=== PATIENT | female | born 1945 | race Caucasian/White ===

== ENCOUNTER 2018-03-31 06:09 | Day surgery (SDC) | payer OTHER ==
[~2018-03-31] VITALS: Ht 167.6 cm; Wt 91.3 kg
[~2018-03-31 06:09] MED LIST: CYCL-36 PO; FURO20 PO; LISI-363 PO; VIST50CA PO; [UNRECOGNIZED DRUG - CODE] PO
[2018-03-31] MEDS ORDERED: IOHEXOL 350 MG/ML 50 ML BTL (for Cath Lab) OTHER ONE (06:10)
[2018-03-31] MEDS ORDERED: SODIUM BICARBONATE 100 MEQ in D5W 1000 ML IV SCH (06:45)
[2018-03-31 07:11] VITALS: BP 125/72; PULSE 85; RESP 18; TEMP 98.4; O2SAT 95
--- NOTE | 2018-03-31 07:39 | PD.VS.PN ---
Pre-operative Note Pre-operative diagnosis: L LE claudication Planned procedure: Aortogram w/ L LE angiogram Interval History: Pt has been feeling well, no rest pain or tissue loss. Ready for procedure Labs: pending Blood: none Imaging: CTA reviewed Orders: NPO Post-operative destination: DOCU Operative site marked: Yes Consent: Informed consent has been obtained from Micheline Ovreton. I have explained the procedure in detail and discussed the risks, benefits, and potential complications. All questions have been answered. Patient contact information: Daughter [phone] Les Briggs MD March 31, 2018 07:39
[2018-03-31] MEDS ORDERED: LISI40TA PO (07:48)
[2018-03-31] MEDS ORDERED: CYCL10TA PO (07:48)
[2018-03-31] MEDS ORDERED: ASPI325T33 PO (07:48)
[2018-03-31] MEDS ORDERED: UBID200C3 PO (07:48)
[2018-03-31] MEDS ORDERED: ATOR10TA15 PO (07:48)
[2018-03-31] MEDS ORDERED: AMLO10TA2 PO (07:48)
[2018-03-31] MEDS ORDERED: NAPR500T2 PO (07:48)
[2018-03-31] MEDS ORDERED: PROZ20CA11 PO (07:48)
[2018-03-31] MEDS ORDERED: OMEGCAP PO (07:48)
[2018-03-31] MEDS ORDERED: HYDR12.56 PO (07:48)
[2018-03-31] MEDS ORDERED: METF500T PO (07:48)
[2018-03-31] MEDS ORDERED: VITA100T65 PO (07:48)
[2018-03-31] MEDS ORDERED: NEUR600T PO (07:48)
[2018-03-31] MEDS ORDERED: MULT-65 PO (07:48)
[2018-03-31 08:03] LABS: CREATININE 0.94 MG/DL (0.50-1.00)
[2018-03-31] MEDS ORDERED: HEPARIN-NS/PF INJ 500 ML ONE (08:03)
[2018-03-31] MEDS ORDERED: MIDAZOLAM HCL 2 MG/2 ML VIAL ONE ×2 (08:03→08:36)
[2018-03-31] MEDS ORDERED: HEPARIN SODIUM - IV 10,000 UNITS/10 ML VIAL ONE (08:27)
[2018-03-31] MEDS ORDERED: HEPARIN-NS/PF INJ 1,000 ML ONE (08:27)
--- NOTE | 2018-03-31 08:55 | HHI.PR ---
cc: Les Briggs MD Immediate Post Op Note Procedure Date: March 31, 2018 Pre Op Diagnosis: L LE claudication Post Op Diagnosis: same Surgeon: Les Briggs Retail Sales Assistant(s): none Procedure: Aortogram w/ L LE angiogram Findings: distal SFA occlusion, unable to recanalize Additional Information: R FINE DINING SERVER Angioseal Complications: none Specimen(s) removed: none Estimated blood loss: 10mL Anesthesia: MAC Drains: None Patient to: Other (DOCU) Patient Condition: Good Implant/Devices: SEE IMPLANT LOG (if applicable) Date/Time of Procedure: SEE SURGICAL CARE RECORD Les Briggs MD March 31, 2018 08:55
--- NOTE | 2018-03-31 08:57 | CATHPROC ---
SCADA Access HIS Report Study Information Study Number Admission Scheduled Start Study Start [id number] Mar 31 2018 6:09AM 03/31/2018 Mar 31 2018 7:58AM [place] Service Cath Endovascular Study Admit Source Facility Department Other [facility] - Prep Cook Physician and Clinical Staff Initial Les Martínez Furniture InspectorStan Gomes,ACACIA Furniture InspectorFrieda Roman,ACACIA Recorder Beck Pacheco,(R) Scrub Kd Cheung RCIS(BS) Procedures Performed Procedure Location (Site) Vessel Name Abdominal Angiogram Abd Aorta (A3) Aorta Angiogram (manual) Iliac L. Com. (L4) Illiac Art. Angiogram (manual) SFA (left) Femoral Art Wire insertion Fem Art (right) Femoral Art Equipment Time Log Snaker Description Size Mfg Part Number Used/Scraped CATHETER, FR4 NAVIN [id number] 08:42 ANGIO-DYNAMICS FR 4 Used 65CM *[id number] 08:13 ANGIO-DYNAMICS OMNI FLUSH 65CM CATHETER FR 5 Used *[id number] INTRODUCER SET, 08:12 [employer]OOK [employer]. FR 5 [id number] *[id number] Used MICROPUNCTURE STIFF CXI-4.0-35-135- 08:30 COOK/NUBIA CATHETER, FR4 CXI SUPPORT FR 4 Used P-NS-0 *[id number] SHEATH, FR6 HUMBLE 1 FLEXOR [id number] 08:26 COOK/NUBIA FR 6 Used 55CM *[id number] WIRE, GUIDE APPROACH LACQUER SPRAYER [id number] 08:30 COOK/NUBIA 300CM Used MICROWIRE *[id number] 08:46 DAIG/ST. JITENDRA MEDICAL ANGIOSEAL, FR6 VIP FR 6 Used *[id number] 08:12 [employer] PACK, CCL CUSTOM * Used *[id number] [id number] 08:26 Voicendo MEDICAL WIRE, BRICEÑO 260CM .035 260CM Used *[id number] TUBING, PRESSURE INJECTION [id number] 08:12 NAMIC PACER 72" Used 72" *[id number] 08:12 NYCOMED OMNIPAQUE, 300 MG, 150ML 150ML [id number] Used 08:12 NYCOMED OMNIPAQUE, 300 MG, 50ML 50ML [id number] Used 08:39 NYCOMED OMNIPAQUE, 300 MG, 50ML 50ML [id number] Used 08:39 NYCOMED OMNIPAQUE, 300 MG, 50ML 50ML [id number] Used 08:39 NYCOMED OMNIPAQUE, 300 MG, 50ML 50ML [id number] Used [id number] 08:12 MENDOZA MEDICAL BLANKET,WARM AIR CCL * Used *[id number] 08:14 TERUMO MEDICAL SHEATH, FR5 TERUMO (10CM) FR 5 Used *[id number] CATHETER, FR4 GUIDE ANGLED 08:42 TERUMO MEDICAL/NUBIA FR 4 [id number] *[id number] Used 120CM WIRE, ANGLED GLIDE .035 [id number] 08:12 TERUMO MEDICAL/NUBIA 260CM Used 260CM *[id number] Equipment Model, Serial, Lot Number and Expiration Data Description Model Number Serial Number Lot Number Expiration Date ANGIOSEAL, FR6 VIP [id number] 11-08-2018 CATHETER, FR4 CXI SUPPORT [id number] 02-22-2021 SHEATH, FR6 HUMBLE 1 FLEXOR [id number] 12-08-2020 55CM WIRE, GUIDE APPROACH LACQUER SPRAYER [id number] 04-26-2022 MICROWIRE WIRE, BRICEÑO 260CM .035 [id number] 08-08-2020 History: Current Medications Medication Dosage/Unit Route Frequency Last Date/Time Taken Statins (any) ASA LISINOPRIL Glucophage Prozac History: Allergies Allergy Reaction No Known Allergies milk History: Risk Factors Family History of Hypertension Dyslipidemia Previous DE Previous Heart Failure Premature CAD Yes Yes No No No Prior Valve Prior PCI Prior CABG Surgery No No No Cerebrovascular Peripheral Artery Chronic Lung On Dialysis Diabetes Diabetes Therapy Disease Disease Disease No No Yes No Yes Other History: Risk Factors Selection Items Current Smoker History: Stress Tests Stress or Imaging Studies Performed No History: Other Disease Selection Items HTN History: Other Current Smoker Method Packs a Day Years Used Pack Years Yes Cigarettes 1 25 25 Labs CPK-MB (ng/ML) 0.50-3.60 Not Drawn Medication Medication Total Dose (Bolus/Oral) Medication Total Dosage/Unit 1% XYLOCAINE 20 mL FENTANYL 125 mcg HEPARIN 5000 units VERSED 3 mg Medications (Bolus/Oral) Medication Time Given Dosage/Unit Administered By Reason 1% XYLOCAINE 03/31/2018 8:15:30 AM 20 mL Stan Dubois 20 mL 1% XYLOCAINE given in lab by Stan Dubois, RN via Subcutaneous. VERSED 03/31/2018 8:15:31 AM 1 mg Adamy, Frieda 1 mg VERSED given in lab by Frieda Lawson RN in Right Antecubital via Peripheral IV. FENTANYL 03/31/2018 8:15:47 AM 50 mcg Adamy, Frieda 50 mcg FENTANYL given in lab by Frieda Lawson RN in Right Antecubital via Peripheral IV. VERSED 03/31/2018 8:23:27 AM 1 mg Adamy, Frieda 1 mg VERSED given in lab by Frieda Lawson RN in Right Antecubital via Peripheral IV. FENTANYL 03/31/2018 8:24:45 AM 50 mcg Adamy, Frieda 50 mcg FENTANYL given in lab by Frieda Lawson RN in Right Antecubital via Peripheral IV. HEPARIN 03/31/2018 8:26:45 AM 5000 units Adamy Frieda 5000 units HEPARIN given in lab by Frieda Lawson RN in Right Antecubital via Peripheral IV. VERSED 03/31/2018 8:40:25 AM 1 mg Adamy, Frieda 1 mg VERSED given in lab by Frieda Lawson RN in Right Antecubital via Peripheral IV. FENTANYL 03/31/2018 8:40:33 AM 25 mcg Adamy, Frieda 25 mcg FENTANYL given in lab by Frieda Lawson RN in Right Antecubital via Peripheral IV. Medication (Drip) Medication Time Given Dosage/Unit Concentration/Unit Diluent (ml) Soluti on IV Solutions 03/31/2018 7:57:51 AM 0 mL (IV) 500 NaCl .9 IV Solutions given in lab by Stan Dubois RN in Right Antecubital via Peripheral IV. Pump/Drip Vel w = 20 ml/hr using NaCl .9. Initial Case Assessment Cardiovascular HR Rhythm NIBP Chest Pain 75 Sinus 125/76 0 Edema Present Skin color Skin None Normal Warm Dry Circulatory - Right Pulses Dorsalis Pedis Femoral 1 2 Scale (0,1,2,3,4,d) Circulatory - Left Pulses Dorsalis Pedis Femoral 1 2 Scale (0,1,2,3,4,d) Neurological State Oriented to time-place- Alert Moves all extremities person Respiration - General Respiration Rate SpO2 (%) O2 (lpm) (B/min) 15 98 0 Final Case Assessment Cardiovascular HR Rhythm NIBP Chest Pain 73 Sinus 98/65 0 Edema Present Skin color Skin None Normal Warm Dry Circulatory - Right Pulses Dorsalis Pedis Femoral 1 2 Scale (0,1,2,3,4,d) Circulatory - Left Pulses Dorsalis Pedis Femoral 1 2 Scale (0,1,2,3,4,d) Neurological State Oriented to time-place- Alert Moves all extremities person Respiration - General Respiration Rate SpO2 (%) O2 (lpm) (B/min) 14 96 2 Chronological Log Time Study Chronological Log 7:57:42 Patient arrived via Bed. 7:57:43 Patient Name, D.O.B, / Armband Verified By R.N. 7:57:43 Consent signed by the physician and the patient and verified by the Prep Cook staff. 7:57:44 Pre-op and post- op instructions given; patient acknowledges understanding of instructions. 7:57:45 Verbal Stimulation=2 Physical Stimulation=2 Airway=2 Respiration=2 TOTAL=8. (0=absent, 1=li mited, 2=present) 7:57:45 Presedation assessment performed by Prep Cook RN. 7:57:46 Immediate Presedation assesment performed by physician. 7:57:47 Patient has been NPO for More than 6Hrs. 7:57:47 Skin Breakdown- none per patient. 7:57:48 Patient Warmer Placed on the Table. 7:57:50 Wyatt Prominences Protected 7:57:50 A # 20 IV was noted in the Antecubital (right). Grade = 0 IV Solutions given in lab by Stan Dubois, RN in Right Antecubital via Peripheral IV. Pump/Dr ip Flow = 20 ml/hr using 7:57:51 NaCl .9. 7:57:52 History and physical on the chart or being dictated. 8:00:46 MD arrived. Assessment: Initial Case, HR=75 BPM, Rhythm=Sinus, DZQN=078/76 mmhg, Chest Pain=0, Edema=None, Color=Normal, Skin = Warm, Dry Right Pulses: Db Ped=1, Femoral=2 8:03:58 Left Pulses: Db Ped=1, Femoral=2 Neurological: State=Alert, Ox3, [place] Respiration: Resp=15 B/min, SpO2=98 %, O2=0 lpm 8:07:53 Bilateral groins prepped with 2% chlorhexidine, and draped after a 3 minute waiting time. Vitals capture started with the following parameters, Patient=Adult, Interval=5 min, Initial Pre jtetg=476 mmHg, 8:08:05 Deflation Rate=5 mmHg, Cuff placed on Right Ankle 8:08:43 HR=76 bpm, EIMO=359/76 mmhg, SpO2=97.0 %, Resp=14 B/min, Pain=0, Kennedi=10, Mon=2 8:08:43 Reference ECG taken 8:13:44 HR=75 bpm, JEMX=429/67 mmhg, SpO2=96.0 %, Resp=17 B/min, Pain=0, Kennedi=10, Mon=2 Time Out. Correct patient, correct procedure, correct physician, labs, allergies, and equipment verified with geophysical laboratory supervisor 8:15:27 team present. Fire risk assesment completed (see hard stop sheet for coding). Time Out Concu rred by MD and individual staff in procedure. 8:15:28 Case Start 8:15:30 20 mL 1% XYLOCAINE given in lab by Stan Dubois, ACACIA via Subcutaneous. 8:15:31 1 mg VERSED given in lab by Frieda Lawson, RN in Right Antecubital via Peripheral IV. 8:15:47 50 mcg FENTANYL given in lab by Frieda Lawson, RN in Right Antecubital via Peripheral IV. 8:18:41 HR=73 bpm, NIBP=97/65 mmhg, SpO2=95.0 %, Resp=10 B/min, Pain=0, Kennedi=10, Mon=2 8:21:08 Access site was Right Femoral Artery. A INTRODUCER SET, MICROPUNCTURE STIFF FR 5 was advanced into the Fem Art (right) using the Hans linton 8:21:19 technique. A OMNI FLUSH 65CM CATHETER FR 5 was advanced over a wire. OMNIPAQUE, 300 MG, 50ML 50ML was used for 8:21:26 injections. 8:21:39 Through a OMNI FLUSH 65CM CATHETER FR 5, The Abdominal Aorta was injected with 10 cc's of co ntrast. 8:21:53 A WIRE, ANGLED GLIDE .035 260CM 260CM was inserted via Fem Art (right). 8:23:08 Wire removed 8:23:27 1 mg VERSED given in lab by Frieda Lawson, ACACIA in Right Antecubital via Peripheral IV. 8:23:38 HR=73 bpm, UIYY=993/61 mmhg, SpO2=93.0 %, Resp=18 B/min, Pain=0, Kennedi=10, Mon=2 8:24:28 Through a OMNI FLUSH 65CM CATHETER FR 5, The Fem L. Com (L7) was injected with 8 cc's of con trast. 8:24:45 50 mcg FENTANYL given in lab by Frieda Lawson, RN in Right Antecubital via Peripheral IV. 8:25:03 Through a OMNI FLUSH 65CM CATHETER FR 5, The SFA (left) was injected with 8 cc's of contrast . 8:25:12 Through a OMNI FLUSH 65CM CATHETER FR 5, The Popliteal L (L10) was injected with 8 cc's of c ontrast. 8:26:11 A WIRE, BRICEÑO 260CM .035 260CM was inserted via Fem Art (right). 8:26:21 Catheter was removed 8::45 5000 units HEPARIN given in lab by Frieda Lawson, ACACIA in Right Antecubital via Peripheral I V. 8:28:41 HR=72 bpm, NIBP=88/52 mmhg, SpO2=92.0 %, Resp=10 B/min, Pain=0, Kennedi=10, Mon=2 8:28:44 Iliac L. Com. (L4) angiogram, manually injected. A CATHETER, FR4 CXI SUPPORT FR 4 was advanced over a wire. OMNIPAQUE, 300 MG, 150ML 150ML was us ed for 8:31:15 injections. 8:31:47 The previous wire was exchanged for a WIRE, GUIDE APPROACH LACQUER SPRAYER MICROWIRE 300CM. 8:32:51 SFA (left) angiogram, manually injected. 8:33:05 The previous wire was exchanged for a WIRE, ANGLED GLIDE .035 260CM 260CM. 8:33:38 HR=74 bpm, NIBP=93/54 mmhg, SpO2=95.0 %, Resp=19 B/min, Pain=0, Kennedi=10, Mon=2 8:35:20 The previous wire was exchanged for a WIRE, GUIDE APPROACH LACQUER SPRAYER MICROWIRE 300CM. 8:36:12 SFA (left) angiogram, manually injected. 8:36:41 SFA (left) angiogram, manually injected. 8:37:15 A WIRE, ANGLED GLIDE .035 260CM 260CM was inserted via Fem Art (right). 8:38:34 SFA (left) angiogram, manually injected. 8:38:37 HR=72 bpm, NIBP=97/60 mmhg, SpO2=97.0 %, Resp=12 B/min, Pain=0, Kennedi=10, Mon=2 8:40:25 1 mg VERSED given in lab by Frieda Lawson, ACACIA in Right Antecubital via Peripheral IV. 8:40:33 25 mcg FENTANYL given in lab by Frieda Lawson, ACACIA in Right Antecubital via Peripheral IV. 8:43:39 HR=74 bpm, NIBP=92/61 mmhg, SpO2=91.0 %, Resp=33 B/min, Pain=0, Kennedi=10, Mon=2 8:43:45 Wire removed 8:43:59 SFA (left) angiogram, manually injected. After removing the current catheter a CATHETER, FR4 GUIDE ANGLED 120CM FR 4 was advanced over a WIRE, 8:44:21 ANGLED GLIDE .035 260CM 260CM. 8:46:05 SFA (left) angiogram, manually injected. 8:46:07 A WIRE, ANGLED GLIDE .035 260CM 260CM was inserted via Fem Art (right). 8:46:21 Catheter was removed 8:46:37 Wire removed 8:47:08 A WIRE, BRICEÑO 260CM .035 260CM was inserted via Fem Art (right). 8:47:29 ANGIOSEAL, FR6 VIP FR 6 placement in the Fem Art (right) 8:48:38 HR=71 bpm, NIBP=98/65 mmhg, SpO2=94.0 %, Resp=17 B/min, Pain=0, Kennedi=10, Mon=2 8:49:07 Case End Assessment: Final Case, HR=73 BPM, Rhythm=Sinus, NIBP=98/65 mmhg, Chest Pain=0, Edema=None, Col or=Normal, Skin = Warm, Dry Right Pulses: Db Ped=1, Femoral=2 8:49:45 Left Pulses: Db Ped=1, Femoral=2 Neurological: State=Alert, Ox3, [place] Respiration: Resp=14 B/min, SpO2=96 %, O2=2 lpm 8:50:34 Sterile dressing applied to site 8:50:35 No case complications noted. 8:50:35 Cine recording checked. 8:51:34 Bedside Report will be given. 8:53:41 HR=74 bpm, LMME=438/60 mmhg, SpO2=96.0 %, Resp=16 B/min, Pain=0, Kennedi=10, Mon=2 8:56:51 Vitals capture stopped. 8:56:52 Patient moved to stretcher End Study - Contrast Media Used In Study Contrast Total Opened (mL) Total Used (mL) Total Wasted (mL) Omnipaque 200 40 160 End Study - Radiation Exposure Fluoro Time (minutes) 12.7 End Study - Patient Disposition Complications Transferred To Interventional Outcome No Outpatient Bed unsuccessful
--- NOTE | 2018-04-01 05:03 | MP ---
cc: Les Briggs MD DATE OF OPERATION: 03/31/2018 PREOPERATIVE DIAGNOSIS: 1. Left lower extremity claudication. 2. Peripheral vascular disease. POSTOPERATIVE DIAGNOSIS: 1. Left lower extremity claudication. 2. Peripheral vascular disease. PROCEDURE PERFORMED: Aortogram with left lower extremity angiogram. ATTENDING SURGEON: Les Briggs MD ANESTHESIA: Local with sedation. INDICATIONS FOR PROCEDURE: Ms. Overton is a 72-year-old lady with left lower extremity claudication. She was taken to the operating room for angiographic evaluation and treatment. There is no prior catheter-based imaging available for my review. DESCRIPTION OF PROCEDURE: Informed consent was obtained from the patient. She was taken to the operating room and placed supine on the operating table. Appropriate timeout was taken to ensure the patient's identity, operative site and planned procedure. The administration of antibiotics was not necessary, as this is a clean procedure without planned implantation of any foreign object. Everyone in the room agreed with timeout and we proceeded. Her bilateral groins were prepped and draped. The right groin was anesthetized with 1 percent lidocaine. A 21-gauge micropuncture needle was used to access the right common femoral artery. This was exchanged using Seldinger technique for micropuncture sheath, through which a 0.035 Glidewire was introduced. The micropuncture sheath was exchanged for a 5-South [place] sheath. A VCF catheter was placed over the wire and through the sheath, and aortogram and pelvic arteriogram was obtained. The Glidewire and the VCF catheter were advanced to the left common femoral artery and a left lower extremity arteriogram was obtained. The patient was systemically heparinized with 5000 units of IV heparin. A 0.035 Salvador wire was introduced and the VCF and 5-South African sheath were removed and a 6-South African 55 cm ____ sheath was introduced. A CXI catheter was placed over the Salvador wire and the Salvador was exchanged for HOME ECONOMICS EXTENSION WORKER wire. The HOME ECONOMICS EXTENSION WORKER wire was used to navigate down to the mid SFA, but we could not traverse the occlusion. We then tried subintimal route with a Glidewire, but this was also unsuccessful in reentering the true lumen. The wire, catheter and sheath were removed. The groin was closed with an Angio-Seal. There were no complications. I was present and scrubbed for the entire procedure. INTERPRETATION OF IMAGES: The patient has a patent terminal aorta, common iliac arteries, hypogastric arteries and external iliac arteries bilaterally. There is some calcific plaque in the left common iliac artery. The left common femoral artery and profunda are patent. The SFA is severely diseased but patent proximally and then occludes in the mid section. The above-knee popliteal artery reconstitutes and the patient has reasonable runoff to the mid calf. MD LUANNE Schmidt/LEANN , 04:41 AM , 05:02 AM ARIELLA
== END 2018-03-31 12:15 | disposition home or self-care (01) ==
LOC: HCAT 06:09 → HDIC 06:09 → HCAT 12:15
PROVIDERS: ATTEND Surgery
DX: I73.9 Peripheral vascular disease, unspecified (principal); E11.9 Type 2 diabetes mellitus without complications; I10 Essential (primary) hypertension; E78.5 Hyperlipidemia, unspecified; M79.7 Fibromyalgia; M47.894 Other spondylosis, thoracic region; F32.9 Major depressive disorder, single episode, unspecified; Z79.84 Long term (current) use of oral hypoglycemic drugs
CPT/HCPCS: 36247; 75625; 75710; 82565; 99152; 99153; C1751; C1760; C1769; C1887; C1893; G0269; J1644; J2250; J3010; Q9967

== ENCOUNTER 2018-04-20 06:06 | Inpatient (IN) | payer OTHER, MEDICARE ==
[~2018-04-20] VITALS: Ht 167.6 cm; Wt 96.0 kg
[~2018-04-20 06:06] MED LIST changes: +AMLO10TA2 PO; +ASPI325T33 PO; +ATOR10TA15 PO; +COQ1200C3 PO; -CYCL-36 PO; +CYCL10TA PO; -FURO20 PO; +GABA600T PO; -LISI-363 PO; +LISI20TA PO; +METF500T PO; +MULT-65 PO; +NAPR250T4 PO; +OMEGCAP PO; +PROZ20CA11 PO; -VIST50CA PO; +VITA-142 PO; -[UNRECOGNIZED DRUG - CODE] PO
[2018-04-20] MEDS ORDERED: LACTATED RINGER'S 1000 ML IV PRN (06:30)
[2018-04-20] MEDS ORDERED: METOPROLOL TARTRATE 25 MG TAB PO PRN (06:30)
[2018-04-20] MEDS ORDERED: POVIDONE IODINE 5% (ANTISEPSIS KIT) 4 APPLICATIONS EACH NARE PRN (06:30)
[2018-04-20] MEDS ORDERED: CHLORHEXIDINE GLUCONATE 2 % 1 PACK (2 CLOTHS) TOPICAL PRN (06:30)
[2018-04-20] MEDS ORDERED: SODIUM CHLORID 0.9% 500 ML IV PRN (06:30)
[2018-04-20] MEDS ORDERED: HEPARIN SODIUM - IV 10,000 UNITS/10 ML VIAL ONE ×2 (07:03→09:05)
[2018-04-20] MEDS ORDERED: PROTAMINE SULFATE 50 MG/5 ML VIAL ONE (07:03)
[2018-04-20] MEDS ORDERED: ceFAZolin 2 GM PREMIX 50 ML ONE (07:03)
[2018-04-20] MEDS ORDERED: HEPARIN-NS/PF INJ 500 ML ONE (07:03)
[2018-04-20] MEDS ORDERED: THROMBIN (TOPICAL) 20,000 UNIT SPRAY KIT ONE ×2 (07:03→09:42)
[2018-04-20 07:30] LABS: AUTOMATED NEUTROPHIL # 6.4 TH/MM3 (1.8-7.7); BASOPHIL # 0.1 TH/MM3 (0-0.2); EOSINOPHIL # 0.3 TH/MM3 (0-0.4); EOSINOPHIL % 2.9 % (0.0-4.0); HEMATOCRIT 43.7 % (35.0-46.0); HEMOGLOBIN 14.8 GM/DL (11.6-15.3); LYMPH % 30.3 % (9.0-44.0); LYMPHOCYTE # 3.2 TH/MM3 (1.0-4.8); MEAN CELL VOLUME 91.8 FL (80.0-100.0); MEAN CORPUSCULAR HEMOGLOBIN 31.2 PG (27.0-34.0); MEAN CORPUSCULAR HGB CONC 33.9 % (32.0-36.0); MEAN PLATELET VOLUME 6.7 FL (7.0-11.0); MONO % 5.1 % (0.0-8.0); MONOCYTE # 0.5 TH/MM3 (0-0.9); NEUT % 60.7 % (16.0-70.0); PLATELET COUNT 348 TH/MM3 (150-450); RED BLOOD COUNT 4.76 MIL/MM3 (4.00-5.30); WHITE BLOOD COUNT 10.6 TH/MM3 (4.0-11.0)
--- NOTE | 2018-04-20 07:32 | HHI.HP ---
History of Present Illness Chief Complaint: LEFT leg pain History of Present Illness 72 yo female with L LE pain and PAD. Pain most c/w claudication. Failed endovascular attempts. Presents for distal bypass Past/Family/Social History Past Medical History PAD HTN OA depression DM fibromyalgia XOL HTN spondolysis Past Surgical History back surgery L LE angiogram Social History former tobacco Family History NC Home Medications Reported Medications Lisinopril/Hydrochlorothiazide (Lisinopril-Hctz 20-12.5 mg Tab) 20 Mg-12.5 Mg Tablet, 2 TAB PO DAILY for Blood Pressure Management 04/16/18 Vitamin E Acetate (Vitamin E) 400 Unit Capsule, 1 CAP PO DAILY 04/16/18 Naproxen (Naproxen) 250 Mg Tab, 500 MG PO BID, #60 TAB 0 Refills 04/16/18 Gabapentin (Gabapentin) 600 Mg Tab, 1200 MG PO TID, #90 TAB 0 Refills 04/16/18 Coenzyme Q10 (Ubidecarenone) (Co Q-10) 200 Mg Cap, 1 CAP PO DAILY for Nutritional Supplement 04/16/18 Fish Oil-Cholecalciferol ([place]-3 Fish Oil/Vitamin) 1,000-1,000 Mg Cap, 1 CAP PO DAILY for Nutritional Supplement, CAP 0 Refills 03/31/18 Multiple Vitamin (Multi-Vitamin Daily) 1 Tab Tab, 1 TAB PO DAILY for Nutritional Supplement, TAB 0 Refills 03/31/18 Metformin (Metformin) 500 Mg Tab, 500 MG PO BIDPC for Blood Sugar Management, # 60 TAB 0 Refills 03/31/18 Fluoxetine (Prozac) 20 Mg Cap, 60 MG PO DAILY, #30 CAP 0 Refills 03/31/18 Cyclobenzaprine (Flexeril) 10 Mg Tab, 10 MG PO TID for Muscle Spasm, #90 TAB 0 Refills 03/31/18 Atorvastatin (Atorvastatin) 10 Mg Tab, 10 MG PO HS for Cholesterol Management, # 30 TAB 0 Refills 03/31/18 Amlodipine (Amlodipine) 10 Mg Tab, 10 MG PO DAILY for Blood Pressure Management , #30 TAB 0 Refills 03/31/[address] (Aspirin EC) 325 Mg Tabdr, 650 MG PO BID, TAB 0 Refills 03/31/18 Discontinued Reported Medications Vitamin E (Vitamin E) 100 Unit Tab, 100 UNITS PO DAILY for Nutritional Supplement, TAB 0 Refills 03/31/18 Naproxen (Naproxen) 500 Mg Tab, 400 MG PO BID, #60 TAB 0 Refills 03/31/18 Hydrochlorothiazide (Hydrochlorothiazide) 12.5 Mg Tab, 12.5 MG PO DAILY, #30 TAB 0 Refills 03/31/18 Lisinopril (Lisinopril) 40 Mg Tab, 40 MG PO DAILY for Blood Pressure Management , #30 TAB 0 Refills 03/31/18 Ubidecarenone (Coenzyme Q-10) 200 Mg Capsule, 1600 MG PO DAILY 03/31/18 Coded Allergies: No Known Allergies (Verified Allergy, Unknown, 04/20/18) Review of Systems Constitutional: DENIES: Diaphoretic episodes, Fatigue, Fever, Weight gain, Weight loss, Chills, Dizziness, Change in appetite, Night Sweats Cardiovascular: DENIES: Chest pain, Palpitations, Syncope, Dyspnea on Exertion , PND, Lower Extremity Edema, Orthopnea, Claudication Physical Exam Vitals/I&O Date Time Temp Pulse Resp B/P (MAP) Pulse Ox O2 Delivery O2 Flow Rate FiO2 04/20/18 06:50 98.0 78 20 123/64 (83) 94 Neuro: alert, oriented, jovial HEENT: NC/AT; anicteric sclera Neck: no JVD Heart: reg rate, no M Lungs: clear B Vascular: no palpable L pedal pulses Extremities: no wounds Laboratory Tests Test 04/20/18 07:00 CTA and angio reviewed Caprini VTE Risk Assessment Caprini VTE Risk Assessment: No/Low Risk (score <= 1) Caprini Risk Assessment Model Point Value = 1 Point Value = 2 Point Value = 3 Point Value = 5 Age 41-60 Minor surgery BMI > 25 kg/m2 Swollen legs Varicose veins or History of unexplained or recurrent spontaneous Oral contraceptives or hormone replacement Sepsis (< 1 month) Serious lung disease, including pneumonia (< 1 month) Abnormal pulmonary function Acute myocardial infarction Congestive heart failure (< 1 month) History of inflammatory bowel disease Medical patient at bed rest Age 61-74 Arthroscopic surgery Major open surgery (> 45 min) Laparoscopic surgery (> 45 min) Malignancy Confined to bed (> 72 hours) Immobilizing plaster cast Central venous access Age >= 75 History of VTE Family history of VTE Factor V Leiden Prothrombin [id number] Lupus anticoagulant Anticardiolipin antibodies Elevated serum homocysteine Heparin-induced thrombocytopenia Other congenital or acquired thrombophilia Stroke (< 1 month) Elective arthroplasty Hip, pelvis, or leg fracture Acute spinal cord injury (< 1 month) Prophylaxis Regimen Total Risk Factor Score Risk Level Prophylaxis Regimen 0-1 Low Early ambulation 2 Moderate Order ONE of the following: *Sequential Compression Device (SCD) *Heparin 5000 units SQ BID 3-4 Higher Order ONE of the following medications: *Heparin 5000 units SQ TID *Enoxaparin/Lovenox 40 mg SQ daily (WT < 150 kg, CrCl > 30 mL/min) *Enoxaparin/Lovenox 30 mg SQ daily (WT < 150 kg, CrCl > 10-29 mL/min) *Enoxaparin/Lovenox 30 mg SQ BID (WT < 150 kg, CrCl > 30 mL/min) AND/OR *Sequential Compression Device (SCD) 5 or more Highest Order ONE of the following medications: *Heparin 5000 units SQ TID (Preferred with Epidurals) *Enoxaparin/Lovenox 40 mg SQ daily (WT < 150 kg, CrCl > 30 mL/min) *Enoxaparin/Lovenox 30 mg SQ daily (WT < 150 kg, CrCl > 10-29 mL/min) *Enoxaparin/Lovenox 30 mg SQ BID (WT < 150 kg, CrCl > 30 mL/min) AND *Sequential Compression Device (SCD) Assessment and Plan Plan L LE bypass (fem-BK pop) To OR Discharge Planning 2-3 days tete Kelsie Jackman [phone] Les Briggs MD Apr 20, 2018 07:32
[2018-04-20] MEDS ORDERED: MIDAZOLAM HCL 2 MG/2 ML VIAL ONE (07:35)
[2018-04-20] MEDS ORDERED: ACETAMINOPHEN 1000 MG/100 ML 100 ML IV ONE (07:35)
[2018-04-20 07:40] LABS: PROTHROMBIN TIME - PATIENT 10.2 SEC (9.8-11.6)
[2018-04-20 07:49] LABS: BICARBONATE 23.7 MEQ/L (21.0-32.0); CALCIUM 9.1 MG/DL (8.5-10.1); CREATININE 0.96 MG/DL (0.50-1.00)
[2018-04-20] MEDS ORDERED: BUPIVACAINE HCL PF 0.5% 30 ML VIAL INFIL ONE (08:52)
[2018-04-20] MEDS ORDERED: SUGAMMADEX SODIUM 200 MG/2 ML VIAL IV PUSH ONE (09:52)
--- NOTE | 2018-04-20 10:09 | HHI.PR ---
cc: Les Briggs MD Immediate Post Op Note Procedure Date: Apr 20, 2018 Pre Op Diagnosis: L LE claudication, PAD Post Op Diagnosis: L LE claudication, PAD Surgeon: Les Briggs Rendering Equipment Tender(s): Les Miramontes Procedure: L fem-BK pop bypass with 6mm PTFE Findings: palpable DP at end of case Complications: none Specimen(s) removed: none Estimated blood loss: 200mL Anesthesia: General Drains: None Fluids: 2100mL IVF Urinary Output (mLs): 200 Patient to: PACU Patient Condition: Good Implant/Devices: SEE IMPLANT LOG (if applicable) Date/Time of Procedure: SEE SURGICAL CARE RECORD Les Briggs MD Apr 20, 2018 10:09
[2018-04-20] MEDS ORDERED: BISACODYL 10 MG SUPP RECTAL PRN ×2 (10:15→12:15)
[2018-04-20] MEDS ORDERED: LACTULOSE SYRUP 20 GM/30 ML CUP PO PRN ×2 (10:15→12:15)
[2018-04-20] MEDS ORDERED: MAGNESIUM HYDROXIDE SUSP 30 ML CUP PO PRN ×2 (10:15→12:15)
[2018-04-20] MEDS ORDERED: SENNOSIDES 8.6 MG TAB PO PRN ×2 (10:15→12:15)
[2018-04-20] MEDS ORDERED: DO NOT ADM ANY ANTICOAGULANT DRUGS PRN (10:35)
[2018-04-20] MEDS ORDERED: ePHEDrine/NS 25 MG/5 ML SYRINGE ONE (11:03)
[2018-04-20] MEDS ORDERED: PHENYLEPHRINE HCL 10 MG/ML VIAL ONE (11:12)
[2018-04-20] MEDS ORDERED: *morphine SULFATE 8 MG/ML PERIprocedure ONLY ONE ×2 (11:21→11:34)
[2018-04-20] MEDS ORDERED: HYDROmorphone HCL PF 2 MG/ML VIAL ONE (11:49)
[2018-04-20 11:50] LABS: AUTOMATED NEUTROPHIL # 7.7 TH/MM3 (1.8-7.7); BASOPHIL # 0.1 TH/MM3 (0-0.2); BASOPHIL % 0.6 % (0.0-2.0); EOSINOPHIL # 0.1 TH/MM3 (0-0.4); EOSINOPHIL % 1.3 % (0.0-4.0); HEMATOCRIT 37.2 % (35.0-46.0); HEMOGLOBIN 12.4 GM/DL (11.6-15.3); LYMPH % 17.1 % (9.0-44.0); LYMPHOCYTE # 1.7 TH/MM3 (1.0-4.8); MEAN CORPUSCULAR HEMOGLOBIN 30.8 PG (27.0-34.0); MEAN CORPUSCULAR HGB CONC 33.5 % (32.0-36.0); MEAN PLATELET VOLUME 6.6 FL (7.0-11.0); MONO % 3.2 % (0.0-8.0); MONOCYTE # 0.3 TH/MM3 (0-0.9); NEUT % 77.8 % (16.0-70.0); PLATELET COUNT 285 TH/MM3 (150-450); RED BLOOD COUNT 4.04 MIL/MM3 (4.00-5.30); RED CELL DISTRIBUTION WIDTH 13.9 % (11.6-17.2); WHITE BLOOD COUNT 9.9 TH/MM3 (4.0-11.0)
[2018-04-20] MEDS ORDERED: SODIUM CHLOR 0.9% 250 ML INJ 250 ML IV ONE (12:00)
[2018-04-20] MEDS ORDERED: SODIUM CHLORID 0.9% 500 ML INJ 500 ML IV ONE (12:00)
[2018-04-20] MEDS ORDERED: GLYCOPYRROLATE 1 MG/5 ML SYRINGE IV PUSH ONE (12:00)
[2018-04-20] MEDS ORDERED: ePHEDrine/NS 25 MG/5 ML SYRINGE IV ONE (12:00)
[2018-04-20] MEDS ORDERED: PHENYLEPH/NS 1000 MCG/10 ML SYR IV ONE (12:00)
[2018-04-20] MEDS ORDERED: NORMOSOL R INJ 2,000 ML IV ONE (12:00)
[2018-04-20] MEDS ORDERED: LIDOCAINE HCL 1% PF 5 ML SYRINGE OTHER ONE (12:00)
[2018-04-20] MEDS ORDERED: PHENYLEPHRINE HCL 10 MG/ML VIAL IV ONE (12:00)
[2018-04-20] MEDS ORDERED: ROCURONIUM INJ 50 MG/5 ML SYRINGE IV PUSH ONE (12:00)
[2018-04-20] MEDS ORDERED: PROPOFOL 200 MG/20 ML AMP IV ONE (12:00)
[2018-04-20] MEDS ORDERED: ONDANSETRON HCL 4 MG/2 ML VIAL IV ONE (12:00)
[2018-04-20] MEDS ORDERED: NEOSTIGMINE 5 MG/5 ML SYRINGE IV PUSH ONE (12:00)
[2018-04-20] MEDS ORDERED: DEXAMETHASONE SOD PHOS 4 MG/ML VIAL IV ONE (12:00)
[2018-04-20] MEDS ORDERED: NURSING INFORMATION XX SCH (12:15)
[2018-04-20] MEDS ORDERED: POTASSIUM PHOSPHATE INJ 30 MMOL in SODIUM CHLOR 0.9% 250 ML INJ 250 ML IV PRN (12:15)
[2018-04-20] MEDS ORDERED: MAGNESIUM SULFATE INJ 2 GM in SODIUM CHLORIDE 0.9% INJ 96 ML IV PRN (12:15)
[2018-04-20] MEDS ORDERED: SODIUM PHOSPHATE INJ 30 MMOL in SODIUM CHLOR 0.9% 250 ML INJ 240 ML IV PRN (12:15)
[2018-04-20] MEDS ORDERED: POTASSIUM PHOSPHATE MONOBASIC 500 MG TAB PO/TUBE PRN (12:15)
[2018-04-20] MEDS ORDERED: POTASSIUM CHLOR 20 MEQ PREMIX 100 ML IV PRN ×2 (12:15)
[2018-04-20] MEDS ORDERED: POTASSIUM CHLORIDE 25 MEQ EFFERVESCENT TAB PO PRN (12:15)
[2018-04-20] MEDS ORDERED: SODIUM CHLORIDE 0.9% FLUSH 10 ML FLUSH IV FLUSH PRN (12:15)
[2018-04-20] MEDS ORDERED: POTASSIUM PHOSPHATE MONOBASIC 500 MG TAB PO PRN (12:15)
[2018-04-20] MEDS ORDERED: CHLORHEXIDINE GLUCONATE 2 % 1 PACK (2 CLOTHS) TOP PRN (12:15)
[2018-04-20] MEDS ORDERED: MAGNESIUM OXIDE 400 MG TAB PO PRN (12:15)
[2018-04-20] MEDS ORDERED: POTASSIUM CHLOR 40 MEQ PREMIX 100 ML IV PRN ×2 (12:15)
[2018-04-20] MEDS ORDERED: MAGNESIUM SULFATE INJ 4 GM in SODIUM CHLORIDE 0.9% INJ 92 ML IV PRN (12:15)
[2018-04-20] MEDS ORDERED: RESP: ALBUTEROL 2.5 MG/IPRATROPIUM 0.5 MG NEB (PRN) INH (12:15)
[2018-04-20] MEDS ORDERED: DEXTROSE 50% IN WATER 50 ML VIAL(D50) IV PUSH PRN (12:30)
[2018-04-20] MEDS ORDERED: TERBUTALINE INJ 1 MG/ML AMP SQ PRN ×2 (12:30→20:45)
[2018-04-20] MEDS ORDERED: PHENYLEPHRINE 40 MG in D5W 500 ML IV PRN ×2 (12:30→20:45)
[2018-04-20] MEDS ORDERED: GLUCAGON 1 MG/ML VIAL OTHER PRN (12:30)
--- NOTE | 2018-04-20 12:47 | MP ---
cc: Les Briggs MD DATE OF OPERATION: 04/20/2018 PREOPERATIVE DIAGNOSIS: Left lower extremity claudication, peripheral vascular disease. POSTOPERATIVE DIAGNOSIS: Left lower extremity claudication, peripheral vascular disease. PROCEDURE PERFORMED: Left femoral to below knee popliteal artery bypass with 6 mm PTFE. ATTENDING SURGEON: Les Briggs MD ANESTHESIA: General. INDICATIONS FOR PROCEDURE: Ms. Overton is a 73-year-old lady with left lower extremity peripheral vascular disease manifested in short distance, claudication. She had an angiogram that showed her lesions were not amenable to endovascular therapy and she was taken to the operating room for a distal bypass. DESCRIPTION OF PROCEDURE: Informed consent was obtained from the patient. She was taken to the operating room and placed supine on the operating table. An appropriate timeout was taken to ensure the patient's identity, operative site, and planned procedure. Everyone in the room agreed with the timeout and we proceeded. She was prepped from her nipples to her toes and an incision made in the patient's left groin and carried down through the subcutaneous tissue with electrocautery. We dissected down to the common femoral artery. The wound was noted to be quite deep. I dissected the common femoral artery, profunda and superficial femoral artery. A separate incision made in the patient's proximal medial calf. This was carried down through the subcutaneous tissue with electrocautery. The popliteal vein was identified and retracted posteriorly and the below-knee popliteal artery was identified and dissected free. It was noted to be quite soft. A tunnel was then created between these two and a 6 mm PTFE was passed through the tunnel. The patient was systemically heparinized and throughout the remainder of the case, the ACT was kept greater than 250. Proximal and distal control of the common femoral artery was obtained with profunda clamps and a longitudinal arteriotomy was made with an 11 blade. The artery was endarterectomized and the vascular graft was spatulated and sewn end-to-side with running 5-0 Prolene suture. At the completion, it was flushed and noted to be hemostatic. The clamps were released. The Valarie Softjaw was placed on the graft and the graft was then tunneled through the tunnel that was created, taking caution not to twist it. proximal and distal control of the below-knee popliteal artery was obtained with Profunda clamps and a longitudinal arteriotomy was made with an 11 blade, extended with German scissors. The graft was cut to an appropriate length, spatulated and sewn end-to-side to the below-knee popliteal artery with running 5-0 Prolene suture. At the completion, it was flushed and noted to be hemostatic. There was a palpable pulse in the foot. The wounds were irrigated and made hemostatic. The heparin was reversed with protamine. The wounds were closed with 2-0 Polysorb, 3-0 Polysorb and 4-0 Monocryl. The sponge and needle counts were correct at the end of the case. I was present and scrubbed for the entire procedure. MD LUANNE Schmidt/NISHANT , 12:11 PM , 12:46 PM
--- NOTE | 2018-04-20 14:08 | EKG ---
Date Performed: 04/20/2018 Time Performed: 07:01:15 PTAGE: 73 years EKG: Sinus rhythm NORMAL ECG No significant change from prior electrocardiogram. PREVIOUS TRACING : 03/16/2011 01.09 DOCTOR: Hernan Lane Interpretating Date/Time 04/20/2018 14:07:34
--- NOTE | 2018-04-20 14:46 | PD.VS.PN ---
Subjective POD #: 0 Procedure(s): L fem-BK pop bypass with 6mm PTFE Subjective/Hospital Course Pt alert in NAD Pt w/ hypotension episode in PACU B/P 109/57- on Jatin drip CBC ordered- and reviewed Pain controlled B LE warm w/ motor intact Palpable L DP Objective Vitals/I&O Date Time Temp Pulse Resp B/P (MAP) Pulse Ox O2 Delivery O2 Flow Rate FiO2 04/20/18 12:30 69 19 104/44 (64) 94 Nasal Cannula 2 04/20/18 12:15 72 23 120/59 (79) 94 Nasal Cannula 2 04/20/18 12:00 69 23 116/62 (80) 95 Nasal Cannula 2 04/20/18 11:45 69 23 114/60 (78) 95 Nasal Cannula 2 04/20/18 11:30 66 23 105/55 (72) 95 Nasal Cannula 2 04/20/18 11:15 65 20 55/39 (44) 95 Nasal Cannula 2 04/20/18 11:15 64 88/35 04/20/18 11:00 64 20 88/37 (54) 95 Nasal Cannula 2 04/20/18 10:45 69 22 56/48 (51) 94 Nasal Cannula 2 04/20/18 10:38 97.7 72 23 87/54 (65) 95 Nasal Cannula 2 04/20/18 06:50 98.0 78 20 123/64 (83) 94 04/20/18 04/20/18 04/20/18 07:00 15:00 23:00 Intake Total 2100 ml Output Total 400 ml Balance 1700 ml Exam: LE warm w/ motor intact Prevena wound vac in place (L groin) w/o hematoma or swelling Palpable L DP Laboratory Laboratory Tests Test 04/20/18 07:00 04/20/18 11:25 White Blood Count 10.6 9.9 Red Blood Count 4.76 4.04 Hemoglobin 14.8 12.4 Hematocrit 43.7 37.2 Mean Corpuscular Volume 91.8 92.0 Mean Corpuscular Hemoglobin 31.2 30.8 Mean Corpuscular Hemoglobin Concent 33.9 33.5 Red Cell Distribution Width 14.0 13.9 Platelet Count 348 285 Mean Platelet Volume 6.7 6.6 Neutrophils (%) (Auto) 60.7 77.8 Lymphocytes (%) (Auto) 30.3 17.1 Monocytes (%) (Auto) 5.1 3.2 Eosinophils (%) (Auto) 2.9 1.3 Basophils (%) (Auto) 1.0 0.6 Neutrophils # (Auto) 6.4 7.7 Lymphocytes # (Auto) 3.2 1.7 Monocytes # (Auto) 0.5 0.3 Eosinophils # (Auto) 0.3 0.1 Basophils # (Auto) 0.1 0.1 CBC Comment DIFF FINAL DIFF FINAL Differential Comment Prothrombin Time 10.2 Prothromb Time International Ratio 1.0 Blood Urea Nitrogen 19 Creatinine 0.96 Random Glucose 108 Calcium Level 9.1 Sodium Level 138 Potassium Level 3.8 Chloride Level 104 Carbon Dioxide Level 23.7 Anion Gap 10 Estimat Glomerular Filtration Rate 57 Phosphorus Level 4.7 Assessment and Plan Assessment: (1) PVD (peripheral vascular disease) Plan Pt S/P L LE bypass (fem-BK pop) POD 0 Pt w/ hypotension episode currently on Jatin drip Pt alert w/o c/o weakness/CP/SOB Pain controlled Plan Continue neurovascular checks Continue B/P monitoring Pain control Elizabeth Kennedy NP [facility]/[employer] [phone] Discharge Planning 2-3 days daughter Kelsie [phone] Elizabeth Kennedy Apr 20, 2018 14:46
[2018-04-20] MEDS: ACETAMINOPHEN 1000 MG/100 ML 100 ML IV SCH ×2 (14:57→21:18)
[2018-04-20] MEDS: CYCLOBENZAPRINE HCL 10 MG TAB PO SCH ×2 (14:57→17:55)
[2018-04-20] MEDS: GABAPENTIN 400 MG CAP PO SCH ×2 (14:57→17:56)
--- NOTE | 2018-04-20 15:25 | PD.CONS ---
[facility] Service Critical Care Medicine Consult Requested By Vascular Surgery Reason for Consult Critical care, hypotension Primary Care Physician Minesh Quinones MD History of Present Illness Gregarious 73-year-old woman status post left femoral to below-knee popliteal bypass using PTFE. She is alert and awake, quite talkative. Aside from some minor pain in the thighs she is comfortable. The left calf is soft and the dorsalis pedis pulse is palpable on the left side. The toes are pink and well- perfused. She has been instructed by me specifically to not flex the hip or knee on that side greater than 20% from straight. The nurse and her daughter understand these recommendations as well. She is now normotensive following a brief period of hypotension in the PACU. The graft is clearly patent. Past Family Social History Allergies: Coded Allergies: No Known Allergies (Verified Allergy, Unknown, 04/20/18) Physical Exam Vital Signs Vital Signs Date Time Temp Pulse Resp B/P (MAP) Pulse Ox O2 Delivery O2 Flow Rate FiO2 04/20/18 12:30 69 19 104/44 (64) 94 Nasal Cannula 2 04/20/18 12:15 72 23 120/59 (79) 94 Nasal Cannula 2 04/20/18 12:00 69 23 116/62 (80) 95 Nasal Cannula 2 04/20/18 11:45 69 23 114/60 (78) 95 Nasal Cannula 2 04/20/18 11:30 66 23 105/55 (72) 95 Nasal Cannula 2 04/20/18 11:15 65 20 55/39 (44) 95 Nasal Cannula 2 04/20/18 11:15 64 88/35 04/20/18 11:00 64 20 88/37 (54) 95 Nasal Cannula 2 04/20/18 10:45 69 22 56/48 (51) 94 Nasal Cannula 2 04/20/18 10:38 97.7 72 23 87/54 (65) 95 Nasal Cannula 2 04/20/18 06:50 98.0 78 20 123/64 (83) 94 Physical Exam Lungs: Clear no adventitious sounds, comfortable respiratory pattern. Heart: Regular rhythm, no JVD. Abdomen: Benign, soft, no guarding. Bowel sounds active. Extremities: Left leg warm and well-perfused, toes pink. Neuro: Conversant with some residual anesthetic effect. Protects airway well. Laboratory Laboratory Tests Test 04/20/18 07:00 04/20/18 11:25 White Blood Count 10.6 9.9 Red Blood Count 4.76 4.04 Hemoglobin 14.8 12.4 Hematocrit 43.7 37.2 Mean Corpuscular Volume 91.8 92.0 Mean Corpuscular Hemoglobin 31.2 30.8 Mean Corpuscular Hemoglobin Concent 33.9 33.5 Red Cell Distribution Width 14.0 13.9 Platelet Count 348 285 Mean Platelet Volume 6.7 6.6 Neutrophils (%) (Auto) 60.7 77.8 Lymphocytes (%) (Auto) 30.3 17.1 Monocytes (%) (Auto) 5.1 3.2 Eosinophils (%) (Auto) 2.9 1.3 Basophils (%) (Auto) 1.0 0.6 Neutrophils # (Auto) 6.4 7.7 Lymphocytes # (Auto) 3.2 1.7 Monocytes # (Auto) 0.5 0.3 Eosinophils # (Auto) 0.3 0.1 Basophils # (Auto) 0.1 0.1 CBC Comment DIFF FINAL DIFF FINAL Differential Comment Prothrombin Time 10.2 Prothromb Time International Ratio 1.0 Blood Urea Nitrogen 19 Creatinine 0.96 Random Glucose 108 Calcium Level 9.1 Sodium Level 138 Potassium Level 3.8 Chloride Level 104 Carbon Dioxide Level 23.7 Anion Gap 10 Estimat Glomerular Filtration Rate 57 Phosphorus Level 4.7 Result Diagram: 04/20/18 1125 04/20/18 0700 Assessment and Plan Assessment and Plan Assessment: 1. Peripheral arterial disease -> status post left femoral to below-knee arterial bypass using PTFE 04/20/18 2. Hyperlipidemia. Plan: 1. Maintain normotension, taper Jatin-Synephrine. 2. Check left dorsalis pedis pulse hourly. 3. Avoid flexion left hip or knee. Overall impression: She has stable hemodynamic and respiratory function. The left foot is warm and well-perfused. Left calf is soft. Thigh is not swollen. Nice result from revascularization, watch carefully tonight. Lopez Sykes MD Apr 20, 2018 15:25
[2018-04-20 16:00] VITALS: BP 98/43; PULSE 72; RESP 16; TEMP 98; O2SAT 96
[2018-04-20] MEDS: SODIUM CHLOR 0.9% 1000 ML INJ 1,000 ML IV SCH (16:14)
[2018-04-20] MEDS: INSULIN ASPART SUPPLEMENTAL SCALE SQ SCH ×2 (16:20→21:00)
[2018-04-20] MEDS: metFORMIN HCL 500 MG TAB PO SCH (17:56)
[2018-04-20] MEDS: MORPHINE SULFATE 4 MG/ML INJ IV PUSH PRN ×2 (19:25→22:49)
[2018-04-20 20:00] VITALS: BP_SYST 108; BP_SYST 94; BP_DIAS 46; BP_DIAS 52; PULSE 66; RESP 24; TEMP 97.7; O2SAT 96
[2018-04-20] MEDS ORDERED: NOREPINEPHRINE 4 MG/D5W 250 ML IV PRN ×2 (21:00→21:45)
[2018-04-20] MEDS ORDERED: VASOPRESSIN 40 U/D5W 100 ML Titrate IV PRN ×2 (21:00)
[2018-04-20] MEDS ORDERED: NAPROXEN 250 MG TAB PO SCH (21:00)
[2018-04-20] MEDS ORDERED: DOCUSATE SODIUM 50 MG/SENNA 8.6 MG TAB PO SCH (21:00)
[2018-04-20] MEDS: DOCUSATE SODIUM 50 MG/SENNA 8.6 MG TAB PO SCH (21:17)
[2018-04-20] MEDS: SODIUM CHLORIDE 0.9% FLUSH 10 ML FLUSH IV FLUSH SCH (21:17)
[2018-04-20] MEDS: ATORVASTATIN 10 MG TAB PO SCH (21:17)
[2018-04-20] MEDS: FAMOTIDINE 20 MG TAB PO SCH (21:17)
[2018-04-20] MEDS: HYDROmorphone HCL 2 MG TAB PO PRN (21:17)
[2018-04-21] VITALS (8 sets, daily range): BP systolic 94–148; BP diastolic 49–77; PULSE 66–95; RESP 16–20; TEMP 97.8–100.2; O2SAT 93–96
[2018-04-21] MEDS: SODIUM CHLOR 0.9% 1000 ML INJ 1,000 ML IV SCH ×3 (00:21→22:01)
[2018-04-21] MEDS: MORPHINE SULFATE 4 MG/ML INJ IV PUSH PRN ×6 (01:55→14:21)
[2018-04-21] MEDS ORDERED: PHENYLEPHRINE HCL 10 MG/ML VIAL ONE ×3 (02:24→02:26)
[2018-04-21] MEDS ORDERED: PHENYLEPHRINE 40 MG in D5W 500 ML IV PRN (02:45)
[2018-04-21] MEDS: ACETAMINOPHEN 1000 MG/100 ML 100 ML IV SCH ×2 (02:53→09:00)
[2018-04-21] MEDS: CHLORHEXIDINE GLUCONATE 2 % 1 PACK (2 CLOTHS) TOP SCH (04:00)
--- NOTE | 2018-04-21 07:24 | PD.VS.PN ---
Subjective POD #: 1 Procedure(s): L fem-BK pop bypass with 6mm PTFE Subjective/Hospital Course hypotensive last night likely intravascular depletion feels well today incisional pain foot ok Objective Vitals/I&O Date Time Temp Pulse Resp B/P (MAP) Pulse Ox O2 Delivery O2 Flow Rate FiO2 04/21/18 06:28 96 Nasal Cannula 3.00 04/21/18 04:18 67 120/51 04/21/18 04:14 24 04/21/18 04:00 97.8 66 19 107/57 (74) 96 118/50 (72) 04/21/18 02:00 24 04/21/18 02:00 24 04/21/18 00:00 98.0 73 18 98/77 (84) 96 113/49 (70) 04/20/18 22:47 18 04/20/18 20:00 Nasal Cannula 5.00 04/20/18 20:00 97.7 66 24 94/52 (66) 96 108/46 (66) 04/20/18 18:00 74 126/66 04/20/18 16:00 96 Nasal Cannula 5.00 04/20/18 16:00 98.0 72 16 98/43 (61) 96 04/20/18 16:00 72 04/20/18 14:00 80 110/66 04/20/18 13:45 98.1 73 24 101/55 (70) 94 Nasal Cannula 2 04/20/18 13:30 73 24 106/51 (69) 94 Nasal Cannula 2 04/20/18 13:15 72 25 97/54 (68) 94 Nasal Cannula 2 04/20/18 13:00 72 17 91/40 (57) 94 Nasal Cannula 2 04/20/18 12:45 71 14 95/42 (59) 95 Nasal Cannula 2 04/20/18 12:30 69 19 104/44 (64) 94 Nasal Cannula 2 04/20/18 12:15 72 23 120/59 (79) 94 Nasal Cannula 2 04/20/18 12:00 69 23 116/62 (80) 95 Nasal Cannula 2 04/20/18 11:45 69 23 114/60 (78) 95 Nasal Cannula 2 04/20/18 11:30 66 23 105/55 (72) 95 Nasal Cannula 2 04/20/18 11:15 65 20 55/39 (44) 95 Nasal Cannula 2 04/20/18 11:15 64 88/35 04/20/18 11:00 64 20 88/37 (54) 95 Nasal Cannula 2 04/20/18 10:45 69 22 56/48 (51) 94 Nasal Cannula 2 04/20/18 10:38 97.7 72 23 87/54 (65) 95 Nasal Cannula 2 04/21/18 04/21/18 04/21/18 07:00 15:00 23:00 Intake Total 1000 ml Balance 1000 ml Exam: resting comfortably no distress incisions ok with L groin Prevena Pulses: palpable DP Laboratory Laboratory Tests Test 04/20/18 11:25 04/20/18 17:00 04/21/18 05:48 White Blood Count 9.9 5.8 Red Blood Count 4.04 3.38 Hemoglobin 12.4 10.3 Hematocrit 37.2 30.2 Mean Corpuscular Volume 92.0 89.3 Mean Corpuscular Hemoglobin 30.8 30.5 Mean Corpuscular Hemoglobin Concent 33.5 34.1 Red Cell Distribution Width 13.9 14.5 Platelet Count 285 119 Mean Platelet Volume 6.6 7.3 Neutrophils (%) (Auto) 77.8 85.3 Lymphocytes (%) (Auto) 17.1 11.3 Monocytes (%) (Auto) 3.2 2.7 Eosinophils (%) (Auto) 1.3 0.5 Basophils (%) (Auto) 0.6 0.2 Neutrophils # (Auto) 7.7 5.0 Lymphocytes # (Auto) 1.7 0.7 Monocytes # (Auto) 0.3 0.2 Eosinophils # (Auto) 0.1 0.0 Basophils # (Auto) 0.1 0.0 CBC Comment DIFF FINAL DIFF FINAL Differential Comment Nasal Screen MRSA (PCR) MRSA NOT DETECTED Blood Urea Nitrogen 14 Creatinine 1.59 Random Glucose 244 Total Protein 4.7 Calcium Level 5.2 Sodium Level 151 Potassium Level 3.0 Chloride Level 113 Carbon Dioxide Level 15.0 Anion Gap 23 Estimat Glomerular Filtration Rate 32 Protein Corrected Calcium 6.2 Assessment and Plan Assessment: (1) PVD (peripheral vascular disease) Plan POD#1 s/p L fem-BK pop 1. Recheck BMP 2. D/C Velez and watch UOP 3. Continue pulse checks 4. OOB/TC and PT 5. If repeat BMP ok, transfer to CPCU Discharge Planning 2-3 days daughter Kelsie Jackman [phone] Les Briggs MD Apr 21, 2018 07:24
[2018-04-21] MEDS: INSULIN ASPART SUPPLEMENTAL SCALE SQ SCH ×4 (08:00→21:00)
[2018-04-21 08:36] LABS: BICARBONATE 25.9 MEQ/L (21.0-32.0); CALCIUM 7.9 MG/DL (8.5-10.1); CREATININE 0.63 MG/DL (0.50-1.00)
[2018-04-21] MEDS: DOCUSATE SODIUM 50 MG/SENNA 8.6 MG TAB PO SCH ×2 (08:54→21:52)
[2018-04-21] MEDS: HYDROCHLOROTHIAZIDE 25 MG TAB PO SCH (08:54)
[2018-04-21] MEDS: GABAPENTIN 400 MG CAP PO SCH ×3 (08:54→18:11)
[2018-04-21] MEDS: HYDROmorphone HCL 2 MG TAB PO PRN ×2 (08:54→14:22)
[2018-04-21] MEDS: MULTIVITAMIN TAB PO SCH (08:54)
[2018-04-21] MEDS: FAMOTIDINE 20 MG TAB PO SCH ×2 (08:54→21:51)
[2018-04-21] MEDS: CYCLOBENZAPRINE HCL 10 MG TAB PO SCH ×3 (08:54→18:11)
[2018-04-21] MEDS: FLUoxetine HCL 20 MG CAP PO SCH (08:54)
[2018-04-21] MEDS: VITAMIN E 400 UNIT CAP PO SCH (08:54)
[2018-04-21] MEDS ORDERED: LISINOPRIL PO SCH (09:00)
[2018-04-21] MEDS ORDERED: HYDROCHLOROTHIAZIDE PO SCH (09:00)
[2018-04-21] MEDS: metFORMIN HCL 500 MG TAB PO SCH ×3 (09:00→18:00)
[2018-04-21] MEDS ORDERED: NON-FORMULARY DRUG (Coenzyme Q10 (Ubidecarenone) (Co Q-10) 1 CAP) PO SCH (09:00)
[2018-04-21] MEDS: CHOLECALCIFEROL (VIT D3) 1000 UNIT TAB PO SCH (09:00)
[2018-04-21] MEDS: ASPIRIN EC 325 MG TABEC PO SCH (09:00)
[2018-04-21] MEDS: LISINOPRIL 20 MG TAB PO SCH (09:00)
[2018-04-21] MEDS ORDERED: [UNRECOGNIZED DRUG - OTHER] PO SCH (09:00)
[2018-04-21 10:17] LABS: AUTOMATED NEUTROPHIL # 8.5 TH/MM3 (1.8-7.7); BASOPHIL % 0.4 % (0.0-2.0); EOSINOPHIL # 0.1 TH/MM3 (0-0.4); EOSINOPHIL % 0.7 % (0.0-4.0); HEMATOCRIT 36.4 % (35.0-46.0); LYMPH % 20.6 % (9.0-44.0); LYMPHOCYTE # 2.4 TH/MM3 (1.0-4.8); MEAN CELL VOLUME 93.4 FL (80.0-100.0); MEAN CORPUSCULAR HEMOGLOBIN 30.9 PG (27.0-34.0); MEAN PLATELET VOLUME 6.6 FL (7.0-11.0); MONO % 6.5 % (0.0-8.0); MONOCYTE # 0.8 TH/MM3 (0-0.9); NEUT % 71.8 % (16.0-70.0); PLATELET COUNT 296 TH/MM3 (150-450); RED BLOOD COUNT 3.89 MIL/MM3 (4.00-5.30); RED CELL DISTRIBUTION WIDTH 13.8 % (11.6-17.2); WHITE BLOOD COUNT 11.8 TH/MM3 (4.0-11.0)
[2018-04-21] MEDS: ENOXAPARIN SODIUM 40 MG/0.4 ML SYRINGE SQ SCH (11:23)
[2018-04-21] MEDS: SODIUM CHLORIDE 0.9% FLUSH 10 ML FLUSH IV FLUSH SCH ×2 (12:48→21:00)
--- NOTE | 2018-04-21 13:13 | HHI.CCPN ---
Subjective Remarks/Hospital Course Gregarious 73-year-old woman status post left femoral to below-knee popliteal bypass using PTFE. She is alert and awake, quite talkative. Aside from some minor pain in the thighs she is comfortable. The left calf is soft and the dorsalis pedis pulse is palpable on the left side. The toes are pink and well- perfused. She has been instructed by me specifically to not flex the hip or knee on that side greater than 20% from straight. The nurse and her daughter understand these recommendations as well. She is now normotensive following a brief period of hypotension in the PACU. The graft is clearly patent. 04/21: Left foot well perfused, DP palpable. Well hydrated by perfusion and BUN result. To CPCU. Objective Vital Signs Date Time Temp Pulse Resp B/P (MAP) Pulse Ox O2 Delivery O2 Flow Rate FiO2 04/21/18 09:54 16 04/21/18 08:45 70 114/54 04/21/18 08:00 98.5 95 04/21/18 08:00 Nasal Cannula 3.00 Intake and Output 04/21/18 04/21/18 04/22/18 08:00 16:00 00:00 Intake Total 1000 ml 1323 ml Output Total 2700 ml Balance -1700 ml 1323 ml Result Diagram: 04/21/18 0818 04/21/18 0700 Objective Remarks Lungs: Clear no adventitious sounds, comfortable respiratory pattern. Heart: Regular rhythm, no JVD. Abdomen: Benign, soft, no guarding. Bowel sounds active. Extremities: Left leg warm and well-perfused, toes pink. Neuro: M/S grossly intact, conversant. A/P Assessment and Plan Assessment: 1. Peripheral arterial disease -> status post left femoral to below-knee arterial bypass using PTFE 04/20/18 2. Hyperlipidemia. Plan: 1. Maintain normotension, taper Jatin-Synephrine -> done. 2. Check left dorsalis pedis pulse q4h. 3. Avoid flexion left hip or knee. 4. Ambulate without flexion left leg. Overall impression: She has stable hemodynamic and respiratory function. The left foot is warm and well-perfused, calf remains soft. Lopez Sykes MD Apr 21, 2018 13:13
[2018-04-21] MEDS: CARISOPRODOL 350 MG TAB PO PRN ×2 (15:19→21:54)
[2018-04-21] MEDS: ATORVASTATIN 10 MG TAB PO SCH (21:52)
[2018-04-22] VITALS: BP 129/72; PULSE 96; RESP 20; TEMP 99.4; O2SAT 94
[2018-04-22 04:00] VITALS: BP 122/60; PULSE 85; RESP 18; TEMP 99.8; O2SAT 94
[2018-04-22] MEDS: CHLORHEXIDINE GLUCONATE 2 % 1 PACK (2 CLOTHS) TOP SCH (04:00)
[2018-04-22 06:22] LABS: HEMATOCRIT 37.1 % (35.0-46.0); HEMOGLOBIN 12.3 GM/DL (11.6-15.3); MEAN CELL VOLUME 93.7 FL (80.0-100.0); MEAN CORPUSCULAR HEMOGLOBIN 31.1 PG (27.0-34.0); MEAN CORPUSCULAR HGB CONC 33.2 % (32.0-36.0); PLATELET COUNT 242 TH/MM3 (150-450); RED BLOOD COUNT 3.96 MIL/MM3 (4.00-5.30); WHITE BLOOD COUNT 9.5 TH/MM3 (4.0-11.0)
[2018-04-22 06:33] LABS: BICARBONATE 29.2 MEQ/L (21.0-32.0); CREATININE 0.76 MG/DL (0.50-1.00)
[2018-04-22] MEDS: INSULIN ASPART SUPPLEMENTAL SCALE SQ SCH ×4 (07:48→21:00)
[2018-04-22 08:00] VITALS: BP 143/68; PULSE 78; RESP 18; TEMP 98.4; O2SAT 98
[2018-04-22] MEDS: LISINOPRIL 20 MG TAB PO SCH ×2 (08:20→09:27)
[2018-04-22] MEDS: SODIUM CHLORIDE 0.9% FLUSH 10 ML FLUSH IV FLUSH SCH ×2 (09:19→21:24)
[2018-04-22] MEDS: VITAMIN E 400 UNIT CAP PO SCH (09:20)
[2018-04-22] MEDS: DOCUSATE SODIUM 50 MG/SENNA 8.6 MG TAB PO SCH ×2 (09:20→21:00)
[2018-04-22] MEDS: HYDROCHLOROTHIAZIDE 25 MG TAB PO SCH (09:21)
[2018-04-22] MEDS: MULTIVITAMIN TAB PO SCH (09:22)
[2018-04-22] MEDS: metFORMIN HCL 500 MG TAB PO SCH ×2 (09:23→17:02)
[2018-04-22] MEDS: ASPIRIN EC 325 MG TABEC PO SCH (09:23)
[2018-04-22] MEDS: CHOLECALCIFEROL (VIT D3) 1000 UNIT TAB PO SCH (09:23)
[2018-04-22] MEDS: CARISOPRODOL 350 MG TAB PO PRN ×3 (09:24→21:19)
[2018-04-22] MEDS: FAMOTIDINE 20 MG TAB PO SCH ×2 (09:24→21:19)
[2018-04-22] MEDS: FLUoxetine HCL 20 MG CAP PO SCH (09:25)
[2018-04-22] MEDS: GABAPENTIN 400 MG CAP PO SCH ×3 (09:25→17:01)
[2018-04-22] MEDS: CYCLOBENZAPRINE HCL 10 MG TAB PO SCH ×3 (09:25→17:01)
[2018-04-22] MEDS: ENOXAPARIN SODIUM 40 MG/0.4 ML SYRINGE SQ SCH (09:26)
[2018-04-22] MEDS: HYDROmorphone HCL 2 MG TAB PO PRN ×2 (10:36→17:49)
[2018-04-22] MEDS ORDERED: COMMODE 3-IN-11 MIS (10:47)
--- NOTE | 2018-04-22 11:09 | HHI.FF ---
Face to Face Verification Diagnosis: (1) PVD (peripheral vascular disease) Physical Therapy Order: Evaluate and Treat, Improve ambulation, Strength and gait training Instructions: Pt s/p distal bypass (Left Fem -BK pop) Home Health Nursing Order: Signs/symptoms of disease process I have seen patient Micheline Overton on 04/22/18. My clinical findings support the need for the requested home health care services because: Pt is s/p distal bypass (Left Fem -BK pop) will need continued PT and HHC services for optimal progression of post operative healing Ltd mobility - disease progression Limited ability to care for self High risk of falls I certify that my clinical findings support that this patient is homebound because: Pt is s/p distal bypass (Left Fem -BK pop) will need continued PT and HHC services for optimal progression of post operative healing Post-op weakness Unsteady gait/balance Elizabeth Kennedy Apr 22, 2018 11:09
--- NOTE | 2018-04-22 11:28 | PD.VS.PN ---
Subjective POD #: 2 Procedure(s): L fem-BK pop bypass with 6mm PTFE Subjective/Hospital Course Pt S/P L LE revascularization POD 2 Pt doing well Pain controlled Pt normotensive LE warm w/ motor intact Distal pulses palpable Objective Vitals/I&O Date Time Temp Pulse Resp B/P (MAP) Pulse Ox O2 Delivery O2 Flow Rate FiO2 04/22/18 08:00 Nasal Cannula 5.00 04/22/18 08:00 98.4 78 18 143/68 (93) 98 04/22/18 04:00 99.8 85 18 122/60 (80) 94 04/22/18 00:00 99.4 96 20 129/72 (91) 94 04/21/18 22:10 92 Nasal Cannula 5.00 04/21/18 22:07 93 Nasal Cannula 5.00 04/21/18 21:30 100.2 95 20 148/65 (92) 93 04/21/18 16:19 18 04/21/18 16:00 98.6 80 16 94/55 (68) 94 04/21/18 16:00 80 04/21/18 15:22 16 04/21/18 13:47 15 04/21/18 12:35 21 04/21/18 12:00 98.6 77 16 104/67 (79) 95 Arterial Line 04/21/18 12:00 77 04/21/18 11:28 15 04/22/18 04/22/18 04/22/18 07:00 15:00 23:00 Intake Total 240 ml Output Total 800 ml 100 ml Balance -560 ml -100 ml Exam: GENERAL: A&OX3,NAD,GCS15 SKIN: LE Warm and dry w/ motor intact MUSCULOSKELETAL: No cyanosis, or edema. Pulses: Palpable L DP Incisions: Prevena wound vac to L groin intact w/o swelling or hematoma Laboratory Laboratory Tests Test 04/22/18 04:49 White Blood Count 9.5 Red Blood Count 3.96 Hemoglobin 12.3 Hematocrit 37.1 Mean Corpuscular Volume 93.7 Mean Corpuscular Hemoglobin 31.1 Mean Corpuscular Hemoglobin Concent 33.2 Red Cell Distribution Width 14.0 Platelet Count 242 Mean Platelet Volume 7.0 Blood Urea Nitrogen 7 Creatinine 0.76 Random Glucose 100 Calcium Level 8.0 Sodium Level 140 Potassium Level 3.5 Chloride Level 102 Carbon Dioxide Level 29.2 Anion Gap 9 Estimat Glomerular Filtration Rate 75 Assessment and Plan Assessment: (1) PVD (peripheral vascular disease) Plan POD#2 Pt s/p L fem-BK pop Pain controlled Reviewed labs Plan Continue neurovascular checks Continue PT- OOB/TC/Ambulate D/C Planning w/ HHS and OP PT Elizabeth Kennedy NP [facility]/[employer] [phone] Discharge Planning Tomorrow AM daughter Kelsie [phone] Elizabeth Kennedy Apr 22, 2018 11:28
--- NOTE | 2018-04-22 11:48 | HHI.DCPOC ---
Discharge Care Plan Diagnosis: (1) PVD (peripheral vascular disease) Your Health Problems Are: Difficulty with ADL Exercise Tolerance Goals to Promote Your Health * To prevent worsening of your condition and complications * To maintain your health at the optimal level Directions to Meet Your Goals Take your medications as prescribed Follow your dietary instruction Follow activity as directed Keep your appointments as scheduled Take your immunizations and boosters as scheduled If your symptoms worsen call your PCP, if no PCP go to Urgent Care Center or Emergency Room Smoking is Dangerous to Your Health. Avoid second hand smoke Call the 24-hour hour crisis hotline for domestic abuse at Grant Angel MD Apr 22, 2018 11:48
[2018-04-22] MEDS ORDERED: ASPI325T33 PO (11:51)
--- NOTE | 2018-04-22 11:55 | HHI.PR ---
Subjective Remarks Follow-up PAD. Complaining of leg spasm on Flexeril, soma and Dilaudid. Objective Vitals Vital Signs Date Time Temp Pulse Resp B/P (MAP) Pulse Ox O2 Delivery O2 Flow Rate FiO2 04/22/18 08:00 Nasal Cannula 5.00 04/22/18 08:00 98.4 78 18 143/68 (93) 98 04/22/18 04:00 99.8 85 18 122/60 (80) 94 04/22/18 00:00 99.4 96 20 129/72 (91) 94 04/21/18 22:10 92 Nasal Cannula 5.00 04/21/18 22:07 93 Nasal Cannula 5.00 04/21/18 21:30 100.2 95 20 148/65 (92) 93 04/21/18 16:19 18 04/21/18 16:00 98.6 80 16 94/55 (68) 94 04/21/18 16:00 80 04/21/18 15:22 16 04/21/18 13:47 15 04/21/18 12:35 21 04/21/18 12:00 98.6 77 16 104/67 (79) 95 Arterial Line 04/21/18 12:00 77 I/O 04/21/18 04/21/18 04/21/18 04/22/18 04/22/18 04/22/18 07:00 15:00 23:00 07:00 15:00 23:00 Intake Total 1000 ml 1323 ml 1640 ml 240 ml Output Total 2700 ml 800 ml 100 ml Balance -1700 ml 1323 ml 1640 ml -560 ml -100 ml Intake Oral 1640 ml 240 ml IV Total 1000 ml 1323 ml Output Urine Total 2700 ml 800 ml Stool Total 100 ml # Voids 3 # Bowel Movements 0 0 0 1 Result Diagram: 04/22/18 0449 04/22/18448 Objective Remarks General: Well-developed and well-nourished in no distress Skin warm no lesions Lungs: Clear no adventitious sounds, comfortable respiratory pattern. Heart: Regular rhythm, no JVD. Abdomen: Benign, soft, no guarding. Bowel sounds active. Extremities: Left leg warm and well-perfused, toes pink. Neuro: M/S grossly intact, conversant. A/P Assessment and Plan 1. Peripheral arterial disease -> status post left femoral to below-knee arterial bypass using PTFE 04/20/18. Stable continue postoperative care including antiplatelets and pain management counselled regarding narcotics. 2. Multiple medical conditions of hypertension, hyperlipidemia, diabetes mellitus and depression. Stable continue home medications as appropriate. Monitor fingersticks with sliding scale coverage 3. DVT prophylaxis with Lovenox Grant Angel MD Apr 22, 2018 11:55
[2018-04-22 12:00] VITALS: BP 124/66; PULSE 79; RESP 18; TEMP 97.9; O2SAT 94
[2018-04-22] MEDS: MORPHINE SULFATE 4 MG/ML INJ IV PUSH PRN (13:31)
[2018-04-22 16:00] VITALS: BP 132/66; PULSE 76; RESP 18; TEMP 98.2; O2SAT 94
--- NOTE | 2018-04-22 17:37 | RADRPT ---
EXAM DATE: 04/22/2018 5:24 PM EDT AGE/SEX: 73 years / Female INDICATIONS: Congestive heart failure. CLINICAL DATA: This is the patient's initial encounter. Patient reports that signs and symptoms have been present for 1 day and indicates a pain score of 0/10. MEDICAL/SURGICAL HISTORY: . Myocardial infarction. Ankylosing spondolytis. CABG. Appendectomy . Hysterectomy. COMPARISON: [facility] [place], CHEST SINGLE AP, 03/16/2011. . FINDINGS: A single AP view of the chest demonstrates the lungs to be symmetrically aerated without evidence of mass, infiltrate or effusion. The cardiomediastinal contours are unremarkable. Osseous structures a re intact. A degenerative thoracic spine. Cervical spinal fusion plate. CONCLUSION: No acute cardiopulmonary disease. Electronically signed by: Manoj Lawrence MD 04/22/2018 5:36 PM EDT
[2018-04-22 20:00] VITALS: BP 116/55; PULSE 79; RESP 22; TEMP 99; O2SAT 93
[2018-04-22] MEDS: ATORVASTATIN 10 MG TAB PO SCH (21:19)
[2018-04-23] VITALS: BP 108/59; PULSE 84; RESP 20; TEMP 98.5; O2SAT 96
[2018-04-23 04:00] VITALS: BP 126/69; PULSE 81; RESP 20; TEMP 98.2; O2SAT 97
[2018-04-23] MEDS: CHLORHEXIDINE GLUCONATE 2 % 1 PACK (2 CLOTHS) TOP SCH (04:00)
[2018-04-23] MEDS: INSULIN ASPART SUPPLEMENTAL SCALE SQ SCH ×2 (07:17→12:00)
[2018-04-23 08:00] VITALS: BP 95/51; PULSE 61; RESP 17; TEMP 98.4; O2SAT 92
[2018-04-23] MEDS: LISINOPRIL 20 MG TAB PO SCH (08:20)
[2018-04-23] MEDS: DOCUSATE SODIUM 50 MG/SENNA 8.6 MG TAB PO SCH (09:00)
--- NOTE | 2018-04-23 09:00 | HHI.PR ---
Subjective Remarks Follow-up PAD. States Soma helps with leg spasm. BP borderline low denies dizziness, weakness, chest pain and shortness of breath. BP meds on hold Objective Vitals Vital Signs Date Time Temp Pulse Resp B/P (MAP) Pulse Ox O2 Delivery O2 Flow Rate FiO2 04/23/18 04:00 98.2 81 20 126/69 (88) 97 04/23/18 00:00 98.5 84 20 108/59 (75) 96 04/22/18 20:00 99.0 79 22 116/55 (75) 93 04/22/18 16:00 98.2 76 18 132/66 (88) 94 04/22/18 12:00 97.9 79 18 124/66 (85) 94 I/O 04/22/18 04/22/18 04/22/18 04/23/18 04/23/18 04/23/18 07:00 15:00 23:00 07:00 15:00 23:00 Intake Total 240 ml 2000 ml 360 ml Output Total 800 ml 100 ml Balance -560 ml -100 ml 2000 ml 360 ml Intake Oral 240 ml 2000 ml 360 ml Output Urine Total 800 ml Stool Total 100 ml # Voids 5 3 # Bowel Movements 0 1 0 Result Diagram: 04/22/18 0449 04/22/18 0449 Imaging Last Impressions Chest X-Ray 04/22/18 0000 Signed Impressions: CONCLUSION: No acute cardiopulmonary disease. Objective Remarks General: Well-developed and well-nourished in no distress Skin warm no lesions Lungs: Clear no adventitious sounds, comfortable respiratory pattern. Heart: Regular rhythm, no JVD. Abdomen: Benign, soft, no guarding. Bowel sounds active. Extremities: Left leg warm and well-perfused, toes pink. Neuro: M/S grossly intact, conversant. A/P Assessment and Plan 1. Peripheral arterial disease -> status post left femoral to below-knee arterial bypass using PTFE 04/20/18. Stable continue postoperative care including antiplatelets and pain management counselled regarding narcotics. 2. Multiple medical conditions of hypertension, hyperlipidemia, diabetes mellitus and depression. Stable continue home medications as appropriate. Monitor fingersticks with sliding scale coverage. Continue to monitor BP. 3. Hypoxia. Chest x-ray without acute cardiopulmonary disease. Improved. Incentive spirometry and nebulization. Increase activity. Passed Oxygen walk test. DVT prophylaxis with Lovenox Abando,Red MD Apr 23, 2018 09:00
[2018-04-23] MEDS: ASPIRIN EC 325 MG TABEC PO SCH (09:07)
[2018-04-23] MEDS: SODIUM CHLORIDE 0.9% FLUSH 10 ML FLUSH IV FLUSH SCH (09:07)
[2018-04-23] MEDS: GABAPENTIN 400 MG CAP PO SCH ×2 (09:08→12:50)
[2018-04-23] MEDS: FLUoxetine HCL 20 MG CAP PO SCH (09:08)
[2018-04-23] MEDS: HYDROCHLOROTHIAZIDE 25 MG TAB PO SCH (09:08)
[2018-04-23] MEDS: VITAMIN E 400 UNIT CAP PO SCH (09:09)
[2018-04-23] MEDS: MULTIVITAMIN TAB PO SCH (09:09)
[2018-04-23] MEDS: CYCLOBENZAPRINE HCL 10 MG TAB PO SCH ×2 (09:09→12:49)
[2018-04-23] MEDS: CARISOPRODOL 350 MG TAB PO PRN (09:09)
[2018-04-23] MEDS: FAMOTIDINE 20 MG TAB PO SCH (09:09)
[2018-04-23] MEDS: CHOLECALCIFEROL (VIT D3) 1000 UNIT TAB PO SCH (09:09)
[2018-04-23] MEDS: metFORMIN HCL 500 MG TAB PO SCH (09:10)
[2018-04-23] MEDS: ENOXAPARIN SODIUM 40 MG/0.4 ML SYRINGE SQ SCH (09:13)
--- NOTE | 2018-04-23 09:27 | PD.VS.PN ---
Subjective POD #: 3 Procedure(s): L fem-BK pop bypass with 6mm PTFE Subjective/Hospital Course Pt S/P L LE revascularization POD 3 Pt doing well Pain controlled Pt normotensive LE warm w/ motor intact Distal pulses palpable Pt with large BM last night Pt denied abdominal pain Objective Vitals/I&O Date Time Temp Pulse Resp B/P (MAP) Pulse Ox O2 Delivery O2 Flow Rate FiO2 04/23/18 04:00 98.2 81 20 126/69 (88) 97 04/23/18 00:00 98.5 84 20 108/59 (75) 96 04/22/18 20:00 99.0 79 22 116/55 (75) 93 04/22/18 16:00 98.2 76 18 132/66 (88) 94 04/22/18 12:00 97.9 79 18 124/66 (85) 94 04/23/18 04/23/18 04/23/18 07:00 15:00 23:00 Intake Total 360 ml Balance 360 ml Exam: GENERAL: A&OX3,NAD,GCS15 SKIN: LE Warm and dry w/ motor intact MUSCULOSKELETAL: No cyanosis, or edema. Pulses: Palpable L/R DP Incisions: Prevena wound vac to L groin intact w/o swelling or hematoma Assessment and Plan Assessment: (1) PVD (peripheral vascular disease) Plan POD#3 Pt s/p L fem-BK pop Pain controlled Plan Pt clear for d/c to Rehab for optimal post operative healing Keep Wound Vac intact- Will remove out pt on THURSDAY Post operative care and management discussed w/ pt and daughter Elizabeth Kennedy NP [facility] [phone] Discharge Planning Today to Rehab daughter Kelsie [phone] Elizabeth Kennedy Apr 23, 2018 09:27
[2018-04-23] MEDS ORDERED: PERC5TAB12 PO (09:29)
--- NOTE | 2018-04-23 09:37 | PD.VS.DC ---
Discharge Summary Admission Date: Apr 20, 2018 at 06:06 Discharge Date: Apr 23, 2018 Admission Diagnosis: (1) PVD (peripheral vascular disease) Discharge Diagnosis: (1) PVD (peripheral vascular disease) ICD Codes: I73.9 - Peripheral vascular disease, unspecified Brief History from admission 72 yo female with L LE pain and PAD. Pain most c/w claudication. Failed endovascular attempts. Presents for distal bypass Procedure(s): L fem-BK pop bypass with 6mm PTFE Significant Findings GENERAL: A&OX3,NAD,GCS15 SKIN: LE Warm and dry w/ motor intact MUSCULOSKELETAL: No cyanosis, or edema. Pulses: Palpable L/R DP Incisions: Prevena wound vac to L groin intact w/o swelling or hematoma Laboratory Tests Test 04/20/18 11:25 04/20/18 17:00 04/21/18 05:48 04/21/18 07:00 Mean Platelet Volume 6.6 FL (7.0-11.0) Neutrophils (%) (Auto) 77.8 % (16.0-70.0) Random Glucose 107 MG/DL (74-106) Calcium Level 7.9 MG/DL (8.5-10.1) Test 04/21/18 08:18 04/22/18 04:49 White Blood Count 11.8 TH/MM3 (4.0-11.0) Red Blood Count 3.89 MIL/MM3 (4.00-5.30) 3.96 MIL/MM3 (4.00-5.30) Mean Platelet Volume 6.6 FL (7.0-11.0) Neutrophils (%) (Auto) 71.8 % (16.0-70.0) Neutrophils # (Auto) 8.5 TH/MM3 (1.8-7.7) Calcium Level 8.0 MG/DL (8.5-10.1) Estimat Glomerular Filtration Rate 75 ML/MIN (>89) Hospital Course: 72 yo female with L LE pain and PAD. Pain most c/w claudication. Failed endovascular attempts. Presents for distal bypass POD 0 Pt alert in NAD Pt w/ hypotension episode in PACU B/P 109/57- on Jatin drip CBC ordered- and reviewed Pain controlled B LE warm w/ motor intact Palpable L DP POD 1 hypotensive last night likely intravascular depletion feels well today incisional pain foot ok POD 2 Pt doing well Pain controlled Pt normotensive LE warm w/ motor intact Distal pulses palpable POD 3 Pt doing well Pain controlled Pt normotensive LE warm w/ motor intact Distal pulses palpable Pt with large BM last night Pt denied abdominal pain Pt d/c to rehab for continued post operative healing Reviewed E -Forcse- No recent activity Prescribed post operative pain medication for a duration of 3 days Allergies Coded Allergies Type Severity Reaction Last Updated Verified No Known Allergies Allergy Unknown 04/20/18 Yes Recent Impressions Chest X-Ray 04/22/18 0000 Signed Impressions: CONCLUSION: No acute cardiopulmonary disease. 04/21/18 04/21/18 04/22/18 04/22/18 04/23/18 04/23/18 06:00 18:00 06:00 18:00 06:00 18:00 Intake Total 1000 ml 2723 ml 480 ml 2000 ml 360 ml Output Total 2700 ml 800 ml 100 ml Balance -1700 ml 2723 ml -320 ml 1900 ml 360 ml Intake Oral 1400 ml 480 ml 2000 ml 360 ml IV Total 1000 ml 1323 ml Output Urine Total 2700 ml 800 ml Stool Total 100 ml # Voids 2 1 5 3 # Bowel Movements 0 0 0 1 0 Laboratory Tests Test 04/20/18 11:25 04/20/18 17:00 04/21/18 05:48 04/21/18 07:00 White Blood Count 9.9 TH/MM3 TH/MM3 Red Blood Count 4.04 MIL/MM3 MIL/MM3 Hemoglobin 12.4 GM/DL GM/DL Hematocrit 37.2 % % Mean Corpuscular Volume 92.0 FL FL Mean Corpuscular Hemoglobin 30.8 PG PG Mean Corpuscular Hemoglobin Concent 33.5 % % Red Cell Distribution Width 13.9 % % Platelet Count 285 TH/MM3 TH/MM3 Mean Platelet Volume 6.6 FL FL Neutrophils (%) (Auto) 77.8 % % Lymphocytes (%) (Auto) 17.1 % % Monocytes (%) (Auto) 3.2 % % Eosinophils (%) (Auto) 1.3 % % Basophils (%) (Auto) 0.6 % % Neutrophils # (Auto) 7.7 TH/MM3 TH/MM3 Lymphocytes # (Auto) 1.7 TH/MM3 TH/MM3 Monocytes # (Auto) 0.3 TH/MM3 TH/MM3 Eosinophils # (Auto) 0.1 TH/MM3 TH/MM3 Basophils # (Auto) 0.1 TH/MM3 TH/MM3 CBC Comment DIFF FINAL Differential Comment Nasal Screen MRSA (PCR) MRSA NOT DETECTED Blood Urea Nitrogen MG/DL 9 MG/DL Creatinine MG/DL 0.63 MG/DL Random Glucose MG/DL 107 MG/DL Total Protein GM/DL Calcium Level MG/DL 7.9 MG/DL Sodium Level MEQ/L 139 MEQ/L Potassium Level MEQ/L 3.9 MEQ/L Chloride Level MEQ/L 105 MEQ/L Carbon Dioxide Level MEQ/L 25.9 MEQ/L Anion Gap MEQ/L 8 MEQ/L Estimat Glomerular Filtration Rate ML/MIN 93 ML/MIN Protein Corrected Calcium MG/DL Test 04/21/18 08:18 04/22/18 04:49 White Blood Count 11.8 TH/MM3 9.5 TH/MM3 Red Blood Count 3.89 MIL/MM3 3.96 MIL/MM3 Hemoglobin 12.0 GM/DL 12.3 GM/DL Hematocrit 36.4 % 37.1 % Mean Corpuscular Volume 93.4 FL 93.7 FL Mean Corpuscular Hemoglobin 30.9 PG 31.1 PG Mean Corpuscular Hemoglobin Concent 33.0 % 33.2 % Red Cell Distribution Width 13.8 % 14.0 % Platelet Count 296 TH/MM3 242 TH/MM3 Mean Platelet Volume 6.6 FL 7.0 FL Neutrophils (%) (Auto) 71.8 % Lymphocytes (%) (Auto) 20.6 % Monocytes (%) (Auto) 6.5 % Eosinophils (%) (Auto) 0.7 % Basophils (%) (Auto) 0.4 % Neutrophils # (Auto) 8.5 TH/MM3 Lymphocytes # (Auto) 2.4 TH/MM3 Monocytes # (Auto) 0.8 TH/MM3 Eosinophils # (Auto) 0.1 TH/MM3 Basophils # (Auto) 0.0 TH/MM3 CBC Comment DIFF FINAL Differential Comment Blood Urea Nitrogen 7 MG/DL Creatinine 0.76 MG/DL Random Glucose 100 MG/DL Calcium Level 8.0 MG/DL Sodium Level 140 MEQ/L Potassium Level 3.5 MEQ/L Chloride Level 102 MEQ/L Carbon Dioxide Level 29.2 MEQ/L Anion Gap 9 MEQ/L Estimat Glomerular Filtration Rate 75 ML/MIN Orders Procedure Category Date Status Time Thrombin Top [place] MED 04/20/18 Complete (Thrombin Top [place]) 09:42 Sugammadex Inj MED 04/20/18 Complete ([place] Inj) 09:52 Amlodipine (Norvasc) MED 04/21/18 In Process 09:00 Atorvastatin (Lipitor) MED 04/20/18 In Process 21:00 Cyclobenzaprine MED 04/20/18 In Process (Flexeril) 13:00 Fluoxetine (Prozac) MED 04/21/18 In Process 09:00 Metformin (Glucophage) MED 04/20/18 In Process 18:00 (Nf) Coenzyme Q10 MED 04/21/18 Complete (Ubidecarenone) (Co Q- 09:00 Cholecalciferol MED 04/21/18 In Process (Vitamin D3) 09:00 Multivitamin MED 04/21/18 In Process (Theragran) 09:00 Vitamin E (Vitamin E) MED 04/21/18 In Process 09:00 Admit To Inpatient ADMITTING 04/20/18 Transmitted Code Status CODE 04/20/18 Complete 10:11 Mechanical And Auto Body Car Checker / NEMO 04/20/18 In Process Telemetry 10:11 Activity Oob Ad Jamilah NEMO 04/21/18 In Process 08:00 Activity Bed Rest NEMO 04/20/18 In Process 10:11 Precautions NEMO 04/20/18 In Process 10:11 ^ Vac Dressing To Be NEMO 04/20/18 In Process Used 10:11 Diet Heart Healthy DIET 04/20/18 Transmitted Lunch Consult Pt Eval & PT 04/20/18 Logged Treat 10:11 Famotidine (Pepcid) MED 04/20/18 In Process 21:00 Oxycodone (Roxicodone) MED 04/20/18 In Process 10:15 Hydromorphone MED 04/20/18 In Process (Dilaudid) 10:15 Morphine Inj MED 04/20/18 In Process (Morphine Inj) 10:15 Docusate Sodium-Senna MED 04/20/18 Complete (Avani-Colace) 21:00 Magnesium Hydroxide MED 04/20/18 Complete Liq (Milk Of Magnesi 10:15 Sennosides (Senokot) MED 04/20/18 Complete 10:15 Bisacodyl Supp MED 04/20/18 Complete (Dulcolax Supp) 10:15 Lactulose Liq MED 04/20/18 Complete (Lactulose Liq) 10:15 Inpatient ADMITTING 04/20/18 Transmitted Certification Remove Urinary NEMO 04/21/18 In Process Catheter 08:00 Fentanyl Inj MED 04/20/18 Complete (Fentanyl Inj) 10:48 Fentanyl Inj MED 04/20/18 Complete (Fentanyl Inj) 10:48 Ephedrine/Ns 25 Mg/5 MED 04/20/18 Complete Ml Syr (Ephedrine/N 11:03 Phenylephrine Inj MED 04/20/18 Complete (Neosynephrine Inj) 11:12 *Morphine Inj MED 04/20/18 Complete (*Morphine Inj 11:21 Consult Special Education Aide CONS 04/20/18 Transmitted Complete Blood Count LAB 04/20/18 Complete With Diff 11:31 *Morphine Inj MED 04/20/18 Complete (*Morphine Inj 11:34 (Hub Use Only)Inp Phy CONS 04/20/18 Transmitted Cons/Ref Enoxaparin Inj MED 04/21/18 In Process (Lovenox Inj) 09:30 Hydromorphone Pf Inj MED 04/20/18 Complete (Dilaudid Pf Inj) 11:49 Gabapentin (Neurontin) MED 04/20/18 In Process 13:00 Lisinopril (Prinivil) MED 04/21/18 In Process 09:00 Hydrochlorothiazide MED 04/21/18 In Process (Hydrodiuril) 09:00 Aspirin Ec (Ecotrin MED 04/21/18 In Process Ec) 09:00 Admit To Inpatient ADMITTING 04/20/18 Transmitted Code Status CODE 04/20/18 Transmitted 12:14 Vital Signs (Adult) NEMO 04/20/18 In Process 12:14 Activity Bed Rest NEMO 04/20/18 In Process 12:14 Elevate Head Of Bed NEMO 04/20/18 In Process 12:14 Sodium Chlor 0.9% MED 04/20/18 Complete 1000 Ml Inj (Ns 1000 M 13:00 Sodium Chloride 0.9% MED 04/20/18 In Process Flush (Ns Flush) 12:15 Sodium Chloride 0.9% MED 04/20/18 In Process Flush (Ns Flush) 21:00 Albuterol-Ipratropium MED 04/20/18 In Process Neb (Duoneb Neb) 12:15 Complete Blood Count LAB 04/21/18 Complete With Diff 04:00 Basic Metabolic Panel LAB 04/21/18 Complete (Bmp) 04:00 Resp Oxygen Winston C RSP 04/20/18 Logged Titrat 1-4 L Mechanical And Auto Body Car Checker / NEMO 04/20/18 Complete Telemetry 12:14 ^ Initiate Protocol NEMO 04/20/18 In Process 12:14 Instruction NEMO 04/20/18 In Process 12:14 Nursing Information MED 04/20/18 In Process ([facility] Nursing Inform 12:15 Chlorhexidine 2% MED 04/21/18 In Process Cloth (Chlorhexidine 04:00 Chlorhexidine 2% MED 04/20/18 In Process Cloth (Chlorhexidine 12:15 Mrsa Pcr Surveillance LAB 04/20/18 Complete 12:14 Nursing Information MED 04/20/18 Complete ([facility] Nursing Inform 10:35 Docusate Sodium-Senna MED 04/20/18 In Process (Avani-Colace) 21:00 Magnesium Hydroxide MED 04/20/18 In Process Liq (Milk Of Magnesi 12:15 Sennosides (Senokot) MED 04/20/18 In Process 12:15 Bisacodyl Supp MED 04/20/18 In Process (Dulcolax Supp) 12:15 Lactulose Liq MED 04/20/18 In Process (Lactulose Liq) 12:15 Phosphorus (Po4) LAB 04/20/18 Complete 12:14 Potassium Chlor 40 MED 04/20/18 Complete Meq Premix (Kcl 40 Me 12:15 Potassium Chlor 20 MED 04/20/18 Complete Meq Premix (Kcl 20 Me 12:15 Potassium Chloride MED 04/20/18 Complete Eff (K-Lyte Cl Eff) 12:15 Potassium Chlor 40 MED 04/20/18 Complete Meq Premix (Kcl 40 Me 12:15 Potassium Chlor 20 MED 04/20/18 Complete Meq Premix (Kcl 20 Me 12:15 Magnesium Sulfate Inj MED 04/20/18 Complete (Magnesium Sulfate 12:15 Magnesium Oxide MED 04/20/18 Complete (Mag-Ox) 12:15 Magnesium Sulfate Inj MED 04/20/18 Complete (Magnesium Sulfate 12:15 Potassium Phosphate MED 04/20/18 Complete (K-Phos) 12:15 Sodium Phosphate Inj MED 6/12/18 Complete (Sodium Phosphate I 12:15 Potassium Phosphate MED 04/20/18 Complete (K-Phos) 12:15 Potassium Phosphate MED 04/20/18 Complete Inj (Potassium Phosp 12:15 Inpatient ADMITTING 04/20/18 Transmitted Certification Bedside Glucose [facility] 04/20/18 In Process 12:18 Blood Glucose Goal NEMO 04/20/18 In Process (Criteria) 12:18 Hypoglycemia 70 Mg/Dl NEMO 04/20/18 In Process Or < 12:[address]: Yovana NEMO 04/20/18 In Process 12:18 Dextrose 50% In Melo MED 04/20/18 In Process (Vial) Inj (D50w (Vi 12:30 Glucagon Inj MED 04/20/18 In Process (Glucagon Inj) 12:30 Insulin Aspart MED 04/20/18 In Process Supplemtl Scale 17:00 Resp Incentive RSP 04/20/18 Complete Spirometry Acetaminophen 1000 MED 04/20/18 Complete Mg/100 Ml (Ofirmev 10 15:00 Phenylephrine Inj MED 04/20/18 Complete (Neosynephrine Inj) 12:30 Terbutaline Inj MED 04/20/18 In Process (Brethine Inj) 12:30 Family Notification [facility] 04/20/18 Complete 15:19 Class Iv Pacu [facility] 30 [facility] 04/20/18 Complete MIN General/Pacu [facility] 04/20/18 Complete Post Anesthesia Oxygen [facility] 04/20/[address] [facility] 04/20/[address] Holding [facility] 04/20/18 Complete Hourly Terbutaline Inj MED 04/20/18 In Process (Brethine Inj) 20:45 Norepinephrine-Dextrose MED 04/20/18 Complete Drip (Levophed-D 21:00 Phenylephrine Inj MED 04/21/18 Complete (Neosynephrine Inj) 02:24 Phenylephrine Inj MED 04/21/18 Complete (Neosynephrine Inj) 02:26 Phenylephrine Inj MED 04/21/18 Complete (Neosynephrine Inj) 02:26 Phenylephrine Inj MED 04/21/18 In Process (Neosynephrine Inj) 02:45 Cbc No Diff, Includes LAB 04/22/18 Complete Plts 06:00 Protein Corrected LAB 04/21/18 Complete Calcium(Pcc) 05:48 Basic Metabolic Panel LAB 04/21/18 Complete (Bmp) 07:57 (Hub Use Only)Inp Phy CONS 04/21/18 Transmitted Cons/Ref ^ Other Nursing Orders NEMO 04/21/18 In Process 09:41 ^ Other Nursing Orders NEMO 04/21/18 In Process 09:41 Complete Blood Count LAB 04/21/18 Complete With Diff 07:57 Basic Metabolic Panel LAB 04/22/18 Complete (Bmp) 06:00 Patient Transfer ADMITTING 04/21/18 Transmitted Consult Hospitalist CONS 04/21/18 Transmitted Carisoprodol (Soma) MED 04/21/18 In Process 15:00 Sodium Chlor 0.9% 250 MED 04/20/18 Complete Ml Inj (Ns 250 Ml 12:00 Sodium Chlorid 0.9% MED 04/20/18 Complete 500 Ml Inj (Ns 500 M 12:00 Normosol R Inj MED 04/20/18 Complete (Normosol R Inj) 12:00 Lidocaine Pf 1% Inj MED 04/20/18 Complete (Xylocaine-Mpf 1% In 12:00 Rocuronium Inj MED 04/20/18 Complete (Zemuron Inj) 12:00 Neostigmine Inj MED 04/20/18 Complete (Prostigmine Inj) 12:00 Glycopyrrolate Inj MED 04/20/18 Complete (Robinul Inj) 12:00 Phenyleph/Ns 1000 MED 04/20/18 Complete Mcg/10ml Syr (Neosynep 12:00 Phenylephrine Inj MED 04/20/18 Complete (Neosynephrine Inj) 12:00 Ephedrine/Ns 25 Mg/5 MED 04/20/18 Complete Ml Syr (Ephedrine/N 12:00 Dexamethasone Inj MED 04/20/18 Complete (Decadron Inj) 12:00 Ondansetron Inj MED 04/20/18 Complete (Zofran Inj) 12:00 Propofol 200 Mg/20 Ml MED 04/20/18 Complete Inj (Diprivan 200 12:00 Instruction NEMO 04/21/18 In Process 17:33 Patient Transfer ADMITTING 04/21/18 Transmitted (Hub Use Only)Inp Phy CONS 04/22/18 Transmitted Cons/Ref ^ Remove Patient From NEMO 04/22/18 In Process My List 06:08 ^ Other Nursing Orders NEMO 04/22/18 In Process 07:05 ^ Other Nursing Orders NEMO 04/22/18 In Process 15:15 ^ Other Nursing Orders NEMO 04/22/18 In Process 11:37 Case Management CONS 04/22/18 Transmitted Consult Resp Incentive RSP 04/22/18 Logged Spirometry ^ Other Nursing Orders NEMO 04/22/18 In Process 14:59 Chest, Single Ap RADDIAG 04/22/18 Resulted Resp Home Oxygen Walk RSP 04/23/18 Logged Test 06:00 (Hub Use Only)Inp Phy CONS 04/22/18 Transmitted Cons/Ref (Hub Use Only)Inp Phy CONS 04/22/18 Transmitted Cons/Ref Attending Discharge DISCHARGE 04/23/18 Transmitted Order Vital Signs Date Time Temp Pulse Resp B/P (MAP) Pulse Ox O2 Delivery O2 Flow Rate FiO2 04/23/18 04:00 98.2 81 20 126/69 (88) 97 04/23/18 00:00 98.5 84 20 108/59 (75) 96 04/22/18 20:00 99.0 79 22 116/55 (75) 93 04/22/18 16:00 98.2 76 18 132/66 (88) 94 04/22/18 12:00 97.9 79 18 124/66 (85) 94 04/22/18 08:00 Nasal Cannula 5.00 04/22/18 08:00 98.4 78 18 143/68 (93) 98 04/22/18 04:00 99.8 85 18 122/60 (80) 94 04/22/18 00:00 99.4 96 20 129/72 (91) 94 04/21/18 22:10 92 Nasal Cannula 5.00 04/21/18 22:07 93 Nasal Cannula 5.00 04/21/18 21:30 100.2 95 20 148/65 (92) 93 04/21/18 16:19 18 04/21/18 16:00 98.6 80 16 94/55 (68) 94 04/21/18 16:00 80 04/21/18 15:22 16 04/21/18 13:47 15 04/21/18 12:35 21 04/21/18 12:00 98.6 77 16 104/67 (79) 95 Arterial Line 04/21/18 12:00 77 04/21/18 11:28 15 04/21/18 08:45 70 114/54 04/21/18 08:00 98.5 70 16 122/56 (78) 95 Automatic Cuff 04/21/18 08:00 95 Nasal Cannula 3.00 04/21/18 08:00 70 04/21/18 06:28 96 Nasal Cannula 3.00 04/21/18 04:18 67 120/51 04/21/18 04:14 24 04/21/18 04:00 97.8 66 19 107/57 (74) 96 118/50 (72) 04/21/18 00:00 98.0 73 18 98/77 (84) 96 113/49 (70) 04/20/18 20:00 Nasal Cannula 5.00 04/20/18 20:00 97.7 66 24 94/52 (66) 96 108/46 (66) 04/20/18 18:00 74 126/66 04/20/18 16:00 96 Nasal Cannula 5.00 04/20/18 16:00 98.0 72 16 98/43 (61) 96 04/20/18 16:00 72 04/20/18 14:00 80 110/66 04/20/18 13:45 98.1 73 24 101/55 (70) 94 Nasal Cannula 2 04/20/18 13:30 73 24 106/51 (69) 94 Nasal Cannula 2 04/20/18 13:15 72 25 97/54 (68) 94 Nasal Cannula 2 04/20/18 13:00 72 17 91/40 (57) 94 Nasal Cannula 2 04/20/18 12:45 71 14 95/42 (59) 95 Nasal Cannula 2 04/20/18 12:30 69 19 104/44 (64) 94 Nasal Cannula 2 04/20/18 12:15 72 23 120/59 (79) 94 Nasal Cannula 2 04/20/18 12:00 69 23 116/62 (80) 95 Nasal Cannula 2 04/20/18 11:45 69 23 114/60 (78) 95 Nasal Cannula 2 04/20/18 11:30 66 23 105/55 (72) 95 Nasal Cannula 2 04/20/18 11:15 65 20 55/39 (44) 95 Nasal Cannula 2 04/20/18 11:15 64 88/35 04/20/18 11:00 64 20 88/37 (54) 95 Nasal Cannula 2 04/20/18 10:45 69 22 56/48 (51) 94 Nasal Cannula 2 04/20/18 10:38 97.7 72 23 87/54 (65) 95 Nasal Cannula 2 Discharge Condition: Good Discharge Disposition: Discharge to SNF Discharge Instructions: DIET Maintain a heart healthy diet ACTIVITY Activity as tolerated You may shower then pat dry incision -AFTER your wound vacs are removed NO tub baths or swimming until your incision is fully healed WOUND CARE LEFT Groin Wound vacs to remain until THURSDAY- Will remove in the office on THURSDAY Leave your incision open to air once your wound vacs are removed Call to report an increase in swelling, pain, drainage or redness MEDICATIONS You were prescribed a narcotic pain medication that may cause drowsiness- no driving while taking this medication You were prescribed a narcotic pain medication that may cause constipation- Take with an over the counter stool softener Any questions or concerns: Call [facility] at [facility] [phone] Elizabeth Kennedy Apr 23, 2018 09:37
[2018-04-23 12:00] VITALS: BP 125/60; PULSE 88; RESP 17; TEMP 99.4; O2SAT 94
== END 2018-04-23 15:00 | DRG 254 ==
LOC: HSDI 06:06 → N03B 13:58 → N07B 04-21 20:55
PROVIDERS: ADMIT Surgery; ATTEND Surgery
PROC: 041L0JL Bypass Left Femoral Artery to Popliteal Artery with Synthetic Substitute, Open Approach (ICD-10-PCS; principal; 2018-04-20 07:46)
DX: E11.51 Type 2 diabetes mellitus with diabetic peripheral angiopathy without gangrene (principal); I95.9 Hypotension, unspecified; I10 Essential (primary) hypertension; F32.9 Major depressive disorder, single episode, unspecified; M79.7 Fibromyalgia; E78.5 Hyperlipidemia, unspecified; R25.2 Cramp and spasm; R09.02 Hypoxemia; E86.9 Volume depletion, unspecified; K21.9 Gastro-esophageal reflux disease without esophagitis; M19.90 Unspecified osteoarthritis, unspecified site; Z79.84 Long term (current) use of oral hypoglycemic drugs; Z87.891 Personal history of nicotine dependence
CPT/HCPCS: 71045; 80048; 82948; 84100; 84155; 85025; 85027; 85610; 86850; 86900; 86901; 87641; 93005; 94150; 94664; J0131; J0690; J1100; J1170; J1644; J1650; J2250; J2270; J2370; J2405; J2710; J2720; J3010; J3590; J7030; J7040; J7050; J7060; J7120

== ENCOUNTER 2018-05-13 23:16 | Inpatient (IN) ==
[2018-05-14] MEDS ORDERED: Piperacil/Tazo 4.5 GM Premix 4.5 GM/100 ML BAG IV.SIG STA (00:47)
[2018-05-14] MEDS ORDERED: Acetaminophen 325 MG Tablet PO ONE (00:47)
[2018-05-14] MEDS ORDERED: Morphine Inj 4 MG, Morphine Inj 2 MG IV.PUSH ONE ×2 (01:21)
[2018-05-14] MEDS ORDERED: Dextrose 50% in Water 50 ML Vial IV.PUSH PRN ×2 (01:36→01:39)
[2018-05-14] MEDS ORDERED: Bisacodyl 10 MG Supp RECTAL PRN (01:36)
[2018-05-14] MEDS ORDERED: Morphine Inj 4 MG/ML Vial IV.PUSH SCH (01:45)
[2018-05-14 01:46] LABS: Baso % (Auto) 0.4 % (0.0-2.0); Eos % (Auto) 0.3 % (0.0-4.0); Hematocrit 33.7 % (35.0-46.0); Hemoglobin 11.4 gm/dL (11.6-15.3); Lymph # (Auto) 1.2 th/mm3 (1.0-4.8); Lymph % (Auto) 11.3 % (9.0-44.0); Mean Corpuscular HGB Conc 33.8 % (32.0-36.0); Mean Corpuscular Volume 91.7 fL (80.0-100.0); Mean Platelet Volume 6.7 fL (7.0-11.0); Mono # (Auto) 0.8 th/mm3 (0.0-0.9); Mono % (Auto) 7.7 % (0.0-8.0); Neut # (Auto) 8.4 th/mm3 (1.8-7.7); Neut % (Auto) 80.3 % (16.0-70.0); Platelet Count 324 th/mm3 (150-450); Red Blood Count 3.67 mil/mm3 (4.00-5.30); Red Cell Distribution Width 13.3 % (11.6-17.2); White Blood Count 10.5 th/mm3 (4.0-11.0)
[2018-05-14] MEDS ORDERED: Vancomycin Consult Pharmacy 1 EACH OTHER SCH (02:00)
[2018-05-14] MEDS: Sod Chloride 0.9% Inj 1,000 ML IV.CONT SCH ×3 (02:03→22:23)
[2018-05-14 02:16] LABS: Alanine Aminotransferase 16 U/L (10-53); Albumin 2.6 g/dL (3.4-5.0); Anion Gap 11 meq/L (5-15); Aspartate Aminotransferase 12 U/L (15-37); Blood Urea Nitrogen 18 mg/dL (7-18); Calcium 8.2 mg/dL (8.5-10.1); Carbon Dioxide 24.2 meq/L (21.0-32.0); Chloride 99 meq/L (98-107); Glomerular Filtration Rate 52 mL/min (>89); Glucose,Random 97 mg/dL (74-106); Potassium 4.2 meq/L (3.5-5.1); Sodium 134 meq/L (136-145)
[2018-05-14 02:19] LABS: Alkaline Phosphatase 88 U/L (45-117); Total Protein 7.2 g/dL (6.4-8.2)
[2018-05-14] MEDS ORDERED: Vancomycin Inj 1,500 MG in Sodium Chlor 0.9% Inj 500 ML IV.SIG SCH (04:00)
[2018-05-14] MEDS ORDERED: Naloxone Inj 0.4 MG/ML Vial IV.PUSH PRN (07:52)
[2018-05-14] MEDS: Insulin NovoLOG Aspart Correctional Sugar Inj SQ SCH ×4 (08:39→22:36)
[2018-05-14] MEDS: Acetaminophen 325 MG Tablet PO PRN (08:40)
[2018-05-14] MEDS: Piperacil/Tazo 4.5 GM Premix 4.5 GM/100 ML BAG IV.SIG SCH ×3 (08:40→22:23)
--- NOTE | 2018-05-14 10:29 | P.PNCA ---
- Note Subjective/Hospital Course: 05/14/2018 73-year-old female patient of Dr. Briggs's with multiple vascular problems seen in another hospital and now admitted for further care to our institution, considering that she is an established patient. Dr. Briggs will take over the vascular and surgical aspects of care today Thanks J Objective: Vital Signs - 24 hr 05/14/18 00:10 05/14/18 01:05 05/14/18 01:44 Temperature 100.3 F H Pulse Rate 89 90 Respiratory Rate 18 18 Blood Pressure 130/64 102/61 Pulse Oximetry 96 99 96 05/14/18 02:11 05/14/18 03:22 05/14/18 08:00 Temperature 99.1 F 101.8 F H Pulse Rate 99 H Respiratory Rate 18 Blood Pressure 129/74 Pulse Oximetry 96 94 L Labs: Laboratory Results - last 12 hr 05/14/18 05/14/18 05/14/18 01:35 01:35 01:35 WBC 10.5 RBC 3.67 L Hgb 11.4 L Hct 33.7 L MCV 91.7 MCH 31.0 MCHC 33.8 RDW 13.3 Plt Count 324 MPV 6.7 L Neut % (Auto) 80.3 H Lymph % (Auto) 11.3 Terry % (Auto) 7.7 Eos % (Auto) 0.3 Baso % (Auto) 0.4 Neut # (Auto) 8.4 H Lymph # (Auto) 1.2 Terry # (Auto) 0.8 Eos # (Auto) 0.0 Baso # (Auto) 0.0 WBC Differential . Differential Comment Auto diff final Sodium 134 L Potassium 4.2 Chloride 99 Carbon Dioxide 24.2 Anion Gap 11 BUN 18 Creatinine 1.04 H Estimated GFR 52 L POC Glucose Random Glucose 97 Lactic Acid 1.1 Calcium 8.2 L Total Bilirubin 0.4 AST 12 L ALT 16 Alkaline Phosphatase 88 Total Protein 7.2 Albumin 2.6 L 05/14/18 05/14/18 03:17 08:39 WBC RBC Hgb Hct MCV MCH MCHC RDW Plt Count MPV Neut % (Auto) Lymph % (Auto) Terry % (Auto) Eos % (Auto) Baso % (Auto) Neut # (Auto) Lymph # (Auto) Terry # (Auto) Eos # (Auto) Baso # (Auto) WBC Differential Differential Comment Sodium Potassium Chloride Carbon Dioxide Anion Gap BUN Creatinine Estimated GFR POC Glucose 101 114 H Random Glucose Lactic Acid Calcium Total Bilirubin AST ALT Alkaline Phosphatase Total Protein Albumin Result Diagrams: 05/14/18 01:35 05/14/18 01:35
--- NOTE | 2018-05-14 10:48 | P.HPIM ---
History of Present Illness Primary Care Physician: No Primary Care Physician History of Present Illness: This is a 73-year-old female with history of peripheral arterial disease, hypertension, diabetes mellitus, status post left femoral to below-knee arterial bypass April 20, 2018, has been discharged home with home health care. She has been doing well until Thursday when she started having low-grade fever of 101, improved with Tylenol. This is associated with increasing, viscous purulent discharge from the left groin area in her surgical site. There is also increasing left lower extremity soreness. Yesterday, while she was walking with her walker, she became dizzy, lightheaded and lost her balance and fell to the bed. She did not hit the floor. No loss of consciousness. She denies any cough, shortness of breath, abdominal pain or diarrhea. She has chronic loose stools but not worse than usual. She has no dysuria but has difficulty urinating and has urinary urgency. Good oral intake. She initially presented to [facility] in [place], transferred to [place] for further management with vascular surgery Dr. Briggs. During her ED visit in [place], temperature was 100.3. She was given Zosyn, morphine and Ativan. Chest x-ray was unremarkable. Sodium was 129, creatinine 1.43, WBC 13.6, hemoglobin 13.0, platelets of 324, INR is 1.2. Inpatient Certification: I certify that the inpatient services were ordered in accordance with Medicare regulations governing the order. This includes certification that hospital inpatient services are reasonable and necessary and in the case of services not specified as inpatient-only under 42 CFR 419.22(n), that they are appropriately provided as inpatient services in accordance to with the 2-midnight benchmark under 43 CFR 412.3(e) Estimated Total Length of Stay (Days): 3 Plans for Post Hospital Care: Not yet determined Review of Systems All other pertinent systems were reviewed and are negative. PMFSH - History History Provided By: Patient - Medical History Medical History: Medical History (Last Reviewed 05/14/18 @ 10:47 by Tommy Pino MD) Depression Fibromyalgia Osteoarthritis PAD (peripheral artery disease) Diabetes History of hysterectomy Hypercholesterolemia Hypertension - Surgical History Surgical History: Surgical History (Last Reviewed 05/14/18 @ 10:47 by Tommy Pino MD) History of carotid endarterectomy History of spinal fusion - Family History Family History: Family History (Last Reviewed 05/14/18 @ 11:32 by Tommy Pino MD) Other Family history of diabetes mellitus Family history of hypertension - Tobacco History Smoking Status: Former smoker - Alcohol History How Often Do You Have a Drink Containing Alcohol: Never - Substance Use History Substance History: No History of Abuse - Travel History Recent Travel in the [place] Within the Last 8 Weeks: No Recent Travel Out of the Country Within the Last 8 Weeks: No - Immunization History Tetanus Immunization: Unsure Medications and Allergies Active Medications: Active Medications Acetaminophen (Tylenol) 650 mg PO Q6HR PRN PRN Reason: pain 1-2, fever Last Admin: 05/14/18 08:40 Dose: 650 mg Hydrocodone Bitart/Acetaminophen ([place] 5/325) 1 tab PO Q4H PRN PRN Reason: PAIN SCALE 3 TO 5 Hydrocodone Bitart/Acetaminophen ([place] 10/325) 1 tab PO Q4H PRN PRN Reason: PAIN SCALE 6 TO 10 Last Admin: 05/14/18 09:58 Dose: 1 tab Al Hydroxide/Mg Hydroxide (Milk Of Magnchris Liq) 30 ml PO Q12H PRN PRN Reason: Mild Constipation Bisacodyl (Dulcolax Supp) 10 mg RECTAL DAILY PRN PRN Reason: SEVERE CONSITIPATION Dextrose (D50w Vial) 50 ml IV.PUSH UNSCH PRN PRN Reason: PER HYPOGLYCEMIA PROTOCOL Glucagon (Glucagon Inj) 1 mg OTHER PRN PRN PRN Reason: for Hypoglycemia Protocol Sodium Chloride (Ns Inj) 1,000 mls @ 100 mls/hr IV.CONT .Q10H LANE Last Infusion: 05/14/18 03:10 Dose: 100 mls/hr Pharmacy Profile Note (Vancomycin Consult Pharmacy) 0 mls @ 0 mls/hr OTHER UNSCH LANE Piperacillin/Tazobactam/Dextrose (Zosyn 4.5 Gm Premix) 4.5 gm in 100 mls @ 200 mls/hr IV.SIG Q6H LANE Last Admin: 05/14/18 08:40 Dose: 200 mls/hr Vancomycin HCl 1,250 mg/ (Sodium Chloride) 262.5 mls @ 250 mls/hr IV.SIG Q24H LANE Insulin Aspart (Novolog Insulin Suppl Scale Inj) [address]; Protocol Last Admin: 05/14/18 08:39 Dose: Not Given Lactulose (Lactulose Liq) 30 ml PO DAILY PRN PRN Reason: SEVERE CONSITIPATION Miscellaneous Information ([facility] Ordered Lab Info) 0 each OTHER ONCE ONE Stop: 05/17/18 11:46 Naloxone HCl (Narcan Inj) 0.4 mg IV.PUSH UNSCH PRN PRN Reason: SEE LABEL COMMENTS Sennosides (Senokot) 17.2 mg PO Q12H PRN PRN Reason: Moderate Constipation Temazepam (Restoril) 15 mg PO HS PRN PRN Reason: INSOMNIA Allergies Allergy/AdvReac Type Severity Reaction Status Date / Time No Known Allergies Allergy Unverified 05/13/18 14:51 Home Medications Medication Instructions Recorded Confirmed Type amlodipine 10 mg PO HS 05/14/18 05/14/18 History atorvastatin [Lipitor] 10 mg PO HS 05/14/18 05/14/18 History carisoprodol [Soma] 350 mg PO TID 05/14/18 05/14/18 History fluoxetine [Prozac] 60 mg PO DAILY 05/14/18 05/14/18 History furosemide [Lasix] 20 mg PO DAILY 05/14/18 05/14/18 History gabapentin 1,200 mg PO TID 05/14/18 05/14/18 History hydrocodone-acetaminophen [[place]] 1 tab PO Q6H PRN 05/14/18 05/14/18 History lisinopril-hydrochlorothiazide 1 tab PO DAILY 05/14/18 05/14/18 History metformin 500 mg PO BID 05/14/18 05/14/18 History [id number] PO DAILY 05/14/18 History [Theragran-M Premier 50 Plus] potassium 10 meq PO DAILY 05/14/18 05/14/18 History sulfamethoxazole-trimethoprim 1 tab PO BID 05/14/18 05/14/18 History [Bactrim DS] Exam Vital signs: Vital Signs 05/14/18 00:10 05/14/18 01:05 05/14/18 01:44 Temperature 100.3 F H Pulse Rate 89 90 Respiratory Rate 18 18 Blood Pressure 130/64 102/61 Pulse Oximetry 96 99 96 05/14/18 02:11 05/14/18 03:22 05/14/18 08:00 Temperature 99.1 F 101.8 F H Pulse Rate 99 H Respiratory Rate 18 Blood Pressure 129/74 Pulse Oximetry 96 94 L Intake & Output 05/13/18 05/14/18 05/14/18 18:59 06:59 18:59 Intake Total 600 / 600 Balance 600 / 600 Weight 87.997 kg Intake: IV 200 / 200 NS Inj 1,000 ML @ 100 mls/hr IV 100 / [address] Rx#:[id number] Zosyn 4.5 GM Premix 4.5 gm In 100 / 100 100 ml @ 200 mls/hr IV.SIG STAT STA Rx#:[id number] Other 400 / 400 Other: # Voids 2 Date of Last Bowel Movement 05/12/18 05/12/18 Narrative: GENERAL: Not in acute distress, well-nourished. HEAD: Atraumatic. Normocephalic. No temporal or scalp tenderness. EYES: PERRL, full EOMs, no jaundice, nonicteric, pink conjunctivae without injection, moist mucosa NECK: Trachea midline, no mass, no obvious thyromegaly. CARDIOVASCULAR: Regular rate and rhythm without murmurs, gallops, or rubs. RESPIRATORY: Clear to auscultation with normal respiratory effort. Breath sounds equal bilaterally. No use of accessory muscles of respiration. GASTROINTESTINAL: Abdomen soft, normal bowel sounds, non-tender, nondistended. MUSCULOSKELETAL: Extremities without clubbing, cyanosis. Left lower extremity has trace calf edema, there is also tenderness on light palpation of the left calf and left thigh area associated with warmth and mild erythema. Left inguinal wound mildly tender with mildly viscous greenish discharge. Distal pulses 1+ intact. NEUROLOGICAL: Awake, alert, oriented 3. No obvious cranial nerve deficits. Moves all 4 extremities, muscle strength testing 5 over 5. No focal neurologic deficits. Results - Labs CBC & Chem 7: 05/14/18 01:35 05/14/18 01:35 Labs: Short CBC 05/14/18 Range/Units 01:35 WBC 10.5 (4.0-11.0) th/mm3 Hgb 11.4 L (11.6-15.3) gm/dL Hct 33.7 L (35.0-46.0) % Plt Count 324 (150-450) th/mm3 [facility] 07/06/18 01:35 Sodium 134 L Potassium 4.2 Chloride 99 Carbon Dioxide 24.2 BUN 18 Creatinine 1.04 H Calcium 8.2 L Liver Function 05/14/18 Range/Units 01:35 Total Bilirubin 0.4 (0.2-1.0) mg/dL AST 12 L (15-37) U/L ALT 16 (10-53) U/L Alkaline Phosphatase 88 (45-117) U/L Albumin 2.6 L (3.4-5.0) g/dL Caprini VTE Risk Assessment Caprini VTE Risk Assessment: Moderate/High Risk (score >= 2) (Might need surgery ) Caprini Risk Assessment Model: Point Value = 1 Point Value = 2 Point Value = 3 Point Value = 5 Age 41-60 Minor surgery BMI > 25 kg/m2 Swollen legs Varicose veins or History of unexplained or recurrent spontaneous Oral contraceptives or hormone replacement Sepsis (< 1 month) Serious lung disease, including pneumonia (< 1 month) Abnormal pulmonary function Acute myocardial infarction Congestive heart failure (< 1 month) History of inflammatory bowel disease Medical patient at bed rest Age 61-74 Arthroscopic surgery Major open surgery (> 45 min) Laparoscopic surgery (> 45 min) Malignancy Confined to bed (> 72 hours) Immobilizing plaster cast Central venous access Age >= 75 History of VTE Family history of VTE Factor V Leiden Prothrombin [id number] Lupus anticoagulant Anticardiolipin antibodies Elevated serum homocysteine Heparin-induced thrombocytopenia Other congenital or acquired thrombophilia Stroke (< 1 month) Elective arthroplasty Hip, pelvis, or leg fracture Acute spinal cord injury (< 1 month) Prophylaxis Regimen: Total Risk Factor Score Risk Level Prophylaxis Regimen 0-1 Low Early ambulation 2 Moderate Order ONE of the following: *Sequential Compression Device (SCD) *Heparin 5000 units SQ BID 3-4 Higher Order ONE of the following medications: *Heparin 5000 units SQ TID *Enoxaparin/Lovenox 40 mg SQ daily (WT < 150 kg, CrCl > 30 mL/min) *Enoxaparin/Lovenox 30 mg SQ daily (WT < 150 kg, CrCl > 10-29 mL/min) *Enoxaparin/Lovenox 30 mg SQ BID (WT < 150 kg, CrCl > 30 mL/min) AND/OR *Sequential Compression Device (SCD) 5 or more Highest Order ONE of the following medications: *Heparin 5000 units SQ TID (Preferred with Epidurals) *Enoxaparin/Lovenox 40 mg SQ daily (WT < 150 kg, CrCl > 30 mL/min) *Enoxaparin/Lovenox 30 mg SQ daily (WT < 150 kg, CrCl > 10-29 mL/min) *Enoxaparin/Lovenox 30 mg SQ BID (WT < 150 kg, CrCl > 30 mL/min) AND *Sequential Compression Device (SCD) Assessment and Plan - Plan This is a 73-year-old female with history of hypertension diabetes mellitus, peripheral arterial disease status post left femoral below-knee bypass in April 2018, readmitted for left groin infection. Sepsis secondary to left groin infection-sepsis based on presentation at the [facility] ED of leukocytosis, fever, tachycardia and clear focus of infection. WBC was initially 13.6. Zosyn was given, continue Zosyn, start vancomycin, consult Dr. Briggs from vascular surgery. Blood cultures pending. Stop Bactrim per home medication. Pain control with [place]. Hypertension-restart Norvasc, lisinopril, hold hydrochlorothiazide Diabetes mellitus-hold metformin, sliding scale insulin for now. Mild dehydration-presenting creatinine was 1.43, not improving at 1.04, continue IVF, hold Lasix. Peripheral arterial disease-as above, continue statins. Hyponatremia-sodium on presentation 129, now 134, continue normal saline. DVT prophylaxis: Hold for now given possible need for surgery. Anxiety-start Xanax Discussed with daughter.
[2018-05-14 11:42] LABS: INR 1.2 Ratio
[2018-05-14] MEDS ORDERED: ALPRAZolam 0.25 MG Tablet PO PRN (11:43)
[2018-05-14] MEDS: Vancomycin Inj 1,250 MG in Sodium Chlor 0.9% Inj 250 ML IV.SIG SCH (12:51)
--- NOTE | 2018-05-14 13:37 | P.PNVS ---
Subjective Subjective/Hospital Course: Pt adm with groin wound infection and dizziness, concern for sepsis pt appropriately depressed but alert and jovial. + groin drainage. No fevers today Objective Vital Signs / I&O: Vital Signs 05/14/18 00:10 05/14/18 01:05 05/14/18 01:44 Temperature 100.3 F H Pulse Rate 89 90 Respiratory Rate 18 18 Blood Pressure 130/64 102/61 Pulse Oximetry 96 99 96 05/14/18 02:11 05/14/18 03:22 05/14/18 08:00 Temperature 99.1 F 101.8 F H Pulse Rate 99 H Respiratory Rate 18 Blood Pressure 129/74 Pulse Oximetry 96 94 L 05/14/18 11:20 Temperature 100.3 F H Pulse Rate 77 Respiratory Rate 18 Blood Pressure 88/56 L Pulse Oximetry 95 Intake & Output 05/13/18 05/14/18 05/14/18 18:59 06:59 18:59 Intake Total 600 / 600 1000 / 1000 Balance 600 / 600 1000 / 1000 Weight 87.997 kg Intake: IV 200 / 200 1000 / 1000 NS Inj 1,000 ML @ 100 mls/hr IV 100 / 100 900 / [address] Rx#:[id number] Zosyn 4.5 GM Premix 4.5 gm In 100 / 100 100 / 100 100 ml @ 200 mls/hr IV.SIG Q6H LANE Rx#:[id number] Other 400 / 400 Other: # Voids 2 Date of Last Bowel Movement 05/12/18 05/12/18 Physical Exam: L LE calf wound intact, no drainage and no erythema L groin wound open with purulent drainage but no graft palpable minimal wound erythema Laboratory Results - last 24 hr 05/14/18 05/14/18 05/14/18 01:35 01:35 01:35 WBC 10.5 RBC 3.67 L Hgb 11.4 L Hct 33.7 L MCV 91.7 MCH 31.0 MCHC 33.8 RDW 13.3 Plt Count 324 MPV 6.7 L Neut % (Auto) 80.3 H Lymph % (Auto) 11.3 Pope % (Auto) 7.7 Eos % (Auto) 0.3 Baso % (Auto) 0.4 Neut # (Auto) 8.4 H Lymph # (Auto) 1.2 Pope # (Auto) 0.8 Eos # (Auto) 0.0 Baso # (Auto) 0.0 WBC Differential . Differential Comment Auto diff final PT INR Sodium 134 L Potassium 4.2 Chloride 99 Carbon Dioxide 24.2 Anion Gap 11 BUN 18 Creatinine 1.04 H Estimated GFR 52 L POC Glucose Random Glucose 97 Lactic Acid 1.1 Calcium 8.2 L Total Bilirubin 0.4 AST 12 L ALT 16 Alkaline Phosphatase 88 Total Protein 7.2 Albumin 2.6 L 05/14/18 05/14/18 05/14/18 03:17 08:39 10:33 WBC RBC Hgb Hct MCV MCH MCHC RDW Plt Count MPV Neut % (Auto) Lymph % (Auto) Pope % (Auto) Eos % (Auto) Baso % (Auto) Neut # (Auto) Lymph # (Auto) Pope # (Auto) Eos # (Auto) Baso # (Auto) WBC Differential Differential Comment PT 12.0 H INR 1.2 Sodium Potassium Chloride Carbon Dioxide Anion Gap BUN Creatinine Estimated GFR POC Glucose 101 114 H Random Glucose Lactic Acid Calcium Total Bilirubin AST ALT Alkaline Phosphatase Total Protein Albumin 05/14/18 12:32 WBC RBC Hgb Hct MCV MCH MCHC RDW Plt Count MPV Neut % (Auto) Lymph % (Auto) Pope % (Auto) Eos % (Auto) Baso % (Auto) Neut # (Auto) Lymph # (Auto) Pope # (Auto) Eos # (Auto) Baso # (Auto) WBC Differential Differential Comment PT INR Sodium Potassium Chloride Carbon Dioxide Anion Gap BUN Creatinine Estimated GFR POC Glucose 101 Random Glucose Lactic Acid Calcium Total Bilirubin AST ALT Alkaline Phosphatase Total Protein Albumin Assessment and Plan - Plan L LE groin wound 1. Continue IV antibiotics 2. CTA pending 3. Dry packing to wound TID
--- NOTE | 2018-05-14 18:02 | P.PNWCN ---
Wound Care Nurse Consult Description: Received consult from Doctor Briggs Vascular surgery for L groin wound management Communicated with: Elizabeth SCHAFFER Vascular surgery and RN Alyx scott Recommendation: 1.Apply Dakin's 0.125% soaked gauze pakced in wound bed and leave in place for 10 minutes before removing with dressing changes daily. 2. Cleanse wound with normal saline and cut maxorb extra AG dressing in single strip. Pack wound with maxorb extra Ag and cover with dry gauze and ABD pad, secured with patient's skin folds and minimal paper tape. Change dressing daily or PRN if saturated or dislodged. 3. If ABD pad is not absorbant enough may cover wound with Optilock dressing and secure with minimal paper tape and change daily or PRN. Additional information: Patient seen on for evaluation of wound management of L groin. Removed dressing in place to L groin to reveal open wound to L groin that measures 2.3cmx 1cm x 2.6cm. Tunneling is noted at 12 o'clock measuring 3.5 cm. Wound bed that is ~50% red granulation tissue and ~50% pink tissue. Wound drainage is moderate, yellow/ cloudy sero-sanguinous drainage that is without odor. Wound was cleansed with normal saline and patted dry. Applied dry gauze packing to wound and then covered with ABD pad secured loosely by patient's anatomy. Do not recommend wound VAC at this time due to size, location of wound, and poor visualization of wound bed. Wound/Pressure Injury - Wound Left Groin Wound Assessment: Ongoing Wound Type: Abscess Is This a Chronic Wound: Yes Requested from Provider a Wound Care Consult: Yes (Wound care has seen patient today) Length: 1 (cm) Width: 2.3 (cm) Depth: 2.6 (cm) Wound Bed Appearance: Tunneling/Undermining (3.5cm at 12 o'clock) Wound Bed Appearance: See wound care nurse note. Surrounding Tissue Appearance: [place] Surrounding Tissue Temperature: Warm Drainage Description: yellow/serosanguinous Drainage Amount: Moderate Drainage Odor: No Odor Dressing Status: Changed Wound Packing Type: Gauze Roll Cover Dressing: Absorbant Pad Wound Dressing Change Date: 05/14/18
--- NOTE | 2018-05-14 20:23 | CT ---
EXAM DATE: 05/14/2018 8:00 PM EDT AGE/SEX: 73 years / Female INDICATIONS: Pain post pop bypass left leg. CLINICAL DATA: This is the patient's initial encounter. Patient reports that signs and symptoms have been present for 2 days and indicates a pain score of 6/10. MEDICAL/SURGICAL HISTORY: Hypertension. Left leg bypass. Hysterectomy. RADIATION DOSE: 7.25 CTDI (mGy) COMPARISON: No prior exams available for comparison. TECHNIQUE: Volumetric scanning was performed using a multi-row detector CT scanner during bolus infu yosef of 85 ml Omnipaque 350 (iohexol) nonionic water-soluble contrast as a single exam dose. The d shon was post processed with a variety of visualization algorithms including full volume maximum inten sity projection, multi-planar sliding thin slab reformation, curved planar reformation, and surface r endering techniques. Using automated exposure control and adjustment of the mA and/or kV according t o patient size, radiation dose was kept as low as reasonably achievable to obtain optimal diagnostic quality images. DICOM format image data is available electronically for review and comparison. FINDINGS: Abdominal Aorta: The lumen is smooth without significant narrowing or aneurysmal dilation. The pr oximal celiac and superior mesenteric arteries are patent and normal in diameter. There are solitary renal arteries bilaterally without gross abnormality. Bifurcation: Normal. Right Pelvis: The right common iliac, internal iliac, and external iliac vessels are patent without luminal irregularity. Left Pelvis: The left common iliac, internal iliac, and external iliac vessels are patent and withou t luminal irregularity. Right Thigh: Scattered calcified atherosclerotic plaques are noted throughout the right superficial femoral artery without significant stenosis noted. Right profunda femoris artery is patent without si gnificant stenosis. Left Thigh: There is evidence of occlusion of the patient's [place] left superficial femoral artery. A femoral-popliteal bypass graft is noted and is patent throughout its course. Right Knee: The distal femoral and popliteal arteries are patent without luminal irregularity. Left Knee: The distal femoral and popliteal arteries are patent without luminal irregularity. Right Leg: The trifurcation is intact. Left Leg: The trifurcation is intact. Miscellaneous: The liver is enlarged and demonstrates fatty infiltration. There is a left adrenal nod ule measuring 2.3 cm which likely represents an adrenal adenoma. Calcified gallstone is noted within the gallbladder. Multiple left renal cysts are noted and the largest measures 1.8 cm. Minimal ascites is noted within the pelvis. Degenerative changes and scoliosis of the thoracolumbar spine are noted. CONCLUSION: 1. Patent left femoral-popliteal bypass graft. 2. Enlarged fatty liver. 3. Left adrenal nodule measuring 2.3 cm consistent with probable adrenal adenoma. 4. Cholelithiasis. 5. Left renal cysts. 6. Minimal ascites. 7. Degenerative changes and scoliosis of the thoracolumbar spine. Electronically signed by: Les Way MD 05/14/2018 8:21 PM EDT
[2018-05-14] MEDS: Temazepam 15 MG Capsule PO PRN (22:30)
[2018-05-15] MEDS: Piperacil/Tazo 4.5 GM Premix 4.5 GM/100 ML BAG IV.SIG SCH ×4 (04:14→20:55)
[2018-05-15] MEDS: Acetaminophen 325 MG Tablet PO PRN (05:06)
--- NOTE | 2018-05-15 09:06 | P.PNIM ---
Subjective Interval history: Follow-up for left groin infection No clinical subjective complaint. T-max 100.3. Blood pressure 98/80, no dizziness or lightheadedness. Had a terrible night because of beating infusion pump. Pain is stable. No nausea or vomiting. Requesting to increase Xanax. Physical Exam Vital signs: Vital Signs 05/14/18 11:20 05/14/18 15:43 05/14/18 16:00 Temperature 100.3 F H 98.7 F Pulse Rate 77 91 H Respiratory Rate 18 17 Blood Pressure 88/56 L 125/77 Pulse Oximetry 95 93 L 93 L 05/14/18 20:00 05/15/18 00:53 05/15/18 04:00 Temperature 98.4 F 98.9 F 100.3 F H Pulse Rate 78 82 85 Respiratory Rate 18 20 Blood Pressure 104/59 L 98/50 L Pulse Oximetry 94 L 92 L 95 05/15/18 08:00 Temperature 98.4 F Pulse Rate 83 Respiratory Rate 16 Blood Pressure 116/58 L Pulse Oximetry 93 L Intake & Output 05/14/18 05/15/18 05/15/18 18:59 06:59 18:59 Intake Total 1100 / 1100 1000 / 1000 Balance 1100 / 1100 1000 / 1000 Weight 87 kg Intake: IV 1100 / 1100 1000 / 1000 NS Inj 1,000 ML @ 100 mls/hr IV 900 / 900 900 / [address] Rx#:[id number] Zosyn 4.5 GM Premix 4.5 gm In 200 / 200 100 / 100 100 ml @ 200 mls/hr IV.SIG Q6H LANE Rx#:[id number] Other: # Voids 1 1 Date of Last Bowel Movement 05/12/18 Narrative: GENERAL: Not in acute distress CARDIOVASCULAR: Regular rate and rhythm without murmurs, gallops, or rubs. RESPIRATORY: Clear to auscultation with normal respiratory effort. Breath sounds equal bilaterally. No use of accessory muscles of respiration. GASTROINTESTINAL: Abdomen soft, normal bowel sounds, non-tender, nondistended. MUSCULOSKELETAL: Extremities without clubbing, cyanosis. Left lower extremity has trace calf edema, there is also tenderness on light palpation of the left calf and left thigh area associated with warmth and mild erythema. Left inguinal wound mildly tender with mildly viscous greenish discharge. Distal pulses 1+ intact. There is a small lump near the popliteal fossa, mildly tender. NEUROLOGICAL: Awake, alert, oriented 3. No obvious cranial nerve deficits. Moves all 4 extremities, muscle strength testing 5 over 5. No focal neurologic deficits. Results - Labs CBC & Chem 7: 05/14/18 01:35 05/14/18 01:35 Laboratory Results - last 24 hr 05/14/18 05/14/18 05/14/18 10:33 12:32 17:16 PT 12.0 H INR 1.2 POC Glucose 101 148 H 05/14/18 05/15/18 22:26 08:25 PT INR POC Glucose 105 105 - Imaging Impressions Aorta w/Runoff CTA 05/14/18 00:00 CONCLUSION: 1. Patent left femoral-popliteal bypass graft. 2. Enlarged fatty liver. 3. Left adrenal nodule measuring 2.3 cm consistent with probable adrenal adenoma. 4. Cholelithiasis. 5. Left renal cysts. 6. Minimal ascites. 7. Degenerative changes and scoliosis of the thoracolumbar spine. Assessment and Plan - Plan This is a 73-year-old female with history of hypertension diabetes mellitus, peripheral arterial disease status post left femoral below-knee bypass in April 2018, readmitted for left groin infection. Sepsis secondary to left groin infection-sepsis based on presentation at the [facility] ED of leukocytosis, fever, tachycardia and clear focus of infection. WBC was initially 13.6. Zosyn was given, continue Zosyn and vancomycin, Dr. Briggs from vascular surgery following, recommends wound care and antibiotics for now. CTA done, patent graft. Blood cultures pending. Pain control with [place]. Awaiting CBC and BMP for today. Hypertension-blood pressure soft, hold Norvasc, lisinopril, hydrochlorothiazide , increase normal saline. Diabetes mellitus-hold metformin, sliding scale insulin for now. Mild dehydration-presenting creatinine was 1.43, now improving at 1.04, continue IVF, hold Lasix and HCTZ Peripheral arterial disease-as above, continue statins. Left adrenal adenoma-incidental finding on CT scan of the abdomen, follow-up as outpatient. Hyponatremia-sodium on presentation 129, now 134, continue normal saline. DVT prophylaxis: heparin Anxiety- increase Xanax
[2018-05-15] MEDS: FLUoxetine 20 MG Capsule PO SCH (09:55)
[2018-05-15] MEDS: Insulin NovoLOG Aspart Correctional Sugar Inj SQ SCH ×4 (09:58→21:09)
--- NOTE | 2018-05-15 09:58 | P.PNVS ---
Subjective Subjective/Hospital Course: groin wound continues to drain no fevers; pt irritable from IV issues dimitry po CTA reviewed - no perigraft fluid Objective Vital Signs / I&O: Vital Signs 05/14/18 11:20 05/14/18 15:43 05/14/18 16:00 Temperature 100.3 F H 98.7 F Pulse Rate 77 91 H Respiratory Rate 18 17 Blood Pressure 88/56 L 125/77 Pulse Oximetry 95 93 L 93 L 05/14/18 20:00 05/15/18 00:53 05/15/18 04:00 Temperature 98.4 F 98.9 F 100.3 F H Pulse Rate 78 82 85 Respiratory Rate 18 20 Blood Pressure 104/59 L 98/50 L Pulse Oximetry 94 L 92 L 95 05/15/18 08:00 Temperature 98.4 F Pulse Rate 83 Respiratory Rate 16 Blood Pressure 116/58 L Pulse Oximetry 93 L Intake & Output 05/14/18 05/15/18 05/15/18 18:59 06:59 18:59 Intake Total 1100 / 1100 1000 / 1000 Balance 1100 / 1100 1000 / 1000 Weight 87 kg Intake: IV 1100 / 1100 1000 / 1000 NS Inj 1,000 ML @ 100 mls/hr IV 900 / 900 900 / [address] Rx#:[id number] Zosyn 4.5 GM Premix 4.5 gm In 200 / 200 100 / 100 100 ml @ 200 mls/hr IV.SIG Q6H LANE Rx#:[id number] Other: # Voids 1 1 Date of Last Bowel Movement 05/12/18 Physical Exam: L groin with punctate opening but no surrounding erythema Laboratory Results - last 24 hr 05/14/18 05/14/18 05/14/18 10:33 12:32 17:16 PT 12.0 H INR 1.2 POC Glucose 101 148 H 05/14/18 05/15/18 22:26 08:25 PT INR POC Glucose 105 105 Impressions Aorta w/Runoff CTA 05/14/18 00:00 CONCLUSION: 1. Patent left femoral-popliteal bypass graft. 2. Enlarged fatty liver. 3. Left adrenal nodule measuring 2.3 cm consistent with probable adrenal adenoma. 4. Cholelithiasis. 5. Left renal cysts. 6. Minimal ascites. 7. Degenerative changes and scoliosis of the thoracolumbar spine. Assessment and Plan - Plan L LE groin wound 1. Continue IV antibiotics 2. wound care recs will be ordered 3. Likely 2-3 more days of inpatient wound care/IV antibiotics 4. May need IV antibiotics at home for total 6 weeks - to be determined based on progress of wound over next 24-48 hours
[2018-05-15] MEDS: Carisoprodol 350 MG Tablet PO SCH ×3 (11:05→18:24)
[2018-05-15] MEDS: Gabapentin 300 MG Capsule PO SCH ×3 (11:05→18:24)
[2018-05-15 11:36] LABS: Baso % (Auto) 0.6 % (0.0-2.0); Eos % (Auto) 0.5 % (0.0-4.0); Hematocrit 32.6 % (35.0-46.0); Hemoglobin 10.9 gm/dL (11.6-15.3); Lymph # (Auto) 1.2 th/mm3 (1.0-4.8); Lymph % (Auto) 13.8 % (9.0-44.0); Mean Corpuscular HGB Conc 33.4 % (32.0-36.0); Mean Corpuscular Hemoglobin 30.7 pg (27.0-34.0); Mean Corpuscular Volume 91.9 fL (80.0-100.0); Mean Platelet Volume 6.7 fL (7.0-11.0); Mono # (Auto) 0.7 th/mm3 (0.0-0.9); Mono % (Auto) 8.4 % (0.0-8.0); Neut # (Auto) 6.4 th/mm3 (1.8-7.7); Neut % (Auto) 76.7 % (16.0-70.0); Platelet Count 308 th/mm3 (150-450); Red Blood Count 3.54 mil/mm3 (4.00-5.30); Red Cell Distribution Width 13.4 % (11.6-17.2); White Blood Count 8.3 th/mm3 (4.0-11.0)
[2018-05-15] MEDS: Sod Chloride 0.9% Inj 1,000 ML IV.CONT SCH (11:47)
[2018-05-15] MEDS: Vancomycin Inj 1,250 MG in Sodium Chlor 0.9% Inj 250 ML IV.SIG SCH (11:48)
[2018-05-15 12:02] LABS: Anion Gap 13 meq/L (5-15); Blood Urea Nitrogen 8 mg/dL (7-18); Calcium 8.9 mg/dL (8.5-10.1); Carbon Dioxide 21.9 meq/L (21.0-32.0); Chloride 102 meq/L (98-107); Glomerular Filtration Rate Greater Than 89 mL/min (>89); Glucose,Random 89 mg/dL (74-106); Potassium 3.4 meq/L (3.5-5.1); Sodium 137 meq/L (136-145)
[2018-05-15] MEDS ORDERED: Gabapentin 300 MG Capsule PO SCH (13:00)
--- NOTE | 2018-05-15 18:49 | US ---
EXAM DATE: 05/15/2018 6:45 PM EDT AGE/SEX: 73 years / Female INDICATIONS: Left leg swelling and pain. CLINICAL DATA: This is the patient's initial encounter. Patient reports that signs and symptoms have been present for 1 month and indicates a pain score of 10/10. MEDICAL/SURGICAL HISTORY: Hypercholesterolemia. Peripheral artery disease. Dialysis. Diabetes. Fibromyalgia. Hypertension. Osteoarthritis. Hysterectomy. Carotid endarterectomy. Spinal fusion. S tatus post left femoral to below-knee arterial bypass. COMPARISON: No prior exams available for comparison. TECHNIQUE: Venous ultrasound of both lower extremities was performed from the inguinal ligament to t he proximal calf. Real-time, color Doppler and spectral tracing, compression and augmentation techni ques were used. FINDINGS: Normal compression of the deep venous system from the inguinal region to the proximal calf . No echogenic clot is seen. Normal response of the venous system to augmentation and respiration. CONCLUSION: 1. Negative for deep venous thrombosis. There is some edema around the left common femoral artery st ent. Possible hematoma in the medial calf inferior to the popliteal fossa measuring up to 2.3 x 1 x 2 .9 cm. Electronically signed by: Noah Lubin MD 05/15/2018 6:48 PM EDT
[2018-05-15] MEDS: Heparin - SQ 10,000 UNITS/ML Vial SQ SCH (20:56)
[2018-05-15] MEDS ORDERED: amLODIPine 10 MG Tablet PO SCH (21:00)
[2018-05-15] MEDS: Temazepam 15 MG Capsule PO PRN (23:51)
[2018-05-16] MEDS: Piperacil/Tazo 4.5 GM Premix 4.5 GM/100 ML BAG IV.SIG SCH ×4 (02:15→20:38)
[2018-05-16 08:14] LABS: Anion Gap 11 meq/L (5-15); Blood Urea Nitrogen 7 mg/dL (7-18); Calcium 8.7 mg/dL (8.5-10.1); Carbon Dioxide 22.5 meq/L (21.0-32.0); Chloride 105 meq/L (98-107); Glomerular Filtration Rate Greater Than 89 mL/min (>89); Glucose,Random 90 mg/dL (74-106); Potassium 3.9 meq/L (3.5-5.1); Sodium 138 meq/L (136-145)
[2018-05-16] MEDS: FLUoxetine 20 MG Capsule PO SCH (08:30)
[2018-05-16] MEDS: Gabapentin 300 MG Capsule PO SCH ×3 (08:30→18:14)
[2018-05-16] MEDS: Carisoprodol 350 MG Tablet PO SCH ×3 (08:31→18:16)
[2018-05-16] MEDS: Heparin - SQ 10,000 UNITS/ML Vial SQ SCH ×2 (08:31→20:38)
[2018-05-16] MEDS ORDERED: Non-Formulary Drug (Lisinopril-Hydrochlorothiazide [Lisinopril-Hydrochlorothiazide] 1 TAB) PO SCH (09:00)
[2018-05-16] MEDS ORDERED: Furosemide 20 MG Tablet PO SCH (09:00)
[2018-05-16] MEDS: Vancomycin Inj 1,250 MG in Sodium Chlor 0.9% Inj 250 ML IV.SIG SCH (13:35)
--- NOTE | 2018-05-16 14:39 | P.PNIM ---
Subjective Interval history: No overnight events, no fever or chills. Left groin still with discharge. Pain is improving. Physical Exam Vital signs: Vital Signs 05/15/18 16:00 05/15/18 20:00 05/16/18 00:00 Temperature 98.5 F 98.1 F 100.2 F H Pulse Rate 72 75 82 Respiratory Rate 17 18 18 Blood Pressure 116/60 117/59 L 122/70 Pulse Oximetry 94 L 95 95 05/16/18 04:00 05/16/18 08:00 05/16/18 08:30 Temperature 99.2 F 100.4 F H Pulse Rate 89 83 Respiratory Rate 18 19 Blood Pressure 134/74 125/67 Pulse Oximetry 95 96 05/16/18 12:00 05/16/18 12:45 05/16/18 12:46 Temperature 99 F Pulse Rate 75 Respiratory Rate 18 19 19 Blood Pressure 126/60 Pulse Oximetry 92 L 05/16/18 13:31 Temperature Pulse Rate Respiratory Rate 18 Blood Pressure Pulse Oximetry Intake & Output 05/15/18 05/16/18 05/16/18 18:59 06:59 18:59 Intake Total 1362.5 / 1362.5 1357 / 1357 Balance 1362.5 / 1362.5 1357 / 1357 Weight 93.7 kg Intake: IV 1362.5 / 1362.5 1157 / 1157 NS Inj 1,000 ML @ 125 mls/hr IV 900 / 900 958 / [address] Rx#:[id number] Zosyn 4.5 GM Premix 4.5 gm In 200 / 200 199 / 199 100 ml @ 200 mls/hr IV.SIG Q6H LANE Rx#:[id number] Vancomycin Inj 1,250 MG In NS 262.5 / 262.5 Inj 250 ML @ 250 mls/hr IV.SIG Q24H LANE Rx#:[id number] Oral 200 / 200 Other: # Voids 2 Date of Last Bowel Movement 05/14/18 05/15/18 Narrative: GENERAL: Not in acute distress CARDIOVASCULAR: Regular rate and rhythm without murmurs, gallops, or rubs. RESPIRATORY: Clear to auscultation with normal respiratory effort. GASTROINTESTINAL: Abdomen soft, normal bowel sounds, non-tender, nondistended. MUSCULOSKELETAL: Left lower extremity has trace calf edema, there is also tenderness on light palpation of the left calf and left thigh area associated with warmth and mild erythema. Left inguinal wound still with viscous greenish discharge. Distal pulses 1+ intact. There is a small lump near the popliteal fossa, mildly tender. NEUROLOGICAL: Awake, alert, oriented 3. No obvious cranial nerve deficits. Moves all 4 extremities, muscle strength testing 5 over 5. No focal neurologic deficits. Results - Labs CBC & Chem 7: 05/15/18 10:01 05/16/18 06:45 Laboratory Results - last 24 hr 05/15/18 05/15/18 05/16/18 17:21 20:54 06:45 Sodium 138 Potassium 3.9 Chloride 105 Carbon Dioxide 22.5 Anion Gap 11 BUN 7 Creatinine 0.64 Estimated GFR Greater than 89 POC Glucose 88 116 H Random Glucose 90 Calcium 8.7 05/16/18 08:19 Sodium Potassium Chloride Carbon Dioxide Anion Gap BUN Creatinine Estimated GFR POC Glucose 100 Random Glucose Calcium Microbiology 05/14/18 01:30 Blood - Peripheral Aerobic Blood Culture - Preliminary No growth in 2 days 05/14/18 01:30 Blood - Peripheral Anaerobic Blood Culture - Preliminary No growth in 2 days 05/14/18 01:35 Blood - Peripheral Aerobic Blood Culture - Preliminary No growth in 2 days 05/14/18 01:35 Blood - Peripheral Anaerobic Blood Culture - Preliminary No growth in 2 days - Imaging Impressions Venous Doppler Study 05/15/18 00:00 CONCLUSION: 1. Negative for deep venous thrombosis. There is some edema around the left common femoral artery stent. Possible hematoma in the medial calf inferior to the popliteal fossa measuring up to 2.3 x 1 x 2.9 cm. Assessment and Plan - Plan This is a 73-year-old female with history of hypertension diabetes mellitus, peripheral arterial disease status post left femoral below-knee bypass in April 2018, readmitted for left groin infection. Sepsis secondary to left groin infection-sepsis based on presentation at the [facility] ED of leukocytosis, fever, tachycardia and clear focus of infection. WBC was initially 13.6. Zosyn was given, continue Zosyn and vancomycin, Dr. Briggs from vascular surgery following, recommends wound care and antibiotics for now. CTA done, patent graft. Blood cultures negative today. Pain control with [place]. Repeat CBC and BMP stable, no leukocyte. Might need prolonged IV antibiotics. Hypertension-blood pressure soft, hold Norvasc, lisinopril, hydrochlorothiazide , continue normal saline. Diabetes mellitus-hold metformin, sliding scale insulin for now. Mild dehydration-resolved, stop IVF, hold Lasix and HCTZ Peripheral arterial disease-as above, continue statins. Left adrenal adenoma-incidental finding on CT scan of the abdomen, follow-up as outpatient. Hyponatremia-resolved with normal saline, stop IVF. Left popliteal fossa, lump-Doppler ultrasound negative, maternal mind the popliteal fossa, K thermia. Anxiety-continue Xanax DVT prophylaxis: heparin Discharge planning: Continue IV antibiotics, discharge with home health care once cleared by vascular surgery
--- NOTE | 2018-05-16 14:41 | P.DCO ---
- Home Health Nursing Order: Signs/symptoms of disease process, Medication education-adverse effect, Wound care and dressing changes, IV medication administration - Certification I have seen patient Micheline Overton on 05/16/18. My clinical findings support the need for the requested home health care services because: Limited mobility due to disease progression I certify that my clinical findings support that this patient is homebound because: Post-op weakness, Unsteady gait/balance, Unsafe to leave home unassisted
[2018-05-16] MEDS: Sodium Hypochlorite 0.125% Top Soln 500 ML Bottle TOPICAL SCH (16:40)
[2018-05-16] MEDS: ALPRAZolam 0.25 MG Tablet PO PRN (20:39)
[2018-05-16] MEDS: Insulin NovoLOG Aspart Correctional Sugar Inj SQ SCH (22:24)
[2018-05-16] MEDS: Temazepam 15 MG Capsule PO PRN (22:24)
[2018-05-17] MEDS: Piperacil/Tazo 4.5 GM Premix 4.5 GM/100 ML BAG IV.SIG SCH ×4 (02:19→21:35)
[2018-05-17] MEDS: Insulin NovoLOG Aspart Correctional Sugar Inj SQ SCH ×4 (08:57→21:37)
[2018-05-17] MEDS: FLUoxetine 20 MG Capsule PO SCH (08:59)
[2018-05-17] MEDS: Carisoprodol 350 MG Tablet PO SCH ×3 (08:59→17:48)
[2018-05-17] MEDS: Gabapentin 300 MG Capsule PO SCH ×3 (08:59→17:48)
[2018-05-17] MEDS: Heparin - SQ 10,000 UNITS/ML Vial SQ SCH (09:00)
[2018-05-17] MEDS: Sodium Hypochlorite 0.125% Top Soln 500 ML Bottle TOPICAL SCH (09:00)
[2018-05-17] MEDS: ALPRAZolam 0.25 MG Tablet PO PRN ×2 (10:50→19:15)
--- NOTE | 2018-05-17 11:07 | P.PNVS ---
Subjective Subjective/Hospital Course: 73/F afebrile Left groin wound continues to drain Wound appears to be smaller in size Wound w/o erythema or swelling L LE with swelling noted B LE warm w/ motor intact Palpable distal pulses present Objective Vital Signs / I&O: Vital Signs 05/16/18 12:00 05/16/18 12:45 05/16/18 12:46 Temperature 99 F Pulse Rate 75 Respiratory Rate 18 19 19 Blood Pressure 126/60 Pulse Oximetry 92 L 05/16/18 13:31 05/16/18 14:38 05/16/18 16:00 Temperature 98.8 F Pulse Rate 66 Respiratory Rate 18 19 18 Blood Pressure 136/61 Pulse Oximetry 97 05/16/18 18:15 05/16/18 18:17 05/16/18 20:10 Temperature 98.4 F Pulse Rate 66 Respiratory Rate 19 19 18 Blood Pressure 164/72 H Pulse Oximetry 05/17/18 00:00 05/17/18 02:19 05/17/18 03:51 Temperature 100.7 F H 100 F H Pulse Rate 79 Respiratory Rate 18 18 Blood Pressure 160/76 H Pulse Oximetry 94 L 05/17/18 08:00 Temperature 100.3 F H Pulse Rate 81 Respiratory Rate 16 Blood Pressure 144/68 H Pulse Oximetry Intake & Output 05/16/18 05/17/18 05/17/18 18:59 06:59 18:59 Intake Total 200 / 200 460 / 460 Balance 200 / 200 460 / 460 Intake: IV 200 / 200 460 / 460 Zosyn 4.5 GM Premix 4.5 gm In 200 / 200 200 / 200 100 ml @ 200 mls/hr IV.SIG Q6H LANE Rx#:[id number] Vancomycin Inj 1,250 MG In NS 260 / 260 Inj 250 ML @ 250 mls/hr IV.SIG Q24H LANE Rx#:[id number] Other: # Voids 1 Date of Last Bowel Movement 05/15/18 Physical Exam: GENERAL: 73/F afebrile SKIN: Warm and dry Left groin incision with moderate drainage. No swelling, odor or erythema present NECK: Supple, trachea midline. No JVD or lymphadenopathy. CARDIOVASCULAR: RRR, + S1,S2 RESPIRATORY: BS CTA GASTROINTESTINAL: Abdomen S/NT MUSCULOSKELETAL: No cyanosis, or edema. Palpable LEFT DP B LE warm w/ motor intact Laboratory Results - last 24 hr 05/16/18 05/17/18 22:23 08:57 POC Glucose 100 91 Microbiology 05/14/18 01:30 Aerobic Blood Culture - Preliminary Blood - Peripheral No growth in 2 days Anaerobic Blood Culture - Preliminary No growth in 2 days 05/14/18 01:35 Aerobic Blood Culture - Preliminary Blood - Peripheral No growth in 2 days Anaerobic Blood Culture - Preliminary No growth in 2 days Impressions Venous Doppler Study 05/15/18 00:00 CONCLUSION: 1. Negative for deep venous thrombosis. There is some edema around the left common femoral artery stent. Possible hematoma in the medial calf inferior to the popliteal fossa measuring up to 2.3 x 1 x 2.9 cm. Assessment and Plan - Plan 73/F S/P L LE groin wound Plan Continue IV antibiotics- Recommended 6W total Continue daily wound care Continue PT Apply skin barrier cream to jett area daily Elizabeth Kennedy NP [facility] [phone] Discharge Plannin-2D
[2018-05-17] MEDS ORDERED: Pharmacy Ordered Lab Info OTHER ONE (11:45)
--- NOTE | 2018-05-17 12:37 | P.PN ---
Subjective Interval history: Patient is seen sitting up on side of bed. Does not appear to be in distress although she does complain of continued left leg pain. She thinks the swelling is about the same but she says that the scar on her lower calf is more red than it used to be. Denies any shortness of breath or chest pain. Denies any nausea vomiting or diarrhea. Physical Exam Vital signs: Vital Signs 05/16/18 12:45 05/16/18 12:46 05/16/18 13:31 Temperature Pulse Rate Respiratory Rate 19 19 18 Blood Pressure Pulse Oximetry 05/16/18 14:38 05/16/18 16:00 05/16/18 18:15 Temperature 98.8 F Pulse Rate 66 Respiratory Rate 19 18 19 Blood Pressure 136/61 Pulse Oximetry 97 05/16/18 18:17 05/16/18 20:10 05/17/18 00:00 Temperature 98.4 F 100.7 F H Pulse Rate 66 79 Respiratory Rate 19 18 18 Blood Pressure 164/72 H 160/76 H Pulse Oximetry 94 L 05/17/18 02:19 05/17/18 03:51 05/17/18 08:00 Temperature 100 F H 100.3 F H Pulse Rate 81 Respiratory Rate 18 16 Blood Pressure 144/68 H Pulse Oximetry Intake & Output 05/16/18 05/17/18 05/17/18 18:59 06:59 18:59 Intake Total 200 / 200 460 / 460 Balance 200 / 200 460 / 460 Intake: IV 200 / 200 460 / 460 Zosyn 4.5 GM Premix 4.5 gm In 200 / 200 200 / 200 100 ml @ 200 mls/hr IV.SIG Q6H LANE Rx#:[id number] Vancomycin Inj 1,250 MG In NS 260 / 260 Inj 250 ML @ 250 mls/hr IV.SIG Q24H LANE Rx#:[id number] Other: # Voids 1 Date of Last Bowel Movement 05/15/18 Results - Labs CBC & Chem 7: 05/15/18 10:01 05/16/18 06:45 Laboratory Results - last 24 hr 05/16/18 05/17/18 05/17/18 22:23 08:57 12:02 POC Glucose 100 91 100 Microbiology 05/14/18 01:30 Blood - Peripheral Aerobic Blood Culture - Preliminary No growth in 3 days 05/14/18 01:30 Blood - Peripheral Anaerobic Blood Culture - Preliminary No growth in 3 days 05/14/18 01:35 Blood - Peripheral Aerobic Blood Culture - Preliminary No growth in 3 days 05/14/18 01:35 Blood - Peripheral Anaerobic Blood Culture - Preliminary No growth in 3 days Assessment and Plan - Assessment (1) Cellulitis Code(s): L03.90 - Cellulitis, unspecified Status: Acute - Plan This is a 73-year-old female with history of hypertension diabetes mellitus, peripheral arterial disease status post left femoral below-knee bypass in April 2018, readmitted for left groin infection. Sepsis secondary to left groin infection -sepsis based on presentation at the [facility] ED of leukocytosis, fever, tachycardia and clear focus of infection. WBC was initially 13.6. -Dr. Briggs from vascular surgery following, recommends wound care and antibiotics for now. CTA done, patent graft. Recommend Axb for 6 weeks. -Continue Zosyn and vancomycin, Febrile - Blood cultures pending. -Pain control with [place]. -CBC and BMP stable, no leukocyte. Monitor. Hypertension-blood pressure soft, hold Norvasc, lisinopril, hydrochlorothiazide , continue normal saline. Diabetes mellitus-hold metformin, sliding scale insulin for now. Mild dehydration-resolved, stop IVF, hold Lasix and HCTZ Peripheral arterial disease-as above, continue statins. Left adrenal adenoma-incidental finding on CT scan of the abdomen, follow-up as outpatient. Hyponatremia-resolved with normal saline, stop IVF. Left popliteal fossa, lump-Doppler ultrasound negative 05/15/18 Anxiety-continue Xanax DVT prophylaxis: heparin Discussed with: Patient and nurse Discharge planning: Continue IV antibiotics, discharge with home health care once cleared by vascular surgery
[2018-05-17] MEDS: Vancomycin Inj 1,250 MG in Sodium Chlor 0.9% Inj 250 ML IV.SIG SCH (13:00)
[2018-05-17 13:05] LABS: Baso # (Auto) 0.1 th/mm3 (0.0-0.2); Baso % (Auto) 0.6 % (0.0-2.0); Eos # (Auto) 0.1 th/mm3 (0.0-0.4); Eos % (Auto) 0.5 % (0.0-4.0); Hemoglobin 10.8 gm/dL (11.6-15.3); Lymph # (Auto) 1.5 th/mm3 (1.0-4.8); Lymph % (Auto) 12.3 % (9.0-44.0); Mean Corpuscular HGB Conc 32.8 % (32.0-36.0); Mean Corpuscular Hemoglobin 29.9 pg (27.0-34.0); Mean Platelet Volume 6.4 fL (7.0-11.0); Mono # (Auto) 0.9 th/mm3 (0.0-0.9); Mono % (Auto) 7.6 % (0.0-8.0); Neut # (Auto) 9.5 th/mm3 (1.8-7.7); Platelet Count 367 th/mm3 (150-450); Red Blood Count 3.62 mil/mm3 (4.00-5.30); Red Cell Distribution Width 13.4 % (11.6-17.2)
[2018-05-17] MEDS: Acetaminophen 325 MG Tablet PO PRN (16:50)
[2018-05-17] MEDS: Temazepam 15 MG Capsule PO PRN (21:35)
[2018-05-18] MEDS: Vancomycin Inj 1,250 MG in Sodium Chlor 0.9% Inj 250 ML IV.SIG SCH ×2 (00:14→12:13)
[2018-05-18] MEDS: ALPRAZolam 0.25 MG Tablet PO PRN ×3 (02:58→21:44)
[2018-05-18] MEDS: Piperacil/Tazo 4.5 GM Premix 4.5 GM/100 ML BAG IV.SIG SCH ×4 (03:00→20:11)
[2018-05-18] MEDS: Gabapentin 300 MG Capsule PO SCH ×3 (09:12→18:59)
[2018-05-18] MEDS: Sodium Hypochlorite 0.125% Top Soln 500 ML Bottle TOPICAL SCH (09:12)
[2018-05-18] MEDS: Carisoprodol 350 MG Tablet PO SCH ×3 (09:13→18:59)
[2018-05-18] MEDS: FLUoxetine 20 MG Capsule PO SCH (09:13)
--- NOTE | 2018-05-18 10:09 | P.CONID ---
History of Present Illness Service: Infectious disease Consult date: 05/18/18 Requesting Physician: Les Briggs Reason for Consult: Evaluate patient with left groin wound infection Primary Care Provider: No Primary Care Physician Family Provider: No Primary Care Physician History of Present Illness: Patient seen and examined. Records reviewed. Patient is a [id number] female, with known peripheral vascular disease, underwent left femoral to below the knee popliteal bypass grafting with PTFE, on April 20. She was doing well and had home health nursing checking up on her. About 5 days prior to admission she started noticing fevers up to 101, and she also noted some purulent drainage coming out of her left groin wound. She also started having pain in her left lower extremity. She had an episode of dizziness, and fell, lost her balance, but she did not have any injury, and there was no loss of consciousness. She initially presented to [facility], and was transferred to [place] for vascular surgical management. Since admission patient has had fevers on and off. Blood cultures were done and those are negative. I do not have any wound culture. She continues to have pain in her left lower extremity. Patient has been getting vancomycin and Zosyn since admission. She denies any respiratory complaint, or any urinary complaint. She has had some chronic loose stools, but that has not gotten worse. She denies any abdominal pain. I spoke with the nurse. Patient apparently started having bloody drainage from her left groin wound. At the time of my exam she still has blood coming out of her left groin wound. Infectious disease consultation has been requested to assist with management, with plans of giving her IV antibiotics as an outpatient. Review of Systems Constitutional: Reports fever(s), Reports malaise, Denies headache(s) Eyes: Denies discharge, Denies itchy eyes Ears, Nose, Mouth, and Throat: Reports dizziness, Denies dry mouth, Denies ear discharge, Denies ear pain, Denies facial pain, Denies sinus pain, Denies sore throat Cardiovascular: Reports leg swelling, Reports lightheadedness, Denies chest pain , Denies shortness of breath Respiratory: Denies cough, Denies shortness of breath Gastrointestinal: Reports loose stools, Denies abdominal pain, Denies nausea, Denies pain with swallowing, Denies vomiting Genitourinary: Denies painful urination Musculoskeletal: Denies neck pain Skin/Breast: Denies boil, Denies itching Neurologic: Denies headache(s) Psychiatric: Reports anxiety PMFSH - History History Provided By: Patient - Medical History Medical History: Medical History (Last Reviewed 05/18/18 @ 10:04 by Jessica Portillo MD) Depression Fibromyalgia Osteoarthritis PAD (peripheral artery disease) Diabetes History of hysterectomy Hypercholesterolemia Hypertension - Surgical History Surgical History: Surgical History (Last Updated 05/18/18 @ 10:05 by Jessica Portillo MD) S/P femoral-popliteal bypass surgery History of carotid endarterectomy History of spinal fusion - Family History Family History: Family History (Last Reviewed 05/18/18 @ 10:05 by Jessica Portillo MD) Other Family history of diabetes mellitus Family history of hypertension - Tobacco History Second Hand Smoke Exposure: No Tobacco Use In Past 30 Days: Yes Smoking Status: Former smoker Tobacco Type: Cigars - Alcohol History How Often Do You Have a Drink Containing Alcohol: Monthly or less - Substance Use History Substance History: No History of Abuse - Travel History Recent Travel in the [place] Within the Last 8 Weeks: No Recent Travel Out of the Country Within the Last 8 Weeks: No - Immunization History Tetanus Immunization: Unsure Medications and Allergies Active Medications: Active Medications Acetaminophen (Tylenol) 650 mg PO Q6HR PRN PRN Reason: pain 1-2, fever Last Admin: 05/17/18 16:50 Dose: 650 mg Hydrocodone Bitart/Acetaminophen ([place] 5/325) 1 tab PO Q4H PRN PRN Reason: PAIN SCALE 3 TO 5 Last Admin: 05/16/18 22:24 Dose: 1 tab Hydrocodone Bitart/Acetaminophen ([place] 10/325) 1 tab PO Q4H PRN PRN Reason: PAIN SCALE 6 TO 10 Last Admin: 05/18/18 02:58 Dose: 1 tab Al Hydroxide/Mg Hydroxide (Milk Of Magnesia Liq) 30 ml PO Q12H PRN PRN Reason: Mild Constipation Alprazolam (Xanax) 0.25 mg PO Q6H PRN PRN Reason: ANXIETY Last Admin: 05/18/18 02:58 Dose: 0.25 mg Atorvastatin Calcium (Lipitor) [address] Last Admin: 05/17/18 21:35 Dose: 10 mg Bisacodyl (Dulcolax Supp) 10 mg RECTAL DAILY PRN PRN Reason: SEVERE CONSITIPATION Carisoprodol (Soma) 350 mg PO TID [facility] Last Admin: 05/17/18 17:48 Dose: 350 mg Dextrose (D50w Vial) 50 ml IV.PUSH UNSCH PRN PRN Reason: PER HYPOGLYCEMIA PROTOCOL Fluoxetine HCl (Prozac) 60 mg PO DAILY [facility] Last Admin: 05/17/18 08:59 Dose: 60 mg Gabapentin (Neurontin) 1,200 mg PO TID [facility] Last Admin: 05/17/18 17:48 Dose: 1,200 mg Glucagon (Glucagon Inj) 1 mg OTHER PRN PRN PRN Reason: for Hypoglycemia Protocol Heparin Sodium (Porcine) (Heparin Inj) 5,000 units SQ Q12HR [facility] Last Admin: 05/17/18 09:00 Dose: 5,000 units Pharmacy Profile Note (Vancomycin Consult Pharmacy) 0 mls @ 0 mls/hr OTHER UNSCH [facility] Piperacillin/Tazobactam/Dextrose (Zosyn 4.5 Gm Premix) 4.5 gm in 100 mls @ 200 mls/hr IV.SIG Q6H [facility] Last Infusion: 05/18/18 08:55 Dose: Infused Vancomycin HCl 1,250 mg/ (Sodium Chloride) 262.5 mls @ 250 mls/hr IV.SIG Q12H [facility] Last Infusion: 05/18/18 08:56 Dose: Infused Insulin Aspart (Novolog Insulin Suppl Scale Inj) 0 unit SQ ACHS [facility]; Protocol Last Admin: 05/17/18 21:37 Dose: Not Given Lactulose (Lactulose Liq) 30 ml PO DAILY PRN PRN Reason: SEVERE CONSITIPATION Miscellaneous (Pill Splitter) 1 each OTHER UNSCH PRN PRN Reason: SEE LABEL COMMENTS Miscellaneous Information ([facility] Ordered Lab Info) 0 each OTHER ONCE ONE Stop: 05/19/18 11:46 Naloxone HCl (Narcan Inj) 0.4 mg IV.PUSH UNSCH PRN PRN Reason: SEE LABEL COMMENTS Potassium Chloride (Klor-Con 10) 10 meq PO DAILY [facility] Last Admin: 05/17/18 09:00 Dose: 10 meq Sennosides (Senokot) 17.2 mg PO Q12H PRN PRN Reason: Moderate Constipation Sodium Hypochlorite (Dakin's 0.124% Top Soln) [address] Last Admin: 05/17/18 09:00 Dose: 500 ml Temazepam (Restoril) 15 mg PO HS PRN PRN Reason: INSOMNIA Last Admin: 05/17/18 21:35 Dose: 15 mg Allergies Allergy/AdvReac Type Severity Reaction Status Date / Time No Known Allergies Allergy Unverified 05/13/18 14:51 Home Medications Medication Instructions Recorded Confirmed Type amlodipine 10 mg PO HS 05/14/18 05/14/18 History atorvastatin [Lipitor] 10 mg PO HS 05/14/18 05/14/18 History carisoprodol [Soma] 350 mg PO TID 05/14/18 05/14/18 History fluoxetine [Prozac] 60 mg PO DAILY 05/14/18 05/14/18 History furosemide [Lasix] 20 mg PO DAILY 05/14/18 05/14/18 History gabapentin 1,200 mg PO TID 05/14/18 05/14/18 History hydrocodone-acetaminophen [[place]] 1 tab PO Q6H PRN 05/14/18 05/14/18 History lisinopril-hydrochlorothiazide 1 tab PO DAILY 05/14/18 05/14/18 History metformin 500 mg PO BID 05/14/18 05/14/18 History [id number] PO DAILY 05/14/18 History [Theragran-M Premier 50 Plus] potassium 10 meq PO DAILY 05/14/18 05/14/18 History sulfamethoxazole-trimethoprim 1 tab PO BID 05/14/18 05/14/18 History [Bactrim DS] Exam Vital signs: Vital Signs 05/17/18 12:00 05/17/18 16:00 05/17/18 16:30 Temperature 99.2 F 100.2 F H Pulse Rate 70 79 Respiratory Rate 16 16 Blood Pressure 157/74 H 146/67 H Pulse Oximetry 93 L 93 L 93 L 05/17/18 20:00 05/18/18 00:00 05/18/18 03:20 Temperature 98.4 F 98.8 F 99 F Pulse Rate 77 80 80 Respiratory Rate 18 18 18 Blood Pressure 139/63 128/66 140/65 Pulse Oximetry 99 96 Intake & Output 07/09/18 07/10/18 07/10/18 18:59 06:59 18:59 Intake Total 200 / 200 500 / 500 362.5 / 362.5 Balance 200 / 200 500 / 500 362.5 / 362.5 Weight 94 kg Intake: IV 200 / 200 100 / 100 362.5 / 362.5 Zosyn 4.5 GM Premix 4.5 gm In 200 / 200 100 / 100 100 / 100 100 ml @ 200 mls/hr IV.SIG Q6H LANE Rx#:[id number] Vancomycin Inj 1,250 MG In NS 262.5 / 262.5 Inj 250 ML @ 250 mls/hr IV.SIG Q12H LANE Rx#:[id number] Oral 400 / 400 Other: # Voids 1 2 Date of Last Bowel Movement 05/15/18 # Bowel Movements 0 Narrative: Physical Examination GENERAL: Patient is an obese, well-developed patient, awake and alert, not in respiratory distress. SKIN: Cool and dry. She has pink macules on her face and upper chest. No ecchymoses and no evidence of embolic lesions. HEAD: Atraumatic. Normocephalic. No temporal wasting, or tenderness. EYES: [place] conjunctiva. No petechia or hemorrhage. Pupils equal, round and reactive to light. Extraocular movements full and intact. No scleral icterus. No injection or drainage. EARS, NOSE AND THROAT: Nose without bleeding or purulent nasal discharge. No sinus tenderness. Mucous membranes pink and moist. No oral lesions noted. No exudate. No oral thrush. NECK: Trachea midline. Supple and not tender, no meningeal signs CARDIOVASCULAR: Regular rate and rhythm. Has systolic murmur heard best at base of the heart, no rubs RESPIRATORY: Clear to auscultation. Breath sounds equal bilaterally. No rales , wheezing or rhonchi ABDOMEN: Soft, non-tender, nondistended. Bowel sounds present and normoactive. No guarding. No rebound. No organomegaly. Has some ecchymoses on R abdominal wall EXTREMITIES: No clubbing, cyanosis. LLE larger compared to the left. There is a healing incision on medial upper leg with surrounding induration, and there is some erythema in upper leg and knee area. In the left groin there is an open wound that measures about 1/2 inch with bloody drainage and some surrounding erythema, portion of incision with some yellow slough. No calf tenderness. Well perfused and warm. NEUROLOGICAL: Awake and alert. Cranial nerves grossly intact. Motor grossly within normal limits. PSYCHIATRIC: Normal affect, calm and cooperative. LINE: No evidence of infection Results - Labs CBC & Chem 7: 05/17/18 12:34 05/16/18 06:45 Labs: Laboratory Results - last 24 hr 05/17/18 05/17/18 05/17/18 12:02 12:25 12:34 WBC 12.0 H RBC 3.62 L Hgb 10.8 L Hct 33.0 L MCV 91.0 MCH 29.9 MCHC 32.8 RDW 13.4 Plt Count 367 MPV 6.4 L Neut % (Auto) 79.0 H Lymph % (Auto) 12.3 [place] % (Auto) 7.6 Eos % (Auto) 0.5 Baso % (Auto) 0.6 Neut # (Auto) 9.5 H Lymph # (Auto) 1.5 [place] # (Auto) 0.9 Eos # (Auto) 0.1 Baso # (Auto) 0.1 WBC Differential . Differential Comment Auto diff final POC Glucose 100 Vancomycin Trough 4.8 L 05/17/18 05/17/18 05/18/18 17:12 21:11 08:56 WBC RBC Hgb Hct MCV MCH MCHC RDW Plt Count MPV Neut % (Auto) Lymph % (Auto) [place] % (Auto) Eos % (Auto) Baso % (Auto) Neut # (Auto) Lymph # (Auto) [place] # (Auto) Eos # (Auto) Baso # (Auto) WBC Differential Differential Comment POC Glucose 92 108 105 Vancomycin Trough - Imaging Aorta w/Runoff CTA 05/14/18 00:00 CONCLUSION: 1. Patent left femoral-popliteal bypass graft. 2. Enlarged fatty liver. 3. Left adrenal nodule measuring 2.3 cm consistent with probable adrenal adenoma. 4. Cholelithiasis. 5. Left renal cysts. 6. Minimal ascites. 7. Degenerative changes and scoliosis of the thoracolumbar spine. Venous Doppler Study 05/15/18 00:00 CONCLUSION: 1. Negative for deep venous thrombosis. There is some edema around the left common femoral artery stent. Possible hematoma in the medial calf inferior to the popliteal fossa measuring up to 2.3 x 1 x 2.9 cm. Assessment and Plan - Plan Impression Possible sepsis on admission due to L groin wound infection (fevers, leukocytosis, tachycardia, renal insufficiency) - still with fevers, and WBC increasing L groin wound infection, S/P femp po bypass with PRFE Possible hematoma L popliteal area close tl graft Cellulitis LLE Recommendation Get wound C/S L groin CT pelvis look closer at the L groin wound and graft Continue Vanco Continue Zosyn Repeat 2 BC today Follow temps Monitor wound Monitor progress Will determine course of Abx once work-up is completed I will follow along with you Thank you for this consultation
--- NOTE | 2018-05-18 10:57 | P.PNVS ---
Subjective Subjective/Hospital Course: 73/F afebrile Pt reported an episode of "bloody drainage" while laughing with FM in the bathroom Left groin wound without drainage this am Wound appearance continues to decrease in size Wound w/o erythema or swelling B LE warm w/ motor intact Palpable distal pulses present Objective Vital Signs / I&O: Vital Signs 05/17/18 12:00 05/17/18 16:00 05/17/18 16:30 Temperature 99.2 F 100.2 F H Pulse Rate 70 79 Respiratory Rate 16 16 Blood Pressure 157/74 H 146/67 H Pulse Oximetry 93 L 93 L 93 L 05/17/18 20:00 05/18/18 00:00 05/18/18 03:20 Temperature 98.4 F 98.8 F 99 F Pulse Rate 77 80 80 Respiratory Rate 18 18 18 Blood Pressure 139/63 128/66 140/65 Pulse Oximetry 99 96 05/18/18 08:00 Temperature 98.7 F Pulse Rate 77 Respiratory Rate 16 Blood Pressure 152/72 H Pulse Oximetry 92 L Intake & Output 05/17/18 05/18/18 05/18/18 18:59 06:59 18:59 Intake Total 200 / 200 500 / 500 362.5 / 362.5 Balance 200 / 200 500 / 500 362.5 / 362.5 Weight 94 kg Intake: IV 200 / 200 100 / 100 362.5 / 362.5 Zosyn 4.5 GM Premix 4.5 gm In 200 / 200 100 / 100 100 / 100 100 ml @ 200 mls/hr IV.SIG Q6H LANE Rx#:[id number] Vancomycin Inj 1,250 MG In NS 262.5 / 262.5 Inj 250 ML @ 250 mls/hr IV.SIG Q12H LANE Rx#:[id number] Oral 400 / 400 Other: # Voids 1 2 Date of Last Bowel Movement 05/15/18 # Bowel Movements 0 Physical Exam: Left groin with improved drainage and size No odor, redness or swelling present Palpable distal pulses present LE warm with motor intact Laboratory Results - last 24 hr 05/17/18 05/17/18 05/17/18 12:02 12:25 12:34 WBC 12.0 H RBC 3.62 L Hgb 10.8 L Hct 33.0 L MCV 91.0 MCH 29.9 MCHC 32.8 RDW 13.4 Plt Count 367 MPV 6.4 L Neut % (Auto) 79.0 H Lymph % (Auto) 12.3 [place] % (Auto) 7.6 Eos % (Auto) 0.5 Baso % (Auto) 0.6 Neut # (Auto) 9.5 H Lymph # (Auto) 1.5 [place] # (Auto) 0.9 Eos # (Auto) 0.1 Baso # (Auto) 0.1 WBC Differential . Differential Comment Auto diff final POC Glucose 100 Vancomycin Trough 4.8 L 05/17/18 05/17/18 05/18/18 17:12 21:11 08:56 WBC RBC Hgb Hct MCV MCH MCHC RDW Plt Count MPV Neut % (Auto) Lymph % (Auto) [place] % (Auto) Eos % (Auto) Baso % (Auto) Neut # (Auto) Lymph # (Auto) [place] # (Auto) Eos # (Auto) Baso # (Auto) WBC Differential Differential Comment POC Glucose 92 108 105 Vancomycin Trough Microbiology 05/14/18 01:30 Aerobic Blood Culture - Preliminary Blood - Peripheral No growth in 3 days Anaerobic Blood Culture - Preliminary No growth in 3 days 05/14/18 01:35 Aerobic Blood Culture - Preliminary Blood - Peripheral No growth in 3 days Anaerobic Blood Culture - Preliminary No growth in 3 days Aorta w/Runoff CTA 05/14/18 00:00 CONCLUSION: 1. Patent left femoral-popliteal bypass graft. 2. Enlarged fatty liver. 3. Left adrenal nodule measuring 2.3 cm consistent with probable adrenal adenoma. 4. Cholelithiasis. 5. Left renal cysts. 6. Minimal ascites. 7. Degenerative changes and scoliosis of the thoracolumbar spine. Venous Doppler Study 05/15/18 00:00 CONCLUSION: 1. Negative for deep venous thrombosis. There is some edema around the left common femoral artery stent. Possible hematoma in the medial calf inferior to the popliteal fossa measuring up to 2.3 x 1 x 2.9 cm. Assessment and Plan - Assessment (1) Cellulitis Code(s): L03.90 - Cellulitis, unspecified Status: Acute - Plan 73/F S/P Left femoral to below knee popliteal artery bypass done on 04/20/18 Pt w/ a PMH of post operative drainage- continues to improve Plan Continue IV antibiotics- Recommended 6W total Consult ID- Out pt surveillance (6W total out pt antibiotic therapy) Continue daily wound care Continue PT Apply skin barrier cream to jett area daily Elizabeth Kennedy NP [facility] [phone] Discharge Plannin-2D (1) Cellulitis Qualifiers: Site of cellulitis of extremity: lower extremity Laterality: left
[2018-05-18 11:23] LABS: Baso # (Auto) 0.1 th/mm3 (0.0-0.2); Baso % (Auto) 0.6 % (0.0-2.0); Eos # (Auto) 0.1 th/mm3 (0.0-0.4); Eos % (Auto) 0.9 % (0.0-4.0); Hematocrit 28.6 % (35.0-46.0); Hemoglobin 9.5 gm/dL (11.6-15.3); Lymph # (Auto) 1.5 th/mm3 (1.0-4.8); Lymph % (Auto) 12.2 % (9.0-44.0); Mean Corpuscular HGB Conc 33.2 % (32.0-36.0); Mean Corpuscular Hemoglobin 30.2 pg (27.0-34.0); Mean Platelet Volume 6.4 fL (7.0-11.0); Mono # (Auto) 1.1 th/mm3 (0.0-0.9); Mono % (Auto) 9.5 % (0.0-8.0); Neut # (Auto) 9.3 th/mm3 (1.8-7.7); Neut % (Auto) 76.8 % (16.0-70.0); Platelet Count 348 th/mm3 (150-450); Red Blood Count 3.14 mil/mm3 (4.00-5.30); Red Cell Distribution Width 13.5 % (11.6-17.2); White Blood Count 12.1 th/mm3 (4.0-11.0)
[2018-05-18 11:51] LABS: Alanine Aminotransferase 24 U/L (10-53); Albumin 2.1 g/dL (3.4-5.0); Anion Gap 12 meq/L (5-15); Aspartate Aminotransferase 20 U/L (15-37); Blood Urea Nitrogen 4 mg/dL (7-18); Calcium 8.2 mg/dL (8.5-10.1); Carbon Dioxide 23.3 meq/L (21.0-32.0); Chloride 105 meq/L (98-107); Glomerular Filtration Rate Greater Than 89 mL/min (>89); Glucose,Random 99 mg/dL (74-106); Potassium 3.4 meq/L (3.5-5.1); Sodium 140 meq/L (136-145)
[2018-05-18 11:54] LABS: Alkaline Phosphatase 97 U/L (45-117); Total Protein 6.3 g/dL (6.4-8.2)
[2018-05-18] MEDS: Heparin - SQ 10,000 UNITS/ML Vial SQ SCH ×2 (12:11→20:11)
[2018-05-18] MEDS ORDERED: Diatrizoate Meglum/Diatrizoate Sod Liq 9 ML UDC PO ONE (12:30)
[2018-05-18 13:27] LABS: Bacteria,Urine Occasional /hpf; Bilirubin,Urine Negative (Negative); Clarity,Urine Hazy (Clear); Color,Urine Yellow (Yellw/Straw); Glucose,Urine (UA) Negative (Negative); Leukocyte Esterase,Urine Small (Negative); Nitrite,Urine Negative (Negative); Specific Gravity,Urine 1.013 (1.002-1.035)
--- NOTE | 2018-05-18 15:02 | P.PNIM ---
Subjective Interval history: Bloody drainage groin continues, but volume is low and hemoglobin has remained stable. Further workup for infectious etiology is obtained and cultures are ongoing. Fevers show improvement. No DVT is present at the left lower extremity. Physical Exam Vital signs: Vital Signs 05/17/18 16:00 05/17/18 16:30 05/17/18 20:00 Temperature 100.2 F H 98.4 F Pulse Rate 79 77 Respiratory Rate 16 18 Blood Pressure 146/67 H 139/63 Pulse Oximetry 93 L 93 L 99 05/18/18 00:00 05/18/18 03:20 05/18/18 08:00 Temperature 98.8 F 99 F 98.7 F Pulse Rate 80 80 77 Respiratory Rate 18 18 16 Blood Pressure 128/66 140/65 152/72 H Pulse Oximetry 96 92 L 05/18/18 12:00 05/18/18 12:55 Temperature 98.0 F Pulse Rate 70 Respiratory Rate 16 Blood Pressure 144/69 H Pulse Oximetry 93 L 93 L Intake & Output 05/17/18 05/18/18 05/18/18 18:59 06:59 18:59 Intake Total 200 / 200 500 / 500 362.5 / 362.5 Balance 200 / 200 500 / 500 362.5 / 362.5 Weight 94 kg Intake: IV 200 / 200 100 / 100 362.5 / 362.5 Zosyn 4.5 GM Premix 4.5 gm In 200 / 200 100 / 100 100 / 100 100 ml @ 200 mls/hr IV.SIG Q6H LANE Rx#:[id number] Vancomycin Inj 1,250 MG In NS 262.5 / 262.5 Inj 250 ML @ 250 mls/hr IV.SIG Q12H LANE Rx#:[id number] Oral 400 / 400 Other: # Voids 1 2 Date of Last Bowel Movement 05/15/18 # Bowel Movements 0 Narrative: GENERAL: NAD, A&Ox3 HEAD: Normocephalic. NECK: Supple, trachea midline. No lymphadenopathy. EYES: No scleral icterus. No injection or drainage. CARDIOVASCULAR: Regular rate and rhythm without murmurs, gallops, or rubs. RESPIRATORY: Breath sounds equal bilaterally. No accessory muscle use. GASTROINTESTINAL: Abdomen soft, non-tender, nondistended. MUSCULOSKELETAL: No cyanosis, edema present at left lower extremity with erythema around the healing wound. SKIN: Warm and dry. Left groin cellulitis. NEURO: No focal neurological deficits. Results - Labs CBC & Chem 7: 05/18/18 10:45 05/18/18 10:45 Laboratory Results - last 24 hr 05/17/18 05/17/18 05/18/18 17:12 21:11 08:56 WBC RBC Hgb Hct MCV MCH MCHC RDW Plt Count MPV Neut % (Auto) Lymph % (Auto) [place] % (Auto) Eos % (Auto) Baso % (Auto) Neut # (Auto) Lymph # (Auto) [place] # (Auto) Eos # (Auto) Baso # (Auto) WBC Differential Differential Comment Sodium Potassium Chloride Carbon Dioxide Anion Gap BUN Creatinine Estimated GFR POC Glucose 92 108 105 Random Glucose Calcium Total Bilirubin AST ALT Alkaline Phosphatase Total Protein Albumin Urine Color Urine Clarity Urine pH Ur Specific [place] Urine Protein Urine Glucose (UA) Urine Ketones Urine Occult Blood Urine Nitrate Urine Bilirubin Urine Urobilinogen Ur Leukocyte Esterase Urine RBC Urine WBC Urine Bacteria Micro UA Comment Urine Culture Comments 05/18/18 05/18/18 05/18/18 10:45 10:45 11:10 WBC 12.1 H RBC 3.14 L Hgb 9.5 L Hct 28.6 L MCV 91.0 MCH 30.2 MCHC 33.2 RDW 13.5 Plt Count 348 MPV 6.4 L Neut % (Auto) 76.8 H Lymph % (Auto) 12.2 [place] % (Auto) 9.5 H Eos % (Auto) 0.9 Baso % (Auto) 0.6 Neut # (Auto) 9.3 H Lymph # (Auto) 1.5 [place] # (Auto) 1.1 H Eos # (Auto) 0.1 Baso # (Auto) 0.1 WBC Differential . Differential Comment Auto diff final Sodium 140 Potassium 3.4 L Chloride 105 Carbon Dioxide 23.3 Anion Gap 12 BUN 4 L Creatinine 0.56 Estimated GFR Greater than 89 POC Glucose Random Glucose 99 Calcium 8.2 L Total Bilirubin 0.3 AST 20 ALT 24 Alkaline Phosphatase 97 Total Protein 6.3 L D Albumin 2.1 L Urine Color Yellow Urine Clarity Hazy H Urine pH 6.0 Ur Specific [place] 1.013 Urine Protein 30 H Urine Glucose (UA) Negative Urine Ketones Trace H Urine Occult Blood Moderate H Urine Nitrate Negative Urine Bilirubin Negative Urine Urobilinogen Less than 2 Ur Leukocyte Esterase Small H Urine RBC 12 H Urine WBC 4 Urine Bacteria Occasional H Micro UA Comment Culture not ind Urine Culture Comments Culture not ind Microbiology 05/14/18 01:30 Blood - Peripheral Aerobic Blood Culture - Preliminary No growth in 4 days 05/14/18 01:30 Blood - Peripheral Anaerobic Blood Culture - Preliminary No growth in 4 days 05/14/18 01:35 Blood - Peripheral Aerobic Blood Culture - Preliminary No growth in 4 days 05/14/18 01:35 Blood - Peripheral Anaerobic Blood Culture - Preliminary No growth in 4 days Assessment and Plan - Assessment (1) Cellulitis Code(s): L03.90 - Cellulitis, unspecified Status: Acute - Plan 73-year-old female admitted with left groin infection status post left femoral below-knee bypass in April 2018 Sepsis Resolved Left groin cellulitis Peripheral artery disease Status post left femoral bypass ID following Continue to follow cultures Continue Zosyn Continue vancomycin Follow fever pattern Continue pain treatments Monitor CBC Hypertension Continue baseline treatment Follow blood pressures Adjust treatments as needed Diabetes mellitus type 2 Follow blood sugars Insulin sliding scale Diabetic diet Left adrenal adenoma Follows an outpatient Left lower extremity swelling Follow clinically and treat infection General anxiety disorder Continue Xanax DVT prophylaxis Continue heparin Discharge planning Ultimately will need home with possible IV antibiotics and home health care (1) Cellulitis Qualifiers: Site of cellulitis of extremity: lower extremity Laterality: left
[2018-05-18] MEDS: oxyCODONE/Acetaminophen 10/325 Tablet PO PRN ×2 (15:22→20:12)
--- NOTE | 2018-05-18 17:26 | CT ---
EXAM DATE: 05/18/2018 5:09 PM EDT AGE/SEX: 73 years / Female INDICATIONS: Femoral popliteal graft in April. Started bleeding yesterday. CLINICAL DATA: This is the patient's initial encounter. Patient reports that signs and symptoms have been present for 2 days and indicates a pain score of 2/10. MEDICAL/SURGICAL HISTORY: Diabetes. Hypertension. Peripheral artery disease. Fibromyalgia. Hyst erectomy. RADIATION DOSE: 15.05 CTDI (mGy) COMPARISON: No prior exams available for comparison. TECHNIQUE: Multiple contiguous helical axial images were obtained through pelvis following bolus inf usion of 70 ml Omnipaque 350 (iohexol) nonionic water-soluble contrast as a single exam dose. Imag es were obtained using multiple row detector helical technique. . Using automated exposure control an d adjustment of the mA and/or kV according to patient size, radiation dose was kept as low as reasona marianna achievable to obtain optimal diagnostic quality images. DICOM format image data is available liset ctronically for review and comparison. FINDINGS: CT scan of the pelvis demonstrates no evidence of retroperitoneal hematoma. There are postsurgical ch anges surrounding the bypass graft in the left groin but no abnormal fluid collections are seen. Bone windows demonstrate donor site for bone graft in the posterior right ilium. No free fluid is identif ied. The bypass graft is in satisfactory position. CONCLUSION: 1. No evidence of acute hematoma. Electronically signed by: Oscar Harris MD 05/18/2018 5:24 PM EDT
[2018-05-19] MEDS: Vancomycin Inj 1,250 MG in Sodium Chlor 0.9% Inj 250 ML IV.SIG SCH ×2 (00:08→12:16)
[2018-05-19] MEDS: Piperacil/Tazo 4.5 GM Premix 4.5 GM/100 ML BAG IV.SIG SCH ×3 (01:25→15:36)
[2018-05-19] MEDS: oxyCODONE/Acetaminophen 10/325 Tablet PO PRN ×5 (01:54→21:07)
[2018-05-19] MEDS: Carisoprodol 350 MG Tablet PO SCH ×3 (08:39→18:09)
[2018-05-19] MEDS: Gabapentin 300 MG Capsule PO SCH ×3 (08:40→18:10)
[2018-05-19] MEDS: FLUoxetine 20 MG Capsule PO SCH (08:40)
[2018-05-19] MEDS: Sodium Hypochlorite 0.125% Top Soln 500 ML Bottle TOPICAL SCH (08:42)
[2018-05-19] MEDS: Heparin - SQ 10,000 UNITS/ML Vial SQ SCH ×2 (08:42→21:37)
[2018-05-19 09:45] LABS: Baso # (Auto) 0.1 th/mm3 (0.0-0.2); Baso % (Auto) 0.6 % (0.0-2.0); Eos # (Auto) 0.2 th/mm3 (0.0-0.4); Eos % (Auto) 1.5 % (0.0-4.0); Hematocrit 29.6 % (35.0-46.0); Lymph # (Auto) 1.4 th/mm3 (1.0-4.8); Lymph % (Auto) 11.4 % (9.0-44.0); Mean Corpuscular HGB Conc 33.7 % (32.0-36.0); Mean Corpuscular Hemoglobin 30.9 pg (27.0-34.0); Mean Corpuscular Volume 91.6 fL (80.0-100.0); Mean Platelet Volume 6.2 fL (7.0-11.0); Mono # (Auto) 1.1 th/mm3 (0.0-0.9); Mono % (Auto) 8.9 % (0.0-8.0); Neut # (Auto) 9.7 th/mm3 (1.8-7.7); Neut % (Auto) 77.6 % (16.0-70.0); Platelet Count 417 th/mm3 (150-450); Red Blood Count 3.23 mil/mm3 (4.00-5.30); Red Cell Distribution Width 13.8 % (11.6-17.2); White Blood Count 12.4 th/mm3 (4.0-11.0)
[2018-05-19 10:34] LABS: Albumin 2.2 g/dL (3.4-5.0); Anion Gap 10 meq/L (5-15); Aspartate Aminotransferase 24 U/L (15-37); Blood Urea Nitrogen 3 mg/dL (7-18); Calcium 8.9 mg/dL (8.5-10.1); Carbon Dioxide 22.9 meq/L (21.0-32.0); Chloride 105 meq/L (98-107); Glomerular Filtration Rate Greater Than 89 mL/min (>89); Glucose,Random 83 mg/dL (74-106); Potassium 3.3 meq/L (3.5-5.1); Sodium 138 meq/L (136-145)
[2018-05-19 10:35] LABS: Alanine Aminotransferase 26 U/L (10-53)
[2018-05-19 10:37] LABS: Alkaline Phosphatase 104 U/L (45-117); Total Protein 6.9 g/dL (6.4-8.2)
[2018-05-19] MEDS ORDERED: Pharmacy Ordered Lab Info OTHER ONE (11:45)
--- NOTE | 2018-05-19 11:53 | P.PNVS ---
Subjective Subjective/Hospital Course: 73/F afebrile Pt c/o redness w/ a rash to LEFT lower extremity Denied itching Pt reported she had a good night sleep last night Left groin wound w/ drainage this am Wound appearance continues to improve and decrease in size Avani wound w/o erythema or swelling Redness improved near perineal region B LE warm w/ motor intact Palpable distal pulses present Objective Vital Signs / I&O: Vital Signs 05/18/18 12:00 05/18/18 12:55 05/18/18 16:00 Temperature 98.0 F 98.7 F Pulse Rate 70 72 Respiratory Rate 16 18 Blood Pressure 144/69 H Pulse Oximetry 93 L 93 L 92 L 05/18/18 20:00 05/19/18 00:00 05/19/18 02:33 Temperature 98.7 F 98.6 F Pulse Rate 73 74 Respiratory Rate 18 18 18 Blood Pressure 156/78 H 127/76 Pulse Oximetry 96 95 05/19/18 04:00 05/19/18 08:00 Temperature 98.1 F 98.5 F Pulse Rate 69 75 Respiratory Rate 17 18 Blood Pressure 122/67 118/70 Pulse Oximetry 92 L 92 L Intake & Output 05/18/18 05/19/18 05/19/18 18:59 06:59 18:59 Intake Total 825.0 / 825.0 1075.0 / 1075.0 Balance 825.0 / 825.0 1075.0 / 1075.0 Intake: IV 825.0 / 825.0 725.0 / 725.0 Zosyn 4.5 GM Premix 4.5 gm In 300 / 300 200 / 200 100 ml @ 200 mls/hr IV.SIG Q6H LANE Rx#:[id number] Vancomycin Inj 1,250 MG In NS 525.0 / 525.0 262.5 / 262.5 Inj 250 ML @ 250 mls/hr IV.SIG Q12H LANE Rx#:[id number] Oral 350 / 350 Other: # Voids 1 Physical Exam: Left groin incision with a moderate amount of (red/brown) drainage + granulation tissue noted No odor, redness or swelling present Palpable L LE distal pulses present LE warm with motor intact LEFT LE swelling noted w/ a willian spotty rash Laboratory Results - last 24 hr 05/18/18 05/18/18 05/19/18 10:45 11:10 09:07 WBC 12.4 H RBC 3.23 L Hgb 10.0 L Hct 29.6 L MCV 91.6 MCH 30.9 MCHC 33.7 RDW 13.8 Plt Count 417 MPV 6.2 L Neut % (Auto) 77.6 H Lymph % (Auto) 11.4 [place] % (Auto) 8.9 H Eos % (Auto) 1.5 Baso % (Auto) 0.6 Neut # (Auto) 9.7 H Lymph # (Auto) 1.4 [place] # (Auto) 1.1 H Eos # (Auto) 0.2 Baso # (Auto) 0.1 WBC Differential . Differential Comment Auto diff final Sodium 140 Potassium 3.4 L Chloride 105 Carbon Dioxide 23.3 Anion Gap 12 BUN 4 L Creatinine 0.56 Estimated GFR Greater than 89 Random Glucose 99 Calcium 8.2 L Total Bilirubin 0.3 AST 20 ALT 24 Alkaline Phosphatase 97 Total Protein 6.3 L D Albumin 2.1 L Urine Color Yellow Urine Clarity Hazy H Urine pH 6.0 Ur Specific [place] 1.013 Urine Protein 30 H Urine Glucose (UA) Negative Urine Ketones Trace H Urine Occult Blood Moderate H Urine Nitrate Negative Urine Bilirubin Negative Urine Urobilinogen Less than 2 Ur Leukocyte Esterase Small H Urine RBC 12 H Urine WBC 4 Urine Bacteria Occasional H Micro UA Comment Culture not ind Urine Culture Comments Culture not ind 05/19/18 09:07 WBC RBC Hgb Hct MCV MCH MCHC RDW Plt Count MPV Neut % (Auto) Lymph % (Auto) [place] % (Auto) Eos % (Auto) Baso % (Auto) Neut # (Auto) Lymph # (Auto) [place] # (Auto) Eos # (Auto) Baso # (Auto) WBC Differential Differential Comment Sodium 138 Potassium 3.3 L Chloride 105 Carbon Dioxide 22.9 Anion Gap 10 BUN 3 L Creatinine 0.62 Estimated GFR Greater than 89 Random Glucose 83 Calcium 8.9 Total Bilirubin 0.3 AST 24 ALT 26 Alkaline Phosphatase 104 Total Protein 6.9 D Albumin 2.2 L Urine Color Urine Clarity Urine pH Ur Specific [place] Urine Protein Urine Glucose (UA) Urine Ketones Urine Occult Blood Urine Nitrate Urine Bilirubin Urine Urobilinogen Ur Leukocyte Esterase Urine RBC Urine WBC Urine Bacteria Micro UA Comment Urine Culture Comments Microbiology 05/18/18 13:11 Aerobic Blood Culture - Preliminary Blood - Peripheral No growth in 1 day Anaerobic Blood Culture - Preliminary No growth in 1 day 05/18/18 13:16 Aerobic Blood Culture - Preliminary Blood - Peripheral No growth in 1 day Anaerobic Blood Culture - Preliminary No growth in 1 day 05/14/18 01:30 Aerobic Blood Culture - Final Blood - Peripheral No growth in 5 days Anaerobic Blood Culture - Final No growth in 5 days 05/14/18 01:35 Aerobic Blood Culture - Final Blood - Peripheral No growth in 5 days Anaerobic Blood Culture - Final No growth in 5 days 05/18/18 10:00 Gram Stain - Final Wound - Groin Impressions Pelvis CT 05/18/18 00:00 CONCLUSION: 1. No evidence of acute hematoma. Assessment and Plan - Assessment (1) Cellulitis Code(s): L03.90 - Cellulitis, unspecified Status: Acute - Plan 73/F S/P Left femoral to below knee popliteal artery bypass done on 04/20/18 Pt w/ a PMH of post operative drainage- continues to improve Plan Continue daily wound care Continue PT/OOB/Ambulate Continue IV antibiotics- Recommended 6W total Continue to apply skin barrier cream to avani area daily Elizabeth Kennedy NP [facility] [phone] (1) Cellulitis Qualifiers: Site of cellulitis of extremity: lower extremity Laterality: left
--- NOTE | 2018-05-19 13:02 | P.PNIM ---
Subjective Interval history: Wound culture and blood cultures are pending. Patient has no new complaints. No further fever. Patient still does have chills and sweats. Physical Exam Vital signs: Vital Signs 05/18/18 16:00 05/18/18 20:00 05/19/18 00:00 Temperature 98.7 F 98.7 F 98.6 F Pulse Rate 72 73 74 Respiratory Rate 18 18 18 Blood Pressure 156/78 H 127/76 Pulse Oximetry 92 L 96 95 05/19/18 02:33 05/19/18 04:00 05/19/18 08:00 Temperature 98.1 F 98.5 F Pulse Rate 69 75 Respiratory Rate 18 17 18 Blood Pressure 122/67 118/70 Pulse Oximetry 92 L 92 L 05/19/18 12:00 Temperature 98.3 F Pulse Rate 75 Respiratory Rate 18 Blood Pressure 123/58 L Pulse Oximetry 92 L Intake & Output 05/18/18 05/19/18 05/19/18 18:59 06:59 18:59 Intake Total 825.0 / 825.0 1075.0 / 1075.0 Balance 825.0 / 825.0 1075.0 / 1075.0 Intake: IV 825.0 / 825.0 725.0 / 725.0 Zosyn 4.5 GM Premix 4.5 gm In 300 / 300 200 / 200 100 ml @ 200 mls/hr IV.SIG Q6H LANE Rx#:[id number] Vancomycin Inj 1,250 MG In NS 525.0 / 525.0 262.5 / 262.5 Inj 250 ML @ 250 mls/hr IV.SIG Q12H LANE Rx#:[id number] Oral 350 / 350 Other: # Voids 1 Narrative: GENERAL: NAD, A&Ox3 HEAD: Normocephalic. NECK: Supple, trachea midline. No lymphadenopathy. EYES: No scleral icterus. No injection or drainage. CARDIOVASCULAR: Regular rate and rhythm without murmurs, gallops, or rubs. RESPIRATORY: Breath sounds equal bilaterally. No accessory muscle use. GASTROINTESTINAL: Abdomen soft, non-tender, nondistended. MUSCULOSKELETAL: No cyanosis, edema present at left lower extremity with erythema around the healing wound. SKIN: Warm and dry. Left groin cellulitis. NEURO: No focal neurological deficits. Results - Labs CBC & Chem 7: 05/19/18 09:07 05/19/18 09:07 Laboratory Results - last 24 hr 05/18/18 05/19/18 05/19/18 11:10 09:07 09:07 WBC 12.4 H RBC 3.23 L Hgb 10.0 L Hct 29.6 L MCV 91.6 MCH 30.9 MCHC 33.7 RDW 13.8 Plt Count 417 MPV 6.2 L Neut % (Auto) 77.6 H Lymph % (Auto) 11.4 [place] % (Auto) 8.9 H Eos % (Auto) 1.5 Baso % (Auto) 0.6 Neut # (Auto) 9.7 H Lymph # (Auto) 1.4 [place] # (Auto) 1.1 H Eos # (Auto) 0.2 Baso # (Auto) 0.1 WBC Differential . Differential Comment Auto diff final Sodium 138 Potassium 3.3 L Chloride 105 Carbon Dioxide 22.9 Anion Gap 10 BUN 3 L Creatinine 0.62 Estimated GFR Greater than 89 Random Glucose 83 Calcium 8.9 Total Bilirubin 0.3 AST 24 ALT 26 Alkaline Phosphatase 104 Total Protein 6.9 D Albumin 2.2 L Urine Color Yellow Urine Clarity Hazy H Urine pH 6.0 Ur Specific [place] 1.013 Urine Protein 30 H Urine Glucose (UA) Negative Urine Ketones Trace H Urine Occult Blood Moderate H Urine Nitrate Negative Urine Bilirubin Negative Urine Urobilinogen Less than 2 Ur Leukocyte Esterase Small H Urine RBC 12 H Urine WBC 4 Urine Bacteria Occasional H Micro UA Comment Culture not ind Urine Culture Comments Culture not ind Microbiology 05/18/18 13:11 Blood - Peripheral Aerobic Blood Culture - Preliminary No growth in 1 day 05/18/18 13:11 Blood - Peripheral Anaerobic Blood Culture - Preliminary No growth in 1 day 05/18/18 13:16 Blood - Peripheral Aerobic Blood Culture - Preliminary No growth in 1 day 05/18/18 13:16 Blood - Peripheral Anaerobic Blood Culture - Preliminary No growth in 1 day 05/14/18 01:30 Blood - Peripheral Aerobic Blood Culture - Final No growth in 5 days 05/14/18 01:30 Blood - Peripheral Anaerobic Blood Culture - Final No growth in 5 days 05/14/18 01:35 Blood - Peripheral Aerobic Blood Culture - Final No growth in 5 days 05/14/18 01:35 Blood - Peripheral Anaerobic Blood Culture - Final No growth in 5 days 05/18/18 10:00 Wound - Groin Gram Stain - Final - Imaging Impressions Pelvis CT 05/18/18 00:00 CONCLUSION: 1. No evidence of acute hematoma. Assessment and Plan - Assessment (1) Cellulitis Code(s): L03.90 - Cellulitis, unspecified Status: Acute - Plan 73-year-old female admitted with left groin infection status post left femoral below-knee bypass in April 2018 Continue to follow wound culture. Continue to follow blood culture. No evidence of hematoma or abscess on pelvic CT from 05/18/2018. Sepsis Resolved Left groin cellulitis Peripheral artery disease Status post left femoral bypass ID following Continue to follow cultures Continue Zosyn Continue vancomycin Follow fever pattern Continue pain treatments Monitor CBC Hypertension Continue baseline treatment Follow blood pressures Adjust treatments as needed Diabetes mellitus type 2 Follow blood sugars Insulin sliding scale Diabetic diet Left adrenal adenoma Follows an outpatient Left lower extremity swelling Follow clinically and treat infection General anxiety disorder Continue Xanax DVT prophylaxis Continue heparin Discharge planning Ultimately will need home with possible IV antibiotics and home health care (1) Cellulitis Qualifiers: Site of cellulitis of extremity: lower extremity Laterality: left
--- NOTE | 2018-05-19 15:17 | P.DCO ---
- Home Health Nursing Order: Medical education, Signs/symptoms of disease process, Wound care and dressing changes, Nursing assessment with vital signs Instructions: Topical daily dressing changes at left leg/groin. - Certification I have seen patient Micheline Overton on 05/19/18. My clinical findings support the need for the requested home health care services because: Limited mobility due to disease progression, Limited ability to care for self, Infection with risk of complications I certify that my clinical findings support that this patient is homebound because: Unsafe to leave home unassisted, Unable to use public transportation
--- NOTE | 2018-05-19 15:39 | P.PNID ---
Subjective Remarks: Patient is a [id number] female, with known peripheral vascular disease, underwent left femoral to below the knee popliteal bypass grafting with PTFE, on April 20. She was doing well and had home health nursing checking up on her. About 5 days prior to admission she started noticing fevers up to 101, and she also noted some purulent drainage coming out of her left groin wound. She also started having pain in her left lower extremity. She had an episode of dizziness, and fell, lost her balance, but she did not have any injury, and there was no loss of consciousness. She initially presented to [facility], and was transferred to [place] for vascular surgical management. Since admission patient has had fevers on and off. Blood cultures were done and those are negative. I do not have any wound culture. She continues to have pain in her left lower extremity. Patient has been getting vancomycin and Zosyn since admission. She denies any respiratory complaint, or any urinary complaint. She has had some chronic loose stools, but that has not gotten worse. She denies any abdominal pain. I spoke with the nurse. Patient apparently started having bloody drainage from her left groin wound. At the time of my exam she still has blood coming out of her left groin wound. Infectious disease consultation has been requested to assist with management, with plans of giving her IV antibiotics as an outpatient. Notes reviewed No fever Noted worsening of redness L leg Very worried about MRSA in her wound C/S I called micro - wound C/S with E coli Antibiotics: vancomycin Zosyn Diflucan Lines: No evidence of infection Past Medical History: Depression Fibromyalgia Osteoarthritis PAD (peripheral artery disease) Diabetes History of hysterectomy Hypercholesterolemia Hypertension S/P femoral-popliteal bypass surgery History of carotid endarterectomy History of spinal fusion Allergies/Adverse Reactions: Allergies No Known Allergies Allergy (Unverified 05/13/18 14:51) Objective Vital Signs 05/18/18 16:00 05/18/18 20:00 05/19/18 00:00 Temperature 98.7 F 98.7 F 98.6 F Pulse Rate 72 73 74 Respiratory Rate 18 Blood Pressure 156/78 H 127/76 Pulse Oximetry 92 L 96 95 05/19/18 02:33 05/19/18 04:00 05/19/18 08:00 Temperature 98.1 F 98.5 F Pulse Rate 69 75 Respiratory Rate 18 17 18 Blood Pressure 122/67 118/70 Pulse Oximetry 92 L 92 L 05/19/18 12:00 05/19/18 14:44 Temperature 98.3 F Pulse Rate 75 Respiratory Rate 18 16 Blood Pressure 123/58 L Pulse Oximetry 92 L Intake & Output 05/18/18 05/19/18 05/19/18 18:59 06:59 18:59 Intake Total 825.0 / 825.0 1075.0 / 1075.0 100 / 100 Balance 825.0 / 825.0 1075.0 / 1075.0 100 / 100 Intake: IV 825.0 / 825.0 725.0 / 725.0 100 / 100 Zosyn 4.5 GM Premix 4.5 gm In 300 / 300 200 / 200 100 / 100 100 ml @ 200 mls/hr IV.SIG Q6H LANE Rx#:[id number] Vancomycin Inj 1,250 MG In NS 525.0 / 525.0 262.5 / 262.5 Inj 250 ML @ 250 mls/hr IV.SIG Q12H LANE Rx#:[id number] Oral 350 / 350 Other: # Voids 1 Date of Last Bowel Movement 05/18/18 05/18/18 10:00 Wound - Groin Gram Stain - Final 05/18/18 10:00 Wound - Groin Wound Culture - Preliminary S. aureus MRSA 05/18/18 13:11 Blood - Peripheral Aerobic Blood Culture - Preliminary No growth in 1 day 05/18/18 13:11 Blood - Peripheral Anaerobic Blood Culture - Preliminary No growth in 1 day 05/18/18 13:16 Blood - Peripheral Aerobic Blood Culture - Preliminary No growth in 1 day 05/18/18 13:16 Blood - Peripheral Anaerobic Blood Culture - Preliminary No growth in 1 day 05/14/18 01:30 Blood - Peripheral Aerobic Blood Culture - Final No growth in 5 days 05/14/18 01:30 Blood - Peripheral Anaerobic Blood Culture - Final No growth in 5 days 05/14/18 01:35 Blood - Peripheral Aerobic Blood Culture - Final No growth in 5 days 05/14/18 01:35 Blood - Peripheral Anaerobic Blood Culture - Final No growth in 5 days Lab - Hematology Results 05/18/18 05/19/18 10:45 09:07 WBC 12.1 H 12.4 H RBC 3.14 L 3.23 L Hgb 9.5 L 10.0 L Hct 28.6 L 29.6 L MCV 91.0 91.6 MCH 30.2 30.9 MCHC 33.2 33.7 RDW 13.5 13.8 Plt Count 348 417 MPV 6.4 L 6.2 L Neut % (Auto) 76.8 H 77.6 H Lymph % (Auto) 12.2 11.4 [place] % (Auto) 9.5 H 8.9 H Eos % (Auto) 0.9 1.5 Baso % (Auto) 0.6 0.6 Neut # (Auto) 9.3 H 9.7 H Lymph # (Auto) 1.5 1.4 [place] # (Auto) 1.1 H 1.1 H Eos # (Auto) 0.1 0.2 Baso # (Auto) 0.1 0.1 WBC Differential . . Differential Comment Auto diff final Auto diff final Lab - Chemistry Results 05/17/18 05/17/18 05/18/18 17:12 21:11 08:56 Sodium Potassium Chloride Carbon Dioxide Anion Gap BUN Creatinine Estimated GFR POC Glucose 92 108 105 Random Glucose Calcium Total Bilirubin AST ALT Alkaline Phosphatase Total Protein Albumin 05/18/18 05/19/18 10:45 09:07 Sodium 140 138 Potassium 3.4 L 3.3 L Chloride 105 105 Carbon Dioxide 23.3 22.9 Anion Gap 12 10 BUN 4 L 3 L Creatinine 0.56 0.62 Estimated GFR Greater than 89 Greater than 89 POC Glucose Random Glucose 99 83 Calcium 8.2 L 8.9 Total Bilirubin 0.3 0.3 AST 20 24 ALT 24 26 Alkaline Phosphatase 97 104 Total Protein 6.3 L D 6.9 D Albumin 2.1 L 2.2 L Imaging: ITS Impressions Aorta w/Runoff CTA 05/14/18 00:00 CONCLUSION: 1. Patent left femoral-popliteal bypass graft. 2. Enlarged fatty liver. 3. Left adrenal nodule measuring 2.3 cm consistent with probable adrenal adenoma. 4. Cholelithiasis. 5. Left renal cysts. 6. Minimal ascites. 7. Degenerative changes and scoliosis of the thoracolumbar spine. Venous Doppler Study 05/15/18 00:00 CONCLUSION: 1. Negative for deep venous thrombosis. There is some edema around the left common femoral artery stent. Possible hematoma in the medial calf inferior to the popliteal fossa measuring up to 2.3 x 1 x [address] 05/18/18 00:00 CONCLUSION: 1. No evidence of acute hematoma. Physical Exam: GENERAL: Patient is an obese, well-developed patient, awake and alert, not in respiratory distress. SKIN: Cool and dry. She has improving pink macules on her face and upper chest. No ecchymoses and no evidence of embolic lesions. HEAD: Atraumatic. Normocephalic. No temporal wasting, or tenderness. EYES: [place] conjunctiva. No petechia or hemorrhage. Pupils equal, round and reactive to light. Extraocular movements full and intact. No scleral icterus. No injection or drainage. EARS, NOSE AND THROAT: Nose without bleeding or purulent nasal discharge. No sinus tenderness. Mucous membranes pink and moist. No oral lesions noted. No exudate. No oral thrush. NECK: Trachea midline. Supple and not tender, no meningeal signs CARDIOVASCULAR: Regular rate and rhythm. Has systolic murmur heard best at base of the heart, no rubs RESPIRATORY: Clear to auscultation. Breath sounds equal bilaterally. No rales , wheezing or rhonchi ABDOMEN: Soft, non-tender, nondistended. Bowel sounds present and normoactive. No guarding. No rebound. No organomegaly. Has some ecchymoses on R abdominal wall EXTREMITIES: No clubbing, cyanosis. LLE larger compared to the left. There is a healing incision on medial upper leg with surrounding induration, and there is some erythema in upper leg and knee area. In the left groin there is an open wound that measures about 1/2 inch with bloody drainage and some min surrounding erythema, drainage lminimal today, dressing with dried blood packing. No calf tenderness. Well perfused and warm. NEUROLOGICAL: Awake and alert. Cranial nerves grossly intact. Motor grossly within normal limits. PSYCHIATRIC: Normal affect, calm and cooperative. LINE: No evidence of infection Assessment and Plan - Plan Impression Possible sepsis on admission due to L groin wound infection (fevers, leukocytosis, tachycardia, renal insufficiency) - still with fevers, and WBC increasing L groin wound infection, S/P femp po bypass with PRFE Possible hematoma L popliteal area close to graft, with cellulitis, ?looks worse Cellulitis LLE, ?looks worse Recommendation Follow C/S MRI L leg to further evaluate swelling and redness Continue Vanco Change Zosyn to cefepime Continue Diflucan Follow temps Monitor wound Monitor progress Will determine course of Abx once work-up is completed Explained plan to the patient and family I will be off May 20- Other ID MD covering in my absence
[2018-05-19] MEDS: ALPRAZolam 0.25 MG Tablet PO PRN ×2 (16:10→22:54)
[2018-05-19] MEDS: Vancomycin Inj 1,500 MG in Sodium Chlor 0.9% Inj 500 ML IV.SIG SCH (22:54)
[2018-05-20] MEDS: oxyCODONE/Acetaminophen 10/325 Tablet PO PRN ×5 (01:22→20:14)
[2018-05-20] MEDS: ALPRAZolam 0.25 MG Tablet PO PRN ×3 (06:13→20:14)
[2018-05-20] MEDS ORDERED: Gadobutrol PF 10 MMOL/10 ML Vial (for RAD) IV.SIG ONE (08:37)
[2018-05-20] MEDS: Carisoprodol 350 MG Tablet PO SCH ×3 (09:28→17:39)
[2018-05-20] MEDS: Gabapentin 300 MG Capsule PO SCH ×3 (09:29→17:38)
[2018-05-20] MEDS: FLUoxetine 20 MG Capsule PO SCH (09:29)
[2018-05-20] MEDS: Heparin - SQ 10,000 UNITS/ML Vial SQ SCH ×3 (09:30→20:16)
[2018-05-20] MEDS: Sodium Hypochlorite 0.125% Top Soln 500 ML Bottle TOPICAL SCH (09:32)
--- NOTE | 2018-05-20 09:38 | MR ---
EXAM DATE: 05/20/2018 8:59 AM EDT AGE/SEX: 73 years / Female INDICATIONS: Post fem/pop bypass. Redness and swelling on medial upper left leg at surgical site. CLINICAL DATA: This is the patient's subsequent encounter. Patient reports that signs and symptoms h ave been present for 1 week and indicates a pain score of 3/10. MEDICAL/SURGICAL HISTORY: Hypertension. Hysterectomy. Fusion, lumbar. Carotid endarterectomy. Fem/pop bypass. COMPARISON: No prior exams available for comparison. TECHNIQUE: Multiplanar, multisequence MRI examination was performed without and with 9 ml Gadavist ( gadobutrol) contrast as single exam dose. FINDINGS: There is a multilocular elliptical fluid collection extending along the entire course of the bypass g raft with peripheral enhancement. this from postoperative seroma versus abscess is not pos sible. This would be accessible to percutaneous aspiration. In addition there is synovial enhancement and a small joint effusion which is nonspecific in appearance. There is enhancement of the subcutane ous tissues which may reflect postoperative change or cellulitis. CONCLUSION: Multilocular fluid collection along the course of the bypass graft. Postoperative seroma as well as a bscess are considered. This will be accessible to aspiration. 1. Electronically signed by: Oscar Harris MD 05/20/2018 9:37 AM EDT
[2018-05-20 10:23] LABS: Baso % (Auto) 0.4 % (0.0-2.0); Eos # (Auto) 0.1 th/mm3 (0.0-0.4); Hematocrit 32.7 % (35.0-46.0); Hemoglobin 10.8 gm/dL (11.6-15.3); Lymph # (Auto) 1.1 th/mm3 (1.0-4.8); Lymph % (Auto) 9.6 % (9.0-44.0); Mean Corpuscular Volume 90.9 fL (80.0-100.0); Mean Platelet Volume 6.2 fL (7.0-11.0); Mono # (Auto) 0.8 th/mm3 (0.0-0.9); Neut # (Auto) 9.1 th/mm3 (1.8-7.7); Platelet Count 530 th/mm3 (150-450); Red Cell Distribution Width 14.2 % (11.6-17.2); White Blood Count 11.2 th/mm3 (4.0-11.0)
[2018-05-20 10:54] LABS: Albumin 2.4 g/dL (3.4-5.0); Anion Gap 12 meq/L (5-15); Aspartate Aminotransferase 21 U/L (15-37); Blood Urea Nitrogen 4 mg/dL (7-18); Calcium 9.2 mg/dL (8.5-10.1); Carbon Dioxide 23.7 meq/L (21.0-32.0); Chloride 106 meq/L (98-107); Glomerular Filtration Rate 63 mL/min (>89); Glucose,Random 92 mg/dL (74-106); Potassium 3.5 meq/L (3.5-5.1); Sodium 142 meq/L (136-145)
[2018-05-20 10:55] LABS: Alanine Aminotransferase 26 U/L (10-53)
[2018-05-20 10:57] LABS: Alkaline Phosphatase 114 U/L (45-117); Total Protein 7.6 g/dL (6.4-8.2)
[2018-05-20] MEDS: Vancomycin Inj 1,500 MG in Sodium Chlor 0.9% Inj 500 ML IV.SIG SCH ×2 (11:14→22:37)
--- NOTE | 2018-05-20 12:23 | P.PNVS ---
Subjective Subjective/Hospital Course: 73/F afebrile Pt w/ erythema and rash to LEFT lower extremity Left groin wound w/ decreased drainage this am Wound appearance continues to improve and decrease in size from last assessment Avani wound w/o erythema or swelling B LE warm w/ motor intact Palpable distal pulses present Objective Vital Signs / I&O: Vital Signs 05/19/18 14:44 05/19/18 20:00 05/20/18 00:00 Temperature 98.6 F 99 F Pulse Rate 76 72 Respiratory Rate 16 18 18 Blood Pressure 156/74 H 154/78 H Pulse Oximetry 95 97 05/20/18 01:45 05/20/18 02:56 05/20/18 04:00 Temperature 98.6 F Pulse Rate 80 Respiratory Rate 20 20 18 Blood Pressure Pulse Oximetry 94 L 05/20/18 07:59 Temperature Pulse Rate 80 Respiratory Rate 18 Blood Pressure 140/63 Pulse Oximetry 91 L Intake & Output 05/19/18 05/20/18 05/20/18 18:59 06:59 18:59 Intake Total 820 / 820 715 / 715 Balance 820 / 820 715 / 715 Weight 91.131 kg Intake: IV 100 / 100 715 / 715 Maxipime Inj 2,000 MG In NS Inj 200 / 200 100 ML @ 200 mls/hr IV.SIG Q12H LANE Rx#:[id number] Zosyn 4.5 GM Premix 4.5 gm In 100 / 100 100 ml @ 200 mls/hr IV.SIG Q6H LANE Rx#:[id number] Vancomycin Inj 1,500 MG In NS 515 / 515 Inj 500 ML @ 250 mls/hr IV.SIG Q12H LANE Rx#:[id number] Oral 720 / 720 Other: # Voids 3 2 Date of Last Bowel Movement 05/18/18 05/18/18 # Bowel Movements 0 2 Physical Exam: Left groin incision with a small amount of (red/brown) drainage + granulation tissue noted No odor, redness or swelling present Palpable L LE distal pulses present LE warm with motor intact LEFT LE swelling noted w/ a willian spotty rash Laboratory Results - last 24 hr 05/19/18 05/20/18 05/20/18 12:00 09:23 09:23 WBC 11.2 H RBC 3.60 L Hgb 10.8 L Hct 32.7 L MCV 90.9 MCH 30.0 MCHC 33.0 RDW 14.2 Plt Count 530 H MPV 6.2 L Neut % (Auto) 82.0 H Lymph % (Auto) 9.6 [place] % (Auto) 7.0 Eos % (Auto) 1.0 Baso % (Auto) 0.4 Neut # (Auto) 9.1 H Lymph # (Auto) 1.1 [place] # (Auto) 0.8 Eos # (Auto) 0.1 Baso # (Auto) 0.0 WBC Differential . Differential Comment Auto diff final Sodium 142 Potassium 3.5 Chloride 106 Carbon Dioxide 23.7 Anion Gap 12 BUN 4 L Creatinine 0.88 Estimated GFR 63 L Random Glucose 92 Calcium 9.2 Total Bilirubin 0.3 AST 21 ALT 26 Alkaline Phosphatase 114 Total Protein 7.6 D Albumin 2.4 L Vancomycin Trough 13.8 H Microbiology 05/18/18 13:11 Aerobic Blood Culture - Preliminary Blood - Peripheral No growth in 2 days Anaerobic Blood Culture - Preliminary No growth in 2 days 05/18/18 13:16 Aerobic Blood Culture - Preliminary Blood - Peripheral No growth in 2 days Anaerobic Blood Culture - Preliminary No growth in 2 days 05/18/18 10:00 Gram Stain - Final Wound - Groin Wound Culture - Final S. aureus MRSA 05/14/18 01:30 Aerobic Blood Culture - Final Blood - Peripheral No growth in 5 days Anaerobic Blood Culture - Final No growth in 5 days 05/14/18 01:35 Aerobic Blood Culture - Final Blood - Peripheral No growth in 5 days Anaerobic Blood Culture - Final No growth in [address] 05/18/18 00:00 CONCLUSION: 1. No evidence of acute hematoma. Lower Extremity MRI 05/20/18 00:00 CONCLUSION: Multilocular fluid collection along the course of the bypass graft. Postoperative seroma as well as abscess are considered. This will be accessible to aspiration. 1. Assessment and Plan - Assessment (1) Cellulitis Code(s): L03.90 - Cellulitis, unspecified Status: Acute - Plan 73/F S/P Left femoral to below knee popliteal artery bypass done on 04/20/18 Pt w/ a PMH of post operative drainage Plan Continue daily wound care Continue PT/OOB/Ambulate Continue IV antibiotics- Recommended 6W total Continue to apply skin barrier cream to avani area daily Elizabeth Kennedy [facility] [phone] Discharge Plannin-2D (1) Cellulitis Qualifiers: Site of cellulitis of extremity: lower extremity Laterality: left
--- NOTE | 2018-05-20 13:43 | P.PNIM ---
Subjective Interval history: MRSA is present on our hospital's wound culture. Wound culture from [facility] at previous ER evaluation shows E. coli. Most recent blood cultures negative at 48 hours. No new complaints from the patient. Physical Exam Vital signs: Vital Signs 05/19/18 14:44 05/19/18 20:00 05/20/18 00:00 Temperature 98.6 F 99 F Pulse Rate 76 72 Respiratory Rate 16 18 18 Blood Pressure 156/74 H 154/78 H Pulse Oximetry 95 97 05/20/18 01:45 05/20/18 02:56 05/20/18 04:00 Temperature 98.6 F Pulse Rate 80 Respiratory Rate 20 20 18 Blood Pressure Pulse Oximetry 94 L 05/20/18 07:59 05/20/18 13:15 Temperature Pulse Rate 80 79 Respiratory Rate 18 18 Blood Pressure 140/63 169/73 H Pulse Oximetry 91 L 97 Intake & Output 05/19/18 05/20/18 05/20/18 18:59 06:59 18:59 Intake Total 820 / 820 715 / 715 Balance 820 / 820 715 / 715 Weight 91.131 kg Intake: IV 100 / 100 715 / 715 Maxipime Inj 2,000 MG In NS Inj 200 / 200 100 ML @ 200 mls/hr IV.SIG Q12H LANE Rx#:[id number] Zosyn 4.5 GM Premix 4.5 gm In 100 / 100 100 ml @ 200 mls/hr IV.SIG Q6H LANE Rx#:[id number] Vancomycin Inj 1,500 MG In NS 515 / 515 Inj 500 ML @ 250 mls/hr IV.SIG Q12H LANE Rx#:[id number] Oral 720 / 720 Other: # Voids 3 2 Date of Last Bowel Movement 05/18/18 05/18/18 # Bowel Movements 0 2 Narrative: GENERAL: NAD, A&Ox3 HEAD: Normocephalic. NECK: Supple, trachea midline. No lymphadenopathy. EYES: No scleral icterus. No injection or drainage. CARDIOVASCULAR: Regular rate and rhythm without murmurs, gallops, or rubs. RESPIRATORY: Breath sounds equal bilaterally. No accessory muscle use. GASTROINTESTINAL: Abdomen soft, non-tender, nondistended. MUSCULOSKELETAL: No cyanosis, edema present at left lower extremity with erythema around the healing wound, no drainage or focal induration at site. The left groin shows drain is still present but no significant erythema around wound (improvement). SKIN: Warm and dry. Left groin cellulitis. NEURO: No focal neurological deficits. Results - Labs CBC & Chem 7: 05/20/18 09:23 05/20/18 09:23 Laboratory Results - last 24 hr 05/19/18 05/20/18 05/20/18 12:00 09:23 09:23 WBC 11.2 H RBC 3.60 L Hgb 10.8 L Hct 32.7 L MCV 90.9 MCH 30.0 MCHC 33.0 RDW 14.2 Plt Count 530 H MPV 6.2 L Neut % (Auto) 82.0 H Lymph % (Auto) 9.6 [place] % (Auto) 7.0 Eos % (Auto) 1.0 Baso % (Auto) 0.4 Neut # (Auto) 9.1 H Lymph # (Auto) 1.1 [place] # (Auto) 0.8 Eos # (Auto) 0.1 Baso # (Auto) 0.0 WBC Differential . Differential Comment Auto diff final Sodium 142 Potassium 3.5 Chloride 106 Carbon Dioxide 23.7 Anion Gap 12 BUN 4 L Creatinine 0.88 Estimated GFR 63 L Random Glucose 92 Calcium 9.2 Total Bilirubin 0.3 AST 21 ALT 26 Alkaline Phosphatase 114 Total Protein 7.6 D Albumin 2.4 L Vancomycin Trough 13.8 H Microbiology 05/18/18 13:11 Blood - Peripheral Aerobic Blood Culture - Preliminary No growth in 2 days 05/18/18 13:11 Blood - Peripheral Anaerobic Blood Culture - Preliminary No growth in 2 days 05/18/18 13:16 Blood - Peripheral Aerobic Blood Culture - Preliminary No growth in 2 days 05/18/18 13:16 Blood - Peripheral Anaerobic Blood Culture - Preliminary No growth in 2 days 05/18/18 10:00 Wound - Groin Gram Stain - Final 05/18/18 10:00 Wound - Groin Wound Culture - Final S. aureus MRSA 05/14/18 01:30 Blood - Peripheral Aerobic Blood Culture - Final No growth in 5 days 05/14/18 01:30 Blood - Peripheral Anaerobic Blood Culture - Final No growth in 5 days 05/14/18 01:35 Blood - Peripheral Aerobic Blood Culture - Final No growth in 5 days 05/14/18 01:35 Blood - Peripheral Anaerobic Blood Culture - Final No growth in 5 days - Imaging Impressions Lower Extremity MRI 05/20/18 00:00 CONCLUSION: Multilocular fluid collection along the course of the bypass graft. Postoperative seroma as well as abscess are considered. This will be accessible to aspiration. 1. Assessment and Plan - Assessment (1) Cellulitis Code(s): L03.90 - Cellulitis, unspecified Status: Acute - Plan 73-year-old female admitted with left groin infection status post left femoral below-knee bypass in April 2018 Continue monitoring wounds. Antibiotic selection pending. No new complaints from the patient. No fevers. Follow CBC and CMP. Sepsis Resolved Left groin cellulitis Peripheral artery disease Status post left femoral bypass ID following Continue to follow cultures Continue Zosyn Continue vancomycin Follow fever pattern Continue pain treatments Monitor CBC Hypertension Continue baseline treatment Follow blood pressures Adjust treatments as needed Diabetes mellitus type 2 Follow blood sugars Insulin sliding scale Diabetic diet Left adrenal adenoma Follows an outpatient Left lower extremity swelling Follow clinically and treat infection General anxiety disorder Continue Xanax DVT prophylaxis Continue heparin Discharge planning Ultimately will need home with possible IV antibiotics and home health care Clearance from infectious disease pending Clearance from vascular surgery pending Outpatient arrangements with home health nursing pending (1) Cellulitis Qualifiers: Site of cellulitis of extremity: lower extremity Laterality: left
--- NOTE | 2018-05-20 17:37 | P.PNID ---
Subjective Remarks: ID coverage. Patient is a 73-year-old female, with known peripheral vascular disease, underwent left femoral to below the knee popliteal bypass grafting with PTFE, on April 20. She was doing well and had home health nursing checking up on her. About 5 days prior to admission she started noticing fevers up to 101, and she also noted some purulent drainage coming out of her left groin wound. She also started having pain in her left lower extremity. She had an episode of dizziness, and fell, lost her balance, but she did not have any injury, and there was no loss of consciousness. She initially presented to [facility], and was transferred to [place] for vascular surgical management. Since admission patient has had fevers on and off. Blood cultures were done and those are negative. I do not have any wound culture. She continues to have pain in her left lower extremity. Patient has been getting vancomycin and Zosyn since admission. She denies any respiratory complaint, or any urinary complaint. She has had some chronic loose stools, but that has not gotten worse. She denies any abdominal pain. I spoke with the nurse. Patient apparently started having bloody drainage from her left groin wound. At the time of my exam she still has blood coming out of her left groin wound. Infectious disease consultation has been requested to assist with management, with plans of giving her IV antibiotics as an outpatient. Notes reviewed Discussed with Dr. Briggs. Patient states that she still gets chills. Also sweats. Wound culture has MRSA. Afebrile. Reportedly has less drainage from the groin wound. Reportedly redness from the left leg is improved. MRI shows loculated fluid collection. This is abscess. FH micro - wound C/S with E coli Antibiotics: vancomycin Zosyn Diflucan Lines: No evidence of infection Past Medical History: Depression Fibromyalgia Osteoarthritis PAD (peripheral artery disease) Diabetes History of hysterectomy Hypercholesterolemia Hypertension S/P femoral-popliteal bypass surgery History of carotid endarterectomy History of spinal fusion Allergies/Adverse Reactions: Allergies No Known Allergies Allergy (Unverified 05/13/18 14:51) Objective Vital Signs 05/19/18 20:00 05/20/18 00:00 05/20/18 01:45 Temperature 98.6 F 99 F Pulse Rate 76 72 Respiratory Rate 18 20 Blood Pressure 156/74 H 154/78 H Pulse Oximetry 95 97 05/20/18 02:56 05/20/18 04:00 05/20/18 07:59 Temperature 98.6 F Pulse Rate 80 80 Respiratory Rate 20 18 18 Blood Pressure 140/63 Pulse Oximetry 94 L 91 L 05/20/18 13:15 05/20/18 16:16 05/20/18 16:48 Temperature 98.1 F Pulse Rate 79 78 Respiratory Rate 18 18 18 Blood Pressure 169/73 H 133/69 Pulse Oximetry 97 Intake & Output 05/19/18 05/20/18 05/20/18 18:59 06:59 18:59 Intake Total 820 / 820 715 / 715 615 / 615 Balance 820 / 820 715 / 715 615 / 615 Weight 91.131 kg Intake: IV 100 / 100 715 / 715 615 / 615 Maxipime Inj 2,000 MG In NS Inj 200 / 200 100 / 100 100 ML @ 200 mls/hr IV.SIG Q12H LANE Rx#:[id number] Zosyn 4.5 GM Premix 4.5 gm In 100 / 100 100 ml @ 200 mls/hr IV.SIG Q6H LANE Rx#:[id number] Vancomycin Inj 1,500 MG In NS 515 / 515 515 / 515 Inj 500 ML @ 250 mls/hr IV.SIG Q12H LANE Rx#:[id number] Oral 720 / 720 Other: # Voids 3 2 Date of Last Bowel Movement 05/18/18 05/18/18 # Bowel Movements 0 2 05/18/18 13:11 Blood - Peripheral Aerobic Blood Culture - Preliminary No growth in 2 days 05/18/18 13:11 Blood - Peripheral Anaerobic Blood Culture - Preliminary No growth in 2 days 05/18/18 13:16 Blood - Peripheral Aerobic Blood Culture - Preliminary No growth in 2 days 05/18/18 13:16 Blood - Peripheral Anaerobic Blood Culture - Preliminary No growth in 2 days 05/18/18 10:00 Wound - Groin Gram Stain - Final 05/18/18 10:00 Wound - Groin Wound Culture - Final S. aureus MRSA 05/14/18 01:30 Blood - Peripheral Aerobic Blood Culture - Final No growth in 5 days 05/14/18 01:30 Blood - Peripheral Anaerobic Blood Culture - Final No growth in 5 days 05/14/18 01:35 Blood - Peripheral Aerobic Blood Culture - Final No growth in 5 days 05/14/18 01:35 Blood - Peripheral Anaerobic Blood Culture - Final No growth in 5 days Lab - Hematology Results 05/19/18 05/20/18 09:07 09:23 WBC 12.4 H 11.2 H RBC 3.23 L 3.60 L Hgb 10.0 L 10.8 L Hct 29.6 L 32.7 L MCV 91.6 90.9 MCH 30.9 30.0 MCHC 33.7 33.0 RDW 13.8 14.2 Plt Count 417 530 H MPV 6.2 L 6.2 L Neut % (Auto) 77.6 H 82.0 H Lymph % (Auto) 11.4 9.6 [place]ower % (Auto) 8.9 H 7.0 Eos % (Auto) 1.5 1.0 Baso % (Auto) 0.6 0.4 Neut # (Auto) 9.7 H 9.1 H Lymph # (Auto) 1.4 1.1 Mower # (Auto) 1.1 H 0.8 Eos # (Auto) 0.2 0.1 Baso # (Auto) 0.1 0.0 WBC Differential . . Differential Comment Auto diff final Auto diff final Lab - Chemistry Results 05/19/18 05/20/18 09:07 09:23 Sodium 138 142 Potassium 3.3 L 3.5 Chloride 105 106 Carbon Dioxide 22.9 23.7 Anion Gap 10 12 BUN 3 L 4 L Creatinine 0.62 0.88 Estimated GFR Greater than 89 63 L Random Glucose 83 92 Calcium 8.9 9.2 Total Bilirubin 0.3 0.3 AST 24 21 ALT 26 26 Alkaline Phosphatase 104 114 Total Protein 6.9 D 7.6 D Albumin 2.2 L 2.4 L Imaging: ITS Impressions Aorta w/Runoff CTA 05/14/18 00:00 CONCLUSION: 1. Patent left femoral-popliteal bypass graft. 2. Enlarged fatty liver. 3. Left adrenal nodule measuring 2.3 cm consistent with probable adrenal adenoma. 4. Cholelithiasis. 5. Left renal cysts. 6. Minimal ascites. 7. Degenerative changes and scoliosis of the thoracolumbar spine. Venous Doppler Study 05/15/18 00:00 CONCLUSION: 1. Negative for deep venous thrombosis. There is some edema around the left common femoral artery stent. Possible hematoma in the medial calf inferior to the popliteal fossa measuring up to 2.3 x 1 x 2[address] 05/18/18 00:00 CONCLUSION: 1. No evidence of acute hematoma. Lower Extremity MRI 05/20/18 00:00 CONCLUSION: Multilocular fluid collection along the course of the bypass graft. Postoperative seroma as well as abscess are considered. This will be accessible to aspiration. 1. Physical Exam: GENERAL: Alert and oriented, no acute distress. HEENT: Pupils reactive to light. Extraocular movements intact. No icterus. Moist oropharynx mucosa. NECK: Supple without adenopathy. No swelling. LUNGS: Clear to auscultation. HEART: Regular S1 and S2. No murmurs or rubs or gallops. ABDOMEN: Soft, no tenderness appreciated. Left groin has ulcerated wound. No erythema. EXTREMITIES: Left tibia surgical incision site has erythema and swelling. SKIN: No diffuse rash NEUROLOGIC: Grossly nonfocal PSYCH: Calm and cooperative. Peripheral IV line intact. Assessment and Plan - Plan Impression Possible sepsis on admission due to L groin wound infection (fevers, leukocytosis, tachycardia, renal insufficiency) - still with fevers, and WBC increasing L groin wound infection, MRSA S/P femp po bypass with PRFE Possible hematoma L popliteal area close to graft, with cellulitis, reportedly appears improved according to patient's daughter. Cellulitis LLE, but it looks improved according to patient's daughter. Recommendation Continue Vancomycin. Continue cefepime for now. Stop Diflucan Follow temps Monitor wound Monitor progress Anticipate patient will need a 6 week course of IV antibiotic treatment. Once decision for discharge from a PICC line will need to be placed. If no gram-negative organisms recovered from wound cefepime will be discontinued. Spoke to vascular surgeon. The MRI was reviewed by Surgeon.
[2018-05-21] MEDS: oxyCODONE/Acetaminophen 10/325 Tablet PO PRN ×4 (04:20→22:49)
[2018-05-21] MEDS: ALPRAZolam 0.25 MG Tablet PO PRN ×3 (04:20→20:31)
[2018-05-21] MEDS: Gabapentin 300 MG Capsule PO SCH ×3 (08:38→17:01)
[2018-05-21] MEDS: Carisoprodol 350 MG Tablet PO SCH ×3 (08:38→17:01)
[2018-05-21] MEDS: FLUoxetine 20 MG Capsule PO SCH (08:40)
[2018-05-21] MEDS: Sodium Hypochlorite 0.125% Top Soln 500 ML Bottle TOPICAL SCH (08:41)
[2018-05-21] MEDS: Heparin - SQ 10,000 UNITS/ML Vial SQ SCH ×2 (08:41→22:49)
[2018-05-21] MEDS ORDERED: Pharmacy Ordered Lab Info OTHER ONE (09:45)
[2018-05-21] MEDS: Vancomycin Inj 1,500 MG in Sodium Chlor 0.9% Inj 500 ML IV.SIG SCH (10:10)
--- NOTE | 2018-05-21 10:47 | P.PNIM ---
Subjective Interval history: No distress today. Wound monitoring is ongoing. No new complaints from the patient. Physical Exam Vital signs: Vital Signs 05/20/18 13:15 05/20/18 16:16 05/20/18 16:48 Temperature 98.1 F Pulse Rate 79 78 Respiratory Rate 18 18 18 Blood Pressure 169/73 H 133/69 Pulse Oximetry 97 05/20/18 20:00 05/20/18 22:57 05/21/18 00:00 Temperature 98.7 F 98.3 F Pulse Rate 84 73 Respiratory Rate 18 20 18 Blood Pressure 126/66 125/65 Pulse Oximetry 96 95 05/21/18 04:00 05/21/18 06:47 05/21/18 08:00 Temperature 98.6 F 97.6 F Pulse Rate 77 81 Respiratory Rate 12 20 Blood Pressure 153/73 H 155/72 H Pulse Oximetry 95 97 Intake & Output 05/20/18 05/21/18 05/21/18 18:59 06:59 18:59 Intake Total 615 / 615 615 / 615 Balance 615 / 615 615 / 615 Weight 93.3 kg Intake: IV 615 / 615 615 / 615 Maxipime Inj 2,000 MG In NS Inj 100 / 100 100 / 100 100 ML @ 200 mls/hr IV.SIG Q12H LANE Rx#:[id number] Vancomycin Inj 1,500 MG In NS 515 / 515 515 / 515 Inj 500 ML @ 250 mls/hr IV.SIG Q12H LANE Rx#:[id number] Other: # Voids 4 4 Narrative: GENERAL: NAD, A&Ox3 HEAD: Normocephalic. NECK: Supple, trachea midline. No lymphadenopathy. EYES: No scleral icterus. No injection or drainage. CARDIOVASCULAR: Regular rate and rhythm without murmurs, gallops, or rubs. RESPIRATORY: Breath sounds equal bilaterally. No accessory muscle use. GASTROINTESTINAL: Abdomen soft, non-tender, nondistended. MUSCULOSKELETAL: No cyanosis, edema present at left lower extremity with erythema around the healing wound, no drainage or focal induration at site. The left groin shows drain is still present but no significant erythema around wound (improvement). SKIN: Warm and dry. Left groin cellulitis. NEURO: No focal neurological deficits. Results - Labs CBC & Chem 7: 05/20/18 09:23 05/20/18 09:23 Laboratory Results - last 24 hr 05/20/18 05/21/18 09:23 08:43 Sodium 142 Potassium 3.5 Chloride 106 Carbon Dioxide 23.7 Anion Gap 12 BUN 4 L Creatinine 0.88 Estimated GFR 63 L Random Glucose 92 Calcium 9.2 Total Bilirubin 0.3 AST 21 ALT 26 Alkaline Phosphatase 114 Total Protein 7.6 D Albumin 2.4 L Vancomycin Trough 31.5 H Microbiology 05/18/18 13:11 Blood - Peripheral Aerobic Blood Culture - Preliminary No growth in 2 days 05/18/18 13:11 Blood - Peripheral Anaerobic Blood Culture - Preliminary No growth in 2 days 05/18/18 13:16 Blood - Peripheral Aerobic Blood Culture - Preliminary No growth in 2 days 05/18/18 13:16 Blood - Peripheral Anaerobic Blood Culture - Preliminary No growth in 2 days 05/18/18 10:00 Wound - Groin Gram Stain - Final 05/18/18 10:00 Wound - Groin Wound Culture - Final S. aureus MRSA Assessment and Plan - Assessment (1) Cellulitis Code(s): L03.90 - Cellulitis, unspecified Status: Acute - Plan 73-year-old female admitted with left groin infection status post left femoral below-knee bypass in April 2018 Doing well today. Slowly recovering. No acute complaints today. Continue monitoring wounds. Sepsis Resolved Left groin cellulitis Peripheral artery disease Status post left femoral bypass ID following Continue to follow cultures Continue Zosyn Continue vancomycin Follow fever pattern Continue pain treatments Monitor CBC Hypertension Continue baseline treatment Follow blood pressures Adjust treatments as needed Diabetes mellitus type 2 Follow blood sugars Insulin sliding scale Diabetic diet Left adrenal adenoma Follows an outpatient Left lower extremity swelling Follow clinically and treat infection General anxiety disorder Continue Xanax DVT prophylaxis Continue heparin Discharge planning Ultimately will need home with possible IV antibiotics and home health care Clearance from infectious disease pending Clearance from vascular surgery pending Outpatient arrangements with home health nursing pending (1) Cellulitis Qualifiers: Site of cellulitis of extremity: lower extremity Laterality: left
[2018-05-21] MEDS: Temazepam 15 MG Capsule PO PRN (22:49)
[2018-05-22] MEDS: oxyCODONE/Acetaminophen 10/325 Tablet PO PRN ×4 (04:07→21:04)
[2018-05-22] MEDS: ALPRAZolam 0.25 MG Tablet PO PRN ×2 (04:07→21:05)
[2018-05-22 05:46] LABS: Baso % (Auto) 0.5 % (0.0-2.0); Eos # (Auto) 0.2 th/mm3 (0.0-0.4); Eos % (Auto) 2.7 % (0.0-4.0); Hematocrit 26.9 % (35.0-46.0); Lymph # (Auto) 1.3 th/mm3 (1.0-4.8); Lymph % (Auto) 15.6 % (9.0-44.0); Mean Corpuscular HGB Conc 33.5 % (32.0-36.0); Mean Corpuscular Hemoglobin 30.8 pg (27.0-34.0); Mean Corpuscular Volume 91.9 fL (80.0-100.0); Mean Platelet Volume 5.9 fL (7.0-11.0); Mono # (Auto) 0.7 th/mm3 (0.0-0.9); Mono % (Auto) 8.2 % (0.0-8.0); Neut # (Auto) 6.2 th/mm3 (1.8-7.7); Platelet Count 466 th/mm3 (150-450); Red Blood Count 2.92 mil/mm3 (4.00-5.30); Red Cell Distribution Width 14.1 % (11.6-17.2); White Blood Count 8.5 th/mm3 (4.0-11.0)
[2018-05-22 06:13] LABS: Alanine Aminotransferase 26 U/L (10-53); Anion Gap 13 meq/L (5-15); Aspartate Aminotransferase 25 U/L (15-37); Blood Urea Nitrogen 3 mg/dL (7-18); Calcium 8.5 mg/dL (8.5-10.1); Carbon Dioxide 20.6 meq/L (21.0-32.0); Chloride 110 meq/L (98-107); Glomerular Filtration Rate 59 mL/min (>89); Glucose,Random 91 mg/dL (74-106); Potassium 3.1 meq/L (3.5-5.1); Sodium 144 meq/L (136-145)
[2018-05-22 06:16] LABS: Alkaline Phosphatase 95 U/L (45-117); Total Protein 6.7 g/dL (6.4-8.2); Vancomycin,Random 24.7 Comment
[2018-05-22] MEDS: Heparin - SQ 10,000 UNITS/ML Vial SQ SCH ×2 (09:22→21:11)
[2018-05-22] MEDS: Gabapentin 300 MG Capsule PO SCH ×3 (09:26→21:02)
[2018-05-22] MEDS: FLUoxetine 20 MG Capsule PO SCH (09:27)
[2018-05-22] MEDS: Carisoprodol 350 MG Tablet PO SCH ×3 (09:28→21:02)
[2018-05-22] MEDS: Sodium Hypochlorite 0.125% Top Soln 500 ML Bottle TOPICAL SCH (09:29)
--- NOTE | 2018-05-22 10:37 | P.PNVS ---
- Pre-operative Note Planned Procedure: LEFT leg incision and drainage, possible bypass revision Interval History: Pt has persistent swelling around incision. Despite no F/C I am worried and think she would benefit from drainage of seroma and possible abscess with possible bypass revision discussed with patient today and she agrees to OR Thursday morning 05/23 Labs: WBC 8.5 th/mm3 (4.0-11.0) 05/22/18 05:17 RBC 2.92 mil/mm3 (4.00-5.30) L 05/22/18 05:17 Hgb 9.0 gm/dL (11.6-15.3) L 05/22/18 05:17 Hct 26.9 % (35.0-46.0) L 05/22/18 05:17 MCV 91.9 fL (80.0-100.0) 05/22/18 05:17 MCH 30.8 pg (27.0-34.0) 05/22/18 05:17 MCHC 33.5 % (32.0-36.0) 05/22/18 05:17 RDW 14.1 % (11.6-17.2) 05/22/18 05:17 Plt Count 466 th/mm3 (150-450) H 05/22/18 05:17 MPV 5.9 fL (7.0-11.0) L 05/22/18 05:17 INR 1.2 Ratio 05/14/18 10:33 Sodium 144 meq/L (136-145) 05/22/18 05:17 Potassium 3.1 meq/L (3.5-5.1) L 05/22/18 05:17 Chloride 110 meq/L (98-107) H 05/22/18 05:17 Carbon Dioxide 20.6 meq/L (21.0-32.0) L 05/22/18 05:17 Anion Gap 13 meq/L (5-15) 05/22/18 05:17 BUN 3 mg/dL (7-18) L 05/22/18 05:17 Random Glucose 91 mg/dL (74-106) 05/22/18 05:17 Calcium 8.5 mg/dL (8.5-10.1) 05/22/18 05:17 Blood: 2U PRBC ordered OCTOR Imaging: ITS Impressions Aorta w/Runoff CTA 05/14/18 00:00 CONCLUSION: 1. Patent left femoral-popliteal bypass graft. 2. Enlarged fatty liver. 3. Left adrenal nodule measuring 2.3 cm consistent with probable adrenal adenoma. 4. Cholelithiasis. 5. Left renal cysts. 6. Minimal ascites. 7. Degenerative changes and scoliosis of the thoracolumbar spine. Venous Doppler Study 05/15/18 00:00 CONCLUSION: 1. Negative for deep venous thrombosis. There is some edema around the left common femoral artery stent. Possible hematoma in the medial calf inferior to the popliteal fossa measuring up to 2.3 x 1 x [address] 05/18/18 00:00 CONCLUSION: 1. No evidence of acute hematoma. Lower Extremity MRI 05/20/18 00:00 CONCLUSION: Multilocular fluid collection along the course of the bypass graft. Postoperative seroma as well as abscess are considered. This will be accessible to aspiration. 1. Orders: NPO after MN VANC 1g IV OCTOR Post-operative Destination: PACU and back to floor Operative site marked: Yes Consent: Informed consent will be been obtained from Micheline Overton. I have explained the procedure in detail and discussed the risks, benefits, and potential complications. All questions have been answered.
--- NOTE | 2018-05-22 11:00 | P.PNIM ---
Subjective Interval history: No acute distress today. Patient's left lower extremity continues to have graduating induration. This does not appear to be infection but rather hematoma related. Plan for surgery at this area tomorrow. The patient's left groin continues to improve through time with antibiotics. She has no new complaints today. Physical Exam Vital signs: Vital Signs 05/21/18 12:00 05/21/18 16:00 05/21/18 20:00 Temperature 98.4 F 98 F 98.0 F Pulse Rate 71 69 73 Respiratory Rate 17 18 18 Blood Pressure 129/62 162/72 H 172/80 H Pulse Oximetry 95 95 95 05/22/18 00:00 05/22/18 04:00 05/22/18 08:29 Temperature 98.8 F 98.2 F 98.6 F Pulse Rate 76 75 73 Respiratory Rate 18 18 16 Blood Pressure 169/83 H 146/82 H 134/75 Pulse Oximetry 95 95 92 L Intake & Output 05/21/18 05/22/18 05/22/18 18:59 06:59 18:59 Intake Total 615 / 615 100 / 100 Balance 615 / 615 100 / 100 Weight 93.5 kg Intake: IV 615 / 615 100 / 100 Maxipime Inj 2,000 MG In NS Inj 100 / 100 100 / 100 100 ML @ 200 mls/hr IV.SIG Q12H LANE Rx#:[id number] Other: # Voids 4 Narrative: GENERAL: NAD, A&Ox3 HEAD: Normocephalic. NECK: Supple, trachea midline. No lymphadenopathy. EYES: No scleral icterus. No injection or drainage. CARDIOVASCULAR: Regular rate and rhythm without murmurs, gallops, or rubs. RESPIRATORY: Breath sounds equal bilaterally. No accessory muscle use. GASTROINTESTINAL: Abdomen soft, non-tender, nondistended. MUSCULOSKELETAL: No cyanosis, edema present at left lower extremity with erythema and induration around the healing wound, no drainage or focal induration at site. The left groin shows drain is still present but no significant erythema around wound (improvement). SKIN: Warm and dry. Left groin cellulitis. NEURO: No focal neurological deficits. Results - Labs CBC & Chem 7: 05/22/18 05:17 05/22/18 05:17 Laboratory Results - last 24 hr 05/22/18 05/22/18 05:17 05:17 WBC 8.5 RBC 2.92 L Hgb 9.0 L Hct 26.9 L MCV 91.9 MCH 30.8 MCHC 33.5 RDW 14.1 Plt Count 466 H MPV 5.9 L Neut % (Auto) 73.0 H Lymph % (Auto) 15.6 [place] % (Auto) 8.2 H Eos % (Auto) 2.7 Baso % (Auto) 0.5 Neut # (Auto) 6.2 Lymph # (Auto) 1.3 [place] # (Auto) 0.7 Eos # (Auto) 0.2 Baso # (Auto) 0.0 WBC Differential . Differential Comment Auto diff final Sodium 144 Potassium 3.1 L Chloride 110 H Carbon Dioxide 20.6 L Anion Gap 13 BUN 3 L Creatinine 0.94 Estimated GFR 59 L Random Glucose 91 Calcium 8.5 Total Bilirubin 0.3 AST 25 ALT 26 Alkaline Phosphatase 95 Total Protein 6.7 D Albumin 2.0 L Random Vancomycin 24.7 Microbiology 05/18/18 13:11 Blood - Peripheral Aerobic Blood Culture - Preliminary No growth in 3 days 05/18/18 13:11 Blood - Peripheral Anaerobic Blood Culture - Preliminary No growth in 3 days 05/18/18 13:16 Blood - Peripheral Aerobic Blood Culture - Preliminary No growth in 3 days 05/18/18 13:16 Blood - Peripheral Anaerobic Blood Culture - Preliminary No growth in 3 days Assessment and Plan - Assessment (1) Cellulitis Code(s): L03.90 - Cellulitis, unspecified Status: Acute - Plan 73-year-old female admitted with left groin infection status post left femoral below-knee bypass in April 2018 Plan for surgery at left lower extremity wound tomorrow. Left groin wound is improving. Continue antibiotics. No acute complaints today. Continue monitoring wounds. Sepsis Resolved Left groin cellulitis Peripheral artery disease Status post left femoral bypass ID following Continue to follow cultures Continue Zosyn Continue vancomycin Follow fever pattern Continue pain treatments Monitor CBC Hypertension Continue baseline treatment Follow blood pressures Adjust treatments as needed Diabetes mellitus type 2 Follow blood sugars Insulin sliding scale Diabetic diet Left adrenal adenoma Follows an outpatient Left lower extremity swelling Follow clinically and treat infection General anxiety disorder Continue Xanax DVT prophylaxis Continue heparin Discharge planning Ultimately will need home with possible IV antibiotics and home health care Clearance from infectious disease pending Clearance from vascular surgery pending Outpatient arrangements with home health nursing pending (1) Cellulitis Qualifiers: Site of cellulitis of extremity: lower extremity Laterality: left
[2018-05-22] MEDS ORDERED: Potassium Chloride 10 MEQ ER Capsule PO ONE (11:55)
[2018-05-22] MEDS ORDERED: Chlorhexidine Gluconate 2% 1 Pack (2 Cloths) TOPICAL SCH (17:45)
[2018-05-22] MEDS ORDERED: Sodium Chlor 0.9% Inj 500 ML IV.SIG SCH (18:00)
[2018-05-23] MEDS: Temazepam 15 MG Capsule PO PRN (00:15)
[2018-05-23] MEDS: oxyCODONE/Acetaminophen 10/325 Tablet PO PRN ×2 (05:55→11:52)
[2018-05-23] MEDS: ALPRAZolam 0.25 MG Tablet PO PRN (05:56)
[2018-05-23] MEDS ORDERED: Bupivacaine PF 0.5% Inj 30 ML Vial ONE (07:24)
[2018-05-23] MEDS ORDERED: Heparin 10,000 UNITS/10 ML Vial (for IV use) ONE (08:52)
[2018-05-23] MEDS ORDERED: Heparin/NS PF Inj 500 ML ONE (08:52)
[2018-05-23] MEDS ORDERED: Protamine Sulfate Inj 50 MG/5 ML Vial ONE (08:52)
[2018-05-23] MEDS: Sodium Hypochlorite 0.125% Top Soln 500 ML Bottle TOPICAL SCH (09:56)
[2018-05-23] MEDS: Heparin - SQ 10,000 UNITS/ML Vial SQ SCH (09:56)
[2018-05-23] MEDS: Gabapentin 300 MG Capsule PO SCH (09:57)
[2018-05-23] MEDS: FLUoxetine 20 MG Capsule PO SCH (09:57)
[2018-05-23] MEDS: Carisoprodol 350 MG Tablet PO SCH (09:57)
[2018-05-23] MEDS ORDERED: Vancomycin Inj 1,500 MG in Sodium Chlor 0.9% Inj 500 ML IV.SIG SCH (10:00)
[2018-05-23] MEDS: Thrombin Topical 20,000 UNIT Spray Kit TOPICAL ONE ×2 (10:17→10:23)
[2018-05-23] MEDS ORDERED: Thrombin Topical 20,000 UNIT Spray Kit TOPICAL ONE (10:21)
--- NOTE | 2018-05-23 10:51 | P.OP ---
Date of procedure: 05/23/18 Procedure: L distal bypass revision (jump graft from prior bypass to BK pop) Implants: 6mm with PTFE Anesthesia: GETA Surgeon: Les Briggs MD Reconditioning Associate: Kaelyn Buitrago Estimated blood loss (mL): 1,000 IV fluids (mL): 1,800 Urine output (mL): 575 Operation and Findings: Found to have distal anastomotic disruption Jump graft from prior bypass to BK pop at level of AT Good graft-dependent pedal signals at conclusion of case will transfer to [facility] in [facility] for consideration of total graft excision
[2018-05-23] MEDS ORDERED: Morphine Sulfate Inj 2 MG/ML Vial IV.PUSH PRN (11:26)
[2018-05-23] MEDS ORDERED: HYDROmorphone PF Inj 1 MG/ML Ampul ONE ×3 (11:28→12:29)
--- NOTE | 2018-05-23 11:29 | P.PNVS ---
Subjective Subjective/Hospital Course: Pt in CVICU s/p urgent repair of distal anastomotic pseudoaneurysm pt in pain but motor intact HD stable at present intra-op EBL 1000mL Objective Vital Signs / I&O: Vital Signs 05/22/18 12:00 05/22/18 16:00 05/22/18 20:00 Temperature 98.4 F 98.7 F 97.9 F Pulse Rate 68 80 76 Respiratory Rate 16 16 18 Blood Pressure 144/68 H 132/72 167/79 H Pulse Oximetry 94 L 91 L 95 05/23/18 00:00 05/23/18 06:07 05/23/18 08:59 Temperature 98.2 F 97.9 F 97.9 F Pulse Rate 120 H 78 79 Respiratory Rate 18 18 16 Blood Pressure 101/55 L 136/85 160/74 H Pulse Oximetry 91 L 92 L 91 L Intake & Output 05/22/18 05/23/18 05/23/18 18:59 06:59 18:59 Intake Total 100 / 100 100 / 100 1800 / 1800 Output Total 1575 / 1575 Balance 100 / 100 100 / 100 225 / 225 Weight 93.2 kg Intake: IV 100 / 100 100 / 100 Maxipime Inj 2,000 MG In NS Inj 100 / 100 100 / 100 100 ML @ 200 mls/hr IV.SIG Q12H [facility] Rx#:[id number] Anesthesia Amount 1800 / 1800 Output: Estimated Blood Loss 1000 / 1000 Urine Amount (Catheter) 575 / 575 Indwelling Temp Sensing 575 / 575 Catheter Other: # Voids 2 Physical Exam: resting, moving all extremities Laboratory Results - last 24 hr 05/22/18 05/23/18 05/23/18 12:17 09:01 09:05 Blood Type O Positive Antibody Screen Negative MTS Gel Crossmatch See Detail See Detail Microbiology 05/18/18 13:11 Aerobic Blood Culture - Final Blood - Peripheral No growth in 5 days Anaerobic Blood Culture - Final No growth in 5 days 05/18/18 13:16 Aerobic Blood Culture - Final Blood - Peripheral No growth in 5 days Anaerobic Blood Culture - Final No growth in 5 days Assessment and Plan - Assessment (1) Cellulitis Code(s): L03.90 - Cellulitis, unspecified Status: Acute - Plan DOS s/p L LE bypass revision for distal anastomotic pseudoaneurysm Discussed with patient and daughter. Because of concern for graft infection, will transfer to [facility]. Discharge Planning: transfer to [facility] today (1) Cellulitis Qualifiers: Site of cellulitis of extremity: lower extremity Laterality: left
--- NOTE | 2018-05-23 11:50 | P.DS ---
Discharge Summary - Admission Date 05/14/18 01:36 - Admission Diagnosis (1) PAD (peripheral artery disease) - Discharge Date 05/23/18 - Discharge Diagnosis (1) Vascular graft infection Status: Acute - Summary Brief History from admission: The patient has PAD and was adm with cellulitis in the groin refractory to antibiotics. Procedure: Bypass graft revision (jump graft from PTFE to BK popliteal artery) Significant Findings: Abnormal Lab Results 05/22/18 05/23/18 05/23/18 12:17 09:01 09:05 Blood Type O Positive Antibody Screen Negative MTS Gel Crossmatch See Detail See Detail Hospital Course: The patient was admitted and kept on IV antibiotics. The cellulitis in the groin improved and a CT scan showed what was felt to be normal post-operative findings. Over the 2 days prior to transfer, her BK pop incision became markedly more swollen and ecchymotic. She remained afebrile and no leukocytosis. Her blood cultures were negative x 4. On Wednesday 05/23, she was taken to the OR and intraoperatively was found to have a distal anastomotic disruption. A stabilizing jump graft was performed and she tolerated the procedure well. Transfer to [facility] for consideration of graft excision and re-do distal bypass. - Discharge Instructions Any questions or concerns: Call [facility] Heart and Vascular Surgery at [facility] [phone] Discharge Plan - Discharge Disposition Patient Disposition: 02 Disch To Another Hospital - Discharge Condition Condition: Fair - Discharge Order Discharge Orders: Discharge Order (Routine); Ordered 05/23/18 Ordered By: Les Briggs - Physicians Team Primary Care Provider: Primary Care Uzma,No Attending Provider: Cabrera Black Other Providers: Shazia Sexton MD ; Alejandro Lopeza ; Jessica Portillo MD ; Lynda [facility],Agency
[2018-05-23] MEDS ORDERED: fentaNYL Citrate Inj 100 MCG/2 ML Ampul ONE (11:59)
[2018-05-23] MEDS ORDERED: Lidocaine PF 1% Inj 5 ML Syringe INFILTRATN ONE (12:00)
[2018-05-23] MEDS ORDERED: Phenylephrine/NS 1000 MCG/10ML Syringe IV.PUSH ONE (12:00)
[2018-05-23] MEDS ORDERED: Morphine Inj 4 MG/ML Vial ONE (12:00)
[2018-05-23] MEDS ORDERED: Neostigmine Inj 5 MG/5 ML Syringe IV.PUSH ONE (12:00)
[2018-05-23] MEDS ORDERED: Glycopyrrolate Inj 1 MG/5 ML Syringe IV.PUSH ONE (12:00)
[2018-05-23 12:03] LABS: Baso # (Auto) 0.1 th/mm3 (0.0-0.2); Baso % (Auto) 0.6 % (0.0-2.0); Eos # (Auto) 0.2 th/mm3 (0.0-0.4); Eos % (Auto) 1.5 % (0.0-4.0); Hematocrit 28.6 % (35.0-46.0); Hemoglobin 9.6 gm/dL (11.6-15.3); Lymph # (Auto) 1.2 th/mm3 (1.0-4.8); Lymph % (Auto) 11.7 % (9.0-44.0); Mean Corpuscular HGB Conc 33.8 % (32.0-36.0); Mean Corpuscular Hemoglobin 29.9 pg (27.0-34.0); Mean Corpuscular Volume 88.6 fL (80.0-100.0); Mean Platelet Volume 5.9 fL (7.0-11.0); Mono # (Auto) 0.4 th/mm3 (0.0-0.9); Mono % (Auto) 3.8 % (0.0-8.0); Neut # (Auto) 8.6 th/mm3 (1.8-7.7); Neut % (Auto) 82.4 % (16.0-70.0); Platelet Count 315 th/mm3 (150-450); Red Blood Count 3.23 mil/mm3 (4.00-5.30); Red Cell Distribution Width 15.5 % (11.6-17.2); White Blood Count 10.4 th/mm3 (4.0-11.0)
--- NOTE | 2018-05-23 12:23 | MP ---
cc: Les Briggs MD DATE OF OPERATION: 05/23/2018 PREOPERATIVE DIAGNOSIS: Left lower extremity graft infection. POSTOPERATIVE DIAGNOSIS: Left lower extremity graft infection, and distal anastomotic disruption. ATTENDING SURGEON: Les Briggs MD DRUM BUILDER SURGEON: Anne Aguilar. OPERATION: Left lower extremity bypass revision (jump graft from previous BiPAP to lower on the popliteal artery). INDICATIONS FOR PROCEDURE: Ms. Overton is a 73-year-old lady who is 4-5 weeks out for a left lower extremity bypass. She had some perigraft fluid on the CT scan and over the past 2 days has developed worsening hematoma at her calf incision. She was taken to the operating room urgently for exploration. Intraoperatively, it was found that the distal anastomosis was disrupted. DESCRIPTION OF PROCEDURE: Informed consent was obtained from the patient. She was taken to the operating room and placed supine on the operating table. Appropriate timeout was taken to ensure the patient's identity, the operative site and planned procedure. The administration of 1 gram of vancomycin was initiated prior to skin incision and will be discontinued postoperatively for ongoing therapy. Everyone in the room agreed with timeout and we proceeded. She was prepped from her nipples to her toes. Her left calf incision was reopened with a 10 blade and taken down through subcutaneous tissue with electrocautery. Intense bleeding was identified. Manual pressure was held. The graft was isolated in the proximal aspect of the incision. The incision was extended and the graft was clamped. The 4-0 Prolene suture was used to oversew the distal anastomosis. We then dissected distally using tedious sharp dissection to the distal popliteal artery onto the tibioperoneal trunk and a clamp was placed on these. The patient was systemically heparinized. The graft was transected and the distal end was oversewn, once it was clipped with large Hemoclips and oversewn with 4-0 Prolene. The proximal end was spatulated and a 6 mm PTFE graft was brought on the field, spatulated and sewn end-to-end with running 6-0 Prolene suture. Proximal and distal control of distal popliteal artery and tibioperoneal trunk were obtained with profunda clamps and a longitudinal arteriotomy was made with an 11 blade, extended with Keyes scissors. The graft was cut to appropriate length, spatulated and sewn end-to-side with running 6-0 Prolene suture. At the completion it was flushed and noted to be hemostatic. The clamps were released. There was Doppler signal in the foot. There was graft dependent. The entire wound was irrigated and made hemostatic. Vancomycin powder was applied and the wound was closed with 2-0 Polysorb, 3-0 Polysorb and a 2-0 Monocryl and vertical mattress sutures. Sponge and needle counts were correct at the end of the case. I was present, scrubbed, and performed the entire procedure. MD LUANNE Schmidt/TL , 11:44 AM , 12:22 PM
[2018-05-23] MEDS: HYDROmorphone PF Inj 1 MG/ML Ampul IV.PUSH PRN ×2 (12:32→15:08)
--- NOTE | 2018-05-23 12:58 | P.PNIM ---
Subjective Interval history: Postop today. Concerns are present now for graft infection. Patient will be transferred to [place] for further care. Physical Exam Vital signs: Vital Signs 05/22/18 16:00 05/22/18 20:00 05/23/18 00:00 Temperature 98.7 F 97.9 F 98.2 F Pulse Rate 80 76 120 H Respiratory Rate 16 18 18 Blood Pressure 132/72 167/79 H 101/55 L Pulse Oximetry 91 L 95 91 L 05/23/18 06:07 05/23/18 08:59 05/23/18 11:33 Temperature 97.9 F 97.9 F 96.1 F L Pulse Rate 78 79 77 Respiratory Rate 18 16 16 Blood Pressure 136/85 160/74 H 160/74 H Pulse Oximetry 92 L 91 L 99 05/23/18 12:36 05/23/18 12:37 05/23/18 12:38 Temperature 96.1 F L Pulse Rate 71 Respiratory Rate 18 18 16 Blood Pressure 143/69 H Pulse Oximetry 99 Intake & Output 05/22/18 05/23/18 05/23/18 18:59 06:59 18:59 Intake Total 100 / 100 100 / 100 1800 / 1800 Output Total 1575 / 1575 Balance 100 / 100 100 / 100 225 / 225 Weight 93.2 kg Intake: IV 100 / 100 100 / 100 Maxipime Inj 2,000 MG In NS Inj 100 / 100 100 / 100 100 ML @ 200 mls/hr IV.SIG Q12H [facility] Rx#:[id number] Anesthesia Amount 1800 / 1800 Output: Estimated Blood Loss 1000 / 1000 Urine Amount (Catheter) 575 / 575 Indwelling Temp Sensing 575 / 575 Catheter Other: # Voids 2 Narrative: GENERAL: NAD, A&Ox3 HEAD: Normocephalic. NECK: Supple, trachea midline. No lymphadenopathy. EYES: No scleral icterus. No injection or drainage. CARDIOVASCULAR: Regular rate and rhythm without murmurs, gallops, or rubs. RESPIRATORY: Breath sounds equal bilaterally. No accessory muscle use. GASTROINTESTINAL: Abdomen soft, non-tender, nondistended. MUSCULOSKELETAL: No cyanosis, edema present at left lower extremity with erythema and induration around the healing wound, no drainage or focal induration at site. The left groin shows drain is still present but no significant erythema around wound (improvement). SKIN: Warm and dry. Left groin cellulitis. Left lower extremity bandaged. NEURO: No focal neurological deficits. - Urinary Catheter Management Indwelling Temp Sensing Catheter Cath placed during this visit: yes Reason for continuing: Hourly intake/output Insertion date: 05/23/18 Insertion time: 08:15 Results - Labs CBC & Chem 7: 05/23/18 10:40 05/22/18 05:17 Laboratory Results - last 24 hr 05/22/18 05/23/18 05/23/18 12:17 09:01 09:05 WBC RBC Hgb Hct MCV MCH MCHC RDW Plt Count MPV Neut % (Auto) Lymph % (Auto) [place] % (Auto) Eos % (Auto) Baso % (Auto) Neut # (Auto) Lymph # (Auto) [place] # (Auto) Eos # (Auto) Baso # (Auto) WBC Differential Differential Comment Antibody Screen Negative MTS Gel Crossmatch See Detail See Detail 05/23/18 10:40 WBC 10.4 RBC 3.23 L Hgb 9.6 L Hct 28.6 L MCV 88.6 MCH 29.9 MCHC 33.8 RDW 15.5 Plt Count 315 D MPV 5.9 L Neut % (Auto) 82.4 H Lymph % (Auto) 11.7 [place] % (Auto) 3.8 Eos % (Auto) 1.5 Baso % (Auto) 0.6 Neut # (Auto) 8.6 H Lymph # (Auto) 1.2 [place] # (Auto) 0.4 Eos # (Auto) 0.2 Baso # (Auto) 0.1 WBC Differential . Differential Comment Auto diff final Antibody Screen MTS Gel Crossmatch Microbiology 05/18/18 13:11 Blood - Peripheral Aerobic Blood Culture - Final No growth in 5 days 05/18/18 13:11 Blood - Peripheral Anaerobic Blood Culture - Final No growth in 5 days 05/18/18 13:16 Blood - Peripheral Aerobic Blood Culture - Final No growth in 5 days 05/18/18 13:16 Blood - Peripheral Anaerobic Blood Culture - Final No growth in 5 days Assessment and Plan - Assessment (1) Cellulitis Code(s): L03.90 - Cellulitis, unspecified Status: Acute - Plan 73-year-old female admitted with left groin infection status post left femoral below-knee bypass in April 2018 Postop for left lower extremity intervention today. Concerns for graft infection postop. Patient in process of transfer to [place] for further interventions. Sepsis Resolved Left groin cellulitis Peripheral artery disease Status post left femoral bypass ID following Continue to follow cultures Continue Zosyn Continue vancomycin Follow fever pattern Continue pain treatments Monitor CBC Hypertension Continue baseline treatment Follow blood pressures Adjust treatments as needed Diabetes mellitus type 2 Follow blood sugars Insulin sliding scale Diabetic diet Left adrenal adenoma Follows an outpatient Left lower extremity swelling Follow clinically and treat infection General anxiety disorder Continue Xanax DVT prophylaxis Continue heparin Discharge planning Plan to transfer to a tertiary care center for further care Ultimately will need home with possible IV antibiotics and home health care (1) Cellulitis Qualifiers: Site of cellulitis of extremity: lower extremity Laterality: left
[2018-05-23 13:06] LABS: Alanine Aminotransferase 22 U/L (10-53); Anion Gap 11 meq/L (5-15); Aspartate Aminotransferase 15 U/L (15-37); Blood Urea Nitrogen 5 mg/dL (7-18); Calcium 7.7 mg/dL (8.5-10.1); Carbon Dioxide 23.8 meq/L (21.0-32.0); Chloride 112 meq/L (98-107); Glomerular Filtration Rate 65 mL/min (>89); Glucose,Random 129 mg/dL (74-106); Potassium 3.6 meq/L (3.5-5.1); Sodium 147 meq/L (136-145)
[2018-05-23] MEDS: HYDROmorphone PF Inj 2 MG/ML Vial IV.PUSH PRN ×2 (13:07→15:20)
[2018-05-23 13:08] LABS: Alkaline Phosphatase 87 U/L (45-117)
--- NOTE | 2018-05-23 13:20 | P.DS ---
Date of admission: 05/14/18 01:36 Primary care physician: No Primary Care Physician Brief History from admission: This is a 73-year-old female with history of peripheral arterial disease, hypertension, diabetes mellitus, status post left femoral to below-knee arterial bypass April 20, 2018, has been discharged home with home health care. She has been doing well until Thursday when she started having low-grade fever of 101, improved with Tylenol. This is associated with increasing, viscous purulent discharge from the left groin area in her surgical site. There is also increasing left lower extremity soreness. Yesterday, while she was walking with her walker, she became dizzy, lightheaded and lost her balance and fell to the bed. She did not hit the floor. No loss of consciousness. She denies any cough, shortness of breath, abdominal pain or diarrhea. She has chronic loose stools but not worse than usual. She has no dysuria but has difficulty urinating and has urinary urgency. Good oral intake. She initially presented to [facility] in [place], transferred to [place] for further management with vascular surgery Dr. Briggs. During her ED visit in [place], temperature was 100.3. She was given Zosyn, morphine and Ativan. Chest x-ray was unremarkable. Sodium was 129, creatinine 1.43, WBC 13.6, hemoglobin 13.0, platelets of 324, INR is 1.2. DS: Diagnosis - Discharge Diagnosis (1) Cellulitis Status: Acute DS: Summary Hospital Course: Mrs. Overton is a 73 year old female. She was admitted for a left groin cellulitis which was related to a left femoral to below-knee arterial bypass April 20, 2018. Fevers were present initially and she was treated with Vancomycin and Cefepime and sepsis along with signs of infection improved on these treatments. She is found to have evidence of fluid collection around the graft on MRI and today she had a left lower extremity wound (not groin) exploration for evacuation of what appeared to be a hematoma on imaging. Further concern for graft infection is present post procedure and this patient is now arranged for transfer to care at [facility]. Medically stable for transport to receiving facility today. - Time Spent with Patient Total time spent providing and/or coordinating discharge services: - Quality: VTE Deep Vein Thrombosis/Pulmonary Embolism Present on Admission: No Exam Vital signs: Vital Signs 05/22/18 16:00 05/22/18 20:00 05/23/18 00:00 Temperature 98.7 F 97.9 F 98.2 F Pulse Rate 80 76 120 H Respiratory Rate 16 18 18 Blood Pressure 132/72 167/79 H 101/55 L Pulse Oximetry 91 L 95 91 L 05/23/18 06:07 05/23/18 08:59 05/23/18 11:33 Temperature 97.9 F 97.9 F 96.1 F L Pulse Rate 78 79 77 Respiratory Rate 18 16 16 Blood Pressure 136/85 160/74 H 160/74 H Pulse Oximetry 92 L 91 L 99 05/23/18 12:36 05/23/18 12:37 05/23/18 12:38 Temperature 96.1 F L Pulse Rate 71 Respiratory Rate 18 18 16 Blood Pressure 143/69 H Pulse Oximetry 99 Intake & Output 05/22/18 05/23/18 05/23/18 18:59 06:59 18:59 Intake Total 100 / 100 100 / 100 1800 / 1800 Output Total 1575 / 1575 Balance 100 / 100 100 / 100 225 / 225 Weight 93.2 kg Intake: IV 100 / 100 100 / 100 Maxipime Inj 2,000 MG In NS Inj 100 / 100 100 / 100 100 ML @ 200 mls/hr IV.SIG Q12H [facility] Rx#:[id number] Anesthesia Amount 1800 / 1800 Output: Estimated Blood Loss 1000 / 1000 Urine Amount (Catheter) 575 / 575 Indwelling Temp Sensing 575 / 575 Catheter Other: # Voids 2 Results Procedures completed during hospitalization: Left Lower extremity (knee) I&D and exploration for fluid collection/hematoma. Labs on day of discharge: Labs from last 24 hours 05/23/18 05/23/18 05/23/18 12:15 10:40 09:05 WBC 10.4 RBC 3.23 L Hgb 9.6 L Hct 28.6 L MCV 88.6 MCH 29.9 MCHC 33.8 RDW 15.5 Plt Count 315 D MPV 5.9 L Neut % (Auto) 82.4 H Lymph % (Auto) 11.7 [place] % (Auto) 3.8 Eos % (Auto) 1.5 Baso % (Auto) 0.6 Neut # (Auto) 8.6 H Lymph # (Auto) 1.2 [place] # (Auto) 0.4 Eos # (Auto) 0.2 Baso # (Auto) 0.1 WBC Differential . Differential Comment Auto diff final Sodium 147 H Potassium 3.6 Chloride 112 H Carbon Dioxide 23.8 Anion Gap 11 BUN 5 L Creatinine 0.86 Estimated GFR 65 L Random Glucose 129 H Calcium 7.7 L D Total Bilirubin 0.8 AST 15 ALT 22 Alkaline Phosphatase 87 Total Protein 6.0 L D Albumin 2.0 L Antibody Screen MTS Gel Crossmatch See Detail 05/23/18 05/22/18 09:01 12:17 WBC RBC Hgb Hct MCV MCH MCHC RDW Plt Count MPV Neut % (Auto) Lymph % (Auto) [place] % (Auto) Eos % (Auto) Baso % (Auto) Neut # (Auto) Lymph # (Auto) [place] # (Auto) Eos # (Auto) Baso # (Auto) WBC Differential Differential Comment Sodium Potassium Chloride Carbon Dioxide Anion Gap BUN Creatinine Estimated GFR Random Glucose Calcium Total Bilirubin AST ALT Alkaline Phosphatase Total Protein Albumin Antibody Screen Negative MTS Gel Crossmatch See Detail - Impressions ITS Impressions Aorta w/Runoff CTA 05/14/18 00:00 CONCLUSION: 1. Patent left femoral-popliteal bypass graft. 2. Enlarged fatty liver. 3. Left adrenal nodule measuring 2.3 cm consistent with probable adrenal adenoma. 4. Cholelithiasis. 5. Left renal cysts. 6. Minimal ascites. 7. Degenerative changes and scoliosis of the thoracolumbar spine. Venous Doppler Study 05/15/18 00:00 CONCLUSION: 1. Negative for deep venous thrombosis. There is some edema around the left common femoral artery stent. Possible hematoma in the medial calf inferior to the popliteal fossa measuring up to 2.3 x 1 x [address] 05/18/18 00:00 CONCLUSION: 1. No evidence of acute hematoma. Lower Extremity MRI 05/20/18 00:00 CONCLUSION: Multilocular fluid collection along the course of the bypass graft. Postoperative seroma as well as abscess are considered. This will be accessible to aspiration. 1. Discharge Plan - Discharge Disposition Patient Disposition: Disch To Another Hospital - Discharge Condition Condition: Fair - Discharge Order Discharge Orders: Discharge Order (Routine); Ordered 05/23/18 Ordered By: Les Briggs - Discharge Details Anticipated Discharge Date: 05/23/18 - Physicians Team Primary Care Provider: Primary Care Physici,No Attending Provider: Cabrera Black Other Providers: Shazia Sexton MD ; John Lopez ; Jessica Portillo MD ; Lynda Summers,Agency
[2018-05-25] MEDS ORDERED: Pharmacy Ordered Lab Info OTHER ONE (09:45)
--- NOTE | 2018-06-09 15:44 | ED ---
HPI General Chief complaint: Medical Clearance Stated complaint: Transfer from [facility] Time Seen by Provider: 05/13/18 23:59 Source: patient Mode of arrival: ambulatory Limitations: no limitations History of Present Illness HPI narrative: The patient arrives with a left groin infection. She was transferred to this hospital from [facility]. The patient underwent vascular bypass surgery which was performed by Dr. Briggs. Fever reported. The patient notes purulent discharge from the left groin. Onset (ago): day(s) (1) Location: lower extremity (Left groin) Radiation: non-radiation Severity: moderate Pain Consistency: constant Exacerbating factors: movement Related Data Home Medications Medication Instructions Recorded Confirmed amlodipine 10 mg PO HS 05/14/18 05/14/18 atorvastatin [Lipitor] 10 mg PO HS 05/14/18 05/14/18 carisoprodol [Soma] 350 mg PO TID 05/14/18 05/14/18 fluoxetine [Prozac] 60 mg PO DAILY 05/14/18 05/14/18 gabapentin 1,200 mg PO TID 05/14/18 05/14/18 lisinopril-hydrochlorothiazide 1 tab PO DAILY 05/14/18 05/14/18 potassium 10 meq PO DAILY 05/14/18 05/14/18 Previous Rx's Medication Instructions Recorded alprazolam [Xanax] 0.25 mg PO Q6H PRN tab 05/23/18 cefepime 2,000 mg IV Q12H ea 05/23/18 hydromorphone 1 mg IV.PUSH Q30M PRN ml 05/23/18 magnesium hydroxide [Milk of 30 ml PO Q12H PRN ml 05/23/18 Magnesia] oxycodone-acetaminophen 1 tab PO Q4H PRN tab 05/23/18 oxycodone-acetaminophen 1 tab PO Q4H PRN tab 05/23/18 temazepam 15 mg PO HS PRN cap 05/23/18 vancomycin 1,500 mg IV Q24H ea 05/23/18 Allergies Allergy/AdvReac Type Severity Reaction Status Date / Time No Known Allergies Allergy Unverified 05/13/18 14:51 Review of Systems Except as stated in HPI: all other systems reviewed are negative PMFSH Social History Social History Substance History: No History of Abuse Second Hand Smoke Exposure: No Smoking Status: Former smoker Tobacco Type: Cigars How Often Do You Have a Drink Containing Alcohol: Monthly or less Immunization History Tetanus Immunization: Unsure Exam Narrative Exam Narrative: General: Well-nourished well-developed pleasant cooperative 73- year-old female SKIN: Focused skin assessment warm/dry. HEAD: Atraumatic. Normocephalic. EYES: Pupils equal and round. No scleral icterus. No injection or drainage. ENT: No nasal bleeding or discharge. Mucous membranes pink and moist. NECK: Trachea midline. No JVD. CARDIOVASCULAR: Tachycardia. Regular rhythm. RESPIRATORY: No accessory muscle use. Clear to auscultation. Breath sounds equal bilaterally. GASTROINTESTINAL: Abdomen soft, non-tender, nondistended. Hepatic and splenic margins not palpable. MUSCULOSKELETAL: There is in the region of the left groin a 2 cm surgical wound which is open and draining purulent yellow fluid. Adjacent erythema is noted along with tenderness. NEUROLOGICAL: Awake and alert. No obvious cranial nerve deficits. Motor grossly within normal limits. Normal speech. PSYCHIATRIC: Appropriate mood and affect; insight and judgment normal. Course Initial Documented Vital Signs Temperature 100.3 F H 05/14/18 00:10 Pulse Rate 89 05/14/18 00:10 Respiratory Rate 18 05/14/18 00:10 Blood Pressure 130/64 05/14/18 00:10 Pulse Oximetry 96 05/14/18 00:10 Last Documented Vital Signs Temperature 96.1 F L 05/23/18 12:38 Pulse Rate 71 05/23/18 12:38 Respiratory Rate 16 05/23/18 15:08 Blood Pressure 143/69 H 05/23/18 12:38 Pulse Oximetry 99 05/23/18 12:38 Medical Decision Making Lab Data Lab results reviewed: Yes I reviewed the patient's lab results. Lab results narrative: She is anemic. She has fever and purulent discharge from vascular surgery wound. Patient will be admitted for IV antibiotics and vascular surgery consultation. Case discussed with Dr. Cantu for vascular surgery service. Case d/w Dr Black for [facility]. Result diagrams: 05/23/18 10:40 05/23/18 12:15 Lab Results 05/14/18 05/14/18 05/14/18 Range/Units 01:35 01:35 01:35 WBC 10.5 (4.0-11.0) th/mm3 RBC 3.67 L (4.00-5.30) mil/mm3 Hgb 11.4 L (11.6-15.3) gm/dL Hct 33.7 L (35.0-46.0) % MCV 91.7 (80.0-100.0) fL MCH 31.0 (27.0-34.0) pg MCHC 33.8 (32.0-36.0) % RDW 13.3 (11.6-17.2) % Plt Count 324 (150-450) th/mm3 MPV 6.7 L (7.0-11.0) fL Neut % (Auto) 80.3 H (16.0-70.0) % Lymph % (Auto) 11.3 (9.0-44.0) % Mellette % (Auto) 7.7 (0.0-8.0) % Eos % (Auto) 0.3 (0.0-4.0) % Baso % (Auto) 0.4 (0.0-2.0) % Neut # (Auto) 8.4 H (1.8-7.7) th/mm3 Lymph # (Auto) 1.2 (1.0-4.8) th/mm3 Mellette # (Auto) 0.8 (0.0-0.9) th/mm3 Eos # (Auto) 0.0 (0.0-0.4) th/mm3 Baso # (Auto) 0.0 (0.0-0.2) th/mm3 WBC Differential . Differential Comment Auto diff final PT (9.8-11.6) sec INR Ratio Sodium 134 L (136-145) meq/L Potassium 4.2 (3.5-5.1) meq/L Chloride 99 (98-107) meq/L Carbon Dioxide 24.2 (21.0-32.0) meq/L Anion Gap 11 (5-15) meq/L BUN 18 (7-18) mg/dL Creatinine 1.04 H (0.50-1.00) mg/dL Estimated GFR 52 L (>89) mL/min POC Glucose (68-110) mg/dl Random Glucose 97 (74-106) mg/dL Lactic Acid 1.1 (0.4-2.0) mmol/L Calcium 8.2 L (8.5-10.1) mg/dL Total Bilirubin 0.4 (0.2-1.0) mg/dL AST 12 L (15-37) U/L ALT 16 (10-53) U/L Alkaline Phosphatase 88 (45-117) U/L Total Protein 7.2 (6.4-8.2) g/dL Albumin 2.6 L (3.4-5.0) g/dL Urine Color (Yellw/Straw) Urine Clarity (Clear) Urine pH (5.0-8.5) Ur Specific Rindge (1.002-1.035) Urine Protein (Neg-Trace) mg/dL Urine Glucose (UA) (Negative) mg/dL Urine Ketones (Negative) mg/dL Urine Occult Blood (Negative) Urine Nitrate (Negative) Urine Bilirubin (Negative) Urine Urobilinogen (Less than 2) mg/dL Ur Leukocyte Esterase (Negative) Urine RBC (0-3) /hpf Urine WBC (0-5) /hpf Urine Bacteria (None) /hpf Micro UA Comment Urine Culture Comments Vancomycin Trough (5.0-10.0) mcg/mL Random Vancomycin Comment Blood Type Antibody Screen MTS Gel Crossmatch 05/14/18 05/14/18 05/14/18 Range/Units 03:17 08:39 10:33 WBC (4.0-11.0) th/mm3 RBC (4.00-5.30) mil/mm3 Hgb (11.6-15.3) gm/dL Hct (35.0-46.0) % MCV (80.0-100.0) fL MCH (27.0-34.0) pg MCHC (32.0-36.0) % RDW (11.6-17.2) % Plt Count (150-450) th/mm3 MPV (7.0-11.0) fL Neut % (Auto) (16.0-70.0) % Lymph % (Auto) (9.0-44.0) % Mellette % (Auto) (0.0-8.0) % Eos % (Auto) (0.0-4.0) % Baso % (Auto) (0.0-2.0) % Neut # (Auto) (1.8-7.7) th/mm3 Lymph # (Auto) (1.0-4.8) th/mm3 Mellette # (Auto) (0.0-0.9) th/mm3 Eos # (Auto) (0.0-0.4) th/mm3 Baso # (Auto) (0.0-0.2) th/mm3 WBC Differential Differential Comment PT 12.0 H (9.8-11.6) sec INR 1.2 Ratio Sodium (136-145) meq/L Potassium (3.5-5.1) meq/L Chloride (98-107) meq/L Carbon Dioxide (21.0-32.0) meq/L Anion Gap (5-15) meq/L BUN (7-18) mg/dL Creatinine (0.50-1.00) mg/dL Estimated GFR (>89) mL/min POC Glucose 101 114 H (68-110) mg/dl Random Glucose (74-106) mg/dL Lactic Acid (0.4-2.0) mmol/L Calcium (8.5-10.1) mg/dL Total Bilirubin (0.2-1.0) mg/dL AST (15-37) U/L ALT (10-53) U/L Alkaline Phosphatase (45-117) U/L Total Protein (6.4-8.2) g/dL Albumin (3.4-5.0) g/dL Urine Color (Yellw/Straw) Urine Clarity (Clear) Urine pH (5.0-8.5) Ur Specific Rindge (1.002-1.035) Urine Protein (Neg-Trace) mg/dL Urine Glucose (UA) (Negative) mg/dL Urine Ketones (Negative) mg/dL Urine Occult Blood (Negative) Urine Nitrate (Negative) Urine Bilirubin (Negative) Urine Urobilinogen (Less than 2) mg/dL Ur Leukocyte Esterase (Negative) Urine RBC (0-3) /hpf Urine WBC (0-5) /hpf Urine Bacteria (None) /hpf Micro UA Comment Urine Culture Comments Vancomycin Trough (5.0-10.0) mcg/mL Random Vancomycin Comment Blood Type Antibody Screen MTS Gel Crossmatch 05/14/18 05/14/18 05/14/18 Range/Units 12:32 17:16 22:26 WBC (4.0-11.0) th/mm3 RBC (4.00-5.30) mil/mm3 Hgb (11.6-15.3) gm/dL Hct (35.0-46.0) % MCV (80.0-100.0) fL MCH (27.0-34.0) pg MCHC (32.0-36.0) % RDW (11.6-17.2) % Plt Count (150-450) th/mm3 MPV (7.0-11.0) fL Neut % (Auto) (16.0-70.0) % Lymph % (Auto) (9.0-44.0) % Mellette % (Auto) (0.0-8.0) % Eos % (Auto) (0.0-4.0) % Baso % (Auto) (0.0-2.0) % Neut # (Auto) (1.8-7.7) th/mm3 Lymph # (Auto) (1.0-4.8) th/mm3 Mellette # (Auto) (0.0-0.9) th/mm3 Eos # (Auto) (0.0-0.4) th/mm3 Baso # (Auto) (0.0-0.2) th/mm3 WBC Differential Differential Comment PT (9.8-11.6) sec INR Ratio Sodium (136-145) meq/L Potassium (3.5-5.1) meq/L Chloride (98-107) meq/L Carbon Dioxide (21.0-32.0) meq/L Anion Gap (5-15) meq/L BUN (7-18) mg/dL Creatinine (0.50-1.00) mg/dL Estimated GFR (>89) mL/min POC Glucose 101 148 H 105 (68-110) mg/dl Random Glucose (74-106) mg/dL Lactic Acid (0.4-2.0) mmol/L Calcium (8.5-10.1) mg/dL Total Bilirubin (0.2-1.0) mg/dL AST (15-37) U/L ALT (10-53) U/L Alkaline Phosphatase (45-117) U/L Total Protein (6.4-8.2) g/dL Albumin (3.4-5.0) g/dL Urine Color (Yellw/Straw) Urine Clarity (Clear) Urine pH (5.0-8.5) Ur Specific Rindge (1.002-1.035) Urine Protein (Neg-Trace) mg/dL Urine Glucose (UA) (Negative) mg/dL Urine Ketones (Negative) mg/dL Urine Occult Blood (Negative) Urine Nitrate (Negative) Urine Bilirubin (Negative) Urine Urobilinogen (Less than 2) mg/dL Ur Leukocyte Esterase (Negative) Urine RBC (0-3) /hpf Urine WBC (0-5) /hpf Urine Bacteria (None) /hpf Micro UA Comment Urine Culture Comments Vancomycin Trough (5.0-10.0) mcg/mL Random Vancomycin Comment Blood Type Antibody Screen MTS Gel Crossmatch 05/15/18 05/15/18 05/15/18 Range/Units 08:25 10:01 10:01 WBC 8.3 (4.0-11.0) th/mm3 RBC 3.54 L (4.00-5.30) mil/mm3 Hgb 10.9 L (11.6-15.3) gm/dL Hct 32.6 L (35.0-46.0) % MCV 91.9 (80.0-100.0) fL MCH 30.7 (27.0-34.0) pg MCHC 33.4 (32.0-36.0) % RDW 13.4 (11.6-17.2) % Plt Count 308 (150-450) th/mm3 MPV 6.7 L (7.0-11.0) fL Neut % (Auto) 76.7 H (16.0-70.0) % Lymph % (Auto) 13.8 (9.0-44.0) % Mellette % (Auto) 8.4 H (0.0-8.0) % Eos % (Auto) 0.5 (0.0-4.0) % Baso % (Auto) 0.6 (0.0-2.0) % Neut # (Auto) 6.4 (1.8-7.7) th/mm3 Lymph # (Auto) 1.2 (1.0-4.8) th/mm3 Mellette # (Auto) 0.7 (0.0-0.9) th/mm3 Eos # (Auto) 0.0 (0.0-0.4) th/mm3 Baso # (Auto) 0.0 (0.0-0.2) th/mm3 WBC Differential . Differential Comment Auto diff final PT (9.8-11.6) sec INR Ratio Sodium 137 (136-145) meq/L Potassium 3.4 L D (3.5-5.1) meq/L Chloride 102 (98-107) meq/L Carbon Dioxide 21.9 (21.0-32.0) meq/L Anion Gap 13 (5-15) meq/L BUN 8 (7-18) mg/dL Creatinine 0.65 (0.50-1.00) mg/dL Estimated GFR Greater than 89 (>89) mL/min POC Glucose 105 (68-110) mg/dl Random Glucose 89 (74-106) mg/dL Lactic Acid (0.4-2.0) mmol/L Calcium 8.9 (8.5-10.1) mg/dL Total Bilirubin (0.2-1.0) mg/dL AST (15-37) U/L ALT (10-53) U/L Alkaline Phosphatase (45-117) U/L Total Protein (6.4-8.2) g/dL Albumin (3.4-5.0) g/dL Urine Color (Yellw/Straw) Urine Clarity (Clear) Urine pH (5.0-8.5) Ur Specific Rindge (1.002-1.035) Urine Protein (Neg-Trace) mg/dL Urine Glucose (UA) (Negative) mg/dL Urine Ketones (Negative) mg/dL Urine Occult Blood (Negative) Urine Nitrate (Negative) Urine Bilirubin (Negative) Urine Urobilinogen (Less than 2) mg/dL Ur Leukocyte Esterase (Negative) Urine RBC (0-3) /hpf Urine WBC (0-5) /hpf Urine Bacteria (None) /hpf Micro UA Comment Urine Culture Comments Vancomycin Trough (5.0-10.0) mcg/mL Random Vancomycin Comment Blood Type Antibody Screen MTS Gel Crossmatch 05/15/18 05/15/18 05/15/18 Range/Units 11:40 17:21 20:54 WBC (4.0-11.0) th/mm3 RBC (4.00-5.30) mil/mm3 Hgb (11.6-15.3) gm/dL Hct (35.0-46.0) % MCV (80.0-100.0) fL MCH (27.0-34.0) pg MCHC (32.0-36.0) % RDW (11.6-17.2) % Plt Count (150-450) th/mm3 MPV (7.0-11.0) fL Neut % (Auto) (16.0-70.0) % Lymph % (Auto) (9.0-44.0) % Mellette % (Auto) (0.0-8.0) % Eos % (Auto) (0.0-4.0) % Baso % (Auto) (0.0-2.0) % Neut # (Auto) (1.8-7.7) th/mm3 Lymph # (Auto) (1.0-4.8) th/mm3 Mellette # (Auto) (0.0-0.9) th/mm3 Eos # (Auto) (0.0-0.4) th/mm3 Baso # (Auto) (0.0-0.2) th/mm3 WBC Differential Differential Comment PT (9.8-11.6) sec INR Ratio Sodium (136-145) meq/L Potassium (3.5-5.1) meq/L Chloride (98-107) meq/L Carbon Dioxide (21.0-32.0) meq/L Anion Gap (5-15) meq/L BUN (7-18) mg/dL Creatinine (0.50-1.00) mg/dL Estimated GFR (>89) mL/min POC Glucose 113 H 88 116 H (68-110) mg/dl Random Glucose (74-106) mg/dL Lactic Acid (0.4-2.0) mmol/L Calcium (8.5-10.1) mg/dL Total Bilirubin (0.2-1.0) mg/dL AST (15-37) U/L ALT (10-53) U/L Alkaline Phosphatase (45-117) U/L Total Protein (6.4-8.2) g/dL Albumin (3.4-5.0) g/dL Urine Color (Yellw/Straw) Urine Clarity (Clear) Urine pH (5.0-8.5) Ur Specific Rindge (1.002-1.035) Urine Protein (Neg-Trace) mg/dL Urine Glucose (UA) (Negative) mg/dL Urine Ketones (Negative) mg/dL Urine Occult Blood (Negative) Urine Nitrate (Negative) Urine Bilirubin (Negative) Urine Urobilinogen (Less than 2) mg/dL Ur Leukocyte Esterase (Negative) Urine RBC (0-3) /hpf Urine WBC (0-5) /hpf Urine Bacteria (None) /hpf Micro UA Comment Urine Culture Comments Vancomycin Trough (5.0-10.0) mcg/mL Random Vancomycin Comment Blood Type Antibody Screen MTS Gel Crossmatch 05/16/18 05/16/18 05/16/18 Range/Units 06:45 08:19 22:23 WBC (4.0-11.0) th/mm3 RBC (4.00-5.30) mil/mm3 Hgb (11.6-15.3) gm/dL Hct (35.0-46.0) % MCV (80.0-100.0) fL MCH (27.0-34.0) pg MCHC (32.0-36.0) % RDW (11.6-17.2) % Plt Count (150-450) th/mm3 MPV (7.0-11.0) fL Neut % (Auto) (16.0-70.0) % Lymph % (Auto) (9.0-44.0) % Mellette % (Auto) (0.0-8.0) % Eos % (Auto) (0.0-4.0) % Baso % (Auto) (0.0-2.0) % Neut # (Auto) (1.8-7.7) th/mm3 Lymph # (Auto) (1.0-4.8) th/mm3 Mellette # (Auto) (0.0-0.9) th/mm3 Eos # (Auto) (0.0-0.4) th/mm3 Baso # (Auto) (0.0-0.2) th/mm3 WBC Differential Differential Comment PT (9.8-11.6) sec INR Ratio Sodium 138 (136-145) meq/L Potassium 3.9 (3.5-5.1) meq/L Chloride 105 (98-107) meq/L Carbon Dioxide 22.5 (21.0-32.0) meq/L Anion Gap 11 (5-15) meq/L BUN 7 (7-18) mg/dL Creatinine 0.64 (0.50-1.00) mg/dL Estimated GFR Greater than 89 (>89) mL/min POC Glucose 100 100 (68-110) mg/dl Random Glucose 90 (74-106) mg/dL Lactic Acid (0.4-2.0) mmol/L Calcium 8.7 (8.5-10.1) mg/dL Total Bilirubin (0.2-1.0) mg/dL AST (15-37) U/L ALT (10-53) U/L Alkaline Phosphatase (45-117) U/L Total Protein (6.4-8.2) g/dL Albumin (3.4-5.0) g/dL Urine Color (Yellw/Straw) Urine Clarity (Clear) Urine pH (5.0-8.5) Ur Specific Rind[place] (1.002-1.035) Urine Protein (Neg-Trace) mg/dL Urine Glucose (UA) (Negative) mg/dL Urine Ketones (Negative) mg/dL Urine Occult Blood (Negative) Urine Nitrate (Negative) Urine Bilirubin (Negative) Urine Urobilinogen (Less than 2) mg/dL Ur Leukocyte Esterase (Negative) Urine RBC (0-3) /hpf Urine WBC (0-5) /hpf Urine Bacteria (None) /hpf Micro UA Comment Urine Culture Comments Vancomycin Trough (5.0-10.0) mcg/mL Random Vancomycin Comment Blood Type Antibody Screen MTS Gel Crossmatch 05/17/18 05/17/18 05/17/18 Range/Units 08:57 12:02 12:25 WBC (4.0-11.0) th/mm3 RBC (4.00-5.30) mil/mm3 Hgb (11.6-15.3) gm/dL Hct (35.0-46.0) % MCV (80.0-100.0) fL MCH (27.0-34.0) pg MCHC (32.0-36.0) % RDW (11.6-17.2) % Plt Count (150-450) th/mm3 MPV (7.0-11.0) fL Neut % (Auto) (16.0-70.0) % Lymph % (Auto) (9.0-44.0) % Mellette % (Auto) (0.0-8.0) % Eos % (Auto) (0.0-4.0) % Baso % (Auto) (0.0-2.0) % Neut # (Auto) (1.8-7.7) th/mm3 Lymph # (Auto) (1.0-4.8) th/mm3 Mellette # (Auto) (0.0-0.9) th/mm3 Eos # (Auto) (0.0-0.4) th/mm3 Baso # (Auto) (0.0-0.2) th/mm3 WBC Differential Differential Comment PT (9.8-11.6) sec INR Ratio Sodium (136-145) meq/L Potassium (3.5-5.1) meq/L Chloride (98-107) meq/L Carbon Dioxide (21.0-32.0) meq/L Anion Gap (5-15) meq/L BUN (7-18) mg/dL Creatinine (0.50-1.00) mg/dL Estimated GFR (>89) mL/min POC Glucose 91 100 (68-110) mg/dl Random Glucose (74-106) mg/dL Lactic Acid (0.4-2.0) mmol/L Calcium (8.5-10.1) mg/dL Total Bilirubin (0.2-1.0) mg/dL AST (15-37) U/L ALT (10-53) U/L Alkaline Phosphatase (45-117) U/L Total Protein (6.4-8.2) g/dL Albumin (3.4-5.0) g/dL Urine Color (Yellw/Straw) Urine Clarity (Clear) Urine pH (5.0-8.5) Ur Specific R[place] (1.002-1.035) Urine Protein (Neg-Trace) mg/dL Urine Glucose (UA) (Negative) mg/dL Urine Ketones (Negative) mg/dL Urine Occult Blood (Negative) Urine Nitrate (Negative) Urine Bilirubin (Negative) Urine Urobilinogen (Less than 2) mg/dL Ur Leukocyte Esterase (Negative) Urine RBC (0-3) /hpf Urine WBC (0-5) /hpf Urine Bacteria (None) /hpf Micro UA Comment Urine Culture Comments Vancomycin Trough 4.8 L (5.0-10.0) mcg/mL Random Vancomycin Comment Blood Type Antibody Screen MTS Gel Crossmatch 05/17/18 05/17/18 05/17/18 Range/Units 12:34 17:12 21:11 WBC 12.0 H (4.0-11.0) th/mm3 RBC 3.62 L (4.00-5.30) mil/mm3 Hgb 10.8 L (11.6-15.3) gm/dL Hct 33.0 L (35.0-46.0) % MCV 91.0 (80.0-100.0) fL MCH 29.9 (27.0-34.0) pg MCHC 32.8 (32.0-36.0) % RDW 13.4 (11.6-17.2) % Plt Count 367 (150-450) th/mm3 MPV 6.4 L (7.0-11.0) fL Neut % (Auto) 79.0 H (16.0-70.0) % Lymph % (Auto) 12.3 (9.0-44.0) % Mellette % (Auto) 7.6 (0.0-8.0) % Eos % (Auto) 0.5 (0.0-4.0) % Baso % (Auto) 0.6 (0.0-2.0) % Neut # (Auto) 9.5 H (1.8-7.7) th/mm3 Lymph # (Auto) 1.5 (1.0-4.8) th/mm3 Mellette # (Auto) 0.9 (0.0-0.9) th/mm3 Eos # (Auto) 0.1 (0.0-0.4) th/mm3 Baso # (Auto) 0.1 (0.0-0.2) th/mm3 WBC Differential . Differential Comment Auto diff final PT (9.8-11.6) sec INR Ratio Sodium (136-145) meq/L Potassium (3.5-5.1) meq/L Chloride (98-107) meq/L Carbon Dioxide (21.0-32.0) meq/L Anion Gap (5-15) meq/L BUN (7-18) mg/dL Creatinine (0.50-1.00) mg/dL Estimated GFR (>89) mL/min POC Glucose 92 108 (68-110) mg/dl Random Glucose (74-106) mg/dL Lactic Acid (0.4-2.0) mmol/L Calcium (8.5-10.1) mg/dL Total Bilirubin (0.2-1.0) mg/dL AST (15-37) U/L ALT (10-53) U/L Alkaline Phosphatase (45-117) U/L Total Protein (6.4-8.2) g/dL Albumin (3.4-5.0) g/dL Urine Color (Yellw/Straw) Urine Clarity (Clear) Urine pH (5.0-8.5) Ur Specific [place] (1.002-1.035) Urine Protein (Neg-Trace) mg/dL Urine Glucose (UA) (Negative) mg/dL Urine Ketones (Negative) mg/dL Urine Occult Blood (Negative) Urine Nitrate (Negative) Urine Bilirubin (Negative) Urine Urobilinogen (Less than 2) mg/dL Ur Leukocyte Esterase (Negative) Urine RBC (0-3) /hpf Urine WBC (0-5) /hpf Urine Bacteria (None) /hpf Micro UA Comment Urine Culture Comments Vancomycin Trough (5.0-10.0) mcg/mL Random Vancomycin Comment Blood Type Antibody Screen MTS Gel Crossmatch 05/18/18 05/18/18 05/18/18 Range/Units 08:56 10:45 10:45 WBC 12.1 H (4.0-11.0) th/mm3 RBC 3.14 L (4.00-5.30) mil/mm3 Hgb 9.5 L (11.6-15.3) gm/dL Hct 28.6 L (35.0-46.0) % MCV 91.0 (80.0-100.0) fL MCH 30.2 (27.0-34.0) pg MCHC 33.2 (32.0-36.0) % RDW 13.5 (11.6-17.2) % Plt Count 348 (150-450) th/mm3 MPV 6.4 L (7.0-11.0) fL Neut % (Auto) 76.8 H (16.0-70.0) % Lymph % (Auto) 12.2 (9.0-44.0) % Mellette % (Auto) 9.5 H (0.0-8.0) % Eos % (Auto) 0.9 (0.0-4.0) % Baso % (Auto) 0.6 (0.0-2.0) % Neut # (Auto) 9.3 H (1.8-7.7) th/mm3 Lymph # (Auto) 1.5 (1.0-4.8) th/mm3 Mellette # (Auto) 1.1 H (0.0-0.9) th/mm3 Eos # (Auto) 0.1 (0.0-0.4) th/mm3 Baso # (Auto) 0.1 (0.0-0.2) th/mm3 WBC Differential . Differential Comment Auto diff final PT (9.8-11.6) sec INR Ratio Sodium 140 (136-145) meq/L Potassium 3.4 L (3.5-5.1) meq/L Chloride 105 (98-107) meq/L Carbon Dioxide 23.3 (21.0-32.0) meq/L Anion Gap 12 (5-15) meq/L BUN 4 L (7-18) mg/dL Creatinine 0.56 (0.50-1.00) mg/dL Estimated GFR Greater than 89 (>89) mL/min POC Glucose 105 (68-110) mg/dl Random Glucose 99 (74-106) mg/dL Lactic Acid (0.4-2.0) mmol/L Calcium 8.2 L (8.5-10.1) mg/dL Total Bilirubin 0.3 (0.2-1.0) mg/dL AST 20 (15-37) U/L ALT 24 (10-53) U/L Alkaline Phosphatase 97 (45-117) U/L Total Protein 6.3 L D (6.4-8.2) g/dL Albumin 2.1 L (3.4-5.0) g/dL Urine Color (Yellw/Straw) Urine Clarity (Clear) Urine pH (5.0-8.5) Ur Specific R[place] (1.002-1.035) Urine Protein (Neg-Trace) mg/dL Urine Glucose (UA) (Negative) mg/dL Urine Ketones (Negative) mg/dL Urine Occult Blood (Negative) Urine Nitrate (Negative) Urine Bilirubin (Negative) Urine Urobilinogen (Less than 2) mg/dL Ur Leukocyte Esterase (Negative) Urine RBC (0-3) /hpf Urine WBC (0-5) /hpf Urine Bacteria (None) /hpf Micro UA Comment Urine Culture Comments Vancomycin Trough (5.0-10.0) mcg/mL Random Vancomycin Comment Blood Type Antibody Screen MTS Gel Crossmatch 05/18/18 05/19/18 05/19/18 Range/Units 11:10 09:07 09:07 WBC 12.4 H (4.0-11.0) th/mm3 RBC 3.23 L (4.00-5.30) mil/mm3 Hgb 10.0 L (11.6-15.3) gm/dL Hct 29.6 L (35.0-46.0) % MCV 91.6 (80.0-100.0) fL MCH 30.9 (27.0-34.0) pg MCHC 33.7 (32.0-36.0) % RDW 13.8 (11.6-17.2) % Plt Count 417 (150-450) th/mm3 MPV 6.2 L (7.0-11.0) fL Neut % (Auto) 77.6 H (16.0-70.0) % Lymph % (Auto) 11.4 (9.0-44.0) % Mellette % (Auto) 8.9 H (0.0-8.0) % Eos % (Auto) 1.5 (0.0-4.0) % Baso % (Auto) 0.6 (0.0-2.0) % Neut # (Auto) 9.7 H (1.8-7.7) th/mm3 Lymph # (Auto) 1.4 (1.0-4.8) th/mm3 Mellette # (Auto) 1.1 H (0.0-0.9) th/mm3 Eos # (Auto) 0.2 (0.0-0.4) th/mm3 Baso # (Auto) 0.1 (0.0-0.2) th/mm3 WBC Differential . Differential Comment Auto diff final PT (9.8-11.6) sec INR Ratio Sodium 138 (136-145) meq/L Potassium 3.3 L (3.5-5.1) meq/L Chloride 105 (98-107) meq/L Carbon Dioxide 22.9 (21.0-32.0) meq/L Anion Gap 10 (5-15) meq/L BUN 3 L (7-18) mg/dL Creatinine 0.62 (0.50-1.00) mg/dL Estimated GFR Greater than 89 (>89) mL/min POC Glucose (68-110) mg/dl Random Glucose 83 (74-106) mg/dL Lactic Acid (0.4-2.0) mmol/L Calcium 8.9 (8.5-10.1) mg/dL Total Bilirubin 0.3 (0.2-1.0) mg/dL AST 24 (15-37) U/L ALT 26 (10-53) U/L Alkaline Phosphatase 104 (45-117) U/L Total Protein 6.9 D (6.4-8.2) g/dL Albumin 2.2 L (3.4-5.0) g/dL Urine Color Yellow (Yellw/Straw) Urine Clarity Hazy H (Clear) Urine pH 6.0 (5.0-8.5) Ur Specific R[place] 1.013 (1.002-1.035) Urine Protein 30 H (Neg-Trace) mg/dL Urine Glucose (UA) Negative (Negative) mg/dL Urine Ketones Trace H (Negative) mg/dL Urine Occult Blood Moderate H (Negative) Urine Nitrate Negative (Negative) Urine Bilirubin Negative (Negative) Urine Urobilinogen Less than 2 (Less than 2) mg/dL Ur Leukocyte Esterase Small H (Negative) Urine RBC 12 H (0-3) /hpf Urine WBC 4 (0-5) /hpf Urine Bacteria Occasional H (None) /hpf Micro UA Comment Culture not ind Urine Culture Comments Culture not ind Vancomycin Trough (5.0-10.0) mcg/mL Random Vancomycin Comment Blood Type Antibody Screen MTS Gel Crossmatch 05/19/18 05/20/18 05/20/18 Range/Units 12:00 09:23 09:23 WBC 11.2 H (4.0-11.0) th/mm3 RBC 3.60 L (4.00-5.30) mil/mm3 Hgb 10.8 L (11.6-15.3) gm/dL Hct 32.7 L (35.0-46.0) % MCV 90.9 (80.0-100.0) fL MCH 30.0 (27.0-34.0) pg MCHC 33.0 (32.0-36.0) % RDW 14.2 (11.6-17.2) % Plt Count 530 H (150-450) th/mm3 MPV 6.2 L (7.0-11.0) fL Neut % (Auto) 82.0 H (16.0-70.0) % Lymph % (Auto) 9.6 (9.0-44.0) % Mellette % (Auto) 7.0 (0.0-8.0) % Eos % (Auto) 1.0 (0.0-4.0) % Baso % (Auto) 0.4 (0.0-2.0) % Neut # (Auto) 9.1 H (1.8-7.7) th/mm3 Lymph # (Auto) 1.1 (1.0-4.8) th/mm3 Mel[place] # (Auto) 0.8 (0.0-0.9) th/mm3 Eos # (Auto) 0.1 (0.0-0.4) th/mm3 Baso # (Auto) 0.0 (0.0-0.2) th/mm3 WBC Differential . Differential Comment Auto diff final PT (9.8-11.6) sec INR Ratio Sodium 142 (136-145) meq/L Potassium 3.5 (3.5-5.1) meq/L Chloride 106 (98-107) meq/L Carbon Dioxide 23.7 (21.0-32.0) meq/L Anion Gap 12 (5-15) meq/L BUN 4 L (7-18) mg/dL Creatinine 0.88 (0.50-1.00) mg/dL Estimated GFR 63 L (>89) mL/min POC Glucose (68-110) mg/dl Random Glucose 92 (74-106) mg/dL Lactic Acid (0.4-2.0) mmol/L Calcium 9.2 (8.5-10.1) mg/dL Total Bilirubin 0.3 (0.2-1.0) mg/dL AST 21 (15-37) U/L ALT 26 (10-53) U/L Alkaline Phosphatase 114 (45-117) U/L Total Protein 7.6 D (6.4-8.2) g/dL Albumin 2.4 L (3.4-5.0) g/dL Urine Color (Yellw/Straw) Urine Clarity (Clear) Urine pH (5.0-8.5) Ur Specific [place] (1.002-1.035) Urine Protein (Neg-Trace) mg/dL Urine Glucose (UA) (Negative) mg/dL Urine Ketones (Negative) mg/dL Urine Occult Blood (Negative) Urine Nitrate (Negative) Urine Bilirubin (Negative) Urine Urobilinogen (Less than 2) mg/dL Ur Leukocyte Esterase (Negative) Urine RBC (0-3) /hpf Urine WBC (0-5) /hpf Urine Bacteria (None) /hpf Micro UA Comment Urine Culture Comments Vancomycin Trough 13.8 H (5.0-10.0) mcg/mL Random Vancomycin Comment Blood Type Antibody Screen MTS Gel Crossmatch 05/21/18 05/22/18 05/22/18 Range/Units 08:43 05:17 05:17 WBC 8.5 (4.0-11.0) th/mm3 RBC 2.92 L (4.00-5.30) mil/mm3 Hgb 9.0 L (11.6-15.3) gm/dL Hct 26.9 L (35.0-46.0) % MCV 91.9 (80.0-100.0) fL MCH 30.8 (27.0-34.0) pg MCHC 33.5 (32.0-36.0) % RDW 14.1 (11.6-17.2) % Plt Count 466 H (150-450) th/mm3 MPV 5.9 L (7.0-11.0) fL Neut % (Auto) 73.0 H (16.0-70.0) % Lymph % (Auto) 15.6 (9.0-44.0) % [place] % (Auto) 8.2 H (0.0-8.0) % Eos % (Auto) 2.7 (0.0-4.0) % Baso % (Auto) 0.5 (0.0-2.0) % Neut # (Auto) 6.2 (1.8-7.7) th/mm3 Lymph # (Auto) 1.3 (1.0-4.8) th/mm3 Mellette # (Auto) 0.7 (0.0-0.9) th/mm3 Eos # (Auto) 0.2 (0.0-0.4) th/mm3 Baso # (Auto) 0.0 (0.0-0.2) th/mm3 WBC Differential . Differential Comment Auto diff final PT (9.8-11.6) sec INR Ratio Sodium 144 (136-145) meq/L Potassium 3.1 L (3.5-5.1) meq/L Chloride 110 H (98-107) meq/L Carbon Dioxide 20.6 L (21.0-32.0) meq/L Anion Gap 13 (5-15) meq/L BUN 3 L (7-18) mg/dL Creatinine 0.94 (0.50-1.00) mg/dL Estimated GFR 59 L (>89) mL/min POC Glucose (68-110) mg/dl Random Glucose 91 (74-106) mg/dL Lactic Acid (0.4-2.0) mmol/L Calcium 8.5 (8.5-10.1) mg/dL Total Bilirubin 0.3 (0.2-1.0) mg/dL AST 25 (15-37) U/L ALT 26 (10-53) U/L Alkaline Phosphatase 95 (45-117) U/L Total Protein 6.7 D (6.4-8.2) g/dL Albumin 2.0 L (3.4-5.0) g/dL Urine Color (Yellw/Straw) Urine Clarity (Clear) Urine pH (5.0-8.5) Ur Specific Rindge (1.002-1.035) Urine Protein (Neg-Trace) mg/dL Urine Glucose (UA) (Negative) mg/dL Urine Ketones (Negative) mg/dL Urine Occult Blood (Negative) Urine Nitrate (Negative) Urine Bilirubin (Negative) Urine Urobilinogen (Less than 2) mg/dL Ur Leukocyte Esterase (Negative) Urine RBC (0-3) /hpf Urine WBC (0-5) /hpf Urine Bacteria (None) /hpf Micro UA Comment Urine Culture Comments Vancomycin Trough 31.5 H (5.0-10.0) mcg/mL Random Vancomycin 24.7 Comment Blood Type Antibody Screen MTS Gel Crossmatch 05/22/18 05/23/18 05/23/18 Range/Units 12:17 09:01 09:05 WBC (4.0-11.0) th/mm3 RBC (4.00-5.30) mil/mm3 Hgb (11.6-15.3) gm/dL Hct (35.0-46.0) % MCV (80.0-100.0) fL MCH (27.0-34.0) pg MCHC (32.0-36.0) % RDW (11.6-17.2) % Plt Count (150-450) th/mm3 MPV (7.0-11.0) fL Neut % (Auto) (16.0-70.0) % Lymph % (Auto) (9.0-44.0) % Mellette % (Auto) (0.0-8.0) % Eos % (Auto) (0.0-4.0) % Baso % (Auto) (0.0-2.0) % Neut # (Auto) (1.8-7.7) th/mm3 Lymph # (Auto) (1.0-4.8) th/mm3 Mellette # (Auto) (0.0-0.9) th/mm3 Eos # (Auto) (0.0-0.4) th/mm3 Baso # (Auto) (0.0-0.2) th/mm3 WBC Differential Differential Comment PT (9.8-11.6) sec INR Ratio Sodium (136-145) meq/L Potassium (3.5-5.1) meq/L Chloride (98-107) meq/L Carbon Dioxide (21.0-32.0) meq/L Anion Gap (5-15) meq/L BUN (7-18) mg/dL Creatinine (0.50-1.00) mg/dL Estimated GFR (>89) mL/min POC Glucose (68-110) mg/dl Random Glucose (74-106) mg/dL Lactic Acid (0.4-2.0) mmol/L Calcium (8.5-10.1) mg/dL Total Bilirubin (0.2-1.0) mg/dL AST (15-37) U/L ALT (10-53) U/L Alkaline Phosphatase (45-117) U/L Total Protein (6.4-8.2) g/dL Albumin (3.4-5.0) g/dL Urine Color (Yellw/Straw) Urine Clarity (Clear) Urine pH (5.0-8.5) Ur Specific Rindge (1.002-1.035) Urine Protein (Neg-Trace) mg/dL Urine Glucose (UA) (Negative) mg/dL Urine Ketones (Negative) mg/dL Urine Occult Blood (Negative) Urine Nitrate (Negative) Urine Bilirubin (Negative) Urine Urobilinogen (Less than 2) mg/dL Ur Leukocyte Esterase (Negative) Urine RBC (0-3) /hpf Urine WBC (0-5) /hpf Urine Bacteria (None) /hpf Micro UA Comment Urine Culture Comments Vancomycin Trough (5.0-10.0) mcg/mL Random Vancomycin Comment Blood Type O Positive Antibody Screen Negative MTS Gel Crossmatch See Detail See Detail 05/23/18 05/23/18 Range/Units 10:40 12:15 WBC 10.4 (4.0-11.0) th/mm3 RBC 3.23 L (4.00-5.30) mil/mm3 Hgb 9.6 L (11.6-15.3) gm/dL Hct 28.6 L (35.0-46.0) % MCV 88.6 (80.0-100.0) fL MCH 29.9 (27.0-34.0) pg MCHC 33.8 (32.0-36.0) % RDW 15.5 (11.6-17.2) % Plt Count 315 D (150-450) th/mm3 MPV 5.9 L (7.0-11.0) fL Neut % (Auto) 82.4 H (16.0-70.0) % Lymph % (Auto) 11.7 (9.0-44.0) % Mellette % (Auto) 3.8 (0.0-8.0) % Eos % (Auto) 1.5 (0.0-4.0) % Baso % (Auto) 0.6 (0.0-2.0) % Neut # (Auto) 8.6 H (1.8-7.7) th/mm3 Lymph # (Auto) 1.2 (1.0-4.8) th/mm3 Mellette # (Auto) 0.4 (0.0-0.9) th/mm3 Eos # (Auto) 0.2 (0.0-0.4) th/mm3 Baso # (Auto) 0.1 (0.0-0.2) th/mm3 WBC Differential . Differential Comment Auto diff final PT (9.8-11.6) sec INR Ratio Sodium 147 H (136-145) meq/L Potassium 3.6 (3.5-5.1) meq/L Chloride 112 H (98-107) meq/L Carbon Dioxide 23.8 (21.0-32.0) meq/L Anion Gap 11 (5-15) meq/L BUN 5 L (7-18) mg/dL Creatinine 0.86 (0.50-1.00) mg/dL Estimated GFR 65 L (>89) mL/min POC Glucose (68-110) mg/dl Random Glucose 129 H (74-106) mg/dL Lactic Acid (0.4-2.0) mmol/L Calcium 7.7 L D (8.5-10.1) mg/dL Total Bilirubin 0.8 (0.2-1.0) mg/dL AST 15 (15-37) U/L ALT 22 (10-53) U/L Alkaline Phosphatase 87 (45-117) U/L Total Protein 6.0 L D (6.4-8.2) g/dL Albumin 2.0 L (3.4-5.0) g/dL Urine Color (Yellw/Straw) Urine Clarity (Clear) Urine pH (5.0-8.5) Ur Specific R[place] (1.002-1.035) Urine Protein (Neg-Trace) mg/dL Urine Glucose (UA) (Negative) mg/dL Urine Ketones (Negative) mg/dL Urine Occult Blood (Negative) Urine Nitrate (Negative) Urine Bilirubin (Negative) Urine Urobilinogen (Less than 2) mg/dL Ur Leukocyte Esterase (Negative) Urine RBC (0-3) /hpf Urine WBC (0-5) /hpf Urine Bacteria (None) /hpf Micro UA Comment Urine Culture Comments Vancomycin Trough (5.0-10.0) mcg/mL Random Vancomycin Comment Blood Type Antibody Screen MTS Gel Crossmatch Imaging Data Radiologist's impression: Aorta w/Runoff CTA 05/14/18 00:00 CONCLUSION: 1. Patent left femoral-popliteal bypass graft. 2. Enlarged fatty liver. 3. Left adrenal nodule measuring 2.3 cm consistent with probable adrenal adenoma. 4. Cholelithiasis. 5. Left renal cysts. 6. Minimal ascites. 7. Degenerative changes and scoliosis of the thoracolumbar spine. Venous Doppler Study 05/15/18 00:00 CONCLUSION: 1. Negative for deep venous thrombosis. There is some edema around the left common femoral artery stent. Possible hematoma in the medial calf inferior to the popliteal fossa measuring up to 2.3 x 1 x [address] 05/18/18 00:00 CONCLUSION: 1. No evidence of acute hematoma. Lower Extremity MRI 05/20/18 00:00 CONCLUSION: Multilocular fluid collection along the course of the bypass graft. Postoperative seroma as well as abscess are considered. This will be accessible to aspiration. 1. Discharge Plan Discharge Disposition Patient Disposition: 02 Disch To Another Hospital Discharge Condition Condition: Fair Discharge Order Discharge Orders: Discharge Order (Routine); Ordered 05/23/18 Ordered By: Les Briggs Discharge Details Anticipated Discharge Date: 05/23/18 Physicians Team ED Provider: Cabrera Perez Primary Care Provider: Primary Care Uzma,Rayna Attending Provider: Cabrera Black Other Providers: Shazia Sexton ; Humanshan,Alejandroa ; Jessica Portillo ; Lynda Cvs,Agency Status ED Status: Left Department Discharge Information Discharge Date/Time: 05/14/18 02:47
--- NOTE | 2018-06-22 16:36 | ED ---
HPI General Chief complaint: Medical Clearance Stated complaint: Transfer from [facility] Time Seen by Provider: 05/13/18 23:59 Source: patient Mode of arrival: ambulatory Limitations: no limitations History of Present Illness HPI narrative: Patient arrives from outside hospital. She 73-year-old female. She underwent a vascular bypass procedure done by Dr. Briggs. The left groin developed erythema swelling and tenderness and then opened up and pus started to drain. She was seen in dealing and she was transferred here for continuity of care purposes. Vancomycin started. There is moderate pain reported upon arrival here. Timing constant. Severity moderate. Subjective fever reported MD complaint: Purulent discharge from old surgical wound. Location: lower extremity (Left groin) Radiation: non-radiation Pain Consistency: constant Relieving factors: none Exacerbating factors: none and movement Related Data Home Medications Medication Instructions Recorded Confirmed amlodipine 10 mg PO HS 05/14/18 05/14/18 atorvastatin [Lipitor] 10 mg PO HS 05/14/18 05/14/18 carisoprodol [Soma] 350 mg PO TID 05/14/18 05/14/18 fluoxetine [Prozac] 60 mg PO DAILY 05/14/18 05/14/18 gabapentin 1,200 mg PO TID 05/14/18 05/14/18 lisinopril-hydrochlorothiazide 1 tab PO DAILY 05/14/18 05/14/18 potassium 10 meq PO DAILY 05/14/18 05/14/18 Previous Rx's Medication Instructions Recorded alprazolam [Xanax] 0.25 mg PO Q6H PRN tab 05/23/18 cefepime 2,000 mg IV Q12H ea 05/23/18 hydromorphone 1 mg IV.PUSH Q30M PRN ml 05/23/18 magnesium hydroxide [Milk of 30 ml PO Q12H PRN ml 05/23/18 Magnesia] oxycodone-acetaminophen 1 tab PO Q4H PRN tab 05/23/18 oxycodone-acetaminophen 1 tab PO Q4H PRN tab 05/23/18 temazepam 15 mg PO HS PRN cap 05/23/18 vancomycin 1,500 mg IV Q24H ea 05/23/18 Allergies Allergy/AdvReac Type Severity Reaction Status Date / Time No Known Allergies Allergy Unverified 05/13/18 14:51 Review of Systems ROS: all other systems reviewed are negative Neurologic Reports vertigo and Denies headache(s) [facility] Social History Social History Substance History: No History of Abuse Second Hand Smoke Exposure: No Smoking Status: Former smoker Tobacco Type: Cigars How Often Do You Have a Drink Containing Alcohol: Monthly or less Immunization History Tetanus Immunization: Unsure Exam Narrative Exam Narrative: GENERAL: 73-year-old female pleasant minimal distress SKIN: Focused skin assessment warm/dry. In the region of left groin there is an oval-shaped surgical wound dehiscence with purulent discharge. Generalized erythema and tenderness present. HEAD: Atraumatic. Normocephalic. EYES: Pupils equal and round. No scleral icterus. No injection or drainage. ENT: No nasal bleeding or discharge. Mucous membranes pink and moist. NECK: Trachea midline. No JVD. CARDIOVASCULAR: Tachycardia. Heart rate about 90. Regular rhythm. RESPIRATORY: No accessory muscle use. Clear to auscultation. Breath sounds equal bilaterally. GASTROINTESTINAL: Abdomen soft, non-tender, nondistended. Hepatic and splenic margins not palpable. MUSCULOSKELETAL: No obvious deformities. No clubbing. No cyanosis. No edema. 2+ radial artery pulses and dorsalis pedis pulses. NEUROLOGICAL: Awake and alert. No obvious cranial nerve deficits. Motor grossly within normal limits. Normal speech. PSYCHIATRIC: Appropriate mood and affect; insight and judgment normal. Course Initial Documented Vital Signs Temperature 100.3 F H 05/14/18 00:10 Pulse Rate 89 05/14/18 00:10 Respiratory Rate 18 05/14/18 00:10 Blood Pressure 130/64 05/14/18 00:10 Pulse Oximetry 96 05/14/18 00:10 Last Documented Vital Signs Temperature 96.1 F L 05/23/18 12:38 Pulse Rate 71 05/23/18 12:38 Respiratory Rate 16 05/23/18 15:08 Blood Pressure 143/69 H 05/23/18 12:38 Pulse Oximetry 99 05/23/18 12:38 Medical Decision Making MDM Narrative Medical decision making narrative: Patient will be admitted for IV antibiotics and for evaluation by vascular surgery service. Case discussed with Dr. Cantu for vascular surgery. d/w Dr Black of [facility]. Medical Screen Exam Complete: Yes Emergency Medical Condition: Yes Lab Data Result diagrams: 05/23/18 10:40 05/23/18 12:15 Lab Results 05/14/18 05/14/18 05/14/18 Range/Units 01:35 01:35 01:35 WBC 10.5 (4.0-11.0) th/mm3 RBC 3.67 L (4.00-5.30) mil/mm3 Hgb 11.4 L (11.6-15.3) gm/dL Hct 33.7 L (35.0-46.0) % MCV 91.7 (80.0-100.0) fL MCH 31.0 (27.0-34.0) pg MCHC 33.8 (32.0-36.0) % RDW 13.3 (11.6-17.2) % Plt Count 324 (150-450) th/mm3 MPV 6.7 L (7.0-11.0) fL Neut % (Auto) 80.3 H (16.0-70.0) % Lymph % (Auto) 11.3 (9.0-44.0) % [place] % (Auto) 7.7 (0.0-8.0) % Eos % (Auto) 0.3 (0.0-4.0) % Baso % (Auto) 0.4 (0.0-2.0) % Neut # (Auto) 8.4 H (1.8-7.7) th/mm3 Lymph # (Auto) 1.2 (1.0-4.8) th/mm3 [place] # (Auto) 0.8 (0.0-0.9) th/mm3 Eos # (Auto) 0.0 (0.0-0.4) th/mm3 Baso # (Auto) 0.0 (0.0-0.2) th/mm3 WBC Differential . Differential Comment Auto diff final PT (9.8-11.6) sec INR Ratio Sodium 134 L (136-145) meq/L Potassium 4.2 (3.5-5.1) meq/L Chloride 99 (98-107) meq/L Carbon Dioxide 24.2 (21.0-32.0) meq/L Anion Gap 11 (5-15) meq/L BUN 18 (7-18) mg/dL Creatinine 1.04 H (0.50-1.00) mg/dL Estimated GFR 52 L (>89) mL/min POC Glucose (68-110) mg/dl Random Glucose 97 (74-106) mg/dL Lactic Acid 1.1 (0.4-2.0) mmol/L Calcium 8.2 L (8.5-10.1) mg/dL Total Bilirubin 0.4 (0.2-1.0) mg/dL AST 12 L (15-37) U/L ALT 16 (10-53) U/L Alkaline Phosphatase 88 (45-117) U/L Total Protein 7.2 (6.4-8.2) g/dL Albumin 2.6 L (3.4-5.0) g/dL Urine Color (Yellw/Straw) Urine Clarity (Clear) Urine pH (5.0-8.5) Ur Specific [place] (1.002-1.035) Urine Protein (Neg-Trace) mg/dL Urine Glucose (UA) (Negative) mg/dL Urine Ketones (Negative) mg/dL Urine Occult Blood (Negative) Urine Nitrate (Negative) Urine Bilirubin (Negative) Urine Urobilinogen (Less than 2) mg/dL Ur Leukocyte Esterase (Negative) Urine RBC (0-3) /hpf Urine WBC (0-5) /hpf Urine Bacteria (None) /hpf Micro UA Comment Urine Culture Comments Vancomycin Trough (5.0-10.0) mcg/mL Random Vancomycin Comment Blood Type Antibody Screen MTS Gel Crossmatch 05/14/18 05/14/18 05/14/18 Range/Units 03:17 08:39 10:33 WBC (4.0-11.0) th/mm3 RBC (4.00-5.30) mil/mm3 Hgb (11.6-15.3) gm/dL Hct (35.0-46.0) % MCV (80.0-100.0) fL MCH (27.0-34.0) pg MCHC (32.0-36.0) % RDW (11.6-17.2) % Plt Count (150-450) th/mm3 MPV (7.0-11.0) fL Neut % (Auto) (16.0-70.0) % Lymph % (Auto) (9.0-44.0) % [place] % (Auto) (0.0-8.0) % Eos % (Auto) (0.0-4.0) % Baso % (Auto) (0.0-2.0) % Neut # (Auto) (1.8-7.7) th/mm3 Lymph # (Auto) (1.0-4.8) th/mm3 [place] # (Auto) (0.0-0.9) th/mm3 Eos # (Auto) (0.0-0.4) th/mm3 Baso # (Auto) (0.0-0.2) th/mm3 WBC Differential Differential Comment PT 12.0 H (9.8-11.6) sec INR 1.2 Ratio Sodium (136-145) meq/L Potassium (3.5-5.1) meq/L Chloride (98-107) meq/L Carbon Dioxide (21.0-32.0) meq/L Anion Gap (5-15) meq/L BUN (7-18) mg/dL Creatinine (0.50-1.00) mg/dL Estimated GFR (>89) mL/min POC Glucose 101 114 H (68-110) mg/dl Random Glucose (74-106) mg/dL Lactic Acid (0.4-2.0) mmol/L Calcium (8.5-10.1) mg/dL Total Bilirubin (0.2-1.0) mg/dL AST (15-37) U/L ALT (10-53) U/L Alkaline Phosphatase (45-117) U/L Total Protein (6.4-8.2) g/dL Albumin (3.4-5.0) g/dL Urine Color (Yellw/Straw) Urine Clarity (Clear) Urine pH (5.0-8.5) Ur Specific [place] (1.002-1.035) Urine Protein (Neg-Trace) mg/dL Urine Glucose (UA) (Negative) mg/dL Urine Ketones (Negative) mg/dL Urine Occult Blood (Negative) Urine Nitrate (Negative) Urine Bilirubin (Negative) Urine Urobilinogen (Less than 2) mg/dL Ur Leukocyte Esterase (Negative) Urine RBC (0-3) /hpf Urine WBC (0-5) /hpf Urine Bacteria (None) /hpf Micro UA Comment Urine Culture Comments Vancomycin Trough (5.0-10.0) mcg/mL Random Vancomycin Comment Blood Type Antibody Screen MTS Gel Crossmatch 05/14/18 05/14/1818 Range/Units 12:32 17:16 22:26 WBC (4.0-11.0) th/mm3 RBC (4.00-5.30) mil/mm3 Hgb (11.6-15.3) gm/dL Hct (35.0-46.0) % MCV (80.0-100.0) fL MCH (27.0-34.0) pg MCHC (32.0-36.0) % RDW (11.6-17.2) % Plt Count (150-450) th/mm3 MPV (7.0-11.0) fL Neut % (Auto) (16.0-70.0) % Lymph % (Auto) (9.0-44.0) % [place] % (Auto) (0.0-8.0) % Eos % (Auto) (0.0-4.0) % Baso % (Auto) (0.0-2.0) % Neut # (Auto) (1.8-7.7) th/mm3 Lymph # (Auto) (1.0-4.8) th/mm3 [place] # (Auto) (0.0-0.9) th/mm3 Eos # (Auto) (0.0-0.4) th/mm3 Baso # (Auto) (0.0-0.2) th/mm3 WBC Differential Differential Comment PT (9.8-11.6) sec INR Ratio Sodium (136-145) meq/L Potassium (3.5-5.1) meq/L Chloride (98-107) meq/L Carbon Dioxide (21.0-32.0) meq/L Anion Gap (5-15) meq/L BUN (7-18) mg/dL Creatinine (0.50-1.00) mg/dL Estimated GFR (>89) mL/min POC Glucose 101 148 H 105 (68-110) mg/dl Random Glucose (74-106) mg/dL Lactic Acid (0.4-2.0) mmol/L Calcium (8.5-10.1) mg/dL Total Bilirubin (0.2-1.0) mg/dL AST (15-37) U/L ALT (10-53) U/L Alkaline Phosphatase (45-117) U/L Total Protein (6.4-8.2) g/dL Albumin (3.4-5.0) g/dL Urine Color (Yellw/Straw) Urine Clarity (Clear) Urine pH (5.0-8.5) Ur Specific [place] (1.002-1.035) Urine Protein (Neg-Trace) mg/dL Urine Glucose (UA) (Negative) mg/dL Urine Ketones (Negative) mg/dL Urine Occult Blood (Negative) Urine Nitrate (Negative) Urine Bilirubin (Negative) Urine Urobilinogen (Less than 2) mg/dL Ur Leukocyte Esterase (Negative) Urine RBC (0-3) /hpf Urine WBC (0-5) /hpf Urine Bacteria (None) /hpf Micro UA Comment Urine Culture Comments Vancomycin Trough (5.0-10.0) mcg/mL Random Vancomycin Comment Blood Type Antibody Screen MTS Gel Crossmatch 05/15/18 05/15/18 05/15/18 Range/Units 08:25 10:01 10:01 WBC 8.3 (4.0-11.0) th/mm3 RBC 3.54 L (4.00-5.30) mil/mm3 Hgb 10.9 L (11.6-15.3) gm/dL Hct 32.6 L (35.0-46.0) % MCV 91.9 (80.0-100.0) fL MCH 30.7 (27.0-34.0) pg MCHC 33.4 (32.0-36.0) % RDW 13.4 (11.6-17.2) % Plt Count 308 (150-450) th/mm3 MPV 6.7 L (7.0-11.0) fL Neut % (Auto) 76.7 H (16.0-70.0) % Lymph % (Auto) 13.8 (9.0-44.0) % [place] % (Auto) 8.4 H (0.0-8.0) % Eos % (Auto) 0.5 (0.0-4.0) % Baso % (Auto) 0.6 (0.0-2.0) % Neut # (Auto) 6.4 (1.8-7.7) th/mm3 Lymph # (Auto) 1.2 (1.0-4.8) th/mm3 [place] # (Auto) 0.7 (0.0-0.9) th/mm3 Eos # (Auto) 0.0 (0.0-0.4) th/mm3 Baso # (Auto) 0.0 (0.0-0.2) th/mm3 WBC Differential . Differential Comment Auto diff final PT (9.8-11.6) sec INR Ratio Sodium 137 (136-145) meq/L Potassium 3.4 L D (3.5-5.1) meq/L Chloride 102 (98-107) meq/L Carbon Dioxide 21.9 (21.0-32.0) meq/L Anion Gap 13 (5-15) meq/L BUN 8 (7-18) mg/dL Creatinine 0.65 (0.50-1.00) mg/dL Estimated GFR Greater than 89 (>89) mL/min POC Glucose 105 (68-110) mg/dl Random Glucose 89 (74-106) mg/dL Lactic Acid (0.4-2.0) mmol/L Calcium 8.9 (8.5-10.1) mg/dL Total Bilirubin (0.2-1.0) mg/dL AST (15-37) U/L ALT (10-53) U/L Alkaline Phosphatase (45-117) U/L Total Protein (6.4-8.2) g/dL Albumin (3.4-5.0) g/dL Urine Color (Yellw/Straw) Urine Clarity (Clear) Urine pH (5.0-8.5) Ur Specific [place] (1.002-1.035) Urine Protein (Neg-Trace) mg/dL Urine Glucose (UA) (Negative) mg/dL Urine Ketones (Negative) mg/dL Urine Occult Blood (Negative) Urine Nitrate (Negative) Urine Bilirubin (Negative) Urine Urobilinogen (Less than 2) mg/dL Ur Leukocyte Esterase (Negative) Urine RBC (0-3) /hpf Urine WBC (0-5) /hpf Urine Bacteria (None) /hpf Micro UA Comment Urine Culture Comments Vancomycin Trough (5.0-10.0) mcg/mL Random Vancomycin Comment Blood Type Antibody Screen MTS Gel Crossmatch 05/15/18 05/15/18 05/15/18 Range/Units 11:40 17:21 20:54 WBC (4.0-11.0) th/mm3 RBC (4.00-5.30) mil/mm3 Hgb (11.6-15.3) gm/dL Hct (35.0-46.0) % MCV (80.0-100.0) fL MCH (27.0-34.0) pg MCHC (32.0-36.0) % RDW (11.6-17.2) % Plt Count (150-450) th/mm3 MPV (7.0-11.0) fL Neut % (Auto) (16.0-70.0) % Lymph % (Auto) (9.0-44.0) % [place] % (Auto) (0.0-8.0) % Eos % (Auto) (0.0-4.0) % Baso % (Auto) (0.0-2.0) % Neut # (Auto) (1.8-7.7) th/mm3 Lymph # (Auto) (1.0-4.8) th/mm3 [place] # (Auto) (0.0-0.9) th/mm3 Eos # (Auto) (0.0-0.4) th/mm3 Baso # (Auto) (0.0-0.2) th/mm3 WBC Differential Differential Comment PT (9.8-11.6) sec INR Ratio Sodium (136-145) meq/L Potassium (3.5-5.1) meq/L Chloride (98-107) meq/L Carbon Dioxide (21.0-32.0) meq/L Anion Gap (5-15) meq/L BUN (7-18) mg/dL Creatinine (0.50-1.00) mg/dL Estimated GFR (>89) mL/min POC Glucose 113 H 88 116 H (68-110) mg/dl Random Glucose (74-106) mg/dL Lactic Acid (0.4-2.0) mmol/L Calcium (8.5-10.1) mg/dL Total Bilirubin (0.2-1.0) mg/dL AST (15-37) U/L ALT (10-53) U/L Alkaline Phosphatase (45-117) U/L Total Protein (6.4-8.2) g/dL Albumin (3.4-5.0) g/dL Urine Color (Yellw/Straw) Urine Clarity (Clear) Urine pH (5.0-8.5) Ur Specific [place] (1.002-1.035) Urine Protein (Neg-Trace) mg/dL Urine Glucose (UA) (Negative) mg/dL Urine Ketones (Negative) mg/dL Urine Occult Blood (Negative) Urine Nitrate (Negative) Urine Bilirubin (Negative) Urine Urobilinogen (Less than 2) mg/dL Ur Leukocyte Esterase (Negative) Urine RBC (0-3) /hpf Urine WBC (0-5) /hpf Urine Bacteria (None) /hpf Micro UA Comment Urine Culture Comments Vancomycin Trough (5.0-10.0) mcg/mL Random Vancomycin Comment Blood Type Antibody Screen MTS Gel Crossmatch 05/16/18 05/16/18 05/16/18 Range/Units 06:45 08:19 22:23 WBC (4.0-11.0) th/mm3 RBC (4.00-5.30) mil/mm3 Hgb (11.6-15.3) gm/dL Hct (35.0-46.0) % MCV (80.0-100.0) fL MCH (27.0-34.0) pg MCHC (32.0-36.0) % RDW (11.6-17.2) % Plt Count (150-450) th/mm3 MPV (7.0-11.0) fL Neut % (Auto) (16.0-70.0) % Lymph % (Auto) (9.0-44.0) % [place] % (Auto) (0.0-8.0) % Eos % (Auto) (0.0-4.0) % Baso % (Auto) (0.0-2.0) % Neut # (Auto) (1.8-7.7) th/mm3 Lymph # (Auto) (1.0-4.8) th/mm3 [place] # (Auto) (0.0-0.9) th/mm3 Eos # (Auto) (0.0-0.4) th/mm3 Baso # (Auto) (0.0-0.2) th/mm3 WBC Differential Differential Comment PT (9.8-11.6) sec INR Ratio Sodium 138 (136-145) meq/L Potassium 3.9 (3.5-5.1) meq/L Chloride 105 (98-107) meq/L Carbon Dioxide 22.5 (21.0-32.0) meq/L Anion Gap 11 (5-15) meq/L BUN 7 (7-18) mg/dL Creatinine 0.64 (0.50-1.00) mg/dL Estimated GFR Greater than 89 (>89) mL/min POC Glucose 100 100 (68-110) mg/dl Random Glucose 90 (74-106) mg/dL Lactic Acid (0.4-2.0) mmol/L Calcium 8.7 (8.5-10.1) mg/dL Total Bilirubin (0.2-1.0) mg/dL AST (15-37) U/L ALT (10-53) U/L Alkaline Phosphatase (45-117) U/L Total Protein (6.4-8.2) g/dL Albumin (3.4-5.0) g/dL Urine Color (Yellw/Straw) Urine Clarity (Clear) Urine pH (5.0-8.5) Ur Specific [place] (1.002-1.035) Urine Protein (Neg-Trace) mg/dL Urine Glucose (UA) (Negative) mg/dL Urine Ketones (Negative) mg/dL Urine Occult Blood (Negative) Urine Nitrate (Negative) Urine Bilirubin (Negative) Urine Urobilinogen (Less than 2) mg/dL Ur Leukocyte Esterase (Negative) Urine RBC (0-3) /hpf Urine WBC (0-5) /hpf Urine Bacteria (None) /hpf Micro UA Comment Urine Culture Comments Vancomycin Trough (5.0-10.0) mcg/mL Random Vancomycin Comment Blood Type Antibody Screen MTS Gel Crossmatch 05/17/18 05/17/18 05/17/18 Range/Units 08:57 12:02 12:25 WBC (4.0-11.0) th/mm3 RBC (4.00-5.30) mil/mm3 Hgb (11.6-15.3) gm/dL Hct (35.0-46.0) % MCV (80.0-100.0) fL MCH (27.0-34.0) pg MCHC (32.0-36.0) % RDW (11.6-17.2) % Plt Count (150-450) th/mm3 MPV (7.0-11.0) fL Neut % (Auto) (16.0-70.0) % Lymph % (Auto) (9.0-44.0) % [place] % (Auto) (0.0-8.0) % Eos % (Auto) (0.0-4.0) % Baso % (Auto) (0.0-2.0) % Neut # (Auto) (1.8-7.7) th/mm3 Lymph # (Auto) (1.0-4.8) th/mm3 [place] # (Auto) (0.0-0.9) th/mm3 Eos # (Auto) (0.0-0.4) th/mm3 Baso # (Auto) (0.0-0.2) th/mm3 WBC Differential Differential Comment PT (9.8-11.6) sec INR Ratio Sodium (136-145) meq/L Potassium (3.5-5.1) meq/L Chloride (98-107) meq/L Carbon Dioxide (21.0-32.0) meq/L Anion Gap (5-15) meq/L BUN (7-18) mg/dL Creatinine (0.50-1.00) mg/dL Estimated GFR (>89) mL/min POC Glucose 91 100 (68-110) mg/dl Random Glucose (74-106) mg/dL Lactic Acid (0.4-2.0) mmol/L Calcium (8.5-10.1) mg/dL Total Bilirubin (0.2-1.0) mg/dL AST (15-37) U/L ALT (10-53) U/L Alkaline Phosphatase (45-117) U/L Total Protein (6.4-8.2) g/dL Albumin (3.4-5.0) g/dL Urine Color (Yellw/Straw) Urine Clarity (Clear) Urine pH (5.0-8.5) Ur Specific [place] (1.002-1.035) Urine Protein (Neg-Trace) mg/dL Urine Glucose (UA) (Negative) mg/dL Urine Ketones (Negative) mg/dL Urine Occult Blood (Negative) Urine Nitrate (Negative) Urine Bilirubin (Negative) Urine Urobilinogen (Less than 2) mg/dL Ur Leukocyte Esterase (Negative) Urine RBC (0-3) /hpf Urine WBC (0-5) /hpf Urine Bacteria (None) /hpf Micro UA Comment Urine Culture Comments Vancomycin Trough 4.8 L (5.0-10.0) mcg/mL Random Vancomycin Comment Blood Type Antibody Screen MTS Gel Crossmatch 05/17/18 05/17/18 05/17/18 Range/Units 12:34 17:12 21:11 WBC 12.0 H (4.0-11.0) th/mm3 RBC 3.62 L (4.00-5.30) mil/mm3 Hgb 10.8 L (11.6-15.3) gm/dL Hct 33.0 L (35.0-46.0) % MCV 91.0 (80.0-100.0) fL MCH 29.9 (27.0-34.0) pg MCHC 32.8 (32.0-36.0) % RDW 13.4 (11.6-17.2) % Plt Count 367 (150-450) th/mm3 MPV 6.4 L (7.0-11.0) fL Neut % (Auto) 79.0 H (16.0-70.0) % Lymph % (Auto) 12.3 (9.0-44.0) % [place] % (Auto) 7.6 (0.0-8.0) % Eos % (Auto) 0.5 (0.0-4.0) % Baso % (Auto) 0.6 (0.0-2.0) % Neut # (Auto) 9.5 H (1.8-7.7) th/mm3 Lymph # (Auto) 1.5 (1.0-4.8) th/mm3 [place] # (Auto) 0.9 (0.0-0.9) th/mm3 Eos # (Auto) 0.1 (0.0-0.4) th/mm3 Baso # (Auto) 0.1 (0.0-0.2) th/mm3 WBC Differential . Differential Comment Auto diff final PT (9.8-11.6) sec INR Ratio Sodium (136-145) meq/L Potassium (3.5-5.1) meq/L Chloride (98-107) meq/L Carbon Dioxide (21.0-32.0) meq/L Anion Gap (5-15) meq/L BUN (7-18) mg/dL Creatinine (0.50-1.00) mg/dL Estimated GFR (>89) mL/min POC Glucose 92 108 (68-110) mg/dl Random Glucose (74-106) mg/dL Lactic Acid (0.4-2.0) mmol/L Calcium (8.5-10.1) mg/dL Total Bilirubin (0.2-1.0) mg/dL AST (15-37) U/L ALT (10-53) U/L Alkaline Phosphatase (45-117) U/L Total Protein (6.4-8.2) g/dL Albumin (3.4-5.0) g/dL Urine Color (Yellw/Straw) Urine Clarity (Clear) Urine pH (5.0-8.5) Ur Specific [place] (1.002-1.035) Urine Protein (Neg-Trace) mg/dL Urine Glucose (UA) (Negative) mg/dL Urine Ketones (Negative) mg/dL Urine Occult Blood (Negative) Urine Nitrate (Negative) Urine Bilirubin (Negative) Urine Urobilinogen (Less than 2) mg/dL Ur Leukocyte Esterase (Negative) Urine RBC (0-3) /hpf Urine WBC (0-5) /hpf Urine Bacteria (None) /hpf Micro UA Comment Urine Culture Comments Vancomycin Trough (5.0-10.0) mcg/mL Random Vancomycin Comment Blood Type Antibody Screen MTS Gel Crossmatch 05/18/18 05/18/18 05/18/18 Range/Units 08:56 10:45 10:45 WBC 12.1 H (4.0-11.0) th/mm3 RBC 3.14 L (4.00-5.30) mil/mm3 Hgb 9.5 L (11.6-15.3) gm/dL Hct 28.6 L (35.0-46.0) % MCV 91.0 (80.0-100.0) fL MCH 30.2 (27.0-34.0) pg MCHC 33.2 (32.0-36.0) % RDW 13.5 (11.6-17.2) % Plt Count 348 (150-450) th/mm3 MPV 6.4 L (7.0-11.0) fL Neut % (Auto) 76.8 H (16.0-70.0) % Lymph % (Auto) 12.2 (9.0-44.0) % [place] % (Auto) 9.5 H (0.0-8.0) % Eos % (Auto) 0.9 (0.0-4.0) % Baso % (Auto) 0.6 (0.0-2.0) % Neut # (Auto) 9.3 H (1.8-7.7) th/mm3 Lymph # (Auto) 1.5 (1.0-4.8) th/mm3 [place] # (Auto) 1.1 H (0.0-0.9) th/mm3 Eos # (Auto) 0.1 (0.0-0.4) th/mm3 Baso # (Auto) 0.1 (0.0-0.2) th/mm3 WBC Differential . Differential Comment Auto diff final PT (9.8-11.6) sec INR Ratio Sodium 140 (136-145) meq/L Potassium 3.4 L (3.5-5.1) meq/L Chloride 105 (98-107) meq/L Carbon Dioxide 23.3 (21.0-32.0) meq/L Anion Gap 12 (5-15) meq/L BUN 4 L (7-18) mg/dL Creatinine 0.56 (0.50-1.00) mg/dL Estimated GFR Greater than 89 (>89) mL/min POC Glucose 105 (68-110) mg/dl Random Glucose 99 (74-106) mg/dL Lactic Acid (0.4-2.0) mmol/L Calcium 8.2 L (8.5-10.1) mg/dL Total Bilirubin 0.3 (0.2-1.0) mg/dL AST 20 (15-37) U/L ALT 24 (10-53) U/L Alkaline Phosphatase 97 (45-117) U/L Total Protein 6.3 L D (6.4-8.2) g/dL Albumin 2.1 L (3.4-5.0) g/dL Urine Color (Yellw/Straw) Urine Clarity (Clear) Urine pH (5.0-8.5) Ur Specific [place] (1.002-1.035) Urine Protein (Neg-Trace) mg/dL Urine Glucose (UA) (Negative) mg/dL Urine Ketones (Negative) mg/dL Urine Occult Blood (Negative) Urine Nitrate (Negative) Urine Bilirubin (Negative) Urine Urobilinogen (Less than 2) mg/dL Ur Leukocyte Esterase (Negative) Urine RBC (0-3) /hpf Urine WBC (0-5) /hpf Urine Bacteria (None) /hpf Micro UA Comment Urine Culture Comments Vancomycin Trough (5.0-10.0) mcg/mL Random Vancomycin Comment Blood Type Antibody Screen MTS Gel Crossmatch 05/18/18 05/19/18 05/19/18 Range/Units 11:10 09:07 09:07 WBC 12.4 H (4.0-11.0) th/mm3 RBC 3.23 L (4.00-5.30) mil/mm3 Hgb 10.0 L (11.6-15.3) gm/dL Hct 29.6 L (35.0-46.0) % MCV 91.6 (80.0-100.0) fL MCH 30.9 (27.0-34.0) pg MCHC 33.7 (32.0-36.0) % RDW 13.8 (11.6-17.2) % Plt Count 417 (150-450) th/mm3 MPV 6.2 L (7.0-11.0) fL Neut % (Auto) 77.6 H (16.0-70.0) % Lymph % (Auto) 11.4 (9.0-44.0) % [place] % (Auto) 8.9 H (0.0-8.0) % Eos % (Auto) 1.5 (0.0-4.0) % Baso % (Auto) 0.6 (0.0-2.0) % Neut # (Auto) 9.7 H (1.8-7.7) th/mm3 Lymph # (Auto) 1.4 (1.0-4.8) th/mm3 [place] # (Auto) 1.1 H (0.0-0.9) th/mm3 Eos # (Auto) 0.2 (0.0-0.4) th/mm3 Baso # (Auto) 0.1 (0.0-0.2) th/mm3 WBC Differential . Differential Comment Auto diff final PT (9.8-11.6) sec INR Ratio Sodium 138 (136-145) meq/L Potassium 3.3 L (3.5-5.1) meq/L Chloride 105 (98-107) meq/L Carbon Dioxide 22.9 (21.0-32.0) meq/L Anion Gap 10 (5-15) meq/L BUN 3 L (7-18) mg/dL Creatinine 0.62 (0.50-1.00) mg/dL Estimated GFR Greater than 89 (>89) mL/min POC Glucose (68-110) mg/dl Random Glucose 83 (74-106) mg/dL Lactic Acid (0.4-2.0) mmol/L Calcium 8.9 (8.5-10.1) mg/dL Total Bilirubin 0.3 (0.2-1.0) mg/dL AST 24 (15-37) U/L ALT 26 (10-53) U/L Alkaline Phosphatase 104 (45-117) U/L Total Protein 6.9 D (6.4-8.2) g/dL Albumin 2.2 L (3.4-5.0) g/dL Urine Color Yellow (Yellw/Straw) Urine Clarity Hazy H (Clear) Urine pH 6.0 (5.0-8.5) Ur Specific [place] 1.013 (1.002-1.035) Urine Protein 30 H (Neg-Trace) mg/dL Urine Glucose (UA) Negative (Negative) mg/dL Urine Ketones Trace H (Negative) mg/dL Urine Occult Blood Moderate H (Negative) Urine Nitrate Negative (Negative) Urine Bilirubin Negative (Negative) Urine Urobilinogen Less than 2 (Less than 2) mg/dL Ur Leukocyte Esterase Small H (Negative) Urine RBC 12 H (0-3) /hpf Urine WBC 4 (0-5) /hpf Urine Bacteria Occasional H (None) /hpf Micro UA Comment Culture not ind Urine Culture Comments Culture not ind Vancomycin Trough (5.0-10.0) mcg/mL Random Vancomycin Comment Blood Type Antibody Screen MTS Gel Crossmatch 05/19/18 05/20/18 05/20/18 Range/Units 12:00 09:23 09:23 WBC 11.2 H (4.0-11.0) th/mm3 RBC 3.60 L (4.00-5.30) mil/mm3 Hgb 10.8 L (11.6-15.3) gm/dL Hct 32.7 L (35.0-46.0) % MCV 90.9 (80.0-100.0) fL MCH 30.0 (27.0-34.0) pg MCHC 33.0 (32.0-36.0) % RDW 14.2 (11.6-17.2) % Plt Count 530 H (150-450) th/mm3 MPV 6.2 L (7.0-11.0) fL Neut % (Auto) 82.0 H (16.0-70.0) % Lymph % (Auto) 9.6 (9.0-44.0) % [place] % (Auto) 7.0 (0.0-8.0) % Eos % (Auto) 1.0 (0.0-4.0) % Baso % (Auto) 0.4 (0.0-2.0) % Neut # (Auto) 9.1 H (1.8-7.7) th/mm3 Lymph # (Auto) 1.1 (1.0-4.8) th/mm3 [place] # (Auto) 0.8 (0.0-0.9) th/mm3 Eos # (Auto) 0.1 (0.0-0.4) th/mm3 Baso # (Auto) 0.0 (0.0-0.2) th/mm3 WBC Differential . Differential Comment Auto diff final PT (9.8-11.6) sec INR Ratio Sodium 142 (136-145) meq/L Potassium 3.5 (3.5-5.1) meq/L Chloride 106 (98-107) meq/L Carbon Dioxide 23.7 (21.0-32.0) meq/L Anion Gap 12 (5-15) meq/L BUN 4 L (7-18) mg/dL Creatinine 0.88 (0.50-1.00) mg/dL Estimated GFR 63 L (>89) mL/min POC Glucose (68-110) mg/dl Random Glucose 92 (74-106) mg/dL Lactic Acid (0.4-2.0) mmol/L Calcium 9.2 (8.5-10.1) mg/dL Total Bilirubin 0.3 (0.2-1.0) mg/dL AST 21 (15-37) U/L ALT 26 (10-53) U/L Alkaline Phosphatase 114 (45-117) U/L Total Protein 7.6 D (6.4-8.2) g/dL Albumin 2.4 L (3.4-5.0) g/dL Urine Color (Yellw/Straw) Urine Clarity (Clear) Urine pH (5.0-8.5) Ur Specific [place] (1.002-1.035) Urine Protein (Neg-Trace) mg/dL Urine Glucose (UA) (Negative) mg/dL Urine Ketones (Negative) mg/dL Urine Occult Blood (Negative) Urine Nitrate (Negative) Urine Bilirubin (Negative) Urine Urobilinogen (Less than 2) mg/dL Ur Leukocyte Esterase (Negative) Urine RBC (0-3) /hpf Urine WBC (0-5) /hpf Urine Bacteria (None) /hpf Micro UA Comment Urine Culture Comments Vancomycin Trough 13.8 H (5.0-10.0) mcg/mL Random Vancomycin Comment Blood Type Antibody Screen MTS Gel Crossmatch 05/21/18 05/22/18 05/22/18 Range/Units 08:43 05:17 05:17 WBC 8.5 (4.0-11.0) th/mm3 RBC 2.92 L (4.00-5.30) mil/mm3 Hgb 9.0 L (11.6-15.3) gm/dL Hct 26.9 L (35.0-46.0) % MCV 91.9 (80.0-100.0) fL MCH 30.8 (27.0-34.0) pg MCHC 33.5 (32.0-36.0) % RDW 14.1 (11.6-17.2) % Plt Count 466 H (150-450) th/mm3 MPV 5.9 L (7.0-11.0) fL Neut % (Auto) 73.0 H (16.0-70.0) % Lymph % (Auto) 15.6 (9.0-44.0) % [place] % (Auto) 8.2 H (0.0-8.0) % Eos % (Auto) 2.7 (0.0-4.0) % Baso % (Auto) 0.5 (0.0-2.0) % Neut # (Auto) 6.2 (1.8-7.7) th/mm3 Lymph # (Auto) 1.3 (1.0-4.8) th/mm3 [place] # (Auto) 0.7 (0.0-0.9) th/mm3 Eos # (Auto) 0.2 (0.0-0.4) th/mm3 Baso # (Auto) 0.0 (0.0-0.2) th/mm3 WBC Differential . Differential Comment Auto diff final PT (9.8-11.6) sec INR Ratio Sodium 144 (136-145) meq/L Potassium 3.1 L (3.5-5.1) meq/L Chloride 110 H (98-107) meq/L Carbon Dioxide 20.6 L (21.0-32.0) meq/L Anion Gap 13 (5-15) meq/L BUN 3 L (7-18) mg/dL Creatinine 0.94 (0.50-1.00) mg/dL Estimated GFR 59 L (>89) mL/min POC Glucose (68-110) mg/dl Random Glucose 91 (74-106) mg/dL Lactic Acid (0.4-2.0) mmol/L Calcium 8.5 (8.5-10.1) mg/dL Total Bilirubin 0.3 (0.2-1.0) mg/dL AST 25 (15-37) U/L ALT 26 (10-53) U/L Alkaline Phosphatase 95 (45-117) U/L Total Protein 6.7 D (6.4-8.2) g/dL Albumin 2.0 L (3.4-5.0) g/dL Urine Color (Yellw/Straw) Urine Clarity (Clear) Urine pH (5.0-8.5) Ur Specific [place] (1.002-1.035) Urine Protein (Neg-Trace) mg/dL Urine Glucose (UA) (Negative) mg/dL Urine Ketones (Negative) mg/dL Urine Occult Blood (Negative) Urine Nitrate (Negative) Urine Bilirubin (Negative) Urine Urobilinogen (Less than 2) mg/dL Ur Leukocyte Esterase (Negative) Urine RBC (0-3) /hpf Urine WBC (0-5) /hpf Urine Bacteria (None) /hpf Micro UA Comment Urine Culture Comments Vancomycin Trough 31.5 H (5.0-10.0) mcg/mL Random Vancomycin 24.7 Comment Blood Type Antibody Screen MTS Gel Crossmatch 05/22/18 05/23/18 05/23/18 Range/Units 12:17 09:01 09:05 WBC (4.0-11.0) th/mm3 RBC (4.00-5.30) mil/mm3 Hgb (11.6-15.3) gm/dL Hct (35.0-46.0) % MCV (80.0-100.0) fL MCH (27.0-34.0) pg MCHC (32.0-36.0) % RDW (11.6-17.2) % Plt Count (150-450) th/mm3 MPV (7.0-11.0) fL Neut % (Auto) (16.0-70.0) % Lymph % (Auto) (9.0-44.0) % [place] % (Auto) (0.0-8.0) % Eos % (Auto) (0.0-4.0) % Baso % (Auto) (0.0-2.0) % Neut # (Auto) (1.8-7.7) th/mm3 Lymph # (Auto) (1.0-4.8) th/mm3 [place] # (Auto) (0.0-0.9) th/mm3 Eos # (Auto) (0.0-0.4) th/mm3 Baso # (Auto) (0.0-0.2) th/mm3 WBC Differential Differential Comment PT (9.8-11.6) sec INR Ratio Sodium (136-145) meq/L Potassium (3.5-5.1) meq/L Chloride (98-107) meq/L Carbon Dioxide (21.0-32.0) meq/L Anion Gap (5-15) meq/L BUN (7-18) mg/dL Creatinine (0.50-1.00) mg/dL Estimated GFR (>89) mL/min POC Glucose (68-110) mg/dl Random Glucose (74-106) mg/dL Lactic Acid (0.4-2.0) mmol/L Calcium (8.5-10.1) mg/dL Total Bilirubin (0.2-1.0) mg/dL AST (15-37) U/L ALT (10-53) U/L Alkaline Phosphatase (45-117) U/L Total Protein (6.4-8.2) g/dL Albumin (3.4-5.0) g/dL Urine Color (Yellw/Straw) Urine Clarity (Clear) Urine pH (5.0-8.5) Ur Specific [place] (1.002-1.035) Urine Protein (Neg-Trace) mg/dL Urine Glucose (UA) (Negative) mg/dL Urine Ketones (Negative) mg/dL Urine Occult Blood (Negative) Urine Nitrate (Negative) Urine Bilirubin (Negative) Urine Urobilinogen (Less than 2) mg/dL Ur Leukocyte Esterase (Negative) Urine RBC (0-3) /hpf Urine WBC (0-5) /hpf Urine Bacteria (None) /hpf Micro UA Comment Urine Culture Comments Vancomycin Trough (5.0-10.0) mcg/mL Random Vancomycin Comment Blood Type O Positive Antibody Screen Negative MTS Gel Crossmatch See Detail See Detail 05/23/18 05/23/18 Range/Units 10:40 12:15 WBC 10.4 (4.0-11.0) th/mm3 RBC 3.23 L (4.00-5.30) mil/mm3 Hgb 9.6 L (11.6-15.3) gm/dL Hct 28.6 L (35.0-46.0) % MCV 88.6 (80.0-100.0) fL MCH 29.9 (27.0-34.0) pg MCHC 33.8 (32.0-36.0) % RDW 15.5 (11.6-17.2) % Plt Count 315 D (150-450) th/mm3 MPV 5.9 L (7.0-11.0) fL Neut % (Auto) 82.4 H (16.0-70.0) % Lymph % (Auto) 11.7 (9.0-44.0) % [place] % (Auto) 3.8 (0.0-8.0) % Eos % (Auto) 1.5 (0.0-4.0) % Baso % (Auto) 0.6 (0.0-2.0) % Neut # (Auto) 8.6 H (1.8-7.7) th/mm3 Lymph # (Auto) 1.2 (1.0-4.8) th/mm3 [place] # (Auto) 0.4 (0.0-0.9) th/mm3 Eos # (Auto) 0.2 (0.0-0.4) th/mm3 Baso # (Auto) 0.1 (0.0-0.2) th/mm3 WBC Differential . Differential Comment Auto diff final PT (9.8-11.6) sec INR Ratio Sodium 147 H (136-145) meq/L Potassium 3.6 (3.5-5.1) meq/L Chloride 112 H (98-107) meq/L Carbon Dioxide 23.8 (21.0-32.0) meq/L Anion Gap 11 (5-15) meq/L BUN 5 L (7-18) mg/dL Creatinine 0.86 (0.50-1.00) mg/dL Estimated GFR 65 L (>89) mL/min POC Glucose (68-110) mg/dl Random Glucose 129 H (74-106) mg/dL Lactic Acid (0.4-2.0) mmol/L Calcium 7.7 L D (8.5-10.1) mg/dL Total Bilirubin 0.8 (0.2-1.0) mg/dL AST 15 (15-37) U/L ALT 22 (10-53) U/L Alkaline Phosphatase 87 (45-117) U/L Total Protein 6.0 L D (6.4-8.2) g/dL Albumin 2.0 L (3.4-5.0) g/dL Urine Color (Yellw/Straw) Urine Clarity (Clear) Urine pH (5.0-8.5) Ur Specific [place] (1.002-1.035) Urine Protein (Neg-Trace) mg/dL Urine Glucose (UA) (Negative) mg/dL Urine Ketones (Negative) mg/dL Urine Occult Blood (Negative) Urine Nitrate (Negative) Urine Bilirubin (Negative) Urine Urobilinogen (Less than 2) mg/dL Ur Leukocyte Esterase (Negative) Urine RBC (0-3) /hpf Urine WBC (0-5) /hpf Urine Bacteria (None) /hpf Micro UA Comment Urine Culture Comments Vancomycin Trough (5.0-10.0) mcg/mL Random Vancomycin Comment Blood Type Antibody Screen MTS Gel Crossmatch Imaging Data Radiologist's impression: Aorta w/Runoff CTA 05/14/18 00:00 CONCLUSION: 1. Patent left femoral-popliteal bypass graft. 2. Enlarged fatty liver. 3. Left adrenal nodule measuring 2.3 cm consistent with probable adrenal adenoma. 4. Cholelithiasis. 5. Left renal cysts. 6. Minimal ascites. 7. Degenerative changes and scoliosis of the thoracolumbar spine. Venous Doppler Study 05/15/18 00:00 CONCLUSION: 1. Negative for deep venous thrombosis. There is some edema around the left common femoral artery stent. Possible hematoma in the medial calf inferior to the popliteal fossa measuring up to 2.3 x 1 x [address] 05/18/18 00:00 CONCLUSION: 1. No evidence of acute hematoma. Lower Extremity MRI 05/20/18 00:00 CONCLUSION: Multilocular fluid collection along the course of the bypass graft. Postoperative seroma as well as abscess are considered. This will be accessible to aspiration. 1. Discharge Plan Discharge Disposition Patient Disposition: Disch To Another Hospital Discharge Condition Condition: Fair Discharge Order Discharge Orders: Discharge Order (Routine); Ordered 05/23/18 Ordered By: Les Briggs Discharge Details Anticipated Discharge Date: 05/23/18 Physicians Team ED Provider: Cabrera Perez Primary Care Provider: Primary Care Uzma,Rayna Attending Provider: Cabrera Black Other Providers: Shazia Sexton ; John,John ; Jessica Portillo ; Lynda Cvs,Agency Status ED Status: Left Department Discharge Information Discharge Date/Time: 05/14/18 02:47
== END 2018-05-23 15:34 | disposition short-term general hospital (02) ==
LOC: NEPE 23:16 → NEDA 05-14 01:36 → N05 05-14 02:47 → HCPC 05-23 10:34 → HCVI 05-23 11:30
PROVIDERS: ADMIT Hospitalist; ATTEND Hospitalist

== ENCOUNTER 2018-07-05 19:53 | Inpatient (IN) ==
[2018-07-05] MEDS ORDERED: Morphine Sulfate Inj 8 MG/ML Vial IV.PUSH ONE (20:54)
[2018-07-05] MEDS ORDERED: Morphine Inj 4 MG/ML Vial IV.PUSH ONE (21:30)
--- NOTE | 2018-07-05 21:37 | ED ---
HPI General Chief Complaint: Extremity Injury, Lower Stated Complaint: Left leg pain Time Seen by Provider: 07/05/18 20:34 History of Present Illness HPI Narrative: This is a 73-year-old female with a history of peripheral artery disease, left femoropopliteal graft infection, who presents here with pain at her graft infection site. Patient apparently has had complications from a left femoropopliteal surgery in April. She has had a redo up at [facility] and then a repeat infection. She apparently is getting wound care via home health. When the home health nurse arrived, she apparently told family members that this was a large wound that she was not completely comfortable caring for. She is also receiving IV vancomycin for the MRSA that grew out previously. Family members report that they called Dr. Briggs, there are vascular surgeon who recommended he come here for evaluation. There were the under the impression that she was given again a wound VAC. I did speak with Dr. Briggs and he recommended that we admit her to the medicine service and have case management evaluate her for possible rehab at a skilled facility for wound care. There is no reported fevers. There is no reported increased drainage. Apparently the wound has dehisced and is requiring packing. No other complaints at the time of my examination. Related Data Home Medications Medication Instructions Recorded Confirmed amlodipine 10 mg PO HS 05/14/18 07/05/18 carisoprodol [Soma] 350 mg PO TID PRN 05/14/18 07/05/18 fluoxetine [Prozac] 40 mg PO DAILY 05/14/18 07/05/18 gabapentin 1,200 mg PO TID 05/14/18 07/05/18 alprazolam [Xanax] 0.25 mg PO BID 07/05/18 07/05/18 cyclobenzaprine 10 mg PO TID 07/05/18 07/05/18 Previous Rx's Medication Instructions Recorded alprazolam [Xanax] 0.25 mg PO Q6H PRN tab 05/23/18 oxycodone-acetaminophen 1 tab PO Q4H PRN tab 05/23/18 oxycodone-acetaminophen 1 tab PO Q4H PRN tab 05/23/18 temazepam 15 mg PO HS PRN cap 05/23/18 vancomycin 1,500 mg IV Q24H ea 05/23/18 Allergies Allergy/AdvReac Type Severity Reaction Status Date / Time No Known Allergies Allergy Verified 07/05/18 20:36 Review of Systems ROS: all other systems reviewed are negative Constitutional Denies chills and Denies fever(s) Eyes Reports system reviewed and no additional complaints, except as docu ENT Reports system reviewed and no additional complaints, except as docu Cardiovascular Denies chest pain and Denies dyspnea Respiratory Denies cough and Denies dyspnea Gastrointestinal Denies diarrhea, Denies nausea and Denies vomiting Genitourinary Denies urinary frequency and Denies dysuria Musculoskeletal Reports numbness (Left lower extremity which is not new since the surgery), Reports tingling (Left lower extremity that is not new since the surgery.) and Reports other (Pain in left lower extremity at the site of the wound that is being packed. No increased redness. No increased drainage.) Integumentary/Breasts Reports other (Pain at the left lower extremity chronic wound site. No increased drainage or increased redness.) Neurologic Reports as per [facility] Medical History Medical History History of stroke (Acute) Depression (Acute) Diabetes (Acute) Fibromyalgia (Acute) History of hysterectomy (Acute) Hypercholesterolemia (Acute) Hypertension (Acute) Osteoarthritis (Acute) PAD (peripheral artery disease) (Acute) Surgical History Surgical History History of carotid endarterectomy (Acute) History of spinal fusion (Acute) S/P femoral-popliteal bypass surgery (Acute) Social History Social History Substance History: No History of Abuse Second Hand Smoke Exposure: No Smoking Status: Current every day smoker Tobacco Type: Cigarettes How Often Do You Have a Drink Containing Alcohol: Never Recent Out of Country Travel within the Last 8 Weeks: No Exam Narrative Exam Narrative: GENERAL: Well-developed well-nourished female in no acute respiratory distress. SKIN: Focused skin assessment warm/dry. HEAD: Atraumatic. Normocephalic. EYES: No scleral icterus. No injection or drainage. ENT: No nasal bleeding or discharge. Mucous membranes pink and moist. NECK: Trachea midline. Supple. CARDIOVASCULAR: Regular rate and rhythm. No murmur appreciated. RESPIRATORY: No accessory muscle use. Clear to auscultation. Breath sounds equal bilaterally. GASTROINTESTINAL: Abdomen soft, non-tender, nondistended. Hepatic and splenic margins not palpable. MUSCULOSKELETAL: No obvious deformities. Patient has a fresh dressing on her left lower extremity below the knee. The granddaughter was at the bedside showed me pictures from when they changed it today. It appeared like it was granulating. There is no purulent drainage noted. It was about 11 cm in length. NEUROLOGICAL: Awake and alert. No obvious cranial nerve deficits. Motor grossly within normal limits. Normal speech. Course Initial Documented Vital Signs Temperature 98.6 F 07/05/18 20:12 Pulse Rate 84 07/05/18 20:12 Respiratory Rate 16 07/05/18 20:12 Blood Pressure 125/84 07/05/18 20:12 Pulse Oximetry 95 07/05/18 20:12 Last Documented Vital Signs Temperature 98.6 F 07/05/18 20:12 Pulse Rate 83 07/05/18 20:36 Respiratory Rate 18 07/05/18 20:36 Blood Pressure 133/70 07/05/18 20:36 Pulse Oximetry 95 07/05/18 20:36 Medical Decision Making MDM Narrative Medical decision making narrative: This is a 73-year-old female with a history of chronic left lower extremity wound secondary to an infected femoropopliteal bypass graft, presents today with pain at the wound site. Patient also has a large wound that is being packed by wound care nurse. According to family members at the bedside, the wound care nurse said that this was larger than she is comfortable treating as a home wound. He reportedly called Dr. Briggs who recommended coming here to be evaluated. Patient has no fever. White blood cell counts within normal limits. She does have a large wound that is 11 cm that requires packing. She is currently receiving vancomycin for the MRSA that she developed in the previous wound. I spoke with Dr. Briggs and he asked if we would admit the patient to the medical service. He states he will see the patient in consultation first thing in the morning. She will need a case management consult for possible placement in a skilled facility for wound care. Medical Screen Exam Complete: Yes Emergency Medical Condition: Yes Differential Diagnosis Differential Diagnosis: Chronic wound versus increasing wound dehiscence versus cellulitis. Lab Data Result diagrams: 07/05/18 21:52 07/05/18 21:52 Lab Results 07/05/18 07/05/18 Range/Units 21:52 21:52 WBC 7.1 (4.0-11.0) th/mm3 RBC 3.33 L (4.00-5.30) mil/mm3 Hgb 10.2 L (11.6-15.3) gm/dL Hct 30.4 L (35.0-46.0) % MCV 91.4 (80.0-100.0) fL MCH 30.6 (27.0-34.0) pg MCHC 33.5 (32.0-36.0) % RDW 15.8 (11.6-17.2) % Plt Count 408 (150-450) th/mm3 MPV 6.2 L (7.0-11.0) fL Neut % (Auto) 68.1 (16.0-70.0) % Lymph % (Auto) 20.6 (9.0-44.0) % [place] % (Auto) 7.7 (0.0-8.0) % Eos % (Auto) 3.4 (0.0-4.0) % Baso % (Auto) 0.2 (0.0-2.0) % Neut # (Auto) 4.8 (1.8-7.7) th/mm3 Lymph # (Auto) 1.5 (1.0-4.8) th/mm3 [place] # (Auto) 0.6 (0.0-0.9) th/mm3 Eos # (Auto) 0.2 (0.0-0.4) th/mm3 Baso # (Auto) 0.0 (0.0-0.2) th/mm3 WBC Differential . Differential Comment Auto diff final Sodium 140 (136-145) meq/L Potassium 3.7 (3.5-5.1) meq/L Chloride 104 (98-107) meq/L Carbon Dioxide 24.2 (21.0-32.0) meq/L Anion Gap 12 (5-15) meq/L BUN 11 (7-18) mg/dL Creatinine 1.17 H (0.50-1.00) mg/dL Estimated GFR 46 L (>89) mL/min Random Glucose 95 (74-106) mg/dL Calcium 8.7 (8.5-10.1) mg/dL Discharge Plan Discharge Disposition Patient Disposition: 30 Still Patient Discharge Details Diagnosis: Vascular graft infection, PAD (peripheral artery disease), Postoperative wound dehiscence Physicians Team ED Provider: Lopez Zaragoza Primary Care Provider: Alex Taylor Attending Provider: Arun Matos Other Providers: Les Briggs Rxs /Orders / Referrals /Forms Prescriptions: No Action amlodipine 10 mg Tablet 10 mg PO HS RF: 0 carisoprodol [Soma] 350 mg Tablet 350 mg PO TID PRN (Reason: Muscle Spasticity) RF: 0 gabapentin 600 mg Tablet 1,200 mg PO TID RF: 0 fluoxetine [Prozac] 20 mg Capsule 40 mg PO DAILY RF: 0 oxycodone-acetaminophen 5-325 mg Tablet 1 tab PO Q4H PRN (Reason: Pain Scale 3 To 5) RF: 0 alprazolam [Xanax] 0.25 mg Tablet 0.25 mg PO Q6H PRN (Reason: Anxiety) RF: 0 temazepam 15 mg Capsule 15 mg PO HS PRN (Reason: Insomnia) RF: 0 oxycodone-acetaminophen 10-325 mg Tablet 1 tab PO Q4H PRN (Reason: Pain Scale 6 To 10) RF: 0 vancomycin 10 gram Recon Soln 1,500 mg IV Q24H RF: 0 cyclobenzaprine 10 mg Tablet 10 mg PO TID RF: 0 alprazolam [Xanax] 0.25 mg Tablet 0.25 mg PO BID RF: 0 Discharge Interventions Interventions: Vital Signs Last Done: 07/05/18 20:36 Status ED Status: Admitted Observation Patient
[2018-07-05 22:17] LABS: Baso % (Auto) 0.2 % (0.0-2.0); Eos # (Auto) 0.2 th/mm3 (0.0-0.4); Eos % (Auto) 3.4 % (0.0-4.0); Hematocrit 30.4 % (35.0-46.0); Hemoglobin 10.2 gm/dL (11.6-15.3); Lymph # (Auto) 1.5 th/mm3 (1.0-4.8); Lymph % (Auto) 20.6 % (9.0-44.0); Mean Corpuscular HGB Conc 33.5 % (32.0-36.0); Mean Corpuscular Hemoglobin 30.6 pg (27.0-34.0); Mean Corpuscular Volume 91.4 fL (80.0-100.0); Mean Platelet Volume 6.2 fL (7.0-11.0); Mono # (Auto) 0.6 th/mm3 (0.0-0.9); Mono % (Auto) 7.7 % (0.0-8.0); Neut # (Auto) 4.8 th/mm3 (1.8-7.7); Neut % (Auto) 68.1 % (16.0-70.0); Platelet Count 408 th/mm3 (150-450); Red Blood Count 3.33 mil/mm3 (4.00-5.30); Red Cell Distribution Width 15.8 % (11.6-17.2); White Blood Count 7.1 th/mm3 (4.0-11.0)
[2018-07-05 22:37] LABS: Calcium 8.7 mg/dL (8.5-10.1); Carbon Dioxide 24.2 meq/L (21.0-32.0); Potassium 3.7 meq/L (3.5-5.1)
[2018-07-05] MEDS ORDERED: Vancomycin Consult Pharmacy OTHER PRN (22:45)
[2018-07-05] MEDS ORDERED: Bisacodyl 10 MG Supp RECTAL PRN (22:47)
[2018-07-05] MEDS: Heparin - SQ 10,000 UNITS/ML Vial SQ SCH (23:52)
[2018-07-06] MEDS ORDERED: oxyCODONE/Acetaminophen 10/325 Tablet PO ONE ×2 (00:27→05:10)
--- NOTE | 2018-07-06 03:12 | P.HPIM ---
History of Present Illness Primary Care Physician: Alex Taylor MD History of Present Illness: 73-year-old female with peripheral artery disease, left femoral-popliteal bypass in April with subsequent graft infection, reportedly with MRSA, redo femoropoplitea at [facility], however with repeat wound dehiscence in the left lower leg. Patient is receiving home health, reportedly supposed to be getting a wound VAC but has not received yet. She is presenting to to worsening constant left lower extremity vague discomfort, worsening wound dehiscence. Review of Systems All other systems reviewed negative except as stated in HPI PMFSH - History History Provided By: Patient - Medical History Medical History: Medical History (Last Updated 07/05/18 @ 20:38 by Gracy Hammond) History of stroke Depression Diabetes Fibromyalgia History of hysterectomy Hypercholesterolemia Hypertension Osteoarthritis PAD (peripheral artery disease) - Surgical History Surgical History: Surgical History (Last Reviewed 05/20/18 @ 08:17 by Sabrina Lzaar) History of carotid endarterectomy History of spinal fusion S/P femoral-popliteal bypass surgery - Family History Family History: Family History (Last Reviewed 05/18/18 @ 10:05 by Jessica Portillo MD) Other Family history of diabetes mellitus Family history of hypertension - Tobacco History Second Hand Smoke Exposure: No Tobacco Use In Past 30 Days: Yes Smoking Status: Current every day smoker Tobacco Type: Cigarettes - Alcohol History How Often Do You Have a Drink Containing Alcohol: Never - Substance Use History Substance History: No History of Abuse - Travel History Recent Travel Out of the Country Within the Last 8 Weeks: No - Immunization History Tetanus Immunization: <5 Years Hx Influenza Vaccine This Season: No Medications and Allergies Active Medications: Active Medications Al Hydroxide/Mg Hydroxide (Milk Of Magnesia Liq) 30 ml PO Q12H PRN PRN Reason: Mild Constipation Bisacodyl (Dulcolax Supp) 10 mg RECTAL DAILY PRN PRN Reason: SEVERE CONSITIPATION Heparin Sodium (Porcine) (Heparin Inj) 5,000 units SQ Q12H [facility] Last Admin: 07/05/18 23:52 Dose: 5,000 units Vancomycin HCl 1,600 mg/ (Sodium Chloride) 516 mls @ 250 mls/hr IV.SIG DAILY@ 0800 ONE Stop: 07/06/18 10:03 Lactulose (Lactulose Liq) 30 ml PO DAILY PRN PRN Reason: SEVERE CONSITIPATION Pharmacy Profile Note (Vancomycin Consult Pharmacy) 1 each OTHER UNSCH PRN PRN Reason: Pharmacy to dose Sennosides (Senokot) 17.2 mg PO Q12H PRN PRN Reason: Moderate Constipation Allergies Allergy/AdvReac Type Severity Reaction Status Date / Time No Known Allergies Allergy Verified 07/05/18 20:36 Home Medications Medication Instructions Recorded Confirmed Type amlodipine 10 mg PO HS 05/14/18 07/05/18 History carisoprodol [Soma] 350 mg PO TID PRN 05/14/18 07/05/18 History fluoxetine [Prozac] 40 mg PO DAILY 05/14/18 07/05/18 History gabapentin 1,200 mg PO TID 05/14/18 07/05/18 History alprazolam [Xanax] 0.25 mg PO BID 07/05/18 07/05/18 History cyclobenzaprine 10 mg PO TID 07/05/18 07/05/18 History Exam Vital signs: Vital Signs 07/05/18 20:12 07/05/18 20:36 07/06/18 01:37 Temperature 98.6 F Pulse Rate 84 83 72 Respiratory Rate 16 18 18 Blood Pressure 125/84 133/70 130/68 Pulse Oximetry 95 95 93 L Intake & Output 07/05/18 07/05/18 07/06/18 06:59 18:59 06:59 Intake Total 480 / 480 Balance 480 / 480 Weight 83.756 kg Intake: Oral 480 / 480 Other: # Voids 1 Narrative: GENERAL: Patient sitting up in bed eating a sandwich. Appears comfortable. SKIN: Warm and dry. HEAD: Atraumatic. Normocephalic. EYES: Pupils equal and round. No scleral icterus. No injection or drainage. ENT: No nasal bleeding or discharge. Mucous membranes pink and moist. NECK: Trachea midline. No JVD. CARDIOVASCULAR: Regular rate and rhythm. RESPIRATORY: No accessory muscle use. Clear to auscultation. Breath sounds equal bilaterally. GASTROINTESTINAL: Abdomen soft, non-tender, nondistended. Hepatic and splenic margins not palpable. MUSCULOSKELETAL: Extremities without clubbing, cyanosis, or edema. No obvious deformities. Patient has decreased pedal and posterior tibial pulses on the left. Left lower extremity lower leg wound is dressed with dressing clean dry and intact. Daughter shows me pictures of wound taken on 07/05 appears to have wound dehiscence without surrounding erythema. NEUROLOGICAL: Awake and alert. No obvious cranial nerve deficits. Motor grossly within normal limits. Five out of 5 muscle strength in the arms and legs , symmetric. Decreased sensation in the left leg. Normal speech. PSYCHIATRIC: Appropriate mood and affect; insight and judgment normal. Results - Labs CBC & Chem 7: 07/05/18 21:52 07/05/18 21:52 Labs: Short CBC 07/05/18 Range/Units 21:52 WBC 7.1 (4.0-11.0) th/mm3 Hgb 10.2 L (11.6-15.3) gm/dL Hct 30.4 L (35.0-46.0) % Plt Count 408 (150-450) th/mm3 BMP 07/05/18 21:52 Sodium 140 Potassium 3.7 Chloride 104 Carbon Dioxide 24.2 BUN 11 Creatinine 1.17 H Calcium 8.7 Caprini VTE Risk Assessment Caprini VTE Risk Assessment: Moderate/High Risk (score >= 2) Caprini Risk Assessment Model: Point Value = 1 Point Value = 2 Point Value = 3 Point Value = 5 Age 41-60 Minor surgery BMI > 25 kg/m2 Swollen legs Varicose veins or History of unexplained or recurrent spontaneous Oral contraceptives or hormone replacement Sepsis (< 1 month) Serious lung disease, including pneumonia (< 1 month) Abnormal pulmonary function Acute myocardial infarction Congestive heart failure (< 1 month) History of inflammatory bowel disease Medical patient at bed rest Age 61-74 Arthroscopic surgery Major open surgery (> 45 min) Laparoscopic surgery (> 45 min) Malignancy Confined to bed (> 72 hours) Immobilizing plaster cast Central venous access Age >= 75 History of VTE Family history of VTE Factor V Leiden Prothrombin 43431C Lupus anticoagulant Anticardiolipin antibodies Elevated serum homocysteine Heparin-induced thrombocytopenia Other congenital or acquired thrombophilia Stroke (< 1 month) Elective arthroplasty Hip, pelvis, or leg fracture Acute spinal cord injury (< 1 month) Prophylaxis Regimen: Total Risk Factor Score Risk Level Prophylaxis Regimen 0-1 Low Early ambulation 2 Moderate Order ONE of the following: *Sequential Compression Device (SCD) *Heparin 5000 units SQ BID 3-4 Higher Order ONE of the following medications: *Heparin 5000 units SQ TID *Enoxaparin/Lovenox 40 mg SQ daily (WT < 150 kg, CrCl > 30 mL/min) *Enoxaparin/Lovenox 30 mg SQ daily (WT < 150 kg, CrCl > 10-29 mL/min) *Enoxaparin/Lovenox 30 mg SQ BID (WT < 150 kg, CrCl > 30 mL/min) AND/OR *Sequential Compression Device (SCD) 5 or more Highest Order ONE of the following medications: *Heparin 5000 units SQ TID (Preferred with Epidurals) *Enoxaparin/Lovenox 40 mg SQ daily (WT < 150 kg, CrCl > 30 mL/min) *Enoxaparin/Lovenox 30 mg SQ daily (WT < 150 kg, CrCl > 10-29 mL/min) *Enoxaparin/Lovenox 30 mg SQ BID (WT < 150 kg, CrCl > 30 mL/min) AND *Sequential Compression Device (SCD) Assessment and Plan - Plan //Left lower extremity graft with wound dehiscence, suspected infection Continue vancomycin for reported MRSA. Due to possible superinfection will consult infectious disease. Vascular surgery will be consulted as well. Hypertension. Chronic. Blood pressure acceptable. Continue home medications. //Neuropathy. Chronic. Continue home medication. //Anxiety. Chronic. Continue home meds. Depression. Chronic. Continue home medications. Discussed Condition With: Patient, nurse, ED physician, daughter at bedside.
[2018-07-06 07:08] LABS: Baso # (Auto) 0.1 th/mm3 (0.0-0.2); Baso % (Auto) 1.4 % (0.0-2.0); Eos # (Auto) 0.3 th/mm3 (0.0-0.4); Eos % (Auto) 5.2 % (0.0-4.0); Hematocrit 29.2 % (35.0-46.0); Hemoglobin 9.7 gm/dL (11.6-15.3); Lymph # (Auto) 1.7 th/mm3 (1.0-4.8); Lymph % (Auto) 28.6 % (9.0-44.0); Mean Corpuscular HGB Conc 33.4 % (32.0-36.0); Mean Corpuscular Hemoglobin 30.2 pg (27.0-34.0); Mean Corpuscular Volume 90.6 fL (80.0-100.0); Mean Platelet Volume 6.2 fL (7.0-11.0); Mono # (Auto) 0.5 th/mm3 (0.0-0.9); Mono % (Auto) 8.3 % (0.0-8.0); Neut # (Auto) 3.4 th/mm3 (1.8-7.7); Neut % (Auto) 56.5 % (16.0-70.0); Platelet Count 391 th/mm3 (150-450); Red Blood Count 3.22 mil/mm3 (4.00-5.30); Red Cell Distribution Width 15.7 % (11.6-17.2)
[2018-07-06 07:29] LABS: Albumin 2.6 g/dL (3.4-5.0); Anion Gap 11 meq/L (5-15); Aspartate Aminotransferase 10 U/L (15-37); Blood Urea Nitrogen 11 mg/dL (7-18); Calcium 8.2 mg/dL (8.5-10.1); Carbon Dioxide 24.6 meq/L (21.0-32.0); Chloride 106 meq/L (98-107); Glomerular Filtration Rate 52 mL/min (>89); Glucose,Random 104 mg/dL (74-106); Potassium 3.3 meq/L (3.5-5.1); Sodium 142 meq/L (136-145)
[2018-07-06 07:31] LABS: Alanine Aminotransferase 9 U/L (10-53)
[2018-07-06 07:33] LABS: Alkaline Phosphatase 88 U/L (45-117); Total Protein 6.8 g/dL (6.4-8.2)
[2018-07-06] MEDS ORDERED: Vancomycin Inj 1,600 MG in Sodium Chlor 0.9% Inj 500 ML IV.SIG ONE (08:00)
--- NOTE | 2018-07-06 10:57 | P.PNVS ---
Subjective Subjective/Hospital Course: Pt well known to me, s/p excision of L fem-BK pop with PTFE for infection, done in [place]. Presents with worsening pain L LE wound. No new drainage, no F/C. Ambulating. Objective Vital Signs / I&O: Vital Signs 07/05/18 20:12 07/05/18 20:36 07/06/18 01:37 Temperature 98.6 F Pulse Rate 84 83 72 Respiratory Rate 16 18 18 Blood Pressure 125/84 133/70 130/68 Pulse Oximetry 95 95 93 L 07/06/18 04:00 07/06/18 05:11 07/06/18 10:12 Temperature 98.8 F Pulse Rate 70 74 75 Respiratory Rate 18 16 18 Blood Pressure 136/65 131/62 Pulse Oximetry 98 95 Intake & Output 07/05/18 07/06/18 07/06/18 18:59 06:59 18:59 Intake Total 480 / 480 Balance 480 / 480 Weight 83.756 kg Intake: Oral 480 / 480 Other: # Voids 1 Physical Exam: L groin wound healing nicely. Foot pink and perfused L calf wound with large cavity - no odor or sign of infection. No exposed vessels. Laboratory Results - last 24 hr 07/05/18 07/05/18 07/06/18 21:52 21:52 06:25 WBC 7.1 6.0 RBC 3.33 L 3.22 L Hgb 10.2 L 9.7 L Hct 30.4 L 29.2 L MCV 91.4 90.6 MCH 30.6 30.2 MCHC 33.5 33.4 RDW 15.8 15.7 Plt Count 408 391 MPV 6.2 L 6.2 L Neut % (Auto) 68.1 56.5 Lymph % (Auto) 20.6 28.6 [place] % (Auto) 7.7 8.3 H Eos % (Auto) 3.4 5.2 H Baso % (Auto) 0.2 1.4 Neut # (Auto) 4.8 3.4 Lymph # (Auto) 1.5 1.7 [place] # (Auto) 0.6 0.5 Eos # (Auto) 0.2 0.3 Baso # (Auto) 0.0 0.1 WBC Differential . . Differential Comment Auto diff final Auto diff final Sodium 140 Potassium 3.7 Chloride 104 Carbon Dioxide 24.2 Anion Gap 12 BUN 11 Creatinine 1.17 H Estimated GFR 46 L Random Glucose 95 Calcium 8.7 Total Bilirubin AST ALT Alkaline Phosphatase Total Protein Albumin 07/06/18 06:25 WBC RBC Hgb Hct MCV MCH MCHC RDW Plt Count MPV Neut % (Auto) Lymph % (Auto) [place] % (Auto) Eos % (Auto) Baso % (Auto) Neut # (Auto) Lymph # (Auto) [place] # (Auto) Eos # (Auto) Baso # (Auto) WBC Differential Differential Comment Sodium 142 Potassium 3.3 L Chloride 106 Carbon Dioxide 24.6 Anion Gap 11 BUN 11 Creatinine 1.05 H Estimated GFR 52 L Random Glucose 104 Calcium 8.2 L Total Bilirubin 0.3 AST 10 L ALT 9 L Alkaline Phosphatase 88 Total Protein 6.8 Albumin 2.6 L Assessment and Plan - Assessment (1) Vascular graft infection Code(s): T82.7XXA - Infection and inflammatory reaction due to other cardiac and vascular devices, implants and grafts, initial encounter Status: Acute - Plan Foot perfused, no underlying graft from calf wound 1. Wound RN consult 2. PT/OOB 3. pain control 4. will need rehab - ok to go anytime Pt can f/u with ca or in [place]. (1) Vascular graft infection Qualifiers: Encounter type: subsequent encounter Qualified Code(s): T82.7XXD - Infection and inflammatory reaction due to other cardiac and vascular devices, implants and grafts, subsequent encounter
--- NOTE | 2018-07-06 11:21 | P.PN ---
Subjective Interval history: Follow visit left lower extremity graft with wound dehiscence, suspected for infection, HTN, neuropathy, anxiety. Patient seen and examined today reports continued pain on left lower extremity. Was seen by Dr. Briggs, states that Dr. Briggs ordered a wound care consult for her. Denies SOB/ dyspnea. Denies chest pain, palpitations, headaches, dizziness. Denies fevers, chills, n/v/d. Denies dysuria. Physical Exam Vital signs: Vital Signs 07/05/18 20:12 07/05/18 20:36 07/06/18 01:37 Temperature 98.6 F Pulse Rate 84 83 72 Respiratory Rate 16 18 18 Blood Pressure 125/84 133/70 130/68 Pulse Oximetry 95 95 93 L 07/06/18 04:00 07/06/18 05:11 07/06/18 10:12 Temperature 98.8 F Pulse Rate 70 74 75 Respiratory Rate 18 16 18 Blood Pressure 136/65 131/62 Pulse Oximetry 98 95 Intake & Output 07/05/18 07/06/18 07/06/18 18:59 06:59 18:59 Intake Total 480 / 480 200 / 200 Balance 480 / 480 200 / 200 Weight 83.756 kg Intake: IV 200 / 200 Vancomycin Inj 1,600 MG In NS 200 / 200 Inj 500 ML @ 250 mls/hr IV.SIG DAILY@0800 ONE Rx#:[id number] Oral 480 / 480 Other: # Voids 1 Narrative: GENERAL: This is a well-nourished, well-developed patient, in no apparent distress. SKIN: Warm and dry HEENT: Normocephalic. Pupils equal round and reactive. Nose without bleeding. Airway patent. NECK: Trachea midline.Supple. CARDIOVASCULAR: Regular rate and rhythm without murmurs, gallops, or rubs. RESPIRATORY: Clear to auscultation. Breath sounds equal bilaterally. No wheezes , rales, or rhonchi. GASTROINTESTINAL: Abdomen soft, non-tender, nondistended. Bowel Sounds normoactive x4. MUSCULOSKELETAL: Extremities without clubbing, cyanosis. Left lower extremity + 1 edema, dehisced wound slough on the wound bed approximately 2 cm wide, 8-10 cm long, 1 cm deep. Small wound on her ankle area. Left upper extremity PICC line NEUROLOGICAL: Awake and alert. Oriented to time, place, person. No focal neuro deficit. Moves all extremities. Normal speech. Results - Labs CBC & Chem 7: 07/06/18 06:25 07/06/18 06:25 Laboratory Results - last 24 hr 07/05/18 07/05/18 07/06/18 21:52 21:52 06:25 WBC 7.1 6.0 RBC 3.33 L 3.22 L Hgb 10.2 L 9.7 L Hct 30.4 L 29.2 L MCV 91.4 90.6 MCH 30.6 30.2 MCHC 33.5 33.4 RDW 15.8 15.7 Plt Count 408 391 MPV 6.2 L 6.2 L Neut % (Auto) 68.1 56.5 Lymph % (Auto) 20.6 28.6 [place] % (Auto) 7.7 8.3 H Eos % (Auto) 3.4 5.2 H Baso % (Auto) 0.2 1.4 Neut # (Auto) 4.8 3.4 Lymph # (Auto) 1.5 1.7 [place] # (Auto) 0.6 0.5 Eos # (Auto) 0.2 0.3 Baso # (Auto) 0.0 0.1 WBC Differential . . Differential Comment Auto diff final Auto diff final Sodium 140 Potassium 3.7 Chloride 104 Carbon Dioxide 24.2 Anion Gap 12 BUN 11 Creatinine 1.17 H Estimated GFR 46 L Random Glucose 95 Calcium 8.7 Total Bilirubin AST ALT Alkaline Phosphatase Total Protein Albumin 07/06/18 06:25 WBC RBC Hgb Hct MCV MCH MCHC RDW Plt Count MPV Neut % (Auto) Lymph % (Auto) [place] % (Auto) Eos % (Auto) Baso % (Auto) Neut # (Auto) Lymph # (Auto) [place] # (Auto) Eos # (Auto) Baso # (Auto) WBC Differential Differential Comment Sodium 142 Potassium 3.3 L Chloride 106 Carbon Dioxide 24.6 Anion Gap 11 BUN 11 Creatinine 1.05 H Estimated GFR 52 L Random Glucose 104 Calcium 8.2 L Total Bilirubin 0.3 AST 10 L ALT 9 L Alkaline Phosphatase 88 Total Protein 6.8 Albumin 2.6 L Assessment and Plan - Plan 73-year-old female with peripheral artery disease, left femoral-popliteal bypass in April with subsequent graft infection, reportedly with MRSA, redo femoropoplitea at [facility], however with repeat wound dehiscence in the left lower leg. Left lower extremity graft with wound dehiscence, suspected infection Continue vancomycin for reported MRSA from [facility]. She has LUE PICC line Due to possible superinfection will consult infectious disease. -Vascular surgery consulted. Recommending wound care, rehab -Pain meds with Bowel Regimen. -[facility] Prescription Drug Monitoring Database has been queried and verified prior to prescribing the controlled substance. Hypertension, Chronic. -Continue home medications. Neuropathy, Chronic -Continue home medication, gabapentin Anxiety, Chronic -Continue home meds, xanax Depression, Chronic -Continue home medications. DVT prop heparin Code Status: Full code Discussed Condition With: Patient, nursing Discharge Planning: Plan to DC home when clinically improved. May need home health care versus SNF
[2018-07-06] MEDS: Heparin - SQ 10,000 UNITS/ML Vial SQ SCH ×2 (11:32→22:14)
--- NOTE | 2018-07-06 14:38 | P.DCO ---
- Home Health Nursing Order: Signs/symptoms of disease process, Medication education-adverse effect, Wound care and dressing changes, Nursing assessment with vital signs, IV medication administration - Certification I have seen patient Micheline Overton on 07/06/18. My clinical findings support the need for the requested home health care services because: Limited mobility due to disease progression, Deconditioned with increased weakness I certify that my clinical findings support that this patient is homebound because: Impaired cognitive ability/safety, Unsteady gait/balance
--- NOTE | 2018-07-06 16:21 | P.PNWCN ---
Wound Care Nurse Consult Description: wound consult ordered by for wound management Communicated with: Ary RN, . Recommendation: 1. Cleanse left medial wound with normal saline pat dry ,skin prep periwound 2. Maintain functional seal to wound vac 3. Change wound vac dressing every [id number] Additional information: Patient was seen today by health science writer for wound management.Patient alert and oriented x4 in no acute distress.dressing removed from left lower extremity with out difficulty. Surgical Wound to medial gaiter cleansed with normal saline.Wound measures ~7.0cm x4.0cm x 3.4cm wound base is 50% moist pink tissue 25% thin yellow slough 25% red muscle.Scant serosanguineous exudate noted without odor.Wound edges are well defined sloped with wound base.Skin prep applied to jett wound then wound vac draping,single layer of white GranuFoam applied to muscle wound base and then single piece black granufoam apllied secured with drape/track pad.Patient tolerated wound care well. Wound/Pressure Injury - Patient Status Premedicated for Pain Prior to Dressing Change: Yes - Wound Left Leg Wound Type: Traumatic Wound Is This a Chronic Wound: No Requested from Provider a Wound Care Consult: No (Jonna ROGER,[facility] seen 07/06) Length: 7 Width: 4 Depth: 3.4 Wound Bed Appearance: [place], Red, Shiny, Yellow Surrounding Tissue Appearance: [place] Surrounding Tissue Temperature: Cool Drainage Description: Serosanguinous Drainage Amount: Minimal Drainage Odor: No Odor Dressing Status: Changed Cleansing Solution: Saline Wound Packing Type: Woundvac Sponge Primary Dressing: Negative Pressure Wound Dressing Wound Dressing Change Date: 07/06/18 Wound Vac - Wound Vac Left Leg Pressure Setting (mmHg): 125 Mode Setting: Continuous Drainage Description: Serosanguinous Foam type: Black, White
--- NOTE | 2018-07-06 16:24 | MB ---
cc: Ivan Leal MD DATE: 07/06/2018 REQUESTING PHYSICIAN: Dr. Matos. REASON: Chronic left lower extremity wound. HISTORY OF PRESENT ILLNESS: This is a 73-year-old white female who has severe peripheral vascular disease. The patient has undergone vascular bypass surgery including left femoral to bilateral popliteal artery with PTFE for infection. She developed severe left lower extremity pain and presented to the emergency department for evaluation. The patient has had prior evaluations of the left lower extremity when she developed dehisced wound. Her initial surgery was done 04/20/2018. She has had positive culture with MRSA from the wound on 05/18/2018, and she was on IV antibiotics for over 40 days. She recently followed up at [facility] in [place] and was seen in the infectious disease clinic there and a culture was taken 5 days ago. The results of blood culture is not available. She was due to continue to follow up with [place], but she presented here with pain in the leg. She has a dehisced open wound in her left tibia. There is murky soupy exudate within the ulcer crater. The patient presents with severe pain in the leg. She is afebrile and white blood cell count is normal. She was evaluated by vascular surgery back in April and was transferred to [facility] in [place] for consideration of graft excision. Also, presented with a wound at the groin on the left side and that was treated with IV antibiotics in May as well. Besides that, she has no other complaints. This consultation was requested because of the chronic lower extremity wound. PAST MEDICAL HISTORY: Osteoarthritis, diabetes mellitus, hypercholesteremia, hypertension, peripheral arterial disease, fibromyalgia, depression, history of hysterectomy, history of femoral to bilateral popliteal bypass surgery, history of carotid endarterectomy, history of spinal fusion. ALLERGIES: NO KNOWN DRUG ALLERGIES. MEDICATIONS: 1. Vancomycin. 2. Senokot. 3. Potassium. 4. Prozac 5. Neurontin. 6. Soma. 7. Dulcolax. 8. Norvasc. 9. Xanax. SOCIAL HISTORY: The patient quit tobacco in 04/2008. No alcohol. No illicit drugs. FAMILY HISTORY: Noncontributory. REVIEW OF SYSTEMS: All systems have been reviewed and are negative, except for pain in the left leg. PHYSICAL EXAMINATION: GENERAL: This is a well-developed, well-nourished appearing female in no acute distress. VITAL SIGNS: Temperature 97.8, BP 152/73, respirations 18, heart rate 78. HEENT: Head is atraumatic. Extraocular movements grossly intact. Pupils reactive to light. No icterus. Oropharynx moist mucosa. NECK: Supple without adenopathy. LUNGS: Clear to auscultation. HEART: Regular S1 and S2. No murmurs, rubs or gallops. ABDOMEN: Bowel sounds present. Soft, nontender. RECTAL: Not performed. EXTREMITIES: The left leg has an open ulcer at the dehisced wound at the inner tibia. There is a soupy exudate within the ulcer crater. There is erythema at the edges of the wound. Tenderness on palpation around the age the edge of the wound. There is a small ulcer approximately 1.5 cm diameter at the posterior ankle at the inner aspect on the left leg besides a scab overlying it. No visible sign of infection at that ulcerated location. SKIN: No diffuse rash. NEUROLOGIC: No gross focal findings. PSYCHIATRIC: The patient is calm and cooperative. LABORATORY DATA: WBC 6.0, platelets 391, hemoglobin 9.7, 56% neutrophils, 28% lymphocytes, 8% monocytes. Creatinine 1.05, BUN 11, estimated GFR 52. Sodium 142, potassium 3.3. IMPRESSION: 1. Dehisced wound of the left leg postop. Probable continuing infection of the leg. 2. Post-femoral to popliteal bypass graft surgery for severe peripheral arterial disease. RECOMMENDATIONS: 1. Send a new culture from the ulcer. 2. Continue vancomycin. 3. Follow up on culture that was performed at [place]. I have requested that culture data. 4. Monitor the wound. Thank you for this consultation. I will follow the patient's progress and culture and will make further recommendations upon followup if necessary. Ivan Leal MD FFD/ct , 03:19 PM , 03:33 PM
[2018-07-06] MEDS: oxyCODONE/Acetaminophen 10/325 Tablet PO PRN (16:27)
[2018-07-06] MEDS: Morphine Inj 4 MG/ML Vial IV.PUSH PRN ×2 (17:28→22:22)
[2018-07-06] MEDS: Gabapentin 400 MG Capsule PO SCH (18:23)
[2018-07-06] MEDS: amLODIPine 10 MG Tablet PO SCH (21:26)
[2018-07-06] MEDS: ALPRAZolam 0.25 MG Tablet PO SCH (21:26)
--- NOTE | 2018-07-07 08:50 | P.DS ---
Date of admission: 07/05/18 22:47 Primary care physician: Alex Taylor MD Attending physician on discharge: Adonis Kearns Anticipated date of discharge: 07/07/18 Brief History from admission: 73-year-old female with peripheral artery disease, left femoral-popliteal bypass in April with subsequent graft infection, reportedly with MRSA, redo femoropoplitea at [facility], however with repeat wound dehiscence in the left lower leg. Patient is receiving home health, reportedly supposed to be getting a wound VAC but has not received yet. She is presenting to to worsening constant left lower extremity vague discomfort, worsening wound dehiscence. DS: Diagnosis - Discharge Diagnosis (1) Cellulitis Status: Acute (2) PAD (peripheral artery disease) Status: Acute (3) Vascular graft infection Status: Acute (4) Postoperative wound dehiscence Status: Acute DS: Summary Hospital Course: Follow visit left lower extremity graft with wound dehiscence, suspected for infection, HTN, neuropathy, anxiety. Patient seen and examined today. States she is happy her leg edema is better and the wound VAC is working. Complaints of pain and discomfort but manageable with current pain medication.. Denies SOB / dyspnea. Denies chest pain, palpitations, headaches, dizziness. Denies fevers , chills, n/v/d. Denies dysuria. 73-year-old female with peripheral artery disease, left femoral-popliteal bypass in April with subsequent graft infection, reportedly with MRSA, redo femoropoplitea at [facility], however with repeat wound dehiscence in the left lower leg. Left lower extremity graft with wound dehiscence, suspected for infection. She was started on vancomycin at [facility] for MRSA. She has a left upper arm PICC line placed. She needs to have vancomycin for 7 more days as per patient. She was seen by infectious disease at the hospital and recommended cultures and prior cultures from [facility]. Vascular surgery has seen the patient, Dr. Briggs, recommending wound care and rehab placement. Patient' s hypertension, neuropathy, anxiety, depression which are chronic conditions have been managed in the inpatient setting with continuation of her home medications. Wound VAC was placed on her leg. Patient has met maximal benefits of hospitalization. Clinically stable for discharge. [employer] Prescription Drug Monitoring Database has been queried and verified prior to prescribing the controlled substance - Time Spent with Patient Total time spent providing and/or coordinating discharge services: Greater than 30 minutes - Quality: VTE Deep Vein Thrombosis/Pulmonary Embolism Present on Admission: No Exam Vital signs: Vital Signs 07/06/18 10:12 07/06/18 11:58 07/06/18 16:00 Temperature 98.8 F 97.8 F 98.8 F Pulse Rate 75 78 77 Respiratory Rate 18 18 18 Blood Pressure 131/62 152/73 H 135/65 Pulse Oximetry 95 96 95 07/06/18 20:00 07/07/18 00:00 07/07/18 04:00 Temperature 98.7 F 98.2 F 98.3 F Pulse Rate 89 77 77 Respiratory Rate 14 19 20 Blood Pressure 158/72 H 138/64 129/70 Pulse Oximetry 95 95 93 L 07/07/18 08:00 Temperature 98.6 F Pulse Rate 85 Respiratory Rate Blood Pressure 134/81 Pulse Oximetry 94 L Intake & Output 07/06/18 07/07/18 07/07/18 18:59 06:59 18:59 Intake Total 516 / 516 Output Total 450 / 450 Balance 516 / 516 -450 / -450 Weight 81.193 kg Intake: IV 516 / 516 Vancomycin Inj 1,600 MG In NS 516 / 516 Inj 500 ML @ 250 mls/hr IV.SIG DAILY@0800 ONE Rx#:[id number] Output: Urine 450 / 450 Other: # Voids 2 Weight On Admission 81.193 kg Narrative: GENERAL: This is a well-nourished, well-developed patient, in no apparent distress. SKIN: Warm and dry HEENT: Normocephalic. Pupils equal round and reactive. Nose without bleeding. Airway patent. NECK: Trachea midline.Supple. CARDIOVASCULAR: Regular rate and rhythm without murmurs, gallops, or rubs. RESPIRATORY: Clear to auscultation. Breath sounds equal bilaterally. No wheezes , rales, or rhonchi. GASTROINTESTINAL: Abdomen soft, non-tender, nondistended. Bowel Sounds normoactive x4. MUSCULOSKELETAL: Extremities without clubbing, cyanosis. Left lower extremity + 1 edema, dehisced wound slough on the wound bed approximately 2 cm wide, 8-10 cm long, 1 cm deep. Small wound on her ankle area. Left upper extremity PICC line NEUROLOGICAL: Awake and alert. Oriented to time, place, person. No focal neuro deficit. Moves all extremities. Normal speech. Results Procedures completed during hospitalization: None Discharge Plan - Discharge Disposition Patient Disposition: 03 Discharge to SNF - Discharge Condition Condition: Stable - Discharge Order Discharge Orders: Vascular Surgery Clear for Discharge (Routine); Ordered 07/07/18 Ordered By: Elizabeth Kennedy - Physicians Team Primary Care Provider: Alex Taylor Attending Provider: Adonis Kearns Other Providers: Les Briggs MD ; John Lopez ; Ivan Leal MD ; [facility],Agency ; [facility],[place]
[2018-07-07] MEDS: Gabapentin 400 MG Capsule PO SCH ×2 (09:36→14:13)
[2018-07-07] MEDS: ALPRAZolam 0.25 MG Tablet PO SCH ×2 (09:36→21:30)
[2018-07-07] MEDS: FLUoxetine 20 MG Capsule PO SCH (09:37)
[2018-07-07] MEDS: oxyCODONE/Acetaminophen 10/325 Tablet PO PRN ×3 (09:37→21:42)
[2018-07-07] MEDS: Vancomycin Inj 1,500 MG in Sodium Chlor 0.9% Inj 500 ML IV.SIG SCH (09:55)
--- NOTE | 2018-07-07 10:46 | P.PNVS ---
Subjective Subjective/Hospital Course: with a PMH of an excision of the L fem-BK pop with PTFE for infection done at [facility]) Pt presented with worsening pain L LE wound Pt sitting in chair drinking coffee this am in good spirits Pt continues to ambulate Pt denied claudication or rest pain Wound vac to L LE wound intact Pt reported she is awaiting d/c to out pt Rehab Objective Vital Signs / I&O: Vital Signs 07/06/18 11:58 07/06/18 16:00 07/06/18 20:00 Temperature 97.8 F 98.8 F 98.7 F Pulse Rate 78 77 89 Respiratory Rate 18 18 14 Blood Pressure 152/73 H 135/65 158/72 H Pulse Oximetry 96 95 95 07/07/18 00:00 07/07/18 04:00 07/07/18 08:00 Temperature 98.2 F 98.3 F 98.6 F Pulse Rate 77 77 85 Respiratory Rate 19 20 Blood Pressure 138/64 129/70 134/81 Pulse Oximetry 95 93 L 94 L Intake & Output 07/06/18 07/07/18 07/07/18 18:59 06:59 18:59 Intake Total 516 / 516 Output Total 450 / 450 Balance 516 / 516 -450 / -450 Weight 81.193 kg Intake: IV 516 / 516 Vancomycin Inj 1,600 MG In NS 516 / 516 Inj 500 ML @ 250 mls/hr IV.SIG DAILY@0800 ONE Rx#:[id number] Output: Urine 450 / 450 Other: Mode Setting Left Leg Continuous # Voids 2 Weight On Admission 81.193 kg Physical Exam: B LE warm w/ motor intact Wound vac to L LE noted Microbiology 07/06/18 16:10 Gram Stain - Final Wound - Leg Assessment and Plan - Assessment (1) Vascular graft infection Code(s): T82.7XXA - Infection and inflammatory reaction due to other cardiac and vascular devices, implants and grafts, initial encounter Status: Acute - Plan with a PMH of an excision of the L fem-BK pop with PTFE for infection done at [facility] ([place]) Pt presented with worsening pain L LE wound LE warm w/ motor intact No claudication or rest pain Wound vac to L LE intact Plan Continue PT Pt clear for d/c (Rehab) from a vascular stand point Will arrange out pt f/u Elizabeth Kennedy [employer] [facility]/[place] [phone] (1) Vascular graft infection Qualifiers: Encounter type: subsequent encounter Qualified Code(s): T82.7XXD - Infection and inflammatory reaction due to other cardiac and vascular devices, implants and grafts, subsequent encounter
[2018-07-07] MEDS: Heparin - SQ 10,000 UNITS/ML Vial SQ SCH (12:31)
[2018-07-07] MEDS: Morphine Inj 4 MG/ML Vial IV.PUSH PRN (12:31)
[2018-07-07 14:40] LABS: Calcium 8.6 mg/dL (8.5-10.1); Carbon Dioxide 26.7 meq/L (21.0-32.0)
--- NOTE | 2018-07-07 14:48 | P.PNID ---
Subjective Remarks: Patient states that she feels okay. States that her leg pain is improved since the wound VAC was placed. She has wound VAC on the leg. No fevers. Wound culture has Pseudomonas. This is a 73-year-old white female who has severe peripheral vascular disease. The patient has undergone vascular bypass surgery including left femoral to bilateral popliteal artery with PTFE for infection. She developed severe left lower extremity pain and presented to the emergency department for evaluation. The patient has had prior evaluations of the left lower extremity when she developed dehisced wound. Her initial surgery was done 04/20/2018. She has had positive culture with MRSA from the wound on 05/18/2018, and she was on IV antibiotics for over 40 days. She recently followed up at [facility] in [place] and was seen in the infectious disease clinic there and a culture was taken 5 days ago. The results of blood culture is not available. She was due to continue to follow up with [place], but she presented here with pain in the leg. She has a dehisced open wound in her left tibia. There is murky soupy exudate within the ulcer crater. The patient presents with severe pain in the leg. She is afebrile and white blood cell count is normal. She was evaluated by vascular surgery back in April and was transferred to [facility] in [place] for consideration of graft excision. Also, presented with a wound at the groin on the left side and that was treated with IV antibiotics in May as well. Besides that, she has no other complaints. This consultation was requested because of the chronic lower extremity wound. Past Medical History: PAST MEDICAL HISTORY: Osteoarthritis, diabetes mellitus, hypercholesteremia, hypertension, peripheral arterial disease, fibromyalgia, depression, history of hysterectomy, history of femoral to bilateral popliteal bypass surgery, history of carotid endarterectomy, history of spinal fusion. Allergies/Adverse Reactions: Allergies No Known Allergies Allergy (Verified 07/05/18 20:36) Objective Vital Signs 07/06/18 16:00 07/06/18 20:00 07/07/18 00:00 Temperature 98.8 F 98.7 F 98.2 F Pulse Rate 77 89 77 Respiratory Rate 18 14 19 Blood Pressure 135/65 158/72 H 138/64 Pulse Oximetry 95 95 95 07/07/18 04:00 07/07/18 08:00 07/07/18 12:00 Temperature 98.3 F 98.6 F 98.4 F Pulse Rate 77 85 71 Respiratory Rate 20 16 Blood Pressure 129/70 134/81 131/58 L Pulse Oximetry 93 L 94 L 96 Intake & Output 07/06/18 07/07/18 07/07/18 18:59 06:59 18:59 Intake Total 516 / 516 515 / 515 Output Total 450 / 450 Balance 516 / 516 -450 / -450 515 / 515 Weight 81.193 kg Intake: IV 516 / 516 515 / 515 Vancomycin Inj 1,500 MG In NS 516 / 516 515 / 515 Inj 500 ML @ 250 mls/hr IV.SIG Q24H [facility] Rx#:[id number] Output: Urine 450 / 450 Other: Mode Setting Left Leg Continuous # Voids 2 Weight On Admission 81.193 kg 07/06/18 16:10 Wound - Leg Gram Stain - Final 07/06/18 16:10 Wound - Leg Wound Culture - Preliminary Pseudomonas species Lab - Hematology Results 07/05/18 07/06/18 21:52 06:25 WBC 7.1 6.0 RBC 3.33 L 3.22 L Hgb 10.2 L 9.7 L Hct 30.4 L 29.2 L MCV 91.4 90.6 MCH 30.6 30.2 MCHC 33.5 33.4 RDW 15.8 15.7 Plt Count 408 391 MPV 6.2 L 6.2 L Neut % (Auto) 68.1 56.5 Lymph % (Auto) 20.6 28.6 Hudspeth % (Auto) 7.7 8.3 H Eos % (Auto) 3.4 5.2 H Baso % (Auto) 0.2 1.4 Neut # (Auto) 4.8 3.4 Lymph # (Auto) 1.5 1.7 Hudspeth # (Auto) 0.6 0.5 Eos # (Auto) 0.2 0.3 Baso # (Auto) 0.0 0.1 WBC Differential . . Differential Comment Auto diff final Auto diff final Lab - Chemistry Results 07/05/18 07/06/18 21:52 06:25 Sodium 140 142 Potassium 3.7 3.3 L Chloride 104 106 Carbon Dioxide 24.2 24.6 Anion Gap 12 11 BUN 11 11 Creatinine 1.17 H 1.05 H Estimated GFR 46 L 52 L Random Glucose 95 104 Calcium 8.7 8.2 L Total Bilirubin 0.3 AST 10 L ALT 9 L Alkaline Phosphatase 88 Total Protein 6.8 Albumin 2.6 L Physical Exam: PHYSICAL EXAMINATION: GENERAL: This is a well-developed, well-nourished appearing female in no acute distress. HEENT: Head is atraumatic. Extraocular movements grossly intact. Pupils reactive to light. No icterus. Oropharynx moist mucosa. NECK: Supple without adenopathy. LUNGS: Clear to auscultation. HEART: Regular S1 and S2. No murmurs, rubs or gallops. ABDOMEN: Bowel sounds present. Soft, nontender. EXTREMITIES: The left leg has a wound VAC in place over the tibial wound. Serous drainage in the VAC. Decreased swelling around the wound. SKIN: No diffuse rash. NEUROLOGIC: No gross focal findings. PSYCHIATRIC: The patient is calm, pleasant and cooperative. Assessment and Plan - Plan IMPRESSION: 1. Dehisced wound of the left leg postop. Post-femoral to popliteal bypass graft surgery for severe peripheral arterial disease. Previous culture had MRSA. New wound culture has pseudomonas. Also culture from [facility] 5 days ago has Pseudomonas. RECOMMENDATIONS: 1. Begin cefepime for the Pseudomonas. 2 g IV every 12 hours 2 weeks. 2. Continue vancomycin for now but stop it if the culture has no staph bacteria. 3. Arrangement can be made for IV antibiotics at the nursing facility with the patient would be admitted. -Orders for IV outpatient antibiotic written but will need to confirm sensitivity of the Pseudomonas recovered here. 4. Follow-up with infectious disease DrCassi at [facility] or local infectious disease doctor in [place]. Patient resides in the [place], [place].
--- NOTE | 2018-07-07 14:50 | P.DCO ---
Post Hospital Infusion Therapy Location of Infusion Therapy: [facility] Infusion Therapy Order Patient Weight: 81.193 kg - Diagnosis (1) Postoperative wound dehiscence Code(s): T81.31XA - Disruption of external operation (surgical) wound, not elsewhere classified, initial encounter (2) Vascular graft infection Code(s): T82.7XXA - Infection and inflammatory reaction due to other cardiac and vascular devices, implants and grafts, initial encounter - Administer Medication Cefepime Dose: 2 grams IV Directions: q 12 hours Stop Treatment: 07/21/18 - Additional Information Venous Access: PICC Line Additional Instructions: [x] Peripheral flush and dressing changes per protocol [x] Implanted port and central pipeline integrity engineer: * Implanted port: 10 ml Normal Saline followed by 5 ml Heparin 100 units/ml Heparin flush after each use and monthly to maintain. [] May leave port accessed during therapy. [] May leave peripheral site accessed for duration of therapy. [x] If patient has SOB or respiratory distress, check oxygen saturation. If less than 90% or clinical signs of respiratory distress, administer oxygen at 2 L/min. via nasal cannula and notify physician. [x] Anaphylaxis/Reaction orders: * Stop infusion. * Keep IV line open with saline flush. * Notify physician. * Monitor vital signs every 15 minutes until symptoms resolve. * Check Oxygen saturation; Oxygen at 2 L/min. via nasal cannula if less than 90% or clinical signs of respiratory distress. * Administer diphenhydramine (Benadryl) 25 mg IV STAT, (unless patient has received as pre-med). May repeat once, if necessary. * Solu-Cortef 250 mg IVP over 30-60 seconds, use 100 mg vials for each dissolution. * Epinephrine (1mg/1 ml) 0.3 mg subcutaneously or IVP now with any signs of respiratory distress. * Check with physician for new additional pre-med orders if patient is re- challenged or re-treated. [x] May remove PICC line when treatment complete, after confirming with Physician. [x] If the patient is admitted to the hospital, the ED, or transferred via [facility] , complete transfer form including medication reconciliation order sheet. Weekly Labs: BMP (Follow up with ID physician in 1 week. ) Additional Information: Call for follow up appointment with Dr. Hoyt in 1 week. [phone]. Allergies No Known Allergies Allergy (Verified 07/05/18 20:36) (1) Postoperative wound dehiscence Qualifiers: Encounter type: subsequent encounter Qualified Code(s): T81.31XD - Disruption of external operation (surgical) wound, not elsewhere classified, subsequent encounter (2) Vascular graft infection Qualifiers: Encounter type: subsequent encounter Qualified Code(s): T82.7XXD - Infection and inflammatory reaction due to other cardiac and vascular devices, implants and grafts, subsequent encounter
--- NOTE | 2018-07-07 17:36 | P.PN ---
Subjective Interval history: Follow visit left lower extremity graft with wound dehiscence, suspected for infection, HTN, neuropathy, anxiety. Patient seen and examined today. States she is happy her leg edema is better and the wound VAC is working. Complaints of pain and discomfort but manageable with current pain medication.. Denies SOB / dyspnea. Denies chest pain, palpitations, headaches, dizziness. Denies fevers , chills, n/v/d. Denies dysuria. Physical Exam Vital signs: Vital Signs 07/06/18 20:00 07/07/18 00:00 07/07/18 04:00 Temperature 98.7 F 98.2 F 98.3 F Pulse Rate 89 77 77 Respiratory Rate 14 19 20 Blood Pressure 158/72 H 138/64 129/70 Pulse Oximetry 95 95 93 L 07/07/18 08:00 07/07/18 12:00 07/07/18 16:00 Temperature 98.6 F 98.4 F 98.3 F Pulse Rate 85 71 75 Respiratory Rate 16 16 Blood Pressure 134/81 131/58 L 128/59 L Pulse Oximetry 94 L 96 94 L Intake & Output 07/06/18 07/07/18 07/07/18 18:59 06:59 18:59 Intake Total 516 / 516 615 / 615 Output Total 450 / 450 Balance 516 / 516 -450 / -450 615 / 615 Weight 81.193 kg 81.193 kg Intake: IV 516 / 516 615 / 615 Maxipime Inj 2,000 MG In NS Inj 100 / 100 100 ML @ 200 mls/hr IV.SIG Q12H LANE Rx#:[id number] Vancomycin Inj 1,500 MG In NS 516 / 516 515 / 515 Inj 500 ML @ 250 mls/hr IV.SIG Q24H LANE Rx#:[id number] Output: Urine 450 / 450 Other: Mode Setting Left Leg Continuous # Voids 2 Weight On Admission 81.193 kg Narrative: GENERAL: This is a well-nourished, well-developed patient, in no apparent distress. SKIN: Warm and dry HEENT: Normocephalic. Pupils equal round and reactive. Nose without bleeding. Airway patent. NECK: Trachea midline.Supple. CARDIOVASCULAR: Regular rate and rhythm without murmurs, gallops, or rubs. RESPIRATORY: Clear to auscultation. Breath sounds equal bilaterally. No wheezes , rales, or rhonchi. GASTROINTESTINAL: Abdomen soft, non-tender, nondistended. Bowel Sounds normoactive x4. MUSCULOSKELETAL: Extremities without clubbing, cyanosis. Left lower extremity no edema, dehisced wound wound vac in place. Small wound on her ankle area. Left upper extremity PICC line NEUROLOGICAL: Awake and alert. Oriented to time, place, person. No focal neuro deficit. Moves all extremities. Normal speech. Results - Labs CBC & Chem 7: 07/06/18 06:25 07/07/18 13:55 Laboratory Results - last 24 hr 07/07/18 13:55 Sodium 143 Potassium 4.0 Chloride 108 H Carbon Dioxide 26.7 Anion Gap 8 BUN 10 Creatinine 0.90 Estimated GFR 62 L Random Glucose 86 Calcium 8.6 Microbiology 07/06/18 16:10 Wound - Leg Gram Stain - Final 07/06/18 16:10 Wound - Leg Wound Culture - Preliminary Pseudomonas species - Procedures None Assessment and Plan - Assessment (1) Cellulitis Code(s): L03.90 - Cellulitis, unspecified Status: Acute (2) PAD (peripheral artery disease) Code(s): I73.9 - Peripheral vascular disease, unspecified Status: Acute (3) Vascular graft infection Code(s): T82.7XXA - Infection and inflammatory reaction due to other cardiac and vascular devices, implants and grafts, initial encounter Status: Acute (4) Postoperative wound dehiscence Code(s): T81.31XA - Disruption of external operation (surgical) wound, not elsewhere classified, initial encounter Status: Acute - Plan 73-year-old female with peripheral artery disease, left femoral-popliteal bypass in April with subsequent graft infection, reportedly with MRSA, redo femoropoplitea at [facility], however with repeat wound dehiscence in the left lower leg. Left lower extremity graft with wound dehiscence, suspected infection Continue vancomycin for reported MRSA from [facility]. She has LUE PICC line Due to possible superinfection will consult infectious disease. -Vascular surgery consulted. Recommending wound care, rehab -Pain meds with Bowel Regimen. -[facility] Prescription Drug Monitoring Database has been queried and verified prior to prescribing the controlled substance. -ID saw and evaluated patient. Recommends records from [facility]. Reculture wound. Wound is now growing gram-negative rods. -Will follow culture and sensitivities. Continue current recommendation -Wound vac in place. Hypertension, Chronic. -Continue home medications. Neuropathy, Chronic -Continue home medication, gabapentin Anxiety, Chronic -Continue home meds, xanax -[facility] Prescription Drug Monitoring Database has been queried and verified prior to prescribing the controlled substance. Depression, Chronic -Continue home medications. DVT prop heparin Code Status: Full Code Discussed Condition With: Patient, nursing, Dr. Olea, Dr. Kearns Discharge Planning: Plan to DC SNF when arranged. (1) Cellulitis Qualifiers: Site of cellulitis of extremity: lower extremity Laterality: left (3) Vascular graft infection Qualifiers: Encounter type: subsequent encounter Qualified Code(s): T82.7XXD - Infection and inflammatory reaction due to other cardiac and vascular devices, implants and grafts, subsequent encounter (4) Postoperative wound dehiscence Qualifiers: Encounter type: subsequent encounter Qualified Code(s): T81.31XD - Disruption of external operation (surgical) wound, not elsewhere classified, subsequent encounter
[2018-07-07] MEDS: amLODIPine 10 MG Tablet PO SCH (21:30)
[2018-07-07] MEDS: Gabapentin 300 MG Capsule PO SCH (21:31)
[2018-07-08] MEDS: Heparin - SQ 10,000 UNITS/ML Vial SQ SCH ×3 (00:14→23:32)
[2018-07-08] MEDS: oxyCODONE/Acetaminophen 10/325 Tablet PO PRN ×3 (04:27→23:31)
[2018-07-08] MEDS: FLUoxetine 20 MG Capsule PO SCH (08:35)
[2018-07-08] MEDS: Gabapentin 300 MG Capsule PO SCH ×3 (08:37→18:17)
[2018-07-08] MEDS: ALPRAZolam 0.25 MG Tablet PO SCH ×2 (08:38→21:22)
[2018-07-08] MEDS: Vancomycin Inj 1,500 MG in Sodium Chlor 0.9% Inj 500 ML IV.SIG SCH (09:22)
--- NOTE | 2018-07-08 10:50 | P.PNID ---
Subjective Remarks: Patient feels well. States that her leg pain is improved since the wound VAC was placed. No fevers. tolerating Cefepime. No itching. Wound culture has Pseudomonas - sensitive to cefepime. This is a 73-year-old white female who has severe peripheral vascular disease. The patient has undergone vascular bypass surgery including left femoral to bilateral popliteal artery with PTFE for infection. She developed severe left lower extremity pain and presented to the emergency department for evaluation. The patient has had prior evaluations of the left lower extremity when she developed dehisced wound. Her initial surgery was done 04/20/2018. She has had positive culture with MRSA from the wound on 05/18/2018, and she was on IV antibiotics for over 40 days. She recently followed up at [facility] in [place] and was seen in the infectious disease clinic there and a culture was taken 5 days ago. The results of blood culture is not available. She was due to continue to follow up with [place], but she presented here with pain in the leg. She has a dehisced open wound in her left tibia. Past Medical History: PAST MEDICAL HISTORY: Osteoarthritis, diabetes mellitus, hypercholesteremia, hypertension, peripheral arterial disease, fibromyalgia, depression, history of hysterectomy, history of femoral to bilateral popliteal bypass surgery, history of carotid endarterectomy, history of spinal fusion. Allergies/Adverse Reactions: Allergies No Known Allergies Allergy (Verified 07/05/18 20:36) Objective Vital Signs 07/07/18 12:00 07/07/18 16:00 07/07/18 20:00 Temperature 98.4 F 98.3 F Pulse Rate 71 75 Respiratory Rate 16 16 16 Blood Pressure 131/58 L 128/59 L Pulse Oximetry 96 94 L 07/08/18 00:00 07/08/18 04:00 07/08/18 08:36 Temperature 98.4 F 97.8 F 98.3 F Pulse Rate 74 75 77 Respiratory Rate 20 19 16 Blood Pressure 154/70 H 119/59 L 134/65 Pulse Oximetry 93 L 94 L Intake & Output 07/07/18 07/08/18 07/08/18 18:59 06:59 18:59 Intake Total 615 / 615 100 / 100 Balance 615 / 615 100 / 100 Weight 81.193 kg Intake: IV 615 / 615 100 / 100 Maxipime Inj 2,000 MG In NS Inj 100 / 100 100 / 100 100 ML @ 200 mls/hr IV.SIG Q12H LANE Rx#:[id number] Vancomycin Inj 1,500 MG In NS 515 / 515 Inj 500 ML @ 250 mls/hr IV.SIG Q24H LANE Rx#:[id number] Other: Mode Setting Left Leg Continuous Continuous # Voids 2 07/06/18 16:10 Wound - Leg Gram Stain - Final 07/06/18 16:10 Wound - Leg Wound Culture - Preliminary Pseudomonas species Lab - Chemistry Results 07/07/18 13:55 Sodium 143 Potassium 4.0 Chloride 108 H Carbon Dioxide 26.7 Anion Gap 8 BUN 10 Creatinine 0.90 Estimated GFR 62 L Random Glucose 86 Calcium 8.6 Physical Exam: PHYSICAL EXAMINATION: GENERAL: No acute distress. HEENT: Head is atraumatic. Extraocular movements grossly intact. Pupils reactive to light. No icterus. Oropharynx moist mucosa. NECK: Supple without adenopathy. LUNGS: Clear to auscultation. HEART: Regular S1 and S2. No murmurs, rubs or gallops. ABDOMEN: Bowel sounds present. Soft, nontender. EXTREMITIES: The left leg has a wound VAC in place over the wound. Serous drainage in the VAC. Decreased swelling around the wound. SKIN: No diffuse rash. NEUROLOGIC: No gross focal findings. PSYCHIATRIC: Calm, pleasant and cooperative. Assessment and Plan (1) Postoperative wound dehiscence Status: Acute Code(s): T81.31XA - Disruption of external operation (surgical) wound, not elsewhere classified, initial encounter (2) Vascular graft infection Status: Acute Code(s): T82.7XXA - Infection and inflammatory reaction due to other cardiac and vascular devices, implants and grafts, initial encounter - Plan IMPRESSION: Dehisced wound of the left leg postop. Post-femoral to popliteal bypass graft surgery for severe peripheral arterial disease. Previous culture had MRSA. New wound culture has pseudomonas. RECOMMENDATIONS: 1. Outpatient cefepime 2 g IV every 12 hours 2 weeks. form for outpatient IV abx filled out. 2. Stop vancomycin. 3. Follow-up with infectious disease Dr. Hoyt in 1 week. Discussed with case management. (1) Postoperative wound dehiscence Qualifiers: Encounter type: subsequent encounter Qualified Code(s): T81.31XD - Disruption of external operation (surgical) wound, not elsewhere classified, subsequent encounter (2) Vascular graft infection Qualifiers: Encounter type: subsequent encounter Qualified Code(s): T82.7XXD - Infection and inflammatory reaction due to other cardiac and vascular devices, implants and grafts, subsequent encounter
--- NOTE | 2018-07-08 11:25 | P.PN ---
Subjective Interval history: Follow visit left lower extremity graft with wound dehiscence, suspected for infection, HTN, neuropathy, anxiety. Patient seen and examined today. States she is thankful feeling better and the wound VAC is working. Complaints of pain and discomfort but manageable with current pain medication. States she has neuropathy and surprised about decrease in her medication dose. Denies SOB/ dyspnea. Denies chest pain, palpitations, headaches, dizziness. Denies fevers, chills, n/v/d. Denies dysuria. Physical Exam Vital signs: Vital Signs 07/07/18 12:00 07/07/18 16:00 07/07/18 20:00 Temperature 98.4 F 98.3 F Pulse Rate 71 75 Respiratory Rate 16 16 16 Blood Pressure 131/58 L 128/59 L Pulse Oximetry 96 94 L 07/08/18 00:00 07/08/18 04:00 07/08/18 08:00 Temperature 98.4 F 97.8 F Pulse Rate 74 75 Respiratory Rate 20 19 16 Blood Pressure 154/70 H 119/59 L Pulse Oximetry 93 L 07/08/18 08:36 Temperature 98.3 F Pulse Rate 77 Respiratory Rate 16 Blood Pressure 134/65 Pulse Oximetry 94 L Intake & Output 07/07/18 07/08/18 07/08/18 18:59 06:59 18:59 Intake Total 615 / 615 100 / 100 Balance 615 / 615 100 / 100 Weight 81.193 kg Intake: IV 615 / 615 100 / 100 Maxipime Inj 2,000 MG In NS Inj 100 / 100 100 / 100 100 ML @ 200 mls/hr IV.SIG Q12H LANE Rx#:[id number] Vancomycin Inj 1,500 MG In NS 515 / 515 Inj 500 ML @ 250 mls/hr IV.SIG Q24H LANE Rx#:[id number] Other: Mode Setting Left Leg Continuous Continuous Continuous # Voids 2 Narrative: GENERAL: This is a well-nourished, well-developed patient, in no apparent distress. SKIN: Warm and dry HEENT: Normocephalic. Pupils equal round and reactive. Nose without bleeding. Airway patent. NECK: Trachea midline.Supple. CARDIOVASCULAR: Regular rate and rhythm without murmurs, gallops, or rubs. RESPIRATORY: Clear to auscultation. Breath sounds equal bilaterally. No wheezes , rales, or rhonchi. GASTROINTESTINAL: Abdomen soft, non-tender, nondistended. Bowel Sounds normoactive x4. MUSCULOSKELETAL: Extremities without clubbing, cyanosis. Left lower extremity no edema, dehisced wound wound vac in place, small amount serosanguineous. small wound on her ankle area. Left upper extremity PICC line NEUROLOGICAL: Awake and alert. Oriented to place, person. No focal neuro deficit. Moves all extremities. Normal speech. Results - Labs CBC & Chem 7: 07/06/18 06:25 07/07/18 13:55 Laboratory Results - last 24 hr 07/07/18 13:55 Sodium 143 Potassium 4.0 Chloride 108 H Carbon Dioxide 26.7 Anion Gap 8 BUN 10 Creatinine 0.90 Estimated GFR 62 L Random Glucose 86 Calcium 8.6 Microbiology 07/06/18 16:10 Wound - Leg Gram Stain - Final 07/06/18 16:10 Wound - Leg Wound Culture - Preliminary Pseudomonas species - Procedures None Assessment and Plan - Assessment (1) Cellulitis Code(s): L03.90 - Cellulitis, unspecified Status: Acute (2) PAD (peripheral artery disease) Code(s): I73.9 - Peripheral vascular disease, unspecified Status: Acute (3) Vascular graft infection Code(s): T82.7XXA - Infection and inflammatory reaction due to other cardiac and vascular devices, implants and grafts, initial encounter Status: Acute (4) Postoperative wound dehiscence Code(s): T81.31XA - Disruption of external operation (surgical) wound, not elsewhere classified, initial encounter Status: Acute - Plan 73-year-old female with peripheral artery disease, left femoral-popliteal bypass in April with subsequent graft infection, reportedly with MRSA, redo femoropoplitea at [facility], however with repeat wound dehiscence in the left lower leg. Left lower extremity graft with wound dehiscence, suspected infection Continue vancomycin for reported MRSA from [facility]. She has LUE PICC line Due to possible superinfection will consult infectious disease. -Vascular surgery consulted. Recommending wound care, rehab -Pain meds with Bowel Regimen. -[facility] Prescription Drug Monitoring Database has been queried and verified prior to prescribing the controlled substance. -ID saw and evaluated patient. Recommends records from [facility]. Reculture wound. Wound is now growing gram-negative rods. -Cultures growing gram-negative rods, Pseudomonas, sensitive to cefepime. Infectious disease recommends cefepime discontinued vancomycin. -Wound vac in place. Hypertension, Chronic. -Continue home medications. Neuropathy, Chronic -Continue home medication, gabapentin Anxiety, Chronic -Continue home meds, xanax -[facility] Prescription Drug Monitoring Database has been queried and verified prior to prescribing the controlled substance. Depression, Chronic -Continue home medications. DVT prop heparin Code Status: Full code Discussed Condition With: Patient, nurse Discharge Planning: Plan to DC SNF when arranged. (1) Cellulitis Qualifiers: Site of cellulitis of extremity: lower extremity Laterality: left (3) Vascular graft infection Qualifiers: Encounter type: subsequent encounter Qualified Code(s): T82.7XXD - Infection and inflammatory reaction due to other cardiac and vascular devices, implants and grafts, subsequent encounter (4) Postoperative wound dehiscence Qualifiers: Encounter type: subsequent encounter Qualified Code(s): T81.31XD - Disruption of external operation (surgical) wound, not elsewhere classified, subsequent encounter
[2018-07-08] MEDS: Morphine Inj 4 MG/ML Vial IV.PUSH PRN (16:56)
[2018-07-08] MEDS: amLODIPine 10 MG Tablet PO SCH (21:22)
[2018-07-09 05:28] LABS: Baso % (Auto) 0.7 % (0.0-2.0); Eos # (Auto) 0.3 th/mm3 (0.0-0.4); Eos % (Auto) 5.8 % (0.0-4.0); Hematocrit 31.3 % (35.0-46.0); Hemoglobin 10.2 gm/dL (11.6-15.3); Lymph # (Auto) 1.2 th/mm3 (1.0-4.8); Lymph % (Auto) 28.8 % (9.0-44.0); Mean Corpuscular HGB Conc 32.5 % (32.0-36.0); Mean Corpuscular Hemoglobin 29.5 pg (27.0-34.0); Mean Corpuscular Volume 90.7 fL (80.0-100.0); Mean Platelet Volume 6.1 fL (7.0-11.0); Mono # (Auto) 0.4 th/mm3 (0.0-0.9); Mono % (Auto) 8.5 % (0.0-8.0); Neut # (Auto) 2.4 th/mm3 (1.8-7.7); Neut % (Auto) 56.2 % (16.0-70.0); Platelet Count 413 th/mm3 (150-450); Red Blood Count 3.46 mil/mm3 (4.00-5.30); Red Cell Distribution Width 15.9 % (11.6-17.2); White Blood Count 4.3 th/mm3 (4.0-11.0)
[2018-07-09] MEDS ORDERED: Pharmacy Ordered Lab Info OTHER ONE (07:45)
[2018-07-09] MEDS: Vancomycin Inj 1,500 MG in Sodium Chlor 0.9% Inj 500 ML IV.SIG SCH (08:08)
[2018-07-09] MEDS: Gabapentin 300 MG Capsule PO SCH ×3 (08:09→17:00)
[2018-07-09] MEDS: FLUoxetine 20 MG Capsule PO SCH (08:09)
[2018-07-09] MEDS: ALPRAZolam 0.25 MG Tablet PO SCH ×2 (08:09→20:25)
[2018-07-09] MEDS: oxyCODONE/Acetaminophen 10/325 Tablet PO PRN ×3 (08:43→20:26)
[2018-07-09 10:16] LABS: Calcium 9.3 mg/dL (8.5-10.1); Carbon Dioxide 26.3 meq/L (21.0-32.0); Potassium 4.3 meq/L (3.5-5.1)
[2018-07-09 10:18] LABS: Vancomycin,Trough 20.3 mcg/mL (5.0-10.0)
--- NOTE | 2018-07-09 12:52 | P.PNWCN ---
Wound Care Nurse Consult Description: wound consult ordered by for wound management Recommendation: 1. Cleanse left medial wound with normal saline pat dry ,skin prep periwound 2. Maintain functional seal to wound vac 3. Change wound vac dressing every [id number] Wound/Pressure Injury - Patient Status Premedicated for Pain Prior to Dressing Change: Yes - Wound Left Leg Wound Assessment: Ongoing Wound Type: Traumatic Wound Is This a Chronic Wound: No Requested from Provider a Wound Care Consult: No (Jonna ROGER,[facility] seen 07/09) Length: 8.8 Width: 2.6 Depth: 2.4 Wound Bed Appearance: [place], Red Surrounding Tissue Appearance: [place] Surrounding Tissue Temperature: Cool Drainage Description: Serosanguinous Drainage Amount: Minimal Drainage Odor: No Odor Dressing Status: Changed Cleansing Solution: Saline Wound Packing Type: Woundvac Sponge Primary Dressing: Negative Pressure Wound Dressing Wound Dressing Change Date: 07/09/18 - Additional Information Patient to be discharged home with home health changing wound vac every Thursday KCI vac to be delivered to facility. Wound Vac - Wound Vac Left Leg Pressure Setting (mmHg): 125 Mode Setting: Continuous Drainage Description: Serosanguinous Foam type: Black, Other (Single layer of adaptic gauze) Incision - Patient Status Premedicated for Pain Prior to Dressing Change: Yes
[2018-07-09] MEDS: Heparin - SQ 10,000 UNITS/ML Vial SQ SCH (12:57)
--- NOTE | 2018-07-09 15:20 | P.PN ---
Subjective Interval history: Follow visit left lower extremity graft with wound dehiscence, suspected for infection, HTN, neuropathy, anxiety. Patient seen and examined today. Reports she is doing better. Walking around in her room tolerating pain. Denies SOB/ dyspnea. Denies chest pain, palpitations, headaches, dizziness. Denies fevers, chills, n/v/d. Denies dysuria. Physical Exam Vital signs: Vital Signs 07/08/18 16:00 07/08/18 20:00 07/09/18 00:00 Temperature 97.1 F L 98.5 F 98.2 F Pulse Rate 70 75 76 Respiratory Rate 24 18 18 Blood Pressure 125/80 141/71 H 140/67 Pulse Oximetry 94 L 98 95 07/09/18 04:00 07/09/18 07:45 07/09/18 09:22 Temperature 97.9 F 98.6 F Pulse Rate 71 72 Respiratory Rate 16 18 16 Blood Pressure 111/61 151/71 H Pulse Oximetry 95 93 L 07/09/18 11:35 Temperature 97.8 F Pulse Rate 80 Respiratory Rate 20 Blood Pressure 142/82 H Pulse Oximetry 94 L Intake & Output 07/08/18 07/09/18 07/09/18 18:59 06:59 18:59 Intake Total 615 / 615 100 / 100 515 / 515 Balance 615 / 615 100 / 100 515 / 515 Weight 81.193 kg Intake: IV 615 / 615 100 / 100 515 / 515 Maxipime Inj 2,000 MG In NS Inj 100 / 100 100 / 100 100 ML @ 200 mls/hr IV.SIG Q12H LANE Rx#:[id number] Vancomycin Inj 1,500 MG In NS 515 / 515 515 / 515 Inj 500 ML @ 250 mls/hr IV.SIG Q24H LANE Rx#:[id number] Other: Mode Setting Left Leg Continuous Continuous Continuous Narrative: GENERAL: This is a well-nourished, well-developed patient, in no apparent distress. SKIN: Warm and dry HEENT: Normocephalic. Pupils equal round and reactive. Nose without bleeding. Airway patent. NECK: Trachea midline.Supple. CARDIOVASCULAR: Regular rate and rhythm without murmurs, gallops, or rubs. RESPIRATORY: Clear to auscultation. Breath sounds equal bilaterally. No wheezes , rales, or rhonchi. GASTROINTESTINAL: Abdomen soft, non-tender, nondistended. Bowel Sounds normoactive x4. MUSCULOSKELETAL: Extremities without clubbing, cyanosis. Left lower extremity no edema, dehisced wound wound vac in place, small amount serosanguineous. small wound on her ankle area. Left upper extremity PICC line NEUROLOGICAL: Awake and alert. Oriented to place, person. No focal neuro deficit. Moves all extremities. Normal speech. Results - Labs CBC & Chem 7: 07/09/18 04:38 07/09/18 07:44 Laboratory Results - last 24 hr 07/09/18 07/09/18 07/09/18 04:38 04:38 07:44 WBC 4.3 RBC 3.46 L Hgb 10.2 L Hct 31.3 L MCV 90.7 MCH 29.5 MCHC 32.5 RDW 15.9 Plt Count 413 MPV 6.1 L Neut % (Auto) 56.2 Lymph % (Auto) 28.8 [place] % (Auto) 8.5 H Eos % (Auto) 5.8 H Baso % (Auto) 0.7 Neut # (Auto) 2.4 Lymph # (Auto) 1.2 [place] # (Auto) 0.4 Eos # (Auto) 0.3 Baso # (Auto) 0.0 WBC Differential . Differential Comment Auto diff final Sodium 144 Potassium 4.3 Chloride 108 H Carbon Dioxide 26.3 Anion Gap 10 BUN 15 Creatinine 1.04 H 1.02 H Estimated GFR 52 L 53 L Random Glucose 81 Calcium 9.3 Vancomycin Trough 20.3 H Microbiology 07/06/18 16:10 Wound - Leg Gram Stain - Final 07/06/18 16:10 Wound - Leg Wound Culture - Final Pseudomonas aeruginosa - Procedures None Assessment and Plan - Assessment (1) Cellulitis Code(s): L03.90 - Cellulitis, unspecified Status: Acute (2) PAD (peripheral artery disease) Code(s): I73.9 - Peripheral vascular disease, unspecified Status: Acute (3) Vascular graft infection Code(s): T82.7XXA - Infection and inflammatory reaction due to other cardiac and vascular devices, implants and grafts, initial encounter Status: Acute (4) Postoperative wound dehiscence Code(s): T81.31XA - Disruption of external operation (surgical) wound, not elsewhere classified, initial encounter Status: Acute - Plan 73-year-old female with peripheral artery disease, left femoral-popliteal bypass in April with subsequent graft infection, reportedly with MRSA, redo femoropoplitea at [facility], however with repeat wound dehiscence in the left lower leg. Left lower extremity graft with wound dehiscence, suspected infection Continue vancomycin for reported MRSA from [facility]. She has LUE PICC line Due to possible superinfection will consult infectious disease. -Vascular surgery consulted. Recommending wound care, rehab -Pain meds with Bowel Regimen. -[employer] Prescription Drug Monitoring Database has been queried and verified prior to prescribing the controlled substance. -ID saw and evaluated patient. Recommends records from [facility]. Reculture wound. Wound is now growing gram-negative rods. -Cultures growing gram-negative rods, Pseudomonas, sensitive to cefepime. Infectious disease recommends cefepime IV and discontinue vancomycin. -Wound vac in place -DC pending Placement Hypertension, Chronic. -Continue home medications. Neuropathy, Chronic -Continue home medication, gabapentin Anxiety, Chronic -Continue home meds, xanax -[employer] Prescription Drug Monitoring Database has been queried and verified prior to prescribing the controlled substance. Depression, Chronic -Continue home medications. DVT prop heparin Code Status: Full code Discussed Condition With: Patient, nursing Discharge Planning: Plan to DC SNF when arranged, or C. Waiting for wound Vac machine. (1) Cellulitis Qualifiers: Site of cellulitis of extremity: lower extremity Laterality: left (3) Vascular graft infection Qualifiers: Encounter type: subsequent encounter Qualified Code(s): T82.7XXD - Infection and inflammatory reaction due to other cardiac and vascular devices, implants and grafts, subsequent encounter (4) Postoperative wound dehiscence Qualifiers: Encounter type: subsequent encounter Qualified Code(s): T81.31XD - Disruption of external operation (surgical) wound, not elsewhere classified, subsequent encounter
[2018-07-09] MEDS: amLODIPine 10 MG Tablet PO SCH (20:24)
[2018-07-09] MEDS: Morphine Inj 4 MG/ML Vial IV.PUSH PRN (22:32)
[2018-07-10] MEDS: oxyCODONE/Acetaminophen 10/325 Tablet PO PRN ×5 (00:41→21:06)
[2018-07-10] MEDS: Heparin - SQ 10,000 UNITS/ML Vial SQ SCH ×3 (00:42→23:30)
--- NOTE | 2018-07-10 08:44 | P.PN ---
Subjective Interval history: Patient seen and examined this morning, their vitals are stable and the patient is afebrile. States she had trouble swallowing her potassium and vomited tablet. Notes some drainage on her leg. Reports significant pain around site. Wound vac in place, drainage noted. Wants to go to rehab. Physical Exam Vital signs: Vital Signs 07/09/18 09:22 07/09/18 11:35 07/09/18 15:47 Temperature 97.8 F 98.3 F Pulse Rate 80 81 Respiratory Rate 16 20 20 Blood Pressure 142/82 H 150/83 H Pulse Oximetry 94 L 94 L 07/09/18 18:45 07/09/18 20:00 07/09/18 22:28 Temperature 98.2 F 98 F Pulse Rate 75 75 Respiratory Rate 18 17 18 Blood Pressure 140/76 148/78 H Pulse Oximetry 93 L 97 07/09/18 22:36 07/10/18 00:00 07/10/18 04:00 Temperature 98.1 F 98 F Pulse Rate 78 74 Respiratory Rate 18 17 17 Blood Pressure 142/75 H 140/75 Pulse Oximetry 96 97 07/10/18 05:37 Temperature Pulse Rate Respiratory Rate 20 Blood Pressure Pulse Oximetry Intake & Output 07/09/18 07/10/18 07/10/18 18:59 06:59 18:59 Intake Total 615 / 615 542 / 542 Balance 615 / 615 542 / 542 Weight 81.2 kg Intake: IV 615 / 615 100 / 100 Maxipime Inj 2,000 MG In NS Inj 100 / 100 100 / 100 100 ML @ 200 mls/hr IV.SIG Q12H LANE Rx#:[id number] Vancomycin Inj 1,500 MG In NS 515 / 515 Inj 500 ML @ 250 mls/hr IV.SIG Q24H LANE Rx#:[id number] Oral 442 / 442 Other: Mode Setting Left Leg Continuous Continuous # Voids 3 Date of Last Bowel Movement 07/09/18 # Bowel Movements 1 Narrative: GENERAL: This is a well-nourished, well-developed patient, in no apparent distress. SKIN: Warm and dry HEENT: Normocephalic. Pupils equal round and reactive. Nose without bleeding. Airway patent. NECK: Trachea midline.Supple. CARDIOVASCULAR: Regular rate and rhythm without murmurs, gallops, or rubs. RESPIRATORY: Clear to auscultation. Breath sounds equal bilaterally. No wheezes , rales, or rhonchi. GASTROINTESTINAL: Abdomen soft, non-tender, nondistended. Bowel Sounds normoactive x4. MUSCULOSKELETAL: Extremities without clubbing, cyanosis. Left lower extremity no edema, dehisced wound wound vac in place, small amount serosanguineous. small wound on her ankle area. Left upper extremity PICC line NEUROLOGICAL: Awake and alert. Oriented to place, person. No focal neuro deficit. Moves all extremities. Normal speech. Results - Labs CBC & Chem 7: 07/09/18 04:38 07/09/18 07:44 Laboratory Results - last 24 hr 07/09/18 07:44 Sodium 144 Potassium 4.3 Chloride 108 H Carbon Dioxide 26.3 Anion Gap 10 BUN 15 Creatinine 1.02 H Estimated GFR 53 L Random Glucose 81 Calcium 9.3 Vancomycin Trough 20.3 H - Procedures None Assessment and Plan - Assessment (1) Cellulitis Code(s): L03.90 - Cellulitis, unspecified Status: Acute (2) PAD (peripheral artery disease) Code(s): I73.9 - Peripheral vascular disease, unspecified Status: Acute (3) Vascular graft infection Code(s): T82.7XXA - Infection and inflammatory reaction due to other cardiac and vascular devices, implants and grafts, initial encounter Status: Acute (4) Postoperative wound dehiscence Code(s): T81.31XA - Disruption of external operation (surgical) wound, not elsewhere classified, initial encounter Status: Acute - Plan In summary this is a 73-year-old female patient with a medical history that is significant peripheral artery disease, left femoropopliteal bypass in April with subsequent graft infection with reported MRSA, redo femoropopliteal at [facility] who presented to [place] [facility] with a repeat wound dehiscence of left lower extremity. Left lower extremity graft wound dehiscence -Vascular surgery is following: Currently with wound VAC, patient has been cleared for DC to rehab from a vascular standpoint with outpatient follow-up. -Wound care following -Infectious disease following: Cultures growing gram-negative rods, Pseudomonas. Status post completion of vancomycin, outpatient cefepime, patient follow-up with Dr. Hoyt in 1 week Hypertension -Continue home medication Neuropathy -Continue home medications Anxiety and depression -Continue home medications -Previous physician looked patient up on a force prior to prescribing they are controlled substances Discharge Planning: Patient medically clear for discharge with outpatient antibiotics arranged by infectious disease and outpatient follow-up with vascular surgery. Per case management patient is being reviewed for rehab by [facility]. Discharge is pending placement. (1) Cellulitis Qualifiers: Site of cellulitis of extremity: lower extremity Laterality: left (3) Vascular graft infection Qualifiers: Encounter type: subsequent encounter Qualified Code(s): T82.7XXD - Infection and inflammatory reaction due to other cardiac and vascular devices, implants and grafts, subsequent encounter (4) Postoperative wound dehiscence Qualifiers: Encounter type: subsequent encounter Qualified Code(s): T81.31XD - Disruption of external operation (surgical) wound, not elsewhere classified, subsequent encounter
[2018-07-10] MEDS: Gabapentin 300 MG Capsule PO SCH ×3 (08:57→17:28)
[2018-07-10] MEDS: ALPRAZolam 0.25 MG Tablet PO SCH ×2 (08:58→21:08)
[2018-07-10] MEDS: FLUoxetine 20 MG Capsule PO SCH (08:59)
[2018-07-10] MEDS: Morphine Inj 4 MG/ML Vial IV.PUSH PRN (10:49)
[2018-07-10] MEDS: amLODIPine 10 MG Tablet PO SCH (21:07)
[2018-07-10] MEDS: Carisoprodol 350 MG Tablet PO PRN (21:16)
--- NOTE | 2018-07-11 08:03 | P.PN ---
Subjective Interval history: Patient seen and examined this morning, their vitals are stable and the patient is afebrile. States she has pain in the leg. Otherwise resting comfortably. Denies CP or SOB. Physical Exam Vital signs: Vital Signs 07/10/18 10:05 07/10/18 10:22 07/10/18 12:00 Temperature 97.0 F L Pulse Rate 63 Respiratory Rate 16 16 18 Blood Pressure 105/63 Pulse Oximetry 97 07/10/18 16:00 07/10/18 17:04 07/10/18 20:00 Temperature 98.2 F 98.6 F Pulse Rate 73 76 Respiratory Rate 19 16 18 Blood Pressure 136/65 151/77 H Pulse Oximetry 93 L 97 07/11/18 00:00 07/11/18 04:00 Temperature 98.6 F 98.1 F Pulse Rate 71 76 Respiratory Rate 18 18 Blood Pressure 130/67 133/65 Pulse Oximetry 71 L 95 Intake & Output 07/10/18 07/11/18 07/11/18 18:59 06:59 18:59 Intake Total 875 / 875 100 / 100 Balance 875 / 875 100 / 100 Weight 86.1 kg Intake: IV 100 / 100 100 / 100 Maxipime Inj 2,000 MG In NS Inj 100 / 100 100 / 100 100 ML @ 200 mls/hr IV.SIG Q12H LANE Rx#:[id number] Oral 775 / 775 Other: # Voids 5 3 Date of Last Bowel Movement 07/10/18 # Bowel Movements 0 Narrative: GENERAL: This is a well-nourished, well-developed patient, in no apparent distress. SKIN: Warm and dry HEENT: Normocephalic. Pupils equal round and reactive. Nose without bleeding. Airway patent. NECK: Trachea midline.Supple. CARDIOVASCULAR: Regular rate and rhythm without murmurs, gallops, or rubs. RESPIRATORY: Clear to auscultation. Breath sounds equal bilaterally. No wheezes , rales, or rhonchi. GASTROINTESTINAL: Abdomen soft, non-tender, nondistended. Bowel Sounds normoactive x4. MUSCULOSKELETAL: Extremities without clubbing, cyanosis. Left lower extremity no edema, dehisced wound, wound vac in place, small amount serosanguineous. small wound on her ankle area. Left upper extremity PICC line NEUROLOGICAL: Awake and alert. Oriented to place, person. No focal neuro deficit. Moves all extremities. Normal speech. Results - Labs CBC & Chem 7: 07/09/18 04:38 07/11/18 05:44 Laboratory Results - last 24 hr 07/11/18 05:44 Creatinine 1.02 H Estimated GFR 53 L - Procedures None Assessment and Plan - Assessment (1) Cellulitis Code(s): L03.90 - Cellulitis, unspecified Status: Acute (2) PAD (peripheral artery disease) Code(s): I73.9 - Peripheral vascular disease, unspecified Status: Acute (3) Vascular graft infection Code(s): T82.7XXA - Infection and inflammatory reaction due to other cardiac and vascular devices, implants and grafts, initial encounter Status: Acute (4) Postoperative wound dehiscence Code(s): T81.31XA - Disruption of external operation (surgical) wound, not elsewhere classified, initial encounter Status: Acute - Plan In summary this is a 73-year-old female patient with a medical history that is significant peripheral artery disease, left femoropopliteal bypass in April with subsequent graft infection with reported MRSA, redo femoropopliteal at [facility] who presented to [facility] with a repeat wound dehiscence of left lower extremity. Left lower extremity graft wound dehiscence -Vascular surgery is following: Currently with wound VAC, patient has been cleared for DC to rehab from a vascular standpoint with outpatient follow-up. -Wound care following -Infectious disease following: Cultures growing gram-negative rods, Pseudomonas. Status post completion of vancomycin, outpatient cefepime, patient follow-up with Dr. Hoyt in 1 week Hypertension -Continue home medication Neuropathy -Continue home medications Anxiety and depression -Continue home medications -Previous physician looked patient up on a force prior to prescribing controlled substances Discharge Planning: Patient medically clear for discharge with outpatient antibiotics arranged by infectious disease and outpatient follow-up with vascular surgery. Per case management patient is being [facility] for [facility]hab [facility], with possible d/c there on Thursday. (1) Cellulitis Qualifiers: Site of cellulitis of extremity: lower extremity Laterality: left (3) Vascular graft infection Qualifiers: Encounter type: subsequent encounter Qualified Code(s): T82.7XXD - Infection and inflammatory reaction due to other cardiac and vascular devices, implants and grafts, subsequent encounter (4) Postoperative wound dehiscence Qualifiers: Encounter type: subsequent encounter Qualified Code(s): T81.31XD - Disruption of external operation (surgical) wound, not elsewhere classified, subsequent encounter
[2018-07-11] MEDS: Gabapentin 300 MG Capsule PO SCH ×3 (08:07→18:51)
[2018-07-11] MEDS: FLUoxetine 20 MG Capsule PO SCH (08:07)
[2018-07-11] MEDS: oxyCODONE/Acetaminophen 10/325 Tablet PO PRN ×4 (08:07→21:57)
[2018-07-11] MEDS: ALPRAZolam 0.25 MG Tablet PO SCH ×2 (08:08→21:56)
[2018-07-11] MEDS: Heparin - SQ 10,000 UNITS/ML Vial SQ SCH ×2 (12:13→22:00)
[2018-07-11] MEDS: Carisoprodol 350 MG Tablet PO PRN ×2 (15:27→21:56)
[2018-07-11] MEDS: Morphine Inj 4 MG/ML Vial IV.PUSH PRN ×2 (18:49→23:54)
[2018-07-11] MEDS: amLODIPine 10 MG Tablet PO SCH (21:55)
[2018-07-12] MEDS: oxyCODONE/Acetaminophen 10/325 Tablet PO PRN ×4 (03:24→21:58)
[2018-07-12 04:46] LABS: Baso % (Auto) 0.9 % (0.0-2.0); Eos # (Auto) 0.3 th/mm3 (0.0-0.4); Eos % (Auto) 5.5 % (0.0-4.0); Hematocrit 33.1 % (35.0-46.0); Hemoglobin 10.7 gm/dL (11.6-15.3); Lymph # (Auto) 1.6 th/mm3 (1.0-4.8); Lymph % (Auto) 30.9 % (9.0-44.0); Mean Corpuscular HGB Conc 32.5 % (32.0-36.0); Mean Corpuscular Hemoglobin 29.3 pg (27.0-34.0); Mean Corpuscular Volume 90.3 fL (80.0-100.0); Mean Platelet Volume 6.2 fL (7.0-11.0); Mono # (Auto) 0.4 th/mm3 (0.0-0.9); Mono % (Auto) 7.8 % (0.0-8.0); Neut # (Auto) 2.8 th/mm3 (1.8-7.7); Neut % (Auto) 54.9 % (16.0-70.0); Platelet Count 378 th/mm3 (150-450); Red Blood Count 3.67 mil/mm3 (4.00-5.30); Red Cell Distribution Width 15.4 % (11.6-17.2); White Blood Count 5.1 th/mm3 (4.0-11.0)
[2018-07-12 05:14] LABS: Calcium 8.6 mg/dL (8.5-10.1); Carbon Dioxide 25.8 meq/L (21.0-32.0); Potassium 3.7 meq/L (3.5-5.1)
--- NOTE | 2018-07-12 08:13 | P.PN ---
Subjective Interval history: Patient seen and examined this morning, their vitals are stable and the patient is afebrile. States she pulled out wound vac drain in her sleep. That caused her pain. Wants to be on a regular diet. No other complaints or concerns this am. Physical Exam Vital signs: Vital Signs 07/11/18 12:00 07/11/18 16:00 07/11/18 20:00 Temperature 97.5 F L 98 F 98.6 F Pulse Rate 94 H 83 69 Respiratory Rate 20 20 18 Blood Pressure 135/79 119/64 138/69 Pulse Oximetry 94 L 96 97 07/12/18 00:00 07/12/18 04:00 07/12/18 04:07 Temperature 98.2 F 98.4 F Pulse Rate 90 70 Respiratory Rate 18 18 18 Blood Pressure 136/69 131/70 Pulse Oximetry 97 95 Intake & Output 07/11/18 07/12/18 07/12/18 18:59 06:59 18:59 Intake Total 100 / 100 100 / 100 Output Total 5 / 5 Balance 95 / 95 100 / 100 Weight 85.1 kg Intake: IV 100 / 100 100 / 100 Maxipime Inj 2,000 MG In NS Inj 100 / 100 100 / 100 100 ML @ 200 mls/hr IV.SIG Q12H LANE Rx#:[id number] Output: Urine 4 / 4 Stool 1 / Other: Mode Setting Left Leg Continuous Continuous # Voids 2 Date of Last Bowel Movement 07/11/18 07/11/18 Narrative: GENERAL: This is a well-nourished, well-developed patient, in no apparent distress. SKIN: Warm and dry HEENT: Normocephalic. Pupils equal round and reactive. Nose without bleeding. Airway patent. NECK: Trachea midline.Supple. CARDIOVASCULAR: Regular rate and rhythm without murmurs, gallops, or rubs. RESPIRATORY: Clear to auscultation. Breath sounds equal bilaterally. No wheezes , rales, or rhonchi. GASTROINTESTINAL: Abdomen soft, non-tender, nondistended. Bowel Sounds normoactive x4. MUSCULOSKELETAL: Extremities without clubbing, cyanosis. Left lower extremity no edema, dehisced wound, wound vac in place, small amount serosanguineous. small wound on her ankle area. Left upper extremity PICC line NEUROLOGICAL: Awake and alert. Oriented to place, person. No focal neuro deficit. Moves all extremities. Normal speech. Results - Labs CBC & Chem 7: 07/12/18 04:16 07/12/18 04:16 Laboratory Results - last 24 hr 07/12/18 07/12/18 04:16 04:16 WBC 5.1 RBC 3.67 L Hgb 10.7 L Hct 33.1 L MCV 90.3 MCH 29.3 MCHC 32.5 RDW 15.4 Plt Count 378 MPV 6.2 L Neut % (Auto) 54.9 Lymph % (Auto) 30.9 [place] % (Auto) 7.8 Eos % (Auto) 5.5 H Baso % (Auto) 0.9 Neut # (Auto) 2.8 Lymph # (Auto) 1.6 [place] # (Auto) 0.4 Eos # (Auto) 0.3 Baso # (Auto) 0.0 WBC Differential . Differential Comment Auto diff final Sodium 142 Potassium 3.7 Chloride 106 Carbon Dioxide 25.8 Anion Gap 10 BUN 19 H Creatinine 1.06 H Estimated GFR 51 L Random Glucose 94 Calcium 8.6 - Procedures None Assessment and Plan - Assessment (1) Cellulitis Code(s): L03.90 - Cellulitis, unspecified Status: Acute (2) PAD (peripheral artery disease) Code(s): I73.9 - Peripheral vascular disease, unspecified Status: Acute (3) Vascular graft infection Code(s): T82.7XXA - Infection and inflammatory reaction due to other cardiac and vascular devices, implants and grafts, initial encounter Status: Acute (4) Postoperative wound dehiscence Code(s): T81.31XA - Disruption of external operation (surgical) wound, not elsewhere classified, initial encounter Status: Acute - Plan In summary this is a 73-year-old female patient with a medical history that is significant peripheral artery disease, left femoropopliteal bypass in April with subsequent graft infection with reported MRSA, redo femoropopliteal at [facility] who presented to [place] [facility] with a repeat wound dehiscence of left lower extremity. Left lower extremity graft wound dehiscence -Vascular surgery is following: Currently with wound VAC, patient has been cleared for DC to rehab from a vascular standpoint with outpatient follow-up. -Wound care following -Infectious disease following: Cultures growing gram-negative rods, Pseudomonas. Status post completion of vancomycin. Continue outpatient cefepime 2 g IV x 2 weeks, patient follow-up with Dr. Hoyt in 1 week Hypertension -Continue home medication Neuropathy -Continue home medications Anxiety and depression -Continue home medications -Previous physician looked patient up on a force prior to prescribing controlled substances Discharge Planning: Patient medically clear for discharge with outpatient antibiotics arranged by infectious disease and outpatient follow-up with vascular surgery. Per case management patient is being reviewed for rehab [facility], with possible d/c there on Thursday. Patient also understands that home health is an option. (1) Cellulitis Qualifiers: Site of cellulitis of extremity: lower extremity Laterality: left (3) Vascular graft infection Qualifiers: Encounter type: subsequent encounter Qualified Code(s): T82.7XXD - Infection and inflammatory reaction due to other cardiac and vascular devices, implants and grafts, subsequent encounter (4) Postoperative wound dehiscence Qualifiers: Encounter type: subsequent encounter Qualified Code(s): T81.31XD - Disruption of external operation (surgical) wound, not elsewhere classified, subsequent encounter
[2018-07-12] MEDS: Gabapentin 300 MG Capsule PO SCH ×3 (10:25→17:05)
[2018-07-12] MEDS: FLUoxetine 20 MG Capsule PO SCH (10:25)
[2018-07-12] MEDS: ALPRAZolam 0.25 MG Tablet PO SCH ×2 (10:26→21:43)
[2018-07-12] MEDS: Heparin - SQ 10,000 UNITS/ML Vial SQ SCH ×2 (10:26→22:02)
[2018-07-12] MEDS: Carisoprodol 350 MG Tablet PO PRN ×2 (13:09→22:10)
--- NOTE | 2018-07-12 14:15 | P.DCO ---
- Physical Therapy Order: Evaluate and treat - Home Health Nursing Order: Medical education, Wound care and dressing changes Instructions: Wound Vac, see attached - Case Management Consult Yes - Certification I have seen patient Micheline Overton on 07/12/18. My clinical findings support the need for the requested home health care services because: Injectable medication education/administration I certify that my clinical findings support that this patient is homebound because: Need for psychosocial assistance
[2018-07-12] MEDS: amLODIPine 10 MG Tablet PO SCH (21:43)
[2018-07-13] MEDS: oxyCODONE/Acetaminophen 10/325 Tablet PO PRN ×4 (05:39→20:48)
[2018-07-13] MEDS: Gabapentin 300 MG Capsule PO SCH ×3 (08:15→17:36)
[2018-07-13] MEDS: ALPRAZolam 0.25 MG Tablet PO SCH ×2 (08:15→20:49)
[2018-07-13] MEDS: FLUoxetine 20 MG Capsule PO SCH (08:16)
[2018-07-13] MEDS: Morphine Inj 4 MG/ML Vial IV.PUSH PRN ×2 (11:29→15:52)
[2018-07-13] MEDS: Heparin - SQ 10,000 UNITS/ML Vial SQ SCH (11:29)
[2018-07-13] MEDS: Carisoprodol 350 MG Tablet PO PRN ×2 (14:27→20:48)
--- NOTE | 2018-07-13 14:45 | P.PNWCN ---
Wound Care Nurse Consult Description: wound consult ordered by for wound management Recommendation: 1. Cleanse left medial wound with normal saline pat dry ,skin prep periwound 2. Maintain functional seal to wound vac 3. Change wound vac dressing every [id number] Wound/Pressure Injury - Patient Status Premedicated for Pain Prior to Dressing Change: Yes - Wound Left Leg Wound Assessment: Ongoing Wound Type: Laceration Is This a Chronic Wound: Yes Requested from Provider a Wound Care Consult: No (Jonna ROGER,[facility] seen 07/13) Length: 8.3 Width: 2.4 Depth: 2.2 Wound Bed Appearance: [place], Red Surrounding Tissue Appearance: [place] Surrounding Tissue Temperature: Cool Drainage Description: Serosanguinous Drainage Amount: Scant Drainage Odor: No Odor Dressing Status: Changed Cleansing Solution: Saline Wound Packing Type: Woundvac Sponge Primary Dressing: Negative Pressure Wound Dressing Wound Dressing Change Date: 07/13/18 - Additional Information Patient to be discharged home with home health changing wound vac every Thursday KCI vac to be delivered to facility. Wound Vac - Wound Vac Left Leg Pressure Setting (mmHg): 125 Mode Setting: Continuous Drainage Description: Serosanguinous, Serous Foam type: Black, Other (single layer of adaptic gauze) Incision - Patient Status Premedicated for Pain Prior to Dressing Change: Yes
--- NOTE | 2018-07-13 18:37 | P.PNIM ---
Subjective Interval history: Mrs. Overton was afebrile with stable VS overnight. Patient reports continued pain in LLE associated with wound vacuum. No reported chest pain, shortness of breath, abnormal bowel movements or abnormal urination. Patient reports feeling lump in upper leg but can not currently feel it. Discussed rehab benefits; patient agreeable to rehab for better wound care Physical Exam Vital signs: Vital Signs 07/12/18 21:50 07/13/18 00:40 07/13/18 05:45 Temperature 98 F 97.8 F 98 F Pulse Rate 68 66 64 Respiratory Rate 17 18 17 Blood Pressure 117/66 118/69 120/70 Pulse Oximetry 97 98 97 07/13/18 08:07 07/13/18 12:00 07/13/18 16:00 Temperature 97.4 F L 98.2 F 97.8 F Pulse Rate 70 84 73 Respiratory Rate 20 20 Blood Pressure 130/68 133/65 161/73 H Pulse Oximetry 99 98 97 Intake & Output 07/12/18 07/13/18 07/13/18 18:59 06:59 18:59 Intake Total 1700 / 1700 1495 / 1495 100 / 100 Balance 1700 / 1700 1495 / 1495 100 / 100 Weight 85.5 kg Intake: IV 100 / 100 100 / 100 100 / 100 Maxipime Inj 2,000 MG In NS Inj 100 / 100 100 / 100 100 / 100 100 ML @ 200 mls/hr IV.SIG Q12H LANE Rx#:[id number] Oral 1600 / 1600 1395 / 1395 Other: Mode Setting Left Leg Continuous Continuous Continuous # Voids 5 2 5 Date of Last Bowel Movement 07/12/18 # Bowel Movements 1 0 1 Narrative: GENERAL: no apparent distress. SKIN: Warm and dry. LLE with dehisced wound as below HEENT: EOM grossly I. PERRLA NECK: Trachea midline.Supple. CARDIOVASCULAR: Regular rate and rhythm without murmurs. Normal perfusion RESPIRATORY: CTAB; normal rate GASTROINTESTINAL: Abdomen soft, non-tender, nondistended. Bowel Sounds normal MUSCULOSKELETAL: Extremities without edema. No suggestion of DVT. G Left lower extremity -dehisced wound, wound vac in place, small amount serosanguineous.Left upper extremity PICC line NEUROLOGICAL: Awake and alert. Grossly normal CN. Grossly normal peripheral motor/sensory function Results - Labs CBC & Chem 7: 07/12/18 04:16 07/13/18 05:45 Laboratory Results - last 24 hr 07/13/18 05:45 Creatinine 0.95 Estimated GFR 58 L - Procedures None Assessment and Plan - Assessment (1) Cellulitis Code(s): L03.90 - Cellulitis, unspecified Status: Acute (2) PAD (peripheral artery disease) Code(s): I73.9 - Peripheral vascular disease, unspecified Status: Acute (3) Vascular graft infection Code(s): T82.7XXA - Infection and inflammatory reaction due to other cardiac and vascular devices, implants and grafts, initial encounter Status: Acute (4) Postoperative wound dehiscence Code(s): T81.31XA - Disruption of external operation (surgical) wound, not elsewhere classified, initial encounter Status: Acute - Plan In summary this is a 73-year-old female patient with a medical history that is significant peripheral artery disease, left femoropopliteal bypass in April with 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 Left lower extremity graft wound dehiscence -Vascular surgery is following: Currently with wound VAC, patient has been cleared for DC to rehab from a vascular standpoint with outpatient follow-up. -Wound care following -Infectious disease following: Cultures growing gram-negative rods, Pseudomonas. Status post completion of vancomycin. Continue outpatient cefepime 2 g IV x 2 weeks, patient follow-up with Dr. Hoyt in 1 week Hypertension -Continue home medications Neuropathy -Continue home medications Anxiety and depression -Continue home medications Code Status: Full code Discharge Planning: Patient agreeable to rehab; will attempt placement (1) Cellulitis Qualifiers: Site of cellulitis of extremity: lower extremity Laterality: left (3) Vascular graft infection Qualifiers: Encounter type: subsequent encounter Qualified Code(s): T82.7XXD - Infection and inflammatory reaction due to other cardiac and vascular devices, implants and grafts, subsequent encounter (4) Postoperative wound dehiscence Qualifiers: Encounter type: subsequent encounter Qualified Code(s): T81.31XD - Disruption of external operation (surgical) wound, not elsewhere classified, subsequent encounter
[2018-07-13] MEDS: amLODIPine 10 MG Tablet PO SCH (20:49)
[2018-07-13] MEDS ORDERED: Morphine Inj 4 MG/ML Vial IV.PUSH PRN (22:28)
[2018-07-14] MEDS: Heparin - SQ 10,000 UNITS/ML Vial SQ SCH ×2 (03:02→11:10)
[2018-07-14 05:36] LABS: Baso % (Auto) 0.9 % (0.0-2.0); Eos # (Auto) 0.2 th/mm3 (0.0-0.4); Eos % (Auto) 4.3 % (0.0-4.0); Hematocrit 36.1 % (35.0-46.0); Hemoglobin 11.6 gm/dL (11.6-15.3); Lymph # (Auto) 1.3 th/mm3 (1.0-4.8); Lymph % (Auto) 25.1 % (9.0-44.0); Mean Corpuscular HGB Conc 32.2 % (32.0-36.0); Mean Corpuscular Hemoglobin 29.1 pg (27.0-34.0); Mean Corpuscular Volume 90.1 fL (80.0-100.0); Mean Platelet Volume 6.2 fL (7.0-11.0); Mono # (Auto) 0.5 th/mm3 (0.0-0.9); Mono % (Auto) 8.6 % (0.0-8.0); Neut # (Auto) 3.2 th/mm3 (1.8-7.7); Neut % (Auto) 61.1 % (16.0-70.0); Platelet Count 331 th/mm3 (150-450); Red Cell Distribution Width 15.7 % (11.6-17.2); White Blood Count 5.3 th/mm3 (4.0-11.0)
[2018-07-14] MEDS: Carisoprodol 350 MG Tablet PO PRN ×3 (05:38→21:51)
[2018-07-14] MEDS: oxyCODONE/Acetaminophen 10/325 Tablet PO PRN ×3 (05:39→21:55)
[2018-07-14 05:59] LABS: Calcium 8.8 mg/dL (8.5-10.1); Carbon Dioxide 24.7 meq/L (21.0-32.0); Potassium 3.7 meq/L (3.5-5.1)
[2018-07-14] MEDS: Gabapentin 300 MG Capsule PO SCH ×3 (09:27→17:58)
[2018-07-14] MEDS: FLUoxetine 20 MG Capsule PO SCH (09:27)
[2018-07-14] MEDS: ALPRAZolam 0.25 MG Tablet PO SCH ×2 (09:27→21:51)
--- NOTE | 2018-07-14 10:26 | P.PNIM ---
Subjective Interval history: Mrs. Overton was afebrile with stable vital signs overnight. Patient reports that she is doing well currently. She has been trying to avoid Morphine PRN for pain. Patient does not report chest pain, shortness of breath, abnormal bowel movements, or abnormal urination. Patient reports desire to go to rehab if possible. Physical Exam Vital signs: Vital Signs 07/13/18 12:00 07/13/18 16:00 07/13/18 21:50 Temperature 98.2 F 97.8 F 97.9 F Pulse Rate 84 73 80 Respiratory Rate 20 20 18 Blood Pressure 133/65 161/73 H 128/80 Pulse Oximetry 98 97 98 07/14/18 00:15 07/14/18 04:00 07/14/18 08:00 Temperature 98 F 97.8 F 97.5 F L Pulse Rate 80 65 79 Respiratory Rate 18 17 18 Blood Pressure 120/67 125/65 151/72 H Pulse Oximetry 99 98 98 Intake & Output 07/13/18 07/14/18 07/14/18 18:59 06:59 18:59 Intake Total 100 / 100 900 / 900 Balance 100 / 100 900 / 900 Intake: IV 100 / 100 100 / 100 Maxipime Inj 2,000 MG In NS Inj 100 / 100 100 / 100 100 ML @ 200 mls/hr IV.SIG Q12H LANE Rx#:[id number] Oral 800 / 800 Other: Mode Setting Left Leg Continuous Continuous Continuous # Voids 5 1 1 # Bowel Movements 1 0 Narrative: GENERAL: no apparent distress. SKIN: Warm and dry. LLE with dehisced wound as below HEENT: EOM grossly I. PERRLA CARDIOVASCULAR: Regular rate and rhythm without murmurs. Normal perfusion RESPIRATORY: CTAB; normal rate GASTROINTESTINAL: Abdomen soft, non-tender, nondistended. Bowel Sounds normal MUSCULOSKELETAL: Extremities without edema. No suggestion of DVT. Left lower extremity -dehisced wound, wound vac in place, small amount serosanguineous.Left upper extremity PICC line NEUROLOGICAL: Awake and alert. Grossly normal CN. Grossly normal peripheral motor/sensory function Results - Labs CBC & Chem 7: 07/14/18 05:10 07/14/18 05:10 Laboratory Results - last 24 hr 07/14/18 07/14/18 05:10 05:10 WBC 5.3 RBC 4.00 Hgb 11.6 Hct 36.1 MCV 90.1 MCH 29.1 MCHC 32.2 RDW 15.7 Plt Count 331 MPV 6.2 L Neut % (Auto) 61.1 Lymph % (Auto) 25.1 Banner % (Auto) 8.6 H Eos % (Auto) 4.3 H Baso % (Auto) 0.9 Neut # (Auto) 3.2 Lymph # (Auto) 1.3 Banner # (Auto) 0.5 Eos # (Auto) 0.2 Baso # (Auto) 0.0 WBC Differential . Differential Comment Auto diff final Sodium 139 Potassium 3.7 Chloride 104 Carbon Dioxide 24.7 Anion Gap 10 BUN 15 Creatinine 1.07 H Estimated GFR 51 L Random Glucose 94 Calcium 8.8 - Procedures None Assessment and Plan - Assessment (1) Cellulitis Code(s): L03.90 - Cellulitis, unspecified Status: Acute (2) PAD (peripheral artery disease) Code(s): I73.9 - Peripheral vascular disease, unspecified Status: Acute (3) Vascular graft infection Code(s): T82.7XXA - Infection and inflammatory reaction due to other cardiac and vascular devices, implants and grafts, initial encounter Status: Acute (4) Postoperative wound dehiscence Code(s): T81.31XA - Disruption of external operation (surgical) wound, not elsewhere classified, initial encounter Status: Acute - Plan In summary this is a 73-year-old female patient with a medical history that is significant peripheral artery disease, left femoropopliteal bypass in April with 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 who presented to [place] [facility] with a repeat wound dehiscence of left lower extremity. Left lower extremity graft wound dehiscence -Vascular surgery is following: Currently with wound VAC, patient has been cleared for DC to rehab from a vascular standpoint with outpatient follow-up. -Wound care following -Infectious disease following: Cultures growing gram-negative rods, Pseudomonas. Status post completion of vancomycin. Continue outpatient cefepime 2 g IV x 2 weeks, patient follow-up with Dr. Hoyt in 1 week -will change Morphine IV for breakthrough pain to PO Dilaudid for dressing changes Hypertension -Continue home medications Neuropathy -Continue home medications Anxiety and depression -Continue home medications Code Status: Full code Discharge Planning: Patient agreeable to rehab; will attempt placement (1) Cellulitis Qualifiers: Site of cellulitis of extremity: lower extremity Laterality: left (3) Vascular graft infection Qualifiers: Encounter type: subsequent encounter Qualified Code(s): T82.7XXD - Infection and inflammatory reaction due to other cardiac and vascular devices, implants and grafts, subsequent encounter (4) Postoperative wound dehiscence Qualifiers: Encounter type: subsequent encounter Qualified Code(s): T81.31XD - Disruption of external operation (surgical) wound, not elsewhere classified, subsequent encounter
[2018-07-14] MEDS: amLODIPine 10 MG Tablet PO SCH (21:50)
[2018-07-15] MEDS: Heparin - SQ 10,000 UNITS/ML Vial SQ SCH ×3 (02:29→23:08)
[2018-07-15] MEDS: ALPRAZolam 0.25 MG Tablet PO SCH ×2 (08:58→20:38)
[2018-07-15] MEDS: FLUoxetine 20 MG Capsule PO SCH (08:58)
[2018-07-15] MEDS: Gabapentin 300 MG Capsule PO SCH ×3 (08:58→18:29)
[2018-07-15] MEDS: oxyCODONE/Acetaminophen 10/325 Tablet PO PRN ×3 (09:02→23:07)
[2018-07-15] MEDS: Carisoprodol 350 MG Tablet PO PRN ×2 (11:17→20:38)
[2018-07-15] MEDS ORDERED: Cathflo Activase Inj 2 MG Vial I-CATHETER ONE (12:30)
--- NOTE | 2018-07-15 20:15 | P.PNIM ---
Subjective Interval history: Mrs. Overton was afebrile with stable vital signs overnight. She reports that she is doing well and that her wound seems decreasing in size. She did notice some whitish coloration at border of wound near vac. Patient also feels that she has lumps in her medial thigh. Patient does not report chest pain, shortness of breath, abdominal pain, abnormal urination, or abnormal bowel movements. Patient is still contemplating rehab vs ; she is agreeable to if no rehab available. Physical Exam Vital signs: Vital Signs 07/15/18 00:00 07/15/18 02:29 07/15/18 04:00 Temperature 98.1 F 97.8 F Pulse Rate 74 73 Respiratory Rate 18 16 18 Blood Pressure 151/68 H 134/73 Pulse Oximetry 95 96 07/15/18 08:00 07/15/18 12:00 07/15/18 16:00 Temperature 97.7 F 97.7 F 97.8 F Pulse Rate 91 H 82 75 Respiratory Rate 20 20 20 Blood Pressure 158/74 H 141/81 H 149/72 H Pulse Oximetry 91 L 95 96 Intake & Output 07/15/18 07/15/18 07/16/18 06:59 18:59 06:59 Intake Total 100 / 100 100 / 100 Output Total 5 / 5 Balance 100 / 100 95 / 95 Weight 85.9 kg Intake: IV 100 / 100 100 / 100 Maxipime Inj 2,000 MG In NS Inj 100 / 100 100 / 100 100 ML @ 200 mls/hr IV.SIG Q12H LANE Rx#:[id number] Output: Urine 4 / 4 Stool 1 / Other: Mode Setting Left Leg Continuous Continuous # Voids 3 Date of Last Bowel Movement 07/15/18 Narrative: GENERAL: no apparent distress. SKIN: Warm and dry. LLE with dehisced wound as below HEENT: EOM grossly I. CARDIOVASCULAR: Regular rate and rhythm without murmurs. Normal perfusion RESPIRATORY: CTAB; normal rate GASTROINTESTINAL: Abdomen soft, non-tender, nondistended. Bowel Sounds normal MUSCULOSKELETAL: Extremities without edema. No suggestion of DVT. Left lower extremity -dehisced wound, wound vac in place, small amount serosanguineous. Some whitish appearance of lateral inferior border of wound near vac. some serosanguineous drainage. No thigh subcutaneous nodules palpated in area patient demonstrated Left upper extremity PICC line NEUROLOGICAL: Awake and alert. Grossly normal CN. Grossly normal peripheral motor/sensory function Results - Labs CBC & Chem 7: 07/14/18 05:10 07/15/18 06:23 Laboratory Results - last 24 hr 07/15/18 06:23 Creatinine 0.89 Estimated GFR 63 L - Procedures None Assessment and Plan - Assessment (1) Cellulitis Code(s): L03.90 - Cellulitis, unspecified Status: Acute (2) PAD (peripheral artery disease) Code(s): I73.9 - Peripheral vascular disease, unspecified Status: Acute (3) Vascular graft infection Code(s): T82.7XXA - Infection and inflammatory reaction due to other cardiac and vascular devices, implants and grafts, initial encounter Status: Acute (4) Postoperative wound dehiscence Code(s): T81.31XA - Disruption of external operation (surgical) wound, not elsewhere classified, initial encounter Status: Acute - Plan In summary this is a 73-year-old female patient with a medical history that is significant peripheral artery disease, left femoropopliteal bypass in April with 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 Left lower extremity graft wound dehiscence -Vascular surgery is following: Currently with wound VAC, patient has been cleared for DC from a vascular standpoint with outpatient follow-up. -Wound care following -Advised patient to notify wound care of area of whitish coloration with next vac change tomorrow to assess better -Infectious disease following: Cultures growing gram-negative rods, Pseudomonas. Status post completion of vancomycin. Continue outpatient cefepime 2 g IV x 2 weeks, patient follow-up with Dr. Hoyt in 1 week -will change Morphine IV for breakthrough pain to PO Dilaudid for dressing changes Hypertension -Continue home medications Neuropathy -Continue home medications Anxiety and depression -Continue home medications DVT PPX Heparin 5K U BID Code Status: Full code Discharge Planning: Patient agreeable to rehab; will attempt placement (1) Cellulitis Qualifiers: Site of cellulitis of extremity: lower extremity Laterality: left (3) Vascular graft infection Qualifiers: Encounter type: subsequent encounter Qualified Code(s): T82.7XXD - Infection and inflammatory reaction due to other cardiac and vascular devices, implants and grafts, subsequent encounter (4) Postoperative wound dehiscence Qualifiers: Encounter type: subsequent encounter Qualified Code(s): T81.31XD - Disruption of external operation (surgical) wound, not elsewhere classified, subsequent encounter
[2018-07-15] MEDS: amLODIPine 10 MG Tablet PO SCH (20:38)
[2018-07-15] MEDS: ALPRAZolam 0.25 MG Tablet PO PRN (23:12)
[2018-07-16] MEDS: ALPRAZolam 0.25 MG Tablet PO SCH ×2 (09:24→21:25)
[2018-07-16] MEDS: FLUoxetine 20 MG Capsule PO SCH (09:24)
[2018-07-16] MEDS: Gabapentin 300 MG Capsule PO SCH ×3 (09:24→17:00)
--- NOTE | 2018-07-16 12:13 | P.DCO ---
- Diagnosis (1) Cellulitis (3) Postoperative wound dehiscence (4) Vascular graft infection - Home Health Nursing Order: Medical education, Wound care and dressing changes Instructions: Wound Vac. See attached. - Certification I have seen patient Micheline Overton on 07/16/18. My clinical findings support the need for the requested home health care services because: Limited ability to care for self, Infection with risk of complications I certify that my clinical findings support that this patient is homebound because: Unsafe to leave home unassisted (1) Cellulitis Qualifiers: Site of cellulitis of extremity: lower extremity Laterality: left (3) Postoperative wound dehiscence Qualifiers: Encounter type: subsequent encounter Qualified Code(s): T81.31XD - Disruption of external operation (surgical) wound, not elsewhere classified, subsequent encounter (4) Vascular graft infection Qualifiers: Encounter type: subsequent encounter Qualified Code(s): T82.7XXD - Infection and inflammatory reaction due to other cardiac and vascular devices, implants and grafts, subsequent encounter
--- NOTE | 2018-07-16 12:22 | P.DS ---
Date of admission: 07/08/18 09:10 Primary care physician: Alex Taylor MD Anticipated date of discharge: 07/07/18 Brief History from admission: HPI from the admitting physician: 73-year-old female with peripheral artery disease, left femoral-popliteal bypass in April with subsequent graft infection, reportedly with MRSA, redo femoropoplitea at [facility], however with repeat wound dehiscence in the left lower leg. Patient is receiving home health, reportedly supposed to be getting a wound VAC but has not received yet. She is presenting to to worsening constant left lower extremity vague discomfort, worsening wound dehiscence. Patient update on day of discharge: Patient reports she is feeling great. She is eager to go home. We discussed appropriate follow-up and home health. Discharge planning discussed at length with the patient. DS: Diagnosis - Discharge Diagnosis (1) Cellulitis Status: Acute (2) PAD (peripheral artery disease) Status: Acute (3) Postoperative wound dehiscence Status: Acute (4) Vascular graft infection Status: Acute DS: Medications - Discharge Medications Prescriptions: furosemide 20 mg PO DAILY PRN #30 tab PRN Reason: Edema oxycodone-acetaminophen 1 tab PO Q4H PRN #20 tab PRN Reason: Pain Scale 6 To 10 oxycodone-acetaminophen 1 tab PO Q4H PRN #20 tab PRN Reason: Pain Scale 6 To 10 DS: Summary Hospital Course: In summary this is a 73-year-old female patient with a medical history that is significant peripheral artery disease, left femoropopliteal bypass in April with 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 Treatment course detailed below: Left lower extremity graft wound dehiscence -Vascular surgery is following: Currently with wound VAC, patient has been cleared for DC from a vascular standpoint with outpatient follow-up. -Infectious disease following: Cultures growing gram-negative rods, Pseudomonas. Status post completion of vancomycin. Continue outpatient cefepime 2 g IV x 2 weeks, patient follow-up with Dr. Hoyt in 1 week -Patient is discharged home with the wound VAC and home health. To follow-up outpatient. Patient was advised to follow-up with PCP and pain management. She was given a limited supply to help with her pain until she can be seen. Eforce checked. Hypertension -Continue home medications Neuropathy -Continue home medications Anxiety and depression -Continue home medications - Time Spent with Patient Total time spent providing and/or coordinating discharge services: Greater than 30 minutes - Quality: VTE Deep Vein Thrombosis/Pulmonary Embolism Present on Admission: No Exam Vital signs: Vital Signs 07/15/18 16:00 07/15/18 20:00 07/16/18 00:00 Temperature 97.8 F 98.4 F 97.8 F Pulse Rate 75 85 72 Respiratory Rate 20 18 20 Blood Pressure 149/72 H 141/82 H 143/65 H Pulse Oximetry 96 95 95 07/16/18 01:38 07/16/18 04:00 07/16/18 08:00 Temperature 98.0 F 98.0 F Pulse Rate 76 75 Respiratory Rate 18 18 18 Blood Pressure 111/63 147/71 H Pulse Oximetry 92 L 94 L 07/16/18 12:00 Temperature 97.9 F Pulse Rate 86 Respiratory Rate 20 Blood Pressure 156/85 H Pulse Oximetry 96 Intake & Output 07/15/18 07/16/18 07/16/18 18:59 06:59 18:59 Intake Total 100 / 100 240 / 240 100 / 100 Output Total 5 / 5 Balance 95 / 95 240 / 240 100 / 100 Weight 84 kg Intake: IV 100 / 100 100 / 100 Maxipime Inj 2,000 MG In NS Inj 100 / 100 100 / 100 100 ML @ 200 mls/hr IV.SIG Q12H LANE Rx#:[id number] Oral 240 / 240 Output: Urine 4 / 4 Stool 1 / 1 Other: Mode Setting Left Leg Continuous Continuous Continuous # Voids 2 Date of Last Bowel Movement 07/15/18 Narrative: GENERAL: This is a well-nourished, well-developed patient, in no apparent distress. CARDIOVASCULAR: Normal rate and regular rhythm without murmurs, gallops, or rubs. RESPIRATORY: Good respiratory efforts. Breath sounds equal and clear to auscultation bilaterally. GASTROINTESTINAL: Abdomen soft, non-tender, non-distended. Normal active bowel sounds MUSCULOSKELETAL: Left lower extremity has a wound VAC in place on the inner side. Looks intact. NEURO: Alert & Oriented x4 to person, place, time, situation. Moves all ext x4 PSYCH: Appropriate mood and affect. Results Procedures completed during hospitalization: None Discharge Plan - Discharge Disposition Patient Disposition: Disch W/Home Health Service - Discharge Condition Condition: Stable - Discharge Order Discharge Orders: Discharge Order (Routine); Ordered 07/16/18 Ordered By: Vandana Fuentes Vascular Surgery Clear for Discharge (Routine); Ordered 07/07/18 Ordered By: Eilzabeth Kennedy - Discharge Details Anticipated Discharge Date: 07/16/18 Discharge Comment: Discharge with home health - Physicians Team Primary Care Provider: Alex Taylor Attending Provider: Vandana Fuentes Other Providers: Les Briggs MD ; John Lopez ; Ivan Leal MD ; [facility] ; [facility] ; [facility] ; [facility]ency ; [facility],Agency
--- NOTE | 2018-07-16 12:51 | P.PNWCN ---
Wound Care Nurse Consult Description: wound consult ordered by for wound management Recommendation: 1. Cleanse left medial wound with normal saline pat dry ,skin prep periwound 2. Maintain functional seal to wound vac 3. Change wound vac dressing every [id number] Wound/Pressure Injury - Patient Status Premedicated for Pain Prior to Dressing Change: No (See wound vac intervention. Wound vac changes are M/W/F.) - Wound Left Leg Wound Assessment: Ongoing Wound Type: Traumatic Wound Is This a Chronic Wound: Yes Requested from Provider a Wound Care Consult: No (Jonna ROGER,[facility] seen 07/13) Length: 8.2 Width: 1.7 Depth: 1.7 Wound Bed Appearance: [place], Red Surrounding Tissue Appearance: [place] Surrounding Tissue Temperature: Warm Drainage Description: Serosanguinous Drainage Amount: Scant Drainage Odor: No Odor Dressing Status: Dry & Intact, Changed Cleansing Solution: Saline Wound Packing Type: Woundvac Sponge Primary Dressing: Negative Pressure Wound Dressing Wound Dressing Change Date: 07/16/18 - Additional Information Patient to be discharged home with home health changing wound vac every Thursday [employer] vac to be delivered to facility. Wound Vac - Wound Vac Left Leg Pressure Setting (mmHg): 125 Mode Setting: Continuous Drainage Description: Serosanguinous Foam type: Black, Other (adaptic gauze) Incision - Patient Status Premedicated for Pain Prior to Dressing Change: No (See wound vac intervention. Wound vac changes are M/W/F.)
[2018-07-16] MEDS: Heparin - SQ 10,000 UNITS/ML Vial SQ SCH ×2 (13:12→22:00)
[2018-07-16] MEDS: Carisoprodol 350 MG Tablet PO PRN ×2 (13:15→22:00)
[2018-07-16] MEDS: oxyCODONE/Acetaminophen 10/325 Tablet PO PRN ×2 (13:16→21:25)
--- NOTE | 2018-07-16 13:57 | P.DCO ---
- Diagnosis (1) Cellulitis (3) Vascular graft infection (4) Postoperative wound dehiscence - Home Health Nursing Order: IV medication administration - Certification I have seen patient Micheline Overton on 07/16/18. My clinical findings support the need for the requested home health care services because: Limited ability to care for self, Infection with risk of complications I certify that my clinical findings support that this patient is homebound because: Unable to use public transportation (1) Cellulitis Qualifiers: Site of cellulitis of extremity: lower extremity Laterality: left (3) Vascular graft infection Qualifiers: Encounter type: subsequent encounter Qualified Code(s): T82.7XXD - Infection and inflammatory reaction due to other cardiac and vascular devices, implants and grafts, subsequent encounter (4) Postoperative wound dehiscence Qualifiers: Encounter type: subsequent encounter Qualified Code(s): T81.31XD - Disruption of external operation (surgical) wound, not elsewhere classified, subsequent encounter
[2018-07-16] MEDS: amLODIPine 10 MG Tablet PO SCH ×2 (21:25→23:31)
[2018-07-17] MEDS: oxyCODONE/Acetaminophen 10/325 Tablet PO PRN ×4 (04:30→23:51)
[2018-07-17] MEDS: Gabapentin 300 MG Capsule PO SCH ×3 (08:50→18:27)
[2018-07-17] MEDS: FLUoxetine 20 MG Capsule PO SCH (08:50)
[2018-07-17] MEDS: ALPRAZolam 0.25 MG Tablet PO SCH ×2 (08:50→21:31)
[2018-07-17] MEDS: Carisoprodol 350 MG Tablet PO PRN ×3 (09:02→23:52)
--- NOTE | 2018-07-17 10:31 | P.PNIM ---
Subjective Interval history: Patient discharged yesterday on 07/16/18. However wound VAC could not be set up through the insurance company. She reports she is feeling okay today. Afebrile. Frustrated at being in the hospital. Physical Exam Vital signs: Vital Signs 07/16/18 12:00 07/16/18 15:55 07/16/18 20:00 Temperature 97.9 F 98.1 F 98 F Pulse Rate 86 62 81 Respiratory Rate 20 18 18 Blood Pressure 156/85 H 138/77 123/58 L Pulse Oximetry 96 94 L 95 07/16/18 23:58 07/17/18 04:00 07/17/18 08:00 Temperature 97.9 F 97.4 F L 98 F Pulse Rate 84 77 66 Respiratory Rate 16 18 Blood Pressure 170/82 H 162/88 H 153/82 H Pulse Oximetry 95 94 L 83 L Intake & Output 07/16/18 07/17/18 07/17/18 18:59 06:59 18:59 Intake Total 200 / 200 820 / 820 Balance 200 / 200 820 / 820 Weight 87.3 kg Intake: IV 200 / 200 100 / 100 Maxipime Inj 2,000 MG In NS Inj 200 / 200 100 / 100 100 ML @ 200 mls/hr IV.SIG Q12H LANE Rx#:[id number] Oral 720 / 720 Other: Mode Setting Left Leg Continuous Continuous # Voids 4 Date of Last Bowel Movement 07/17/18 # Bowel Movements 1 # Incontinent Bowel Movements 1 Narrative: GENERAL: This is a well-nourished, well-developed patient, in no apparent distress. CARDIOVASCULAR: Normal rate and regular rhythm without murmurs, gallops, or rubs. RESPIRATORY: Good respiratory efforts. Breath sounds equal and clear to auscultation bilaterally. GASTROINTESTINAL: Abdomen soft, non-tender, non-distended. Normal active bowel sounds MUSCULOSKELETAL: Left lower extremity has a wound VAC in place on the inner side. Looks intact. Neurovascularly intact distally. NEURO: Alert & Oriented x4 to person, place, time, situation. Moves all ext x4 PSYCH: Appropriate mood and affect. Results - Labs CBC & Chem 7: 07/14/18 05:10 07/17/18 07:45 Laboratory Results - last 24 hr 07/17/18 07:45 Creatinine 1.01 H Estimated GFR 54 L - Procedures None Assessment and Plan - Assessment (1) Cellulitis Code(s): L03.90 - Cellulitis, unspecified Status: Acute (2) PAD (peripheral artery disease) Code(s): I73.9 - Peripheral vascular disease, unspecified Status: Acute (3) Postoperative wound dehiscence Code(s): T81.31XA - Disruption of external operation (surgical) wound, not elsewhere classified, initial encounter Status: Acute (4) Vascular graft infection Code(s): T82.7XXA - Infection and inflammatory reaction due to other cardiac and vascular devices, implants and grafts, initial encounter Status: Acute - Plan In summary this is a 73-year-old female patient with a medical history that is significant peripheral artery disease, left femoropopliteal bypass in April with 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 Treatment course detailed below: Left lower extremity graft wound dehiscence -Vascular surgery is following: Currently with wound VAC, patient has been cleared for DC from a vascular standpoint with outpatient follow-up. -Infectious disease following: Cultures growing gram-negative rods, Pseudomonas. Status post completion of vancomycin. Continue outpatient cefepime 2 g IV x 2 weeks, patient follow-up with Dr. Hoyt in 1 week -Patient is discharged home with the wound VAC and home health. To follow-up outpatient. She can be discharged once arrangements for home wound VAC. Patient was advised to follow-up with PCP and pain management. She was given a limited supply to help with her pain until she can be seen. [employer] checked. Hypertension -Continue home medications Neuropathy -Continue home medications Anxiety and depression -Continue home medications Discharge Planning: Patient is discharged. Awaiting for arrangements to be made through the insurance company for home wound VAC. (1) Cellulitis Qualifiers: Site of cellulitis of extremity: lower extremity Laterality: left (3) Postoperative wound dehiscence Qualifiers: Encounter type: subsequent encounter Qualified Code(s): T81.31XD - Disruption of external operation (surgical) wound, not elsewhere classified, subsequent encounter (4) Vascular graft infection Qualifiers: Encounter type: subsequent encounter Qualified Code(s): T82.7XXD - Infection and inflammatory reaction due to other cardiac and vascular devices, implants and grafts, subsequent encounter
[2018-07-17] MEDS: Heparin - SQ 10,000 UNITS/ML Vial SQ SCH ×2 (14:08→23:46)
[2018-07-17] MEDS: amLODIPine 10 MG Tablet PO SCH (21:32)
[2018-07-18] MEDS: oxyCODONE/Acetaminophen 10/325 Tablet PO PRN ×4 (05:04→19:36)
[2018-07-18] MEDS: FLUoxetine 20 MG Capsule PO SCH (10:01)
[2018-07-18] MEDS: ALPRAZolam 0.25 MG Tablet PO PRN (10:02)
[2018-07-18] MEDS: Gabapentin 300 MG Capsule PO SCH ×3 (10:02→17:53)
[2018-07-18] MEDS: Heparin - SQ 10,000 UNITS/ML Vial SQ SCH (10:03)
[2018-07-18] MEDS: Carisoprodol 350 MG Tablet PO PRN ×2 (10:03→17:53)
[2018-07-18] MEDS: ALPRAZolam 0.25 MG Tablet PO SCH (10:03)
--- NOTE | 2018-07-18 10:13 | P.PNIM ---
Subjective Interval history: No new issues. Still waiting for insurance company's approval for wound VAC at home. Physical Exam Vital signs: Vital Signs 07/17/18 12:00 07/17/18 16:00 07/17/18 20:00 Temperature 98.0 F 98.5 F 98.2 F Pulse Rate 79 77 58 L Respiratory Rate 14 16 19 Blood Pressure 136/61 121/57 L 157/70 H Pulse Oximetry 94 L 99 93 L 07/17/18 20:53 07/18/18 00:00 07/18/18 00:25 Temperature 97.9 F Pulse Rate 75 Respiratory Rate 17 19 19 Blood Pressure 149/69 H Pulse Oximetry 94 L 07/18/18 05:53 07/18/18 07:49 07/18/18 08:00 Temperature 98 F 97.9 F Pulse Rate 58 L 73 Respiratory Rate 19 18 14 Blood Pressure 152/73 H 139/65 Pulse Oximetry 98 91 L Intake & Output 07/17/18 07/18/18 07/18/18 18:59 06:59 18:59 Intake Total 640 / 640 Balance 640 / 640 Weight 81.1 kg Intake: IV 200 / 200 Maxipime Inj 2,000 MG In NS Inj 200 / 200 100 ML @ 200 mls/hr IV.SIG Q12H LANE Rx#:[id number] Oral 440 / 440 Other: Mode Setting Left Leg Continuous Continuous # Voids 2 Date of Last Bowel Movement 07/17/18 07/17/18 Narrative: GENERAL: This is a well-nourished, well-developed patient, in no apparent distress. CARDIOVASCULAR: Normal rate and regular rhythm without murmurs, gallops, or rubs. RESPIRATORY: Good respiratory efforts. Breath sounds equal and clear to auscultation bilaterally. GASTROINTESTINAL: Abdomen soft, non-tender, non-distended. Normal active bowel sounds MUSCULOSKELETAL: Left lower extremity has a wound VAC in place on the inner side. Looks intact. Neurovascularly intact distally. NEURO: Alert & Oriented x4 to person, place, time, situation. Moves all ext x4 PSYCH: Appropriate mood and affect. Results - Labs CBC & Chem 7: 07/14/18 05:10 07/17/18 07:45 - Procedures None Assessment and Plan - Assessment (1) Cellulitis Code(s): L03.90 - Cellulitis, unspecified Status: Acute (2) PAD (peripheral artery disease) Code(s): I73.9 - Peripheral vascular disease, unspecified Status: Acute (3) Postoperative wound dehiscence Code(s): T81.31XA - Disruption of external operation (surgical) wound, not elsewhere classified, initial encounter Status: Acute (4) Vascular graft infection Code(s): T82.7XXA - Infection and inflammatory reaction due to other cardiac and vascular devices, implants and grafts, initial encounter Status: Acute - Plan In summary this is a 73-year-old female patient with a medical history that is significant peripheral artery disease, left femoropopliteal bypass in April with 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 Treatment course detailed below: Left lower extremity graft wound dehiscence -Vascular surgery is following: Currently with wound VAC, patient has been cleared for DC from a vascular standpoint with outpatient follow-up. -Infectious disease following: Cultures growing gram-negative rods, Pseudomonas. Status post completion of vancomycin. Continue outpatient cefepime 2 g IV x 2 weeks, patient follow-up with Dr. Hoyt in 1 week -Patient is discharged home with the wound VAC and home health. To follow-up outpatient. She can be discharged once arrangements for home wound VAC. Patient was advised to follow-up with PCP and pain management. She was given a limited supply to help with her pain until she can be seen. [employer] checked. -Awaiting insurance company's approval for wound VAC. Case management following Hypertension -Continue home medications Neuropathy -Continue home medications Anxiety and depression -Continue home medications Discharge Planning: Patient is discharged. Awaiting for arrangements to be made through the insurance company for home wound VAC. (1) Cellulitis Qualifiers: Site of cellulitis of extremity: lower extremity Laterality: left (3) Postoperative wound dehiscence Qualifiers: Encounter type: subsequent encounter Qualified Code(s): T81.31XD - Disruption of external operation (surgical) wound, not elsewhere classified, subsequent encounter (4) Vascular graft infection Qualifiers: Encounter type: subsequent encounter Qualified Code(s): T82.7XXD - Infection and inflammatory reaction due to other cardiac and vascular devices, implants and grafts, subsequent encounter
== END 2018-07-18 19:39 | disposition home health service (06) ==
LOC: NEPE 19:53 → NEDA 19:53 → NEDH 07-06 05:54 → NEPFCDU 07-06 10:08 → N05 07-09 18:19
PROVIDERS: ADMIT Family Medicine; ATTEND Family Medicine

== ENCOUNTER 2018-09-03 18:29 | Inpatient (IN) ==
[2018-09-03] MEDS ORDERED: Acetaminophen 325 MG Tablet PO PRN (20:46)
[2018-09-03] MEDS ORDERED: Dextrose 50% in Water 50 ML Vial IV.PUSH PRN (21:40)
--- NOTE | 2018-09-03 21:48 | P.HPIM ---
History of Present Illness Service: [facility] Primary Care Physician: Alex Taylor MD Chief Complaint: Left leg non healing wound History of Present Illness: 73-year-old female with a history of PVD, hypertension, diabetes, anxiety, depression, neuropathy was a transfer from [facility] for evaluation of chronic lower leg wounds and to be evaluated by vascular surgery. Patient was originally admitted for an open wound to the left lower leg and sepsis. In April patient had a femoropopliteal surgery with Dr. Briggs and has a chronic nonhealing wound to her left posterior ankle ever since. She states after her surgery they wrapped her entire leg with an Tung wrap and she developed some irritation behind her left ankle and then she was injured with an IV pole that had hit the back of her ankle and open the wound and she has had gradual worsening of the wound ever since. She also has a wound on the upper inner calf that is non healing as well. 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 She denies any chest pain, sob, fever or chills. She states the pain to the left leg is a constant burning 6/10, worse with movement and radiation up her leg, pain is better with medication. Inpatient Certification: I certify that the inpatient services were ordered in accordance with Medicare regulations governing the order. This includes certification that hospital inpatient services are reasonable and necessary and in the case of services not specified as inpatient-only under 42 CFR 419.22(n), that they are appropriately provided as inpatient services in accordance to with the 2-midnight benchmark under 43 CFR 412.3(e) Estimated Total Length of Stay (Days): 2 Plans for Post Hospital Care: Home Review of Systems All other systems reviewed negative except as stated in HPI PMFSH - History History Provided By: Patient - Medical History Medical History: Medical History (Last Reviewed 09/03/18 @ 21:34 by KARIME Fermin) Depression Diabetes Fibromyalgia History of hysterectomy History of stroke Hypercholesterolemia Hypertension Osteoarthritis PAD (peripheral artery disease) - Surgical History Surgical History: Surgical History (Last Reviewed 09/03/18 @ 21:34 by KARIME Fermin) History of carotid endarterectomy History of spinal fusion S/P femoral-popliteal bypass surgery - Family History Family History: Family History (Last Reviewed 09/03/18 @ 23:20 by KARIME Fermin) Other Family history of diabetes mellitus Family history of hypertension - Social History I have reviewed the patient's Social History: Yes - Tobacco History Second Hand Smoke Exposure: Yes Smoking Status: Former smoker Tobacco Type: Cigarettes - Alcohol History How Often Do You Have a Drink Containing Alcohol: Never - Substance Use History Substance History: No History of Abuse Medications and Allergies Active Medications: Active Medications Acetaminophen (Tylenol) 650 mg PO Q4H PRN PRN Reason: Temp > 100.4 Ondansetron HCl (Zofran Inj) 4 mg IV.PUSH Q6H PRN PRN Reason: NAUSEA OR VOMITING Allergies Allergy/AdvReac Type Severity Reaction Status Date / Time No Known Allergies Allergy Verified 07/05/18 20:36 Home Medications Medication Instructions Recorded Confirmed Type amlodipine 10 mg PO HS 05/14/18 09/03/18 History carisoprodol [Soma] 350 mg PO TID PRN 05/14/18 07/05/18 History fluoxetine [Prozac] 60 mg PO DAILY 05/14/18 09/03/18 History gabapentin 1,200 mg PO TID 05/14/18 09/03/18 History alprazolam [Xanax] 0.25 mg PO BID 07/05/18 07/05/18 History cyclobenzaprine 10 mg PO TID PRN 07/05/18 09/03/18 History Exam Narrative: GENERAL: This is a well-nourished, well-developed patient, in no apparent distress. SKIN: Posterior left ankle wound and inner left upper calf wound, wound VAC in place EYES: Pupils equal round and reactive, no scleral edema or drainage CARDIOVASCULAR: Regular rate and rhythm without murmurs, gallops, or rubs. RESPIRATORY: Clear to auscultation. Breath sounds equal bilaterally. No wheezes , rales, or rhonchi. GASTROINTESTINAL: Abdomen soft, non-tender, nondistended. Normal active bowel sounds MUSCULOSKELETAL: Extremities without clubbing, cyanosis, or edema. NEURO: Alert & Oriented x4 to person, place, time, situation. Moves all ext x4 Caprini VTE Risk Assessment Caprini VTE Risk Assessment: Moderate/High Risk (score >= 2) Caprini Risk Assessment Model: Point Value = 1 Point Value = 2 Point Value = 3 Point Value = 5 Age 41-60 Minor surgery BMI > 25 kg/m2 Swollen legs Varicose veins or History of unexplained or recurrent spontaneous Oral contraceptives or hormone replacement Sepsis (< 1 month) Serious lung disease, including pneumonia (< 1 month) Abnormal pulmonary function Acute myocardial infarction Congestive heart failure (< 1 month) History of inflammatory bowel disease Medical patient at bed rest Age 61-74 Arthroscopic surgery Major open surgery (> 45 min) Laparoscopic surgery (> 45 min) Malignancy Confined to bed (> 72 hours) Immobilizing plaster cast Central venous access Age >= 75 History of VTE Family history of VTE Factor V Leiden Prothrombin [id number] Lupus anticoagulant Anticardiolipin antibodies Elevated serum homocysteine Heparin-induced thrombocytopenia Other congenital or acquired thrombophilia Stroke (< 1 month) Elective arthroplasty Hip, pelvis, or leg fracture Acute spinal cord injury (< 1 month) Prophylaxis Regimen: Total Risk Factor Score Risk Level Prophylaxis Regimen 0-1 Low Early ambulation 2 Moderate Order ONE of the following: *Sequential Compression Device (SCD) *Heparin 5000 units SQ BID 3-4 Higher Order ONE of the following medications: *Heparin 5000 units SQ TID *Enoxaparin/Lovenox 40 mg SQ daily (WT < 150 kg, CrCl > 30 mL/min) *Enoxaparin/Lovenox 30 mg SQ daily (WT < 150 kg, CrCl > 10-29 mL/min) *Enoxaparin/Lovenox 30 mg SQ BID (WT < 150 kg, CrCl > 30 mL/min) AND/OR *Sequential Compression Device (SCD) 5 or more Highest Order ONE of the following medications: *Heparin 5000 units SQ TID (Preferred with Epidurals) *Enoxaparin/Lovenox 40 mg SQ daily (WT < 150 kg, CrCl > 30 mL/min) *Enoxaparin/Lovenox 30 mg SQ daily (WT < 150 kg, CrCl > 10-29 mL/min) *Enoxaparin/Lovenox 30 mg SQ BID (WT < 150 kg, CrCl > 30 mL/min) AND *Sequential Compression Device (SCD) Assessment and Plan - Plan 73-year-old female with a history of PVD, hypertension, anxiety, depression, neuropathy was a transfer from [facility] for evaluation of chronic lower leg wounds and to be evaluated by vascular surgery. Nonhealing left upper leg ulcer, and nonhealing left ankle wound, due to fem pop surgery and severe pvd wound culture at [facility] was growing positive cocci in pairs and gram- positive rods -Continue IV antibiotics meropenem and vancomycin -Consult vascular surgery patient to be evaluated by Dr. Briggs -Pain management with p.oCassi [place], and IV Dilaudid -Consult ID for evaluation -Follow up on wound culture -Continue wound vac until evaluated by vascular -Continue home gabapentin Hypertension, chronic -Resume home medications, monitor vitals Depression -Resume home medication DVT prophylaxis: SCDs on noninfected leg Discussed Condition With: Patient and RN
[2018-09-03] MEDS ORDERED: HYDROmorphone PF Inj 2 MG/ML Vial IV.PUSH PRN (21:56)
[2018-09-03] MEDS: amLODIPine 10 MG Tablet PO SCH (22:15)
[2018-09-03] MEDS: Vancomycin Inj 1,000 MG in Sodium Chlor 0.9% Inj 250 ML IV.SIG SCH (22:51)
[2018-09-03] MEDS ORDERED: HYDROmorphone PF Inj 2 MG/ML Vial IV.PUSH ONE (23:16)
[2018-09-04] MEDS: HYDROmorphone PF Inj 2 MG/ML Vial IV.PUSH PRN ×5 (03:09→21:44)
[2018-09-04 06:17] LABS: Baso % (Auto) 0.8 % (0.0-2.0); Eos # (Auto) 0.2 th/mm3 (0.0-0.4); Eos % (Auto) 3.7 % (0.0-4.0); Hematocrit 37.6 % (35.0-46.0); Hemoglobin 12.4 gm/dL (11.6-15.3); Lymph # (Auto) 1.4 th/mm3 (1.0-4.8); Lymph % (Auto) 24.9 % (9.0-44.0); Mean Corpuscular Hemoglobin 28.1 pg (27.0-34.0); Mean Corpuscular Volume 85.2 fL (80.0-100.0); Mean Platelet Volume 6.1 fL (7.0-11.0); Mono # (Auto) 0.3 th/mm3 (0.0-0.9); Neut # (Auto) 3.7 th/mm3 (1.8-7.7); Neut % (Auto) 65.6 % (16.0-70.0); Platelet Count 398 th/mm3 (150-450); Red Blood Count 4.41 mil/mm3 (4.00-5.30); Red Cell Distribution Width 16.6 % (11.6-17.2); White Blood Count 5.6 th/mm3 (4.0-11.0)
[2018-09-04 06:44] LABS: Albumin 3.1 g/dL (3.4-5.0); Anion Gap 6 meq/L (5-15); Aspartate Aminotransferase 16 U/L (15-37); Blood Urea Nitrogen 11 mg/dL (7-18); Chloride 107 meq/L (98-107); Glomerular Filtration Rate 79 mL/min (>89); Glucose,Random 89 mg/dL (74-106); Potassium 3.8 meq/L (3.5-5.1); Sodium 140 meq/L (136-145)
[2018-09-04 06:46] LABS: Alanine Aminotransferase 16 U/L (10-53)
[2018-09-04 06:48] LABS: Alkaline Phosphatase 101 U/L (45-117); Total Protein 7.7 g/dL (6.4-8.2)
--- NOTE | 2018-09-04 09:17 | P.CONVS ---
History of Present Illness Service: vascular surgery Consult date: 09/04/18 Reason for Consult: L LE wounds Primary Care Provider: Alex Taylor MD Chief Complaint: Left leg non healing wound History of Present Illness: 73 yo female well known to me, s/p L groin/distal that became infected req excision in May. She has had a chronic medial proximal calf wound and now a new Achilles wound. + pain. + chills. No other systemic signs of illness. Was adm to outside hospital and transferred here. Pt notes she can walk and feels well, wants to go home. Review of Systems Constitutional: Reports chills Cardiovascular: Denies chest pain PMFSH - History History Provided By: Patient - Medical History Medical History: Medical History (Last Reviewed 09/04/18 @ 09:14 by Les Briggs MD) Depression Fibromyalgia History of hysterectomy History of stroke Hypercholesterolemia Hypertension Osteoarthritis PAD (peripheral artery disease) - Surgical History Surgical History: Surgical History (Last Reviewed 09/04/18 @ 09:14 by Les Briggs MD) History of carotid endarterectomy History of spinal fusion S/P femoral-popliteal bypass surgery - Family History Family History: Family History (Last Reviewed 09/03/18 @ 23:20 by KARIME Fermin) Other Family history of diabetes mellitus Family history of hypertension - Tobacco History Second Hand Smoke Exposure: Yes Smoking Status: Former smoker Tobacco Type: Cigarettes - Alcohol History How Often Do You Have a Drink Containing Alcohol: Never - Substance Use History Substance History: No History of Abuse - Immunization History Tetanus Immunization: Unsure Hx Influenza Vaccine This Season: No Medications and Allergies Active Medications: Active Medications Acetaminophen (Tylenol) 650 mg PO Q4H PRN PRN Reason: Temp > 100.4 Hydrocodone Bitart/Acetaminophen ([place] 5/325) 1 tab PO Q4H PRN PRN Reason: pain 1 to 10 Last Admin: 09/04/18 05:44 Dose: 1 tab Amlodipine Besylate (Norvasc) [address] Last Admin: 09/03/18 22:15 Dose: 10 mg Dextrose (D50w Vial) 50 ml IV.PUSH UNSCH PRN PRN Reason: PER HYPOGLYCEMIA PROTOCOL Famotidine (Pepcid) [address] Fluoxetine HCl (Prozac) [address] Gabapentin (Neurontin) 1,[address] Glucagon (Glucagon Inj) 1 mg OTHER PRN PRN PRN Reason: for Hypoglycemia Protocol Hydromorphone HCl (Dilaudid Pf Inj) 1 mg IV.PUSH Q4H PRN PRN Reason: BREAKTHROUGH PAIN Last Admin: 09/04/18 06:52 Dose: 1 mg Meropenem 1,000 mg/ Sodium (Chloride) 100 mls @ 200 mls/hr IV.SIG Q8H LANE Last Infusion: 09/04/18 03:15 Dose: Infused Vancomycin HCl 1,000 mg/ (Sodium Chloride) 250 mls @ 250 mls/hr IV.SIG Q18H LANE Last Infusion: 09/04/18 00:40 Dose: Infused Insulin Aspart (Novolog Insulin [employer] Sugar Inj) [address]; Protocol Ondansetron HCl (Zofran Inj) 4 mg IV.PUSH Q6H PRN PRN Reason: NAUSEA OR VOMITING Allergies Allergy/AdvReac Type Severity Reaction Status Date / Time No Known Allergies Allergy Verified 07/05/18 20:36 Home Medications Medication Instructions Recorded Confirmed Type amlodipine 10 mg PO HS 05/14/18 09/03/18 History carisoprodol [Soma] 350 mg PO TID PRN 05/14/18 07/05/18 History fluoxetine [Prozac] 60 mg PO DAILY 05/14/18 09/03/18 History gabapentin 1,200 mg PO TID 05/14/18 09/03/18 History alprazolam [Xanax] 0.25 mg PO BID 07/05/18 07/05/18 History cyclobenzaprine 10 mg PO TID PRN 07/05/18 09/03/18 History Physical Exam Vital Signs / I&O: Vital Signs 09/04/18 00:00 Temperature 97.7 F Pulse Rate 93 H Respiratory Rate 18 Blood Pressure 158/74 H Pulse Oximetry 95 Intake & Output 09/03/18 09/04/18 09/04/18 18:59 06:59 18:59 Intake Total 850 / 850 Balance 850 / 850 Weight 81.8 kg Intake: IV 350 / 350 Merrem Inj 1,000 MG In NS Inj 100 / 100 100 ML @ 200 mls/hr IV.SIG Q8H LANE Rx#:[id number] Vancomycin Inj 1,000 MG In NS 250 / 250 Inj 250 ML @ 250 mls/hr IV.SIG Q18H LANE Rx#:[id number] Oral 500 / 500 Other: # Voids 1 Weight On Admission 81.8 kg Neuro: alert, oriented HEENT: NC/AT; anicteric sclera Neck: no JVD Heart: reg rate Lungs: nonlabored Vascular: L groin healed L BK pop incision with good granulation tissue, healing well L Achilles with exposed tendon, no surrounding skin erythema Extremities: motor intact Laboratory Results - last 24 hr 09/04/18 09/04/18 05:25 05:25 WBC 5.6 RBC 4.41 Hgb 12.4 Hct 37.6 MCV 85.2 MCH 28.1 MCHC 33.0 RDW 16.6 Plt Count 398 MPV 6.1 L Neut % (Auto) 65.6 Lymph % (Auto) 24.9 [place] % (Auto) 5.0 Eos % (Auto) 3.7 Baso % (Auto) 0.8 Neut # (Auto) 3.7 Lymph # (Auto) 1.4 [place] # (Auto) 0.3 Eos # (Auto) 0.2 Baso # (Auto) 0.0 WBC Differential . Differential Comment Auto diff final Sodium 140 Potassium 3.8 Chloride 107 Carbon Dioxide 27.0 Anion Gap 6 BUN 11 Creatinine 0.73 Estimated GFR 79 L Random Glucose 89 Calcium 9.0 Total Bilirubin 0.2 AST 16 ALT 16 Alkaline Phosphatase 101 Total Protein 7.7 Albumin 3.1 L Assessment and Plan - Assessment (1) PAD (peripheral artery disease) Code(s): I73.9 - Peripheral vascular disease, unspecified Status: Acute - Plan L LE wounds, Achilles is worse but calf healing and groin healed I had a long talk with her this morning - I think this can be expeditiously worked up as outpatient, including wound care. No signs of infection - no leukocytosis and skin looks good Safe to d/c from my standpoint and will arrange f/u in my clinic
[2018-09-04] MEDS: Insulin NovoLOG Aspart Correctional Sugar Inj SQ SCH ×4 (09:29→21:34)
[2018-09-04] MEDS: Gabapentin 400 MG Capsule PO SCH ×3 (09:30→17:10)
[2018-09-04] MEDS: FLUoxetine 20 MG Capsule PO SCH (09:38)
[2018-09-04] MEDS ORDERED: Furosemide 20 MG Tablet PO PRN (12:25)
[2018-09-04] MEDS ORDERED: ALPRAZolam 0.25 MG Tablet PO PRN (12:25)
[2018-09-04] MEDS ORDERED: oxyCODONE/Acetaminophen 10/325 Tablet PO PRN (12:25)
--- NOTE | 2018-09-04 12:32 | P.PNIM ---
Subjective Interval history: Chief Complaint: Left leg non healing wound History of Present Illness: 73-year-old female with a history of PVD, hypertension, diabetes, anxiety, depression, neuropathy was a transfer from [facility] for evaluation of chronic lower leg wounds and to be evaluated by vascular surgery. Patient was originally admitted for an open wound to the left lower leg and sepsis. In April patient had a femoropopliteal surgery with Dr. Briggs and has a chronic nonhealing wound to her left posterior ankle ever since. She states after her surgery they wrapped her entire leg with an Tung wrap and she developed some irritation behind her left ankle and then she was injured with an IV pole that had hit the back of her ankle and open the wound and she has had gradual worsening of the wound ever since. She also has a wound on the upper inner calf that is non healing as well. 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 She denies any chest pain, sob, fever or chills. She states the pain to the left leg is a constant burning 6/10, worse with movement and radiation up her leg, pain is better with medication. 09-[address] BRIGGS - NO PROCEDURES OR SURGERY OFFERED CONSULT ID AM LABS DW RN AND PT AND CM WANTS DIFFERENT PO PAIN MEDS Physical Exam Vital signs: Vital Signs 09/04/18 00:00 09/04/18 08:00 Temperature 97.7 F 97.3 F L Pulse Rate 93 H 92 H Respiratory Rate 18 19 Blood Pressure 158/74 H 182/88 H Pulse Oximetry 95 100 Intake & Output 09/03/18 09/04/18 09/04/18 18:59 06:59 18:59 Intake Total 850 / 850 100 / 100 Balance 850 / 850 100 / 100 Weight 81.8 kg Intake: IV 350 / 350 100 / 100 Merrem Inj 1,000 MG In NS Inj 100 / 100 100 / 100 100 ML @ 200 mls/hr IV.SIG Q8H LANE Rx#:[id number] Vancomycin Inj 1,000 MG In NS 250 / 250 Inj 250 ML @ 250 mls/hr IV.SIG Q18H LANE Rx#:[id number] Oral 500 / 500 Other: # Voids 1 Weight On Admission 81.8 kg Narrative: GENERAL: This is a well-nourished, well-developed patient, in no apparent distress. SKIN: Posterior left ankle wound and inner left upper calf wound, DRESSING IN PLACE EYES: Pupils equal round and reactive, no scleral edema or drainage CARDIOVASCULAR: Regular rate and rhythm without murmurs, gallops, or rubs. RESPIRATORY: Clear to auscultation. Breath sounds equal bilaterally. No wheezes , rales, or rhonchi. GASTROINTESTINAL: Abdomen soft, non-tender, nondistended. Normal active bowel sounds MUSCULOSKELETAL: Extremities without clubbing, cyanosis, or edema. NEURO: Alert & Oriented x4 to person, place, time, situation. Moves all ext x4 Results - Labs CBC & Chem 7: 09/04/18 05:25 09/04/18 05:25 Laboratory Results - last 24 hr 09/04/18 09/04/18 05:25 05:25 WBC 5.6 RBC 4.41 Hgb 12.4 Hct 37.6 MCV 85.2 MCH 28.1 MCHC 33.0 RDW 16.6 Plt Count 398 MPV 6.1 L Neut % (Auto) 65.6 Lymph % (Auto) 24.9 [place] % (Auto) 5.0 Eos % (Auto) 3.7 Baso % (Auto) 0.8 Neut # (Auto) 3.7 Lymph # (Auto) 1.4 [place] # (Auto) 0.3 Eos # (Auto) 0.2 Baso # (Auto) 0.0 WBC Differential . Differential Comment Auto diff final Sodium 140 Potassium 3.8 Chloride 107 Carbon Dioxide 27.0 Anion Gap 6 BUN 11 Creatinine 0.73 Estimated GFR 79 L Random Glucose 89 Calcium 9.0 Total Bilirubin 0.2 AST 16 ALT 16 Alkaline Phosphatase 101 Total Protein 7.7 Albumin 3.1 L Assessment and Plan - Plan 73-year-old female with a history of PVD, hypertension, anxiety, depression, neuropathy was a transfer from [facility] for evaluation of chronic lower leg wounds and to be evaluated by vascular surgery. Nonhealing left upper leg ulcer, and nonhealing left ankle wound, due to fem pop surgery and severe pvd wound culture at [facility] was growing positive cocci in pairs and gram- positive rods -Continue IV antibiotics meropenem and vancomycin -Consult vascular surgery patient to be evaluated by Dr. Briggs--HE DID NOT OFFER PROCEDURES AT THIS TIME -Pain management with p.o. [place], and IV Dilaudid -Consult ID for evaluation- AWAIT THEIR INPUT -Follow up on wound culture -Continue wound CARE -Continue home gabapentin Hypertension, chronic -Resume home medications, monitor vitals Depression -Resume home medication CHRONIC PAIN WANTS PO PAIN MEDS- ADJUST PO PAIN MEDS DVT prophylaxis: SCDs on noninfected leg Code Status: FULL CODE Discussed Condition With: RN AND PT AND CM Discharge Planning: PENDING ID AND CM AND INSURANCE APPROVAL
[2018-09-04] MEDS: oxyCODONE/Acetaminophen 10/325 Tablet PO PRN ×2 (15:45→23:40)
[2018-09-04] MEDS: Vancomycin Inj 1,000 MG in Sodium Chlor 0.9% Inj 250 ML IV.SIG SCH (15:47)
--- NOTE | 2018-09-04 20:44 | MB ---
cc: Ivan Leal MD DATE: 09/04/2018 REQUESTING PHYSICIAN: KARIME Plata REASON FOR CONSULTATION: Transferred from [facility], sepsis, left lower leg wound. Currently on vancomycin and meropenem, wound culture was growing gram-positive cocci in pairs and gram-positive rods ATTENDING PHYSICIAN: Adonis Kearns MD HISTORY OF PRESENT ILLNESS: This is a 73-year-old white female who is known to me from prior hospitalization. The patient has had chronic wounds of the left leg. She was treated for the wounds in April. She received a course of antibiotics for Pseudomonas for a wound, which was located in the left groin. The patient has had a wound at the left heel, which is not healing. She reports that at one point, there was a scab at the left heel and some store packages fell onto the heel and broke the scab and after that she developed an ulcer. Her daughter is in the room and showed me a photo of the heel taken from earlier in the month that showed erythema and tiny opening where the tendon could be seen through the opening. The patient had a dressing changes being done by nurses at home, and area with the wound grew larger and tendon became obvious from the photos shown me. The patient has had fem-pop bypass of the left side in the past and then she developed left groin wound infection, which was treated. A culture was taken from the left ear 4 days ago and came back with pure growth of Corynebacterium. There was no Staph on the culture. The patient was being treated at [facility]. She was transferred to [facility] for vascular surgery evaluation. I am consulted to evaluate the patient for infection. She has normal temperature. Blood culture is normal. White blood cell count is normal. She appears nontoxic and is awake and alert. She denies chills, nausea or vomiting and there is no evidence of signs suggesting sepsis. PAST MEDICAL HISTORY: Depression, hypertension, fibromyalgia, hypercholesterolemia, peripheral arterial disease, history of carotid endarterectomy, femoral popliteal bypass surgery, history of CVA, spinal fusion. ALLERGIES: NO KNOWN DRUG ALLERGIES. MEDICATIONS: 1. Vancomycin. 2. Restoril. 3. Oxycodone. 4. Meropenem 5. Dilaudid p.r.n. 6. Norvasc. 7. [place] 5 p.r.n. SOCIAL HISTORY: The patient smokes cigars. No tobacco. No alcohol use. No illicit drugs. FAMILY HISTORY: Noncontributory. REVIEW OF SYSTEMS: All systems have been reviewed and are negative, except for pain in the left leg. PHYSICAL EXAMINATION: GENERAL: Well-developed female in no acute distress. She is awake and she is alert and oriented. VITAL SIGNS: Temperature 97.9, BP 166/98, respirations 18, heart rate 89. HEENT: Head atraumatic. Extraocular movements grossly intact. Pupils reactive to light. No icterus. Oropharynx moist mucosa without lesions. NECK: Supple, no adenopathy. LUNGS: Clear breath sounds bilaterally, which are diminished at the bases. HEART: Regular S1, S2, without murmurs, rubs or gallops. ABDOMEN: Bowel sounds present. Soft, nontender. RECTAL: Not performed. EXTREMITIES: The left heel has open wound, which is wrapped in a dressing. Mild swelling of the left toes. No clubbing or cyanosis. NEUROLOGIC: Nonfocal. PSYCHIATRIC: The patient is calm and cooperative. LABORATORY DATA: WBC 5.6, platelets 398, normal differential, creatinine 0.73, BUN 11. IMPRESSION: 1. Open nonhealing wound of the left heel. 2. Patient with history of peripheral arterial disease. 3. Diabetes mellitus. 4. The Corynebacterium cultured from the ear 4 days ago is likely skin contaminant. RECOMMENDATIONS: 1. Repeat culture of the left heel wound. 2. Continue vancomycin. 3. Continue meropenem. 4. Monitor culture data to determine antibiotic. 5. The patient may have severe peripheral arterial disease causing nonhealing of the wound. Vascular surgery is following her and can address that issue. She really does not have any acute sign of infection. She has been seen by vascular surgery. Thank you for this consultation. MD RONNY Norris/magalys , 03:03 PM , 03:17 PM
[2018-09-04] MEDS ORDERED: Temazepam 15 MG Capsule PO PRN (21:00)
[2018-09-04] MEDS: Famotidine 20 MG Tablet PO SCH (21:34)
[2018-09-04] MEDS: amLODIPine 10 MG Tablet PO SCH (21:34)
[2018-09-05] MEDS: HYDROmorphone PF Inj 2 MG/ML Vial IV.PUSH PRN ×2 (01:57→14:56)
[2018-09-05] MEDS: Gabapentin 400 MG Capsule PO SCH ×3 (08:20→17:12)
[2018-09-05] MEDS: FLUoxetine 20 MG Capsule PO SCH (08:20)
[2018-09-05] MEDS: oxyCODONE/Acetaminophen 10/325 Tablet PO PRN ×2 (08:21→17:13)
[2018-09-05] MEDS: Insulin NovoLOG Aspart Correctional Sugar Inj SQ SCH ×4 (08:23→20:52)
[2018-09-05] MEDS: Vancomycin Inj 1,000 MG in Sodium Chlor 0.9% Inj 250 ML IV.SIG SCH (09:06)
--- NOTE | 2018-09-05 13:43 | P.PNIM ---
Subjective Interval history: Chief Complaint: Left leg non healing wound History of Present Illness: 73-year-old female with a history of PVD, hypertension, diabetes, anxiety, depression, neuropathy was a transfer from [facility] for evaluation of chronic lower leg wounds and to be evaluated by vascular surgery. Patient was originally admitted for an open wound to the left lower leg and sepsis. In April patient had a femoropopliteal surgery with Dr. Briggs and has a chronic nonhealing wound to her left posterior ankle ever since. She states after her surgery they wrapped her entire leg with an Tung wrap and she developed some irritation behind her left ankle and then she was injured with an IV pole that had hit the back of her ankle and open the wound and she has had gradual worsening of the wound ever since. She also has a wound on the upper inner calf that is non healing as well. 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 She denies any chest pain, sob, fever or chills. She states the pain to the left leg is a constant burning 6/10, worse with movement and radiation up her leg, pain is better with medication. 09-[address] BRIGGS - NO PROCEDURES OR SURGERY OFFERED CONSULT ID AM LABS RHETT ROGER AND PT AND CM WANTS DIFFERENT PO PAIN MEDS 09-05 AWAIT CULTURES AND CLEARANCE FROM ID MAY NEED MORE ANTIBIOTICS AT DC RHETT ROGER AND PATIENT AND CM CLEARED BY DR BRIGGS FOR DC ALREADY AM LABS ON MERREM AND VANCO Physical Exam Vital signs: Vital Signs 09/04/18 16:00 09/04/18 20:00 09/05/18 00:22 Temperature 97.9 F 97.9 F 97.6 F Pulse Rate 91 H 85 84 Respiratory Rate 18 18 18 Blood Pressure 167/82 H 169/77 H 157/80 H Pulse Oximetry 98 94 L 95 09/05/18 08:00 09/05/18 12:00 Temperature 98 F 97.5 F L Pulse Rate 81 86 Respiratory Rate 16 16 Blood Pressure 103/56 L 152/91 H Pulse Oximetry 96 97 Intake & Output 09/04/18 09/05/18 09/05/18 18:59 06:59 18:59 Intake Total 900 / 900 680 / 680 350 / 350 Output Total 800 / 800 Balance 900 / 900 -120 / -120 350 / 350 Weight 81.8 kg Intake: IV 450 / 450 100 / 100 350 / 350 Merrem Inj 1,000 MG In NS Inj 200 / 200 100 / 100 100 / 100 100 ML @ 200 mls/hr IV.SIG Q8H LANE Rx#:[id number] Vancomycin Inj 1,000 MG In NS 250 / 250 250 / 250 Inj 250 ML @ 250 mls/hr IV.SIG Q18H LANE Rx#:[id number] Oral 450 / 450 580 / 580 Output: Urine 800 / 800 Other: # Voids 6 # Bowel Movements 1 Narrative: GENERAL: This is a well-nourished, well-developed patient, in no apparent distress. SKIN: Posterior left ankle wound and inner left upper calf wound, DRESSING IN PLACE EYES: Pupils equal round and reactive, no scleral edema or drainage CARDIOVASCULAR: Regular rate and rhythm without murmurs, gallops, or rubs. RESPIRATORY: Clear to auscultation. Breath sounds equal bilaterally. No wheezes , rales, or rhonchi. GASTROINTESTINAL: Abdomen soft, non-tender, nondistended. Normal active bowel sounds MUSCULOSKELETAL: Extremities without clubbing, cyanosis, or edema. NEURO: Alert & Oriented x4 to person, place, time, situation. Moves all ext x4 Results - Labs CBC & Chem 7: 09/04/18 05:25 09/04/18 05:25 Microbiology 09/04/18 17:20 Wound - Foot Gram Stain - Final 09/04/18 17:20 Wound - Foot Wound Culture - Preliminary gram positive cocci - Procedures NONE Assessment and Plan - Plan 73-year-old female with a history of PVD, hypertension, anxiety, depression, neuropathy was a transfer from [facility] for evaluation of chronic lower leg wounds and to be evaluated by vascular surgery. Nonhealing left upper leg ulcer, and nonhealing left ankle wound, due to fem pop surgery and severe pvd wound culture at [facility] was growing positive cocci in pairs and gram- positive rods -Continue IV antibiotics meropenem and vancomycin -Consult vascular surgery patient to be evaluated by Dr. Briggs--HE DID NOT OFFER PROCEDURES AT THIS TIME -Pain management with p.o. [place], and IV Dilaudid -Consult ID for evaluation- CONTINUE VANCO AND MERREM- AWAIT CULTURES FOR CLEARANCE -Follow up on wound culture -Continue wound CARE -Continue home gabapentin Hypertension, chronic -Resume home medications, monitor vitals Depression -Resume home medication CHRONIC PAIN WANTS PO PAIN MEDS- ADJUST PO PAIN MEDS DVT prophylaxis: SCDs on noninfected leg Code Status: FULL CODE Discussed Condition With: RN AND PT AND CM Discharge Planning: PENDING ID AND CM AND INSURANCE APPROVAL
[2018-09-05] MEDS: amLODIPine 10 MG Tablet PO SCH (20:52)
[2018-09-05] MEDS: Famotidine 20 MG Tablet PO SCH (20:52)
[2018-09-06] MEDS: oxyCODONE/Acetaminophen 10/325 Tablet PO PRN ×3 (00:06→13:02)
[2018-09-06] MEDS: Vancomycin Inj 1,000 MG in Sodium Chlor 0.9% Inj 250 ML IV.SIG SCH (05:25)
[2018-09-06] MEDS: Insulin NovoLOG Aspart Correctional Sugar Inj SQ SCH ×2 (07:34→11:03)
[2018-09-06 08:47] VITALS: O2SAT 93
[2018-09-06] MEDS: Gabapentin 400 MG Capsule PO SCH ×2 (08:58→12:21)
[2018-09-06] MEDS: FLUoxetine 20 MG Capsule PO SCH (08:58)
[2018-09-06 09:40] LABS: Baso % (Auto) 0.8 % (0.0-2.0); Eos # (Auto) 0.2 th/mm3 (0.0-0.4); Hematocrit 37.4 % (35.0-46.0); Hemoglobin 12.4 gm/dL (11.6-15.3); Lymph # (Auto) 1.5 th/mm3 (1.0-4.8); Lymph % (Auto) 24.1 % (9.0-44.0); Mean Corpuscular Hemoglobin 28.1 pg (27.0-34.0); Mean Corpuscular Volume 85.1 fL (80.0-100.0); Mean Platelet Volume 6.2 fL (7.0-11.0); Mono # (Auto) 0.3 th/mm3 (0.0-0.9); Mono % (Auto) 5.5 % (0.0-8.0); Neut # (Auto) 4.1 th/mm3 (1.8-7.7); Neut % (Auto) 66.6 % (16.0-70.0); Platelet Count 399 th/mm3 (150-450); Red Cell Distribution Width 16.9 % (11.6-17.2); White Blood Count 6.2 th/mm3 (4.0-11.0)
[2018-09-06 10:13] LABS: Albumin 3.2 g/dL (3.4-5.0); Anion Gap 8 meq/L (5-15); Aspartate Aminotransferase 15 U/L (15-37); Blood Urea Nitrogen 10 mg/dL (7-18); Calcium 8.8 mg/dL (8.5-10.1); Carbon Dioxide 27.1 meq/L (21.0-32.0); Chloride 105 meq/L (98-107); Glomerular Filtration Rate 81 mL/min (>89); Glucose,Random 97 mg/dL (74-106); Magnesium 1.9 mg/dL (1.5-2.5); Potassium 3.9 meq/L (3.5-5.1); Sodium 140 meq/L (136-145)
[2018-09-06 10:23] LABS: Alanine Aminotransferase 17 U/L (10-53); Alkaline Phosphatase 94 U/L (45-117); Free T4 (Free Thyroxine) 0.84 ng/dL (0.76-1.46); Phosphorus 2.6 mg/dL (2.5-4.9); Total Protein 7.8 g/dL (6.4-8.2)
[2018-09-06] MEDS: HYDROmorphone PF Inj 2 MG/ML Vial IV.PUSH PRN (10:51)
[2018-09-06 12:51] VITALS: BP 162/76; PULSE 90; RESP 18; TEMP 98
--- NOTE | 2018-09-06 14:02 | P.PNID ---
Subjective Remarks: Patient states she feels okay. No distress. No fever. Wound culture has no growth. This is a 73-year-old white female who is known to me from prior hospitalization. The patient has had chronic wounds of the left leg. She was treated for the wounds in April. She received a course of antibiotics for Pseudomonas for a wound, which was located in the left groin. The patient has had a wound at the left heel, which is not healing. PAST MEDICAL HISTORY: Depression, hypertension, fibromyalgia, hypercholesterolemia, peripheral arterial disease, history of carotid endarterectomy, femoral popliteal bypass surgery, history of CVA, spinal fusion. Allergies/Adverse Reactions: Allergies No Known Allergies Allergy (Verified 07/05/18 20:36) Objective Vital Signs 09/05/18 16:00 09/05/18 20:00 09/06/18 00:00 Temperature 97.9 F 98.3 F 98.4 F Pulse Rate 84 84 85 Respiratory Rate 16 20 20 Blood Pressure 157/76 H 118/59 L 136/83 Pulse Oximetry 100 95 97 09/06/18 08:00 09/06/18 12:00 Temperature 97.9 F 98.0 F Pulse Rate 83 90 Respiratory Rate 14 18 Blood Pressure 153/69 H 162/76 H Pulse Oximetry 93 L 93 L Intake & Output 09/05/18 09/06/18 09/06/18 18:59 06:59 18:59 Intake Total 2970 / 2970 590 / 590 100 / 100 Balance 2970 / 2970 590 / 590 100 / 100 Weight 79.8 kg Intake: IV 450 / 450 350 / 350 100 / 100 Merrem Inj 1,000 MG In NS Inj 200 / 200 100 / 100 100 / 100 100 ML @ 200 mls/hr IV.SIG Q8H LANE Rx#:[id number] Vancomycin Inj 1,000 MG In NS 250 / 250 250 / 250 Inj 250 ML @ 250 mls/hr IV.SIG Q18H LANE Rx#:[id number] Oral 2520 / 2520 240 / 240 Other: # Voids 10 4 Date of Last Bowel Movement 09/05/18 09/05/18 # Bowel Movements 1 09/04/18 17:20 Wound - Foot Gram Stain - Final 09/04/18 17:20 Wound - Foot Wound Culture - Preliminary Moderate growth normal skin hali No anaerobes isolated Lab - Hematology Results 09/06/18 08:12 WBC 6.2 RBC 4.40 Hgb 12.4 Hct 37.4 MCV 85.1 MCH 28.1 MCHC 33.0 RDW 16.9 Plt Count 399 MPV 6.2 L Neut % (Auto) 66.6 Lymph % (Auto) 24.1 [place] % (Auto) 5.5 Eos % (Auto) 3.0 Baso % (Auto) 0.8 Neut # (Auto) 4.1 Lymph # (Auto) 1.5 [place] # (Auto) 0.3 Eos # (Auto) 0.2 Baso # (Auto) 0.0 WBC Differential . Differential Comment Auto diff final Lab - Chemistry Results 09/06/18 08:12 Sodium 140 Potassium 3.9 Chloride 105 Carbon Dioxide 27.1 Anion Gap 8 BUN 10 Creatinine 0.71 Estimated GFR 81 L Random Glucose 97 Calcium 8.8 Phosphorus 2.6 Magnesium 1.9 Total Bilirubin 0.2 AST 15 ALT 17 Alkaline Phosphatase 94 Total Protein 7.8 Albumin 3.2 L TSH 2.230 Free T4 0.84 Physical Exam: PHYSICAL EXAMINATION: GENERAL: Patient in no acute distress. HEENT: Head atraumatic. Extraocular movements grossly intact. Pupils reactive to light. No icterus. Oropharynx moist mucosa without lesions. NECK: Supple, no adenopathy. LUNGS: Clear breath sounds bilaterally, which are diminished at the bases. HEART: Regular S1, S2, without murmurs, rubs or gallops. ABDOMEN: Bowel sounds present. Soft, nontender. EXTREMITIES: The left heel has open wound which is clean. Tendons exposed. No drainage. Left inner tibia has a clean ulcerated wound without drainage or erythema. NEUROLOGIC: Nonfocal. PSYCHIATRIC: Calm and cooperative. Assessment and Plan - Plan IMPRESSION: 1. Open nonhealing wound of the left heel. Culture is negative. 2. Patient with history of peripheral arterial disease. 3. Diabetes mellitus. RECOMMENDATIONS: Stop vancomycin. Stop meropenem. No need for attenuation of antibiotics. Patient needs wound care. She can be discharged from ID standpoint.
--- NOTE | 2018-09-06 14:10 | P.PNIM ---
Subjective Interval history: Chief Complaint: Left leg non healing wound History of Present Illness: 73-year-old female with a history of PVD, hypertension, diabetes, anxiety, depression, neuropathy was a transfer from [facility] for evaluation of chronic lower leg wounds and to be evaluated by vascular surgery. Patient was originally admitted for an open wound to the left lower leg and sepsis. In April patient had a femoropopliteal surgery with Dr. Briggs and has a chronic nonhealing wound to her left posterior ankle ever since. She states after her surgery they wrapped her entire leg with an Tung wrap and she developed some irritation behind her left ankle and then she was injured with an IV pole that had hit the back of her ankle and open the wound and she has had gradual worsening of the wound ever since. She also has a wound on the upper inner calf that is non healing as well. 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 She denies any chest pain, sob, fever or chills. She states the pain to the left leg is a constant burning 6/10, worse with movement and radiation up her leg, pain is better with medication. 09-[address] BRIGGS - NO PROCEDURES OR SURGERY OFFERED CONSULT ID AM LABS RHETT RN AND PT AND CM WANTS DIFFERENT PO PAIN MEDS 09-05 AWAIT CULTURES AND CLEARANCE FROM ID MAY NEED MORE ANTIBIOTICS AT DC RHETT ROGER AND PATIENT AND CM CLEARED BY DR BRIGGS FOR DC ALREADY AM LABS ON MERREM AND VANCO 09-06 CLEARED BY ID AND VASCULAR DC TO HOME WITH [facility]OUND [facility] PAIN CONTROL DC TO HOME TODAY SEE E-FORCSE CM FOR DC Physical Exam Vital signs: Vital Signs 09/05/18 16:00 09/05/18 20:00 09/06/18 00:00 Temperature 97.9 F 98.3 F 98.4 F Pulse Rate 84 84 85 Respiratory Rate 16 20 20 Blood Pressure 157/76 H 118/59 L 136/83 Pulse Oximetry 100 95 97 09/06/18 08:00 09/06/18 12:00 Temperature 97.9 F 98.0 F Pulse Rate 83 90 Respiratory Rate 14 18 Blood Pressure 153/69 H 162/76 H Pulse Oximetry 93 L 93 L Intake & Output 09/05/18 09/06/18 09/06/18 18:59 06:59 18:59 Intake Total 2970 / 2970 590 / 590 100 / 100 Balance 2970 / 2970 590 / 590 100 / 100 Weight 79.8 kg Intake: IV 450 / 450 350 / 350 100 / 100 Merrem Inj 1,000 MG In NS Inj 200 / 200 100 / 100 100 / 100 100 ML @ 200 mls/hr IV.SIG Q8H LANE Rx#:[id number] Vancomycin Inj 1,000 MG In NS 250 / 250 250 / 250 Inj 250 ML @ 250 mls/hr IV.SIG Q18H LANE Rx#:[id number] Oral 2520 / 2520 240 / 240 Other: # Voids 10 4 Date of Last Bowel Movement 09/05/18 09/05/18 # Bowel Movements 1 Narrative: GENERAL: This is a well-nourished, well-developed patient, in no apparent distress. SKIN: Posterior left ankle wound and inner left upper calf wound, DRESSING IN PLACE EYES: Pupils equal round and reactive, no scleral edema or drainage CARDIOVASCULAR: Regular rate and rhythm without murmurs, gallops, or rubs. RESPIRATORY: Clear to auscultation. Breath sounds equal bilaterally. No wheezes , rales, or rhonchi. GASTROINTESTINAL: Abdomen soft, non-tender, nondistended. Normal active bowel sounds MUSCULOSKELETAL: Extremities without clubbing, cyanosis, or edema. NEURO: Alert & Oriented x4 to person, place, time, situation. Moves all ext x4 Results - Labs CBC & Chem 7: 09/06/18 08:12 09/06/18 08:12 Laboratory Results - last 24 hr 09/06/18 09/06/18 08:12 08:12 WBC 6.2 RBC 4.40 Hgb 12.4 Hct 37.4 MCV 85.1 MCH 28.1 MCHC 33.0 RDW 16.9 Plt Count 399 MPV 6.2 L Neut % (Auto) 66.6 Lymph % (Auto) 24.1 [place] % (Auto) 5.5 Eos % (Auto) 3.0 Baso % (Auto) 0.8 Neut # (Auto) 4.1 Lymph # (Auto) 1.5 [place] # (Auto) 0.3 Eos # (Auto) 0.2 Baso # (Auto) 0.0 WBC Differential . Differential Comment Auto diff final Sodium 140 Potassium 3.9 Chloride 105 Carbon Dioxide 27.1 Anion Gap 8 BUN 10 Creatinine 0.71 Estimated GFR 81 L Random Glucose 97 Calcium 8.8 Phosphorus 2.6 Magnesium 1.9 Total Bilirubin 0.2 AST 15 ALT 17 Alkaline Phosphatase 94 Total Protein 7.8 Albumin 3.2 L TSH 2.230 Free T4 0.84 Microbiology 09/04/18 17:20 Wound - Foot Gram Stain - Final 09/04/18 17:20 Wound - Foot Wound Culture - Preliminary Moderate growth normal skin hali No anaerobes isolated - Procedures NONE Assessment and Plan - Plan 73-year-old female with a history of PVD, hypertension, anxiety, depression, neuropathy was a transfer from [facility] for evaluation of chronic lower leg wounds and to be evaluated by vascular surgery. Nonhealing left upper leg ulcer, and nonhealing left ankle wound, due to fem pop surgery and severe pvd wound culture at [facility] was growing positive cocci in pairs and gram- positive rods -Continue IV antibiotics meropenem and vancomycin -Consult vascular surgery patient to be evaluated by Dr. Briggs--HE DID NOT OFFER PROCEDURES AT THIS TIME -Pain management with p.o. [place], and IV Dilaudid -Consult ID for evaluation- STOP ANTIBIOTICS PER ID -Follow up on wound culture -Continue wound CARE -Continue home gabapentin Hypertension, chronic -Resume home medications, monitor vitals Depression -Resume home medication CHRONIC PAIN WANTS PO PAIN MEDS- ADJUST PO PAIN MEDS DVT prophylaxis: SCDs on noninfected leg DC TO HOME TODAY WITH PO PAIN MEDS DW RN AND PT AND CM AND ID Code Status: FULL CODE Discussed Condition With: RN AND PT AND CM AND ID Discharge Planning: DC TO HOME WITH [facility] FOR WOUND CARE
--- NOTE | 2018-09-06 14:23 | P.DS ---
Date of admission: 09/03/18 20:12 Primary care physician: Alex Taylor MD Attending physician on discharge: Adonis Kearns Anticipated date of discharge: 09/06/18 Brief History from admission: 73-year-old female with a history of PVD, hypertension, diabetes, anxiety, depression, neuropathy was a transfer from [facility] for evaluation of chronic lower leg wounds and to be evaluated by vascular surgery. Patient was originally admitted for an open wound to the left lower leg and sepsis. In April patient had a femoropopliteal surgery with Dr. Briggs and has a chronic nonhealing wound to her left posterior ankle ever since. She states after her surgery they wrapped her entire leg with an Tung wrap and she developed some irritation behind her left ankle and then she was injured with an IV pole that had hit the back of her ankle and open the wound and she has had gradual worsening of the wound ever since. She also has a wound on the upper inner calf that is non healing as well. 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 She denies any chest pain, sob, fever or chills. She states the pain to the left leg is a constant burning 6/10, worse with movement and radiation up her leg, pain is better with medication. Patient update on day of discharge: Chief Complaint: Left leg non healing wound History of Present Illness: 73-year-old female with a history of PVD, hypertension, diabetes, anxiety, depression, neuropathy was a transfer from [facility] for evaluation of chronic lower leg wounds and to be evaluated by vascular surgery. Patient was originally admitted for an open wound to the left lower leg and sepsis. In April patient had a femoropopliteal surgery with Dr. Briggs and has a chronic nonhealing wound to her left posterior ankle ever since. She states after her surgery they wrapped her entire leg with an Tung wrap and she developed some irritation behind her left ankle and then she was injured with an IV pole that had hit the back of her ankle and open the wound and she has had gradual worsening of the wound ever since. She also has a wound on the upper inner calf that is non healing as well. 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 She denies any chest pain, sob, fever or chills. She states the pain to the left leg is a constant burning 6/10, worse with movement and radiation up her leg, pain is better with medication. 09-[address] BRIGGS - NO PROCEDURES OR SURGERY OFFERED CONSULT ID AM LABS RHETT RN AND PT AND CM WANTS DIFFERENT PO PAIN MEDS 09-05 AWAIT CULTURES AND CLEARANCE FROM ID MAY NEED MORE ANTIBIOTICS AT DC RHETT RN AND PATIENT AND CM CLEARED BY DR BRIGGS FOR DC ALREADY AM LABS ON MERREM AND VANCO 09-06 CLEARED BY ID AND VASCULAR DC TO HOME WITH [facility]OUND [facility] PAIN CONTROL DC TO HOME TODAY SEE E-FORCSE CM FOR DC DS: Diagnosis - Discharge Diagnosis (1) Chronic wound of extremity Status: Chronic (2) PAD (peripheral artery disease) Status: Chronic (3) Postoperative wound dehiscence Status: Chronic DS: Medications - Discharge Medications Prescriptions: alprazolam [Xanax] 0.25 mg PO Q6H PRN #30 tab PRN Reason: Anxiety amlodipine 10 mg PO HS #30 tab cyclobenzaprine 10 mg PO TID PRN #90 tab PRN Reason: muscle spasms famotidine 20 mg PO HS #30 tab fluoxetine [Prozac] 60 mg PO DAILY #90 cap furosemide 20 mg PO DAILY PRN #30 tab PRN Reason: Edema gabapentin 1,200 mg PO TID #180 tab oxycodone-acetaminophen 1 tab PO Q4H PRN #20 tab PRN Reason: Pain Scale 6 To 10 temazepam 15 mg PO HS PRN #30 cap PRN Reason: Insomnia DS: Summary Hospital Course: Chief Complaint: Left leg non healing wound History of Present Illness: 73-year-old female with a history of PVD, hypertension, diabetes, anxiety, depression, neuropathy was a transfer from [facility] for evaluation of chronic lower leg wounds and to be evaluated by vascular surgery. Patient was originally admitted for an open wound to the left lower leg and sepsis. In April patient had a femoropopliteal surgery with Dr. Briggs and has a chronic nonhealing wound to her left posterior ankle ever since. She states after her surgery they wrapped her entire leg with an Tung wrap and she developed some irritation behind her left ankle and then she was injured with an IV pole that had hit the back of her ankle and open the wound and she has had gradual worsening of the wound ever since. She also has a wound on the upper inner calf that is non healing as well. 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 She denies any chest pain, sob, fever or chills. She states the pain to the left leg is a constant burning 6/10, worse with movement and radiation up her leg, pain is better with medication. 09-[address] BRIGGS - NO PROCEDURES OR SURGERY OFFERED CONSULT ID AM LABS DW RN AND PT AND CM WANTS DIFFERENT PO PAIN MEDS 09-05 AWAIT CULTURES AND CLEARANCE FROM ID MAY NEED MORE ANTIBIOTICS AT DC RHETT RN AND PATIENT AND CM CLEARED BY DR BRIGGS FOR DC ALREADY AM LABS ON MERREM AND VANCO 09-06 CLEARED BY ID AND VASCULAR DC TO HOME WITH [facility] PAIN CONTROL DC TO HOME TODAY SEE E-FORCSE CM FOR DC E-FORCSE Prescription Drug Monitoring Database has been queried and verified prior to prescribing the controlled substance. Acute pain exception. This patient has normal, predicted, physiological, and time limited response to an adverse mechanical stimulus associated with surgery, trauma, or acute illness as described in my notes. There is a lack of alternative treatment options other than to include the prescribed narcotic treatment for this condition. - Time Spent with Patient Total time spent providing and/or coordinating discharge services: Greater than 30 minutes - Quality: VTE Deep Vein Thrombosis/Pulmonary Embolism Present on Admission: No Exam Vital signs: Vital Signs 09/05/18 16:00 09/05/18 20:00 09/06/18 00:00 Temperature 97.9 F 98.3 F 98.4 F Pulse Rate 84 84 85 Respiratory Rate 16 20 20 Blood Pressure 157/76 H 118/59 L 136/83 Pulse Oximetry 100 95 97 09/06/18 08:00 09/06/18 12:00 Temperature 97.9 F 98.0 F Pulse Rate 83 90 Respiratory Rate 14 18 Blood Pressure 153/69 H 162/76 H Pulse Oximetry 93 L 93 L Intake & Output 09/05/18 09/06/18 09/06/18 18:59 06:59 18:59 Intake Total 2970 / 2970 590 / 590 100 / 100 Balance 2970 / 2970 590 / 590 100 / 100 Weight 79.8 kg Intake: IV 450 / 450 350 / 350 100 / 100 Merrem Inj 1,000 MG In NS Inj 200 / 200 100 / 100 100 / 100 100 ML @ 200 mls/hr IV.SIG Q8H LANE Rx#:[id number] Vancomycin Inj 1,000 MG In NS 250 / 250 250 / 250 Inj 250 ML @ 250 mls/hr IV.SIG Q18H LANE Rx#:[id number] Oral 2520 / 2520 240 / 240 Other: # Voids 10 4 Date of Last Bowel Movement 09/05/18 09/05/18 # Bowel Movements 1 Narrative: GENERAL: This is a well-nourished, well-developed patient, in no apparent distress. SKIN: Posterior left ankle wound and inner left upper calf wound, DRESSING IN PLACE EYES: Pupils equal round and reactive, no scleral edema or drainage CARDIOVASCULAR: Regular rate and rhythm without murmurs, gallops, or rubs. RESPIRATORY: Clear to auscultation. Breath sounds equal bilaterally. No wheezes , rales, or rhonchi. GASTROINTESTINAL: Abdomen soft, non-tender, nondistended. Normal active bowel sounds MUSCULOSKELETAL: Extremities without clubbing, cyanosis, or edema. NEURO: Alert & Oriented x4 to person, place, time, situation. Moves all ext x4 Results Procedures completed during hospitalization: NONE Completed studies during hospitalization: Laboratory Results WBC 6.2 th/mm3 (4.0-11.0) 09/06/18 08:12 RBC 4.40 mil/mm3 (4.00-5.30) 09/06/18 08:12 Hgb 12.4 gm/dL (11.6-15.3) 09/06/18 08:12 Hct 37.4 % (35.0-46.0) 09/06/18 08:12 MCV 85.1 fL (80.0-100.0) 09/06/18 08:12 MCH 28.1 pg (27.0-34.0) 09/06/18 08:12 MCHC 33.0 % (32.0-36.0) 09/06/18 08:12 RDW 16.9 % (11.6-17.2) 09/06/18 08:12 Plt Count 399 th/mm3 (150-450) 09/06/18 08:12 MPV 6.2 fL (7.0-11.0) L 09/06/18 08:12 Neut % (Auto) 66.6 % (16.0-70.0) 09/06/18 08:12 Lymph % (Auto) 24.1 % (9.0-44.0) 09/06/18 08:12 [place] % (Auto) 5.5 % (0.0-8.0) 09/06/18 08:12 Eos % (Auto) 3.0 % (0.0-4.0) 09/06/18 08:12 Baso % (Auto) 0.8 % (0.0-2.0) 09/06/18 08:12 Neut # (Auto) 4.1 th/mm3 (1.8-7.7) 09/06/18 08:12 Lymph # (Auto) 1.5 th/mm3 (1.0-4.8) 09/06/18 08:12 [place] # (Auto) 0.3 th/mm3 (0.0-0.9) 09/06/18 08:12 Eos # (Auto) 0.2 th/mm3 (0.0-0.4) 09/06/18 08:12 Baso # (Auto) 0.0 th/mm3 (0.0-0.2) 09/06/18 08:12 WBC Differential . 09/06/18 08:12 Differential Comment Auto diff final 09/06/18 08:12 Sodium 140 meq/L (136-145) 09/06/18 08:12 Potassium 3.9 meq/L (3.5-5.1) 09/06/18 08:12 Chloride 105 meq/L (98-107) 09/06/18 08:12 Carbon Dioxide 27.1 meq/L (21.0-32.0) 09/06/18 08:12 Anion Gap 8 meq/L (5-15) 09/06/18 08:12 BUN 10 mg/dL (7-18) 09/06/18 08:12 Creatinine 0.71 mg/dL (0.50-1.00) 09/06/18 08:12 Estimated GFR 81 mL/min (>89) L 09/06/18 08:12 Random Glucose 97 mg/dL (74-106) 09/06/18 08:12 Calcium 8.8 mg/dL (8.5-10.1) 09/06/18 08:12 Phosphorus 2.6 mg/dL (2.5-4.9) 09/06/18 08:12 Magnesium 1.9 mg/dL (1.5-2.5) 09/06/18 08:12 Total Bilirubin 0.2 mg/dL (0.2-1.0) 09/06/18 08:12 AST 15 U/L (15-37) 09/06/18 08:12 ALT 17 U/L (10-53) 09/06/18 08:12 Alkaline Phosphatase 94 U/L (45-117) 09/06/18 08:12 Total Protein 7.8 g/dL (6.4-8.2) 09/06/18 08:12 Albumin 3.2 g/dL (3.4-5.0) L 09/06/18 08:12 TSH 2.230 uIU/mL (0.358-3.740) 09/06/18 08:12 Free T4 0.84 ng/dL (0.76-1.46) 09/06/18 08:12 Labs on day of discharge: Labs from last 24 hours 09/06/18 09/06/18 09/06/18 08:12 08:12 08:12 WBC 6.2 RBC 4.40 Hgb 12.4 Hct 37.4 MCV 85.1 MCH 28.1 MCHC 33.0 RDW 16.9 Plt Count 399 MPV 6.2 L Neut % (Auto) 66.6 Lymph % (Auto) 24.1 [place] % (Auto) 5.5 Eos % (Auto) 3.0 Baso % (Auto) 0.8 Neut # (Auto) 4.1 Lymph # (Auto) 1.5 [place] # (Auto) 0.3 Eos # (Auto) 0.2 Baso # (Auto) 0.0 WBC Differential . Differential Comment Auto diff final Sodium 140 Potassium 3.9 Chloride 105 Carbon Dioxide 27.1 Anion Gap 8 BUN 10 Creatinine 0.71 Estimated GFR 81 L Random Glucose 97 Hemoglobin A1c Pending Calcium 8.8 Phosphorus 2.6 Magnesium 1.9 Total Bilirubin 0.2 AST 15 ALT 17 Alkaline Phosphatase 94 Total Protein 7.8 Albumin 3.2 L TSH 2.230 Free T4 0.84 Preliminary micro results at discharge 09/04/18 17:20 Wound Culture - Preliminary Wound - Foot Moderate growth normal skin hali No anaerobes isolated Discharge Plan - Discharge Disposition Patient Disposition: W/Home Health Service - Discharge Condition Condition: Good - Discharge Order Discharge Orders: Discharge Order (Routine); Ordered 09/06/18 Ordered By: Adonis Kearns Vascular Surgery Clear for Discharge (Routine); Ordered 09/04/18 Ordered By: Les Briggs - Discharge Details Anticipated Discharge Date: 09/06/18 Discharge Comment: DC TO HOME WITH [facility] - Physicians Team Primary Care Provider: Alex Taylor Attending Provider: Adonis Kearns Other Providers: Ivan Leal MD ; Les Briggs MD - Rxs /Orders / Referrals /Forms Prescriptions: New famotidine 20 mg Tablet 20 mg PO HS Qty: 30 RF: 0 oxycodone-acetaminophen 10-325 mg Tablet 1 tab PO Q4H PRN (Reason: Pain Scale 6 To 10) Qty: 20 RF: 0 Continue alprazolam [Xanax] 0.25 mg Tablet 0.25 mg PO Q6H PRN (Reason: Anxiety) Qty: 30 RF: 0 amlodipine 10 mg Tablet 10 mg PO HS Qty: 30 cyclobenzaprine 10 mg Tablet 10 mg PO TID PRN (Reason: muscle spasms) Qty: 90 fluoxetine [Prozac] 20 mg Capsule 60 mg PO DAILY Qty: 90 furosemide 20 mg Tablet 20 mg PO DAILY PRN (Reason: Edema) Qty: 30 RF: 0 gabapentin 600 mg Tablet 1,200 mg PO TID Qty: 180 temazepam 15 mg Capsule 15 mg PO HS PRN (Reason: Insomnia) Qty: 30 RF: 0 Discontinued alprazolam [Xanax] 0.25 mg Tablet 0.25 mg PO BID oxycodone-acetaminophen 10-325 mg Tablet 1 tab PO Q4H PRN (Reason: Pain Scale 6 To 10) Qty: 20 RF: 0 Referrals: Alex Taylor MD [Primary Care Provider] - See Instructions (2 TO 3 DAYS) Primary Care Rayna Gusman [Family Provider] - See Instructions (2 TO 3 DAYS) Les Briggs MD [Physician] - See Instructions (Your surveillance ANKTI is scheduled on 09/23/18 at 10:30 Your follow up appointment is scheduled on 09/24/18 at 10:00)
--- NOTE | 2018-09-06 14:32 | P.DCO ---
- Diagnosis (1) PAD (peripheral artery disease) Status: Chronic (2) Postoperative wound dehiscence Status: Chronic (3) Chronic wound of extremity Status: Chronic - Physical Therapy Order: Evaluate and treat, Improve ambulation, Strength and gait training - Home Health Nursing Order: Medical education, Medication education-adverse effect, Wound care and dressing changes, Nursing assessment with vital signs - Home Health Aide Order: To assist in: Bathing and personal care, recovery coordinator and meal prep - Case Management Consult Yes - Certification I have seen patient Micheline Overton on 09/06/18. My clinical findings support the need for the requested home health care services because: Limited mobility due to disease progression, Medication compliance is questionable, Limited ability to care for self, Need for psychosocial assistance , Impaired cognition/judgement I certify that my clinical findings support that this patient is homebound because: Impaired cognitive ability/safety, Unsteady gait/balance, Unsafe to leave home unassisted (2) Postoperative wound dehiscence Qualifiers: Encounter type: subsequent encounter Qualified Code(s): T81.31XD - Disruption of external operation (surgical) wound, not elsewhere classified, subsequent encounter
[2018-09-06] MEDS ORDERED: HYDROmorphone PF Inj 1 MG/ML Ampul IV.PUSH PRN (15:30)
--- NOTE | 2018-09-06 16:59 | P.DCO ---
- Diagnosis (1) PAD (peripheral artery disease) Status: Chronic - Home Health Nursing Order: Wound care and dressing changes (Apply Santyl daily to your L LE wound / then apply a sterile 4x4 then kerlix then tape ) Instructions: Apply Santyl daily to your L LE wound Then apply a sterile 4x4 then Kerlix then tape Change daily - Case Management Consult Yes - Certification I have seen patient Micheline Overton on 09/06/18. My clinical findings support the need for the requested home health care services because:pt will need out pt wound care management for best outcome and optimal wound healing Need for psychosocial assistance I certify that my clinical findings support that this patient is homebound because:pt will need out pt wound care management for best outcome and optimal wound healing Post-op weakness
== END 2018-09-06 16:57 | disposition home health service (06) ==
LOC: N07 20:12
PROVIDERS: ADMIT Hospitalist; ATTEND Hospitalist